=== PATIENT | female | born 1965 | race Caucasian/White ===

== ENCOUNTER → 2016-09-17 | Outpatient (REF) | payer BC ==
[2016-09-17 11:22] LABS: BASO % 0.6 % (0.0-1.0); EOS # 0.2 K/mm3 (0.0-0.50); EOS % 3.5 % (0.0-3.0); LARGE UNSTAINED CELL # 0.1 K/mm3 (0.0-0.4); LYMPH # 1.5 K/mm3 (1.5-4.5); LYMPH % 21.6 % (24.0-44.0); MEAN CORPUSCULAR HEMOGLOBIN 28.8 pg (27.0-33.0); MEAN CORPUSCULAR HGB CONC 33.1 g/dl (32.0-36.5); MEAN CORPUSCULAR VOLUME 86.9 fl (80.0-96.0); MONO # 0.2 K/mm3 (0.0-0.8); MONO % 2.6 % (0.0-5.0); NEUTROPHILS % 70.8 % (36.0-66.0); PLATELET COUNT, AUTOMATED 272 k/mm3 (150-450); WHITE BLOOD COUNT 7.1 K/mm3 (4.0-10.0)
[2016-09-17 12:00] LABS: ALBUMIN 3.9 GM/DL (3.2-5.2); ALBUMIN/GLOBULIN RATIO 1.15 (1.00-1.93); ALKALINE PHOSPHATASE 64 U/L (45-117); ALT/SGPT 21 U/L (12-78); ANION GAP 10 MEQ/L (8-16); AST/SGOT 4 U/L (15-37); BILIRUBIN,TOTAL 0.2 MG/DL (0.2-1.0); BLOOD UREA NITROGEN 16 MG/DL (7-18); CALCIUM LEVEL 9.2 MG/DL (8.5-10.1); CARBON DIOXIDE LEVEL 25 MEQ/L (21-32); CHLORIDE LEVEL 108 MEQ/L (98-107); CREATININE FOR GFR 0.99 MG/DL (0.55-1.02); GLOMERULAR FILTRATION RATE > 60.0 (>51); GLUCOSE, FASTING 92 MG/DL (70-105); POTASSIUM SERUM 4.3 MEQ/L (3.5-5.1); SODIUM LEVEL 143 MEQ/L (136-145); THYROXINE (T4) 8.9 UG/DL (4.5-12.0); TOTAL PROTEIN 7.3 GM/DL (6.4-8.2)
== END ==
LOC: M SFHCCLAY 09:19
PROVIDERS: ATTEND Family Medicine
DX: J01.00 Acute maxillary sinusitis, unspecified (principal); R05 Cough; I10 Essential (primary) hypertension; R22.1 Localized swelling, mass and lump, neck

== ENCOUNTER → 2016-10-11 | Outpatient (CLI) | payer BC ==
--- NOTE | 2016-10-12 00:15 | ECWPNPC ---
PATIENT NAME: TONE NELSON : 1965 GENDER: FEMALE VISIT DATE: 10/11/2016 DISCHARGE DATE: 10/11/16 1105 VISIT LOCKED DATE TIME: PHYSICIAN: WEN MCCORD RESOURCE: WEN MCCORD REASON FOR APPOINTMENT 1. BACK HISTORY OF PRESENT ILLNESS NEW PATIENT CONSULT: 50 Y/O HERE PER REFERRAL OF [facility] FOR LOW BACK PAIN.ATTENDING PT 2X WEEK THAT JUST BEGAN.LONG HISTORY OF LOW BACK PAIN.PAIN IS AGGREVATED BY PROLONGED SITTING OR STANDING.USING TENS UNIT WITH SOME TEMPORARY RELIEF. WHEN DID YOUR PAIN FIRST START? . BRIEFLY DESCRIBE HOW YOUR PAIN STARTED? . HOW DOES YOUR PAIN CHANGE WITH TIME? . DOES YOUR PAIN AWAKEN YOU FROM SLEEP? . HOW MANY HOURS OF SLEEP DO YOU NORMALLY GET? . ANY DIAGNOSTIC TESTING? . FACILITY WHERE TESTS WERE DONE? ____. PAIN TREATMENT TREATMENT YES CANCER HAVE YOU EVER HAD ANY TYPE OF CANCER?NO NO. PAIN SCREENING: PATIENT HAS A COMPLAINT OF ACUTE OR CHRONIC PAIN YES FALL RISK SCREENING: SCREENING :NO FALLS IN THE PAST YEAR [place] INVENTORY: QUESTIONNAIRE ASSESSEDTBD SCORE VALUE CALCULATED TBD CURRENT MEDICATIONS TAKING ASPIR-81 81 MG TABLET DELAYED RELEASE 1 TABLET ORALLY ONCE A DAY TAKING MELATONIN 3 MG TABLET 1 TABLET AT BEDTIME NEEDED WITH FOOD ORALLY ONCE A DAY TAKING SPIRONOLACTONE 25 MG TABLET 1 TABLET ORALLY ONCE A DAY TAKING LISINOPRIL 10 MG TABLET 1 TABLET ORALLY ONCE A DAY TAKING SYMBICORT 160-4.5 MCG/ACT AEROSOL 2 PUFFS INHALATION TWICE A DAY TAKING BACLOFEN 10 MG TABLET 1 TABLET WITH FOOD OR MILK ORALLY THREE TIMES A DAY TAKING AMITRIPTYLINE HCL 25 MG TABLET 1 TABLET ORALLY ONCE A DAY TAKING SUMATRIPTAN SUCCINATE 100 MG TABLET 1 TABLET NEEDED ONCE A DAY ORALLY 90 DAYS TAKING DICLOFENAC SODIUM 25 MG TABLET DELAYED RELEASE 1 TABLET ORALLY TWICE A DAY TAKING PANTOPRAZOLE SODIUM 40 MG TABLET DELAYED RELEASE 1 TABLET ORALLY ONCE A DAY TAKING POTASSIUM CHLORIDE CR 20 MEQ TABLET EXTENDED RELEASE 1 TABLET WITH FOOD ORALLY ONCE A DAY TAKING VENTOLIN HFA 108 (90 BASE) MCG/ACT AEROSOL SOLUTION 2 PUFFS NEEDED INHALATION EVERY 4 HRS NOT-TAKING VITAMIN B 12 500 MCG LOZENGE 2 LOZENGES ORALLY ONCE A DAY DISCONTINUED NYSTATIN [id number] U/ML SUSPENSION RECONSTITUTED 1 TSP MOUTH/THROAT FOUR TIMES A DAY DISCONTINUED AMOXICILLIN-POT CLAVULANATE 875-125 MG TABLET 1 TABLET ORALLY EVERY 12 HRS MEDICATION LIST REVIEWED AND RECONCILED WITH THE PATIENT PAST MEDICAL HISTORY ASTHMA HTN NECK PAIN LUMBAGO MITRAL VALVE PROLAPSE GERD HYPERLIPIDEMIA CKD STAGE II LUPUS ALLERGIES SULFACET: HIVES: ALLERGY TOPIRAMATE: SHAKING: ALLERGY GABAPENTIN: SHAKING: ALLERGY SURGICAL HISTORY T&A 1975 CHOLECYSTECTOMY 1985 TUBAL LIGATION 1986 HYSTERECTOMY 2010 CERVICAL 4-7 DISC REPLACEMENT/FUSION 2014 CERVICAL 3 DISC REPLACEMENT 2016 FAMILY HISTORY FATHER: MOTHER: ALIVE, DIAGNOSED WITH DIABETES, HYPERTENSION, STROKE 2 SON(S) - HEALTHY. SOCIAL HISTORY GENERAL: TOBACCO USE ARE YOU A:CURRENT SMOKER HOW OFTEN DO YOU SMOKE CIGARETTES?EVERY DAY PATIENT COUNSELED ON THE DANGERS OF TOBACCO USE AND URGED TO QUIT:10/11/2016 ARE YOU INTERESTED IN QUITTING?THINKING ABOUT QUITTING COUNSELED THE PATIENT ON SMOKING CESSATION, EDUCATION [id number]/2017 ALCOHOL SCREENING POINTS3 INTERPRETATIONPOSITIVE RECREATIONAL DRUG USE DRUG USE?NO CAFFEINE CAFFEINE USE?YES HOW OFTEN AND HOW MUCH? 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 DIET: REGULAR. EXERCISE: IN PT. MARITAL STATUS: . OTHERS AT HOME: SPOUSE AND NIECE WITH DOWN'S SYNDROME. RASTAFARI: NONE. LEARNING BARRIERS / SPECIAL NEEDS VISION IMPAIRED?YES :CORRECTIVE LENSES LEARNING PREFERENCES?YES :DEMONSTRATION/VERBAL INSTRUCTION MEDICATION ABUSE NO PSYCHOLOGICAL HX TREATMENTNO PAIN CLINIC PFS, CLERGY, PUBLIC HEALTH REFERRALS CLERGY REFERRAL NEEDED?NO WAS THE PROVIDER NOTIFIED OF ANY PERTINENT INFO?NO PFS REFERRAL NEEDED?NO PUBLIC HEALTH REFERRAL NEEDED?NO PATIENT: ____. ADVANCED DIRECTIVES HEALTH CARE PROXY?YES NAME OF HCP RASTA NELSON CONTACT # FOR HCP [phone] IF YES, DO YOU HAVE A COPY WITH YOU? 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 HOSPITALIZATION/MAJOR DIAGNOSTIC PROCEDURE PNEUMONIA 2016 SEE ABOVE SURGERIES REVIEW OF SYSTEMS CONSTITUTIONAL: RECENT ILLNESS DENIES . ANY CHANGE IN YOUR MEDICAL CONDITION? NO . CHILLS NO . FEVER NO, DENIES . WEIGHT LOSS DENIES . INFECTION: DO YOU HAVE NEW INFECTIONS? NO . DO YOU HAVE HISTORY OF MRSA? NO . MUSCULOSKELETAL: ANY NEW PATTERNS OF PAIN OR NUMBNESS? NO . SYTEMIC LUPUS YES . JOINT PAIN DENIES . JOINT STIFFNESS DENIES . GASTROENTEROLOGY: BOWEL INCONTINENCE DENIES . ANY NEW CHANGE IN BOWEL CONTROL? NO . BARRETTS ESOPHAGUS YES . CIRRHOSIS NO . HEPATITIS NO . LIVER FAILURE NO . ACID REFLUX YES . BLOOD IN STOOL DENIES . UNEXPLAINED WEIGHT LOSS NO . GENITOURINARY: ANY NEW CHANGE IN BLADDER CONTROL? NO . IS THERE A CHANCE YOU COULD BE ? NO . HEMATOLOGY/LYMPH: DENIES . BLEEDING DISORDER DENIES . DO YOU TAKE ANY BLOOD THINNERS? (FOR EXAMPLE- COUMADIN, PLAVIX, AGGRENOX, PLATEL, PRADAXA, OR XARELTO) NO . WHEN WAS YOUR LAST DOSE? DATE: TIME: . LOW PLATELET COUNT NO . SICKLE CELL DISEASE NO . VON WILLIEBRANDS NO . FACTOR V LEIDEN NO . THALLASEMIA NO . ANEMIA YES . EASY BRUISING YES, ON ASPIRIN . NEUROLOGY: HAVE YOU FALLEN IN THE PAST 6 MONTHS? NO . ANY NEW EXTREMITY NUMBNESS OR WEAKNESS? NO . HEAD INJURY NO . DEMENTIA NO . CEREBRAL PALSY NO . MULTIPLE SCLEROSIS NO . DIZZINESS INTERMITTENT, LIGHTHEADED SENSATION, WHILE GETTING UP FROM SITTING POSITION . HEADACHE INTERMITTENT, DENIES . SEIZURES DENIES . STROKES YES ? TIA . VERTIGO NO . CARDIOLOGY: DO YOU HAVE A PACEMAKER OR DEFIBRILLATOR? NO . ANGINA NO . HEART ATTACK NO . HEART SURGERY NO . CONGESTIVE HEART FAILURE/FLUID OVERLOAD NO . CHEST PAIN NO, DENIES . HIGH BLOOD PRESSURE ON MEDICATION(S) . IRREGULAR HEART BEAT NO . SHORTNESS OF BREATH DENIES . RESPIRATORY: HAVE YOU BEEN SICK IN THE PAST WEEK? YES URI 1 WEEK AGO . FEVER NO . FLU LIKE SYMPTOMS? NO . CPAP NO . BYPAP NO . ASTHMA YES . EMPHYSEMA NO . CHRONIC LUNG DISEASES YES COPD . SHORTNESS OF BREATH ON EXERTION YES . DO YOU USE ANY TYPE OF TOBACCO (SMOKE, SMOKELESS, CHEW)? YES 1/2 PPD . COUGH YES, NON-PRODUCTIVE, DENIES . SHORTNESS OF BREATH DENIES . SNORING NO . INTEGUMENTARY: DO YOU HAVE ANY RASHES OR OPEN SORES? NO . ALLERGIC/IMMUNO: ARE YOU ALLERGIC TO SHELLFISH OR IV DYE? NO . ANY NEW ALLERGIES? NO . PSYCHIATRIC: DO YOU HAVE THOUGHTS OF HURTING YOURSELF OR SOMEONE ELSE? NO . ARE YOU ABUSED, NEGLECTED, OR IN AN UNSAFE ENVIRONMENT? NO . ENDOCRINOLOGY: THYROID DISEASE DENIES . ARE YOU DIABETIC? NO . DIABETES DENIES . THYROID DISORDER NO . OTHER: DO YOU NEED ANY PRESCRIPTIONS? NO . IF YES, PLEASE LIST: ____ . ANY NEW PROBLEMS WITH YOUR MEDICATIONS? NO . WHEN DID YOU LAST EAT? ____ . WHEN DID YOU LAST DRINK? ____ . WHAT DID YOU LAST DRINK? ____ . NAME OF PERSON DRIVING YOU HOME? ____ . DO YOU HAVE ANY OTHER QUESTIONS OR CONCERNS NO . HEENT: CHANGE IN VISION DENIES . LOSS OF HEARING DENIES . TROUBLE SWALLOWING DENIES . PSYCHOLOGY: ANXIETY DENIES . DEPRESSION DENIES . UROLOGY: URINARY INCONTINENCE DENIES . BLOOD IN URINE DENIES . REVIEWED BY: PROVIDER: WEN MCKAY . VITAL SIGNS WT 259.8 LBS, HT 63 IN, BMI 46.02 INDEX, BP 146/83 MM HG, HR 79 /MIN, RR 16 /MIN, TEMP 98.5 F, OXYGEN SAT % 100, NA INITIALS TL 0945, REVIEWED BY: MLF. EXAMINATION GENERAL EXAMINATION: HEENT:HEAD:, NORMOCEPHALIC, EYES:, EYES NORMAL, NOSE:, NOSE CLEAR, THROAT: NORMAL. LUNGS:LUNG SOUNDS ARE CLEAR. HEART:HEART RATE REGULAR. ABDOMEN:SOFT AND NOT TENDER, NON-DISTENDED. MUSCULOSKELETAL:*. LUMBAR SACRAL SPINEMUSCLE STRENGTH TESTING 5/5 BILATERAL LOWER EXTREMITIES. PALPATION: NEGATIVE FOR PAIN OVER L/S SPINE. POSITIVE FOR PAIN OVER L/S PARASPINALS.SPECIFIC POINT TENDERNESS OVER LUMBAR FACET JOINTS BILAT.. THORACIC SPINENEGATIVE FOR PAIN WITH PALPATION OF THORACIC SPINE. NEGATIVE FOR PAIN WITH PALPATION OF THORACIC PARASPINAL. CERVICALNEGATIVE FOR PAIN WITH PALPATION OF CERVICAL SPINE. NEGATIVE FOR PAIN WITH PALPATION OF CERVICAL PARASPINALS. NEGATIVE FOR PAIN WITH PALPATION OF TRAPEZIUS BILAT. SKIN:NORMAL, NO RASH. NEUROLOGIC EXAM:ALERT AND ORIENTED X 3, DTRS 1-2+ IN ALL 4 EXTREMITIES, DENIES UPPER EXTREMETIES SENSORY LOSS, DENIES LOWER EXTREMETIES SENSORY LOSS. DIAGNOSTIC:MRI L/S [id number].. ASSESSMENTS LUMBAR FACET ARTHROPATHY - M12.88 (PRIMARY) TREATMENT LUMBAR FACET ARTHROPATHY INJECTION FACET JOINT/NERVE LUMBAR/SACRAL NOTES: FACET JOINT INJECTION: YOUR EXPERIENCE MATERIAL WAS PRINTED. OTHERS CLINICAL NOTES:. PROCEDURE CODES FA211 ESTABILISHED PATIENT [facility] FACILITY CHARGE DISPOSITION & COMMUNICATION FOLLOW UP 2WK POST (REASON: BILAT. L3/4-L5/S1 THERAPEUTIC FACET BLOCK) ELECTRONICALLY SIGNED BY NELY MCCATRNEY ON 10/11/2016 AT 12:21 PM EST DISCLAIMER : THIS IS A VISIT SUMMARY EXTRACTED FROM THE [employer] CHART. IT IS NOT A COPY OF THE [employer] PROGRESS NOTE. NIRAV
== END ==
LOC: M PAIN 09:40
PROVIDERS: ATTEND Nurse Practitioner Family
DX: Z09 Encounter for follow-up examination after completed treatment for conditions other than malignant neoplasm (principal); G89.29 Other chronic pain; M12.88 Other specific arthropathies, not elsewhere classified, other specified site; I12.9 Hypertensive chronic kidney disease with stage 1 through stage 4 chronic kidney disease, or unspecified chronic kidney disease; N18.2 Chronic kidney disease, stage 2 (mild); J45.909 Unspecified asthma, uncomplicated; K21.9 Gastro-esophageal reflux disease without esophagitis; E78.5 Hyperlipidemia, unspecified; M54.5 Low back pain; I34.1 Nonrheumatic mitral (valve) prolapse; D68.62 Lupus anticoagulant syndrome; Z79.899 Other long term (current) drug therapy; Z79.82 Long term (current) use of aspirin; Z88.1 Allergy status to other antibiotic agents; Z88.8 Allergy status to other drugs, medicaments and biological substances

== ENCOUNTER → 2016-12-16 | Outpatient (CLI) | payer BC ==
--- NOTE | 2016-12-16 23:20 | ECWPNPC ---
PATIENT NAME: TONE NELSON : 1965 GENDER: FEMALE VISIT DATE: 12/16/2016 DISCHARGE DATE: 12/16/16 1005 VISIT LOCKED DATE TIME: PHYSICIAN: WEN MCCORD RESOURCE: WEN MCCORD HISTORY OF PRESENT ILLNESS HISTORY OF PRESENT ILLNESS: HERE FOR F/U AND MANAGEMENT OF CHRONIC LOW BACK PAIN.COMPLAINING OF BILATERAL LEG BURNING ,NUMBNESS AND TINGLING.THIS BEGAN 2 YEARS AGO AND HAS BEEN MORE PRONOUNCEDTHIS PAST YEAR. LUMBAR FACET LOCKS-THERAPEUTIC ,HAVE BEEN DENIED.FOLLOWING CLOSELY WITH DR. ALVAREZ FOR LOW BACK PAIN .HISTORY OF 2 NECK FUSIONS FIRST IN 2014 AND SECOND 2015.RATING PAIN VAS 5/10. PAIN THE PATIENT DESCRIBES THE PAIN... FALL RISK SCREENING: SCREENING :NO FALLS IN THE PAST YEAR CURRENT MEDICATIONS TAKING ASPIR-81 81 MG TABLET DELAYED RELEASE 1 TABLET ORALLY ONCE A DAY TAKING MELATONIN 3 MG TABLET 1 TABLET AT BEDTIME NEEDED WITH FOOD ORALLY ONCE A DAY TAKING SPIRONOLACTONE 25 MG TABLET 1 TABLET ORALLY ONCE A DAY TAKING LISINOPRIL 10 MG TABLET 1 TABLET ORALLY ONCE A DAY TAKING SYMBICORT 160-4.5 MCG/ACT AEROSOL 2 PUFFS INHALATION TWICE A DAY TAKING BACLOFEN 10 MG TABLET 1 TABLET WITH FOOD OR MILK ORALLY THREE TIMES A DAY TAKING AMITRIPTYLINE HCL 25 MG TABLET 1 TABLET ORALLY ONCE A DAY TAKING SUMATRIPTAN SUCCINATE 100 MG TABLET 1 TABLET NEEDED ONCE A DAY ORALLY 90 DAYS TAKING DICLOFENAC SODIUM 25 MG TABLET DELAYED RELEASE 1 TABLET ORALLY TWICE A DAY TAKING POTASSIUM CHLORIDE CR 20 MEQ TABLET EXTENDED RELEASE 1 TABLET WITH FOOD ORALLY ONCE A DAY TAKING VENTOLIN HFA 108 (90 BASE) MCG/ACT AEROSOL SOLUTION 2 PUFFS NEEDED INHALATION EVERY 4 HRS TAKING PANTOPRAZOLE SODIUM 40 MG TABLET DELAYED RELEASE 1 TABLET ORALLY ONCE A DAY TAKING MAGNESIUM 65 MG TABLET 1 TABLET ORALLY ONCE A DAY NOT-TAKING VITAMIN B 12 500 MCG LOZENGE 2 LOZENGES ORALLY ONCE A DAY PAST MEDICAL HISTORY ASTHMA HTN NECK PAIN LUMBAGO MITRAL VALVE PROLAPSE GERD HYPERLIPIDEMIA CKD STAGE III LUPUS ALLERGIES SULFACET: HIVES: ALLERGY TOPIRAMATE: SHAKING: ALLERGY GABAPENTIN: SHAKING: ALLERGY SOCIAL HISTORY GENERAL: TOBACCO USE ARE YOU A:CURRENT SMOKER HOW MANY CIGARETTES A DAY DO YOU SMOKE?6-10 HOW SOON AFTER YOU WAKE UP DO YOU SMOKE YOUR FIRST CIGARETTE?6-30 MIN HOW OFTEN DO YOU SMOKE CIGARETTES?EVERY DAY PATIENT COUNSELED ON THE DANGERS OF TOBACCO USE AND URGED TO QUIT:12/16/2016 ARE YOU INTERESTED IN QUITTING?THINKING ABOUT QUITTING CUTTING DOWN PREVIOUS QUIT ATTEMPTS?YES, MORE THAN 6 MONTHS AGO. COUNSELED THE PATIENT ON SMOKING CESSATION, EDUCATION [id number]/24/2017 PAIN CLINIC PFS, CLERGY, PUBLIC HEALTH REFERRALS CLERGY REFERRAL NEEDED?NO WAS THE PROVIDER NOTIFIED OF ANY PERTINENT INFO?NO PFS REFERRAL NEEDED?NO PUBLIC HEALTH REFERRAL NEEDED?NO PATIENT: ____. REVIEW OF SYSTEMS CONSTITUTIONAL: ANY CHANGE IN YOUR MEDICAL CONDITION? NO . RECENT ILLNESS DENIES . CHILLS NO . FEVER NO . WEIGHT LOSS DENIES . INFECTION: DO YOU HAVE NEW INFECTIONS? NO . DO YOU HAVE HISTORY OF MRSA? NO . MUSCULOSKELETAL: ANY NEW PATTERNS OF PAIN OR NUMBNESS? NO . GASTROENTEROLOGY: ANY NEW CHANGE IN BOWEL CONTROL? YES, CONSTIPATION IS WORSE . GENITOURINARY: ANY NEW CHANGE IN BLADDER CONTROL? YES, URINATES LESS FREQUENTLY--STAGE 3 KIDNEY DISEASE . IS THERE A CHANCE YOU COULD BE ? NO . HEMATOLOGY/LYMPH: DO YOU TAKE ANY BLOOD THINNERS? (FOR EXAMPLE- COUMADIN, PLAVIX, AGGRENOX, PLATEL, PRADAXA, OR XARELTO) NO . WHEN WAS YOUR LAST DOSE? DATE: TIME: . NEUROLOGY: HAVE YOU FALLEN IN THE PAST 6 MONTHS? NO . ANY NEW EXTREMITY NUMBNESS OR WEAKNESS? NO . CARDIOLOGY: DO YOU HAVE A PACEMAKER OR DEFIBRILLATOR? NO . CHEST PAIN DENIES . SHORTNESS OF BREATH DENIES . RESPIRATORY: HAVE YOU BEEN SICK IN THE PAST WEEK? NO . FEVER NO . FLU LIKE SYMPTOMS? NO . COUGH NO, DENIES . SHORTNESS OF BREATH DENIES . INTEGUMENTARY: DO YOU HAVE ANY RASHES OR OPEN SORES? YES, SMALL SCAB RIGHT ARM FROM WHERE SHE SCRATCHED IT ON A BRANCH . ALLERGIC/IMMUNO: ARE YOU ALLERGIC TO SHELLFISH OR IV DYE? NO . ANY NEW ALLERGIES? NO . PSYCHIATRIC: DO YOU HAVE THOUGHTS OF HURTING YOURSELF OR SOMEONE ELSE? NO . ARE YOU ABUSED, NEGLECTED, OR IN AN UNSAFE ENVIRONMENT? NO . ENDOCRINOLOGY: ARE YOU DIABETIC? NO . OTHER: DO YOU NEED ANY PRESCRIPTIONS? NO . IF YES, PLEASE LIST: ____ . ANY NEW PROBLEMS WITH YOUR MEDICATIONS? NO . WHEN DID YOU LAST EAT? ____ . WHEN DID YOU LAST DRINK? ____ . WHAT DID YOU LAST DRINK? ____ . NAME OF PERSON DRIVING YOU HOME? ____ . DO YOU HAVE ANY OTHER QUESTIONS OR CONCERNS NO . REVIEWED BY: PROVIDER: WEN MCKAY . VITAL SIGNS WT 158.8 LBS, HT 63 IN, BMI 28.13 INDEX, BP 145/68 MM HG, HR 93 /MIN, RR 16 /MIN, TEMP 98.7 F, OXYGEN SAT % 97%, NA INITIALS SC 09:19, REVIEWED BY: AD. EXAMINATION GENERAL EXAMINATION: LUNGS:LUNG SOUNDS ARE CLEAR. HEART:HEART RATE REGULAR. MUSCULOSKELETAL:*, MUSCLE STRENGTH TESTING 5/5 BILATERAL, PALPATION: NEGATIVE FOR PAIN OVER L/S SPINE. NEGATIVE FOR PAIN OVER L/S PARSPINALS. DIAGNOSTIC:MRI L/S SPINE 02-09-16-REVIEWED. ASSESSMENTS LUMBAR FACET ARTHROPATHY - M12.88 (PRIMARY) NEUROPATHY - G62.9 TREATMENT LUMBAR FACET ARTHROPATHY START CYMBALTA CAPSULE DELAYED RELEASE PARTICLES, 30 MG, 1 CAPSULE, ORALLY, ONCE A DAY, 30 DAY(S), 30 CAPSULE, REFILLS 2 PREVENTIVE MEDICINE PAIN CLINIC TEACHING: MEDICATIONS PRINTED INFORMATION ON CYMBALTA GIVEN TO AND REVIEWED WITH PT. AND SHE VERBALIZED UNDERSTANDING. AD. PROCEDURE CODES FA211 ESTABILISHED PATIENT [facility] CHARGE DISPOSITION & COMMUNICATION FOLLOW UP 6 WEEKS ELECTRONICALLY SIGNED BY NELY MCCARTNEY ON 12/16/2016 AT 11:11 AM EDT DISCLAIMER : THIS IS A VISIT SUMMARY EXTRACTED FROM THE [employer] CHART. IT IS NOT A COPY OF THE [employer] PROGRESS NOTE. NIRAV
== END ==
LOC: M PAIN 09:20
PROVIDERS: ATTEND Nurse Practitioner Family
DX: G89.29 Other chronic pain (principal); M54.5 Low back pain; M12.88 Other specific arthropathies, not elsewhere classified, other specified site; G62.9 Polyneuropathy, unspecified; J45.909 Unspecified asthma, uncomplicated; I12.9 Hypertensive chronic kidney disease with stage 1 through stage 4 chronic kidney disease, or unspecified chronic kidney disease; N18.3 Chronic kidney disease, stage 3 (moderate); K21.9 Gastro-esophageal reflux disease without esophagitis; E78.5 Hyperlipidemia, unspecified; M32.9 Systemic lupus erythematosus, unspecified; F17.200 Nicotine dependence, unspecified, uncomplicated; Z88.2 Allergy status to sulfonamides; K59.00 Constipation, unspecified; Z79.82 Long term (current) use of aspirin; Z79.899 Other long term (current) drug therapy

== ENCOUNTER → 2016-12-17 | Outpatient (REF) | payer BC ==
[2016-12-17 19:12] LABS: CALCIUM LEVEL 9.4 MG/DL (8.5-10.1); CREATININE FOR GFR 1.24 MG/DL (0.55-1.02); GLOMERULAR FILTRATION RATE 48.2 (>51)
== END ==
LOC: M SFHCCLAY 11:20
PROVIDERS: ATTEND Family Medicine
DX: N18.3 Chronic kidney disease, stage 3 (moderate) (principal)

== ENCOUNTER → 2016-12-23 | Outpatient (CLI) | payer BC ==
--- NOTE | 2016-12-23 12:35 | REP ---
MR LUMBAR SPINE WITHOUT CONTRAST: HISTORY: Back pain. COMPARISON: 02/09/2016 Decreased signal intensity on T2-weighted images is present in the L4-5 and L5-S1 intervertebral discs. The discs are decreased in height. These findings are consistent with disc degeneration. There is no disc bulge or herniation at the L1-2, L2-3 and L5-S1 levels. There is hypertrophy of the posterior articulating facets at the L5-S1 level. The nerves exit the neural foramina without compression. A diffuse disc bulge is present at the L3-4 level. There is minimal compression of the thecal sac. The L3 nerves exit the neural foramina without compression. A diffuse disc bulge is present at the L4-5 level. There is hypertrophy of the ligamenta flava and posterior articulating facets. These findings produce minimal central canal stenosis. The previously noted small posterior cystic structure is not seen. The L4 nerves exit the neural foramina without compression. The conus medullaris is normal in appearance terminating at level of the T12-L1 intervertebral discs. Normal signal intensity is present in the lumbar vertebral bodies. IMPRESSION: 1. Diffuse disc bulge at the L3-4 level with minimal thecal sac compression. 2. Minimal central canal stenosis at the L4-5 level secondary to disc bulge ligamentous and facet hypertrophy. There is no significant change compared to the previous study. Signed by Aly Nunez MD 12/23/2016 12:38 P
== END ==
LOC: M RAD 10:46
PROVIDERS: ATTEND Orthopaedic Surgery
DX: M51.26 Other intervertebral disc displacement, lumbar region (principal)

== ENCOUNTER → 2017-01-27 | Outpatient (CLI) | payer BC ==
--- NOTE | 2017-01-28 01:50 | ECWPNPC ---
PATIENT NAME: TONE NELSON : 1965 GENDER: FEMALE VISIT DATE: 01/27/2017 DISCHARGE DATE: 01/27/17931 VISIT LOCKED DATE TIME: PHYSICIAN: WEN MCCORD RESOURCE: WEN MCCORD REASON FOR APPOINTMENT 1. LOW BACK HISTORY OF PRESENT ILLNESS HISTORY OF PRESENT ILLNESS: HERE FOR F/U AND MANAGEMENT OF CHRONIC LOW BACK PAIN.COMPLAINING OF BILATERAL LEG BURNING ,NUMBNESS AND TINGLING.THIS BEGAN 2 YEARS AGO AND HAS BEEN MORE PRONOUNCEDTHIS PAST YEAR. LUMBAR FACET LOCKS-THERAPEUTIC ,HAVE BEEN DENIED.FOLLOWING CLOSELY WITH DR. ALVAREZ FOR LOW BACK PAIN .HISTORY OF 2 NECK FUSIONS FIRST IN 2014 AND SECOND 2015.RATING PAIN VAS 4/10. PAIN THE PATIENT DESCRIBES THE PAIN... THE PATIENT DESCRIBES THE PAIN... FALL RISK SCREENING: SCREENING :NO FALLS IN THE PAST YEAR CURRENT MEDICATIONS TAKING ASPIR-81 81 MG TABLET DELAYED RELEASE 1 TABLET ORALLY ONCE A DAY TAKING MELATONIN 3 MG TABLET 1 TABLET AT BEDTIME NEEDED WITH FOOD ORALLY ONCE A DAY TAKING SPIRONOLACTONE 25 MG TABLET 1 TABLET ORALLY ONCE A DAY TAKING LISINOPRIL 10 MG TABLET 1 TABLET ORALLY ONCE A DAY TAKING SYMBICORT 160-4.5 MCG/ACT AEROSOL 2 PUFFS INHALATION TWICE A DAY TAKING BACLOFEN 10 MG TABLET 1 TABLET WITH FOOD OR MILK ORALLY THREE TIMES A DAY TAKING SUMATRIPTAN SUCCINATE 100 MG TABLET 1 TABLET NEEDED ONCE A DAY ORALLY 90 DAYS TAKING DICLOFENAC SODIUM 25 MG TABLET DELAYED RELEASE 1 TABLET ORALLY TWICE A DAY TAKING POTASSIUM CHLORIDE CR 20 MEQ TABLET EXTENDED RELEASE 1 TABLET WITH FOOD ORALLY ONCE A DAY TAKING VENTOLIN HFA 108 (90 BASE) MCG/ACT AEROSOL SOLUTION 2 PUFFS NEEDED INHALATION EVERY 4 HRS TAKING MAGNESIUM 65 MG TABLET 1 TABLET ORALLY ONCE A DAY TAKING CYMBALTA 30 MG CAPSULE DELAYED RELEASE PARTICLES 1 CAPSULE ORALLY ONCE A DAY TAKING MOMETASONE FUROATE 50 MCG/ACT SUSPENSION 2 SPRAYS IN EACH NOSTRIL NASALLY ONCE A DAY TAKING OMEPRAZOLE 40 MG CAPSULE DELAYED RELEASE 1 CAPSULE ORALLY ONCE A DAY TAKING ONDANSETRON HCL 8 MG TABLET 1 TABLET ORALLY TWICE DAILY TAKING AMITRIPTYLINE HCL 50 MG TABLET 1 TABLET ORALLY ONCE A DAY NOT-TAKING VITAMIN B 12 500 MCG LOZENGE 2 LOZENGES ORALLY ONCE A DAY MEDICATION LIST REVIEWED AND RECONCILED WITH THE PATIENT PAST MEDICAL HISTORY ASTHMA HTN NECK PAIN LUMBAGO MITRAL VALVE PROLAPSE GERD HYPERLIPIDEMIA CKD STAGE III LUPUS ALLERGIES SULFACET: HIVES: ALLERGY TOPIRAMATE: SHAKING: ALLERGY GABAPENTIN: SHAKING: ALLERGY SURGICAL HISTORY T&A 1975 CHOLECYSTECTOMY 1986 TUBAL LIGATION 1986 HYSTERECTOMY 2010 CERVICAL 4-7 DISC REPLACEMENT/FUSION 2015 CERVICAL 3 DISC REPLACEMENT 2016 HOSPITALIZATION/MAJOR DIAGNOSTIC PROCEDURE PNEUMONIA 2016 SEE ABOVE SURGERIES REVIEW OF SYSTEMS CONSTITUTIONAL: ANY CHANGE IN YOUR MEDICAL CONDITION? NO . CHILLS NO . FEVER NO . INFECTION: DO YOU HAVE NEW INFECTIONS? NO . DO YOU HAVE HISTORY OF MRSA? NO . MUSCULOSKELETAL: ANY NEW PATTERNS OF PAIN OR NUMBNESS? NO . GASTROENTEROLOGY: ANY NEW CHANGE IN BOWEL CONTROL? YES, CONSTIPATION . GENITOURINARY: ANY NEW CHANGE IN BLADDER CONTROL? YES, KIDNEY FUNCTION DROPPING, PT STATES SHE URINATES VERY LITTLE. PT STATES DR. PETTIT IS COVERING HER FOR THIS. . IS THERE A CHANCE YOU COULD BE ? NO . HEMATOLOGY/LYMPH: DO YOU TAKE ANY BLOOD THINNERS? (FOR EXAMPLE- COUMADIN, PLAVIX, AGGRENOX, PLATEL, PRADAXA, OR XARELTO) NO . WHEN WAS YOUR LAST DOSE? DATE: TIME: . NEUROLOGY: HAVE YOU FALLEN IN THE PAST 6 MONTHS? NO . ANY NEW EXTREMITY NUMBNESS OR WEAKNESS? NO . CARDIOLOGY: DO YOU HAVE A PACEMAKER OR DEFIBRILLATOR? NO . RESPIRATORY: HAVE YOU BEEN SICK IN THE PAST WEEK? YES, COLD S/S RESOLVING . FEVER NO . FLU LIKE SYMPTOMS? NO . COUGH NO . INTEGUMENTARY: DO YOU HAVE ANY RASHES OR OPEN SORES? NO . ALLERGIC/IMMUNO: ARE YOU ALLERGIC TO SHELLFISH OR IV DYE? NO . ANY NEW ALLERGIES? NO . PSYCHIATRIC: DO YOU HAVE THOUGHTS OF HURTING YOURSELF OR SOMEONE ELSE? NO . ARE YOU ABUSED, NEGLECTED, OR IN AN UNSAFE ENVIRONMENT? NO . ENDOCRINOLOGY: ARE YOU DIABETIC? NO . OTHER: DO YOU NEED ANY PRESCRIPTIONS? NO, TO DISCUSS WITH Tiana MCCORD . IF YES, PLEASE LIST: ____ . ANY NEW PROBLEMS WITH YOUR MEDICATIONS? NO . WHEN DID YOU LAST EAT? ____ . WHEN DID YOU LAST DRINK? ____ . WHAT DID YOU LAST DRINK? ____ . NAME OF PERSON DRIVING YOU HOME? ____ . DO YOU HAVE ANY OTHER QUESTIONS OR CONCERNS NO . REVIEWED BY: PROVIDER: WEN MCKAY . VITAL SIGNS WT 151.0 LBS, HT 63 IN, BMI 26.75 INDEX, BP 124/59 MM HG, HR 89 /MIN, RR 16 /MIN, TEMP 99.5 F, OXYGEN SAT % 99%, SAFE IN ENV? (Y/N) Y, NA INITIALS TL 0859, REVIEWED BY: EM. EXAMINATION GENERAL EXAMINATION: LUNGS:LUNG SOUNDS ARE CLEAR. HEART:HEART RATE REGULAR. MUSCULOSKELETAL:*, MUSCLE STRENGTH TESTING 5/5 BILATERAL, PALPATION: NEGATIVE FOR PAIN OVER L/S SPINE. NEGATIVE FOR PAIN OVER L/S PARSPINALS. DIAGNOSTIC:MRI L/S SPINE 02-09-16-REVIEWED. ASSESSMENTS LUMBAR FACET ARTHROPATHY - M12.88 (PRIMARY) NEUROPATHY - G62.9 TREATMENT LUMBAR FACET ARTHROPATHY REFILL CYMBALTA CAPSULE DELAYED RELEASE PARTICLES, 30 MG, 1 CAPSULE, ORALLY, ONCE A DAY, 30 DAY(S), 30 CAPSULE, REFILLS 2 PROCEDURE CODES FA211 ESTABILISHED PATIENT [facility] FACILITY CHARGE DISPOSITION & COMMUNICATION FOLLOW UP 2 MONTHS ELECTRONICALLY SIGNED BY NELY MCCARTNEY ON 01/27/2017 AT 09:33 AM EDT DISCLAIMER : THIS IS A VISIT SUMMARY EXTRACTED FROM THE [facility] CHART. IT IS NOT A COPY OF THE [facility] PROGRESS NOTE. NIRAV
== END ==
LOC: M PAIN 09:00
PROVIDERS: ATTEND Nurse Practitioner Family
DX: G89.29 Other chronic pain (principal); M12.88 Other specific arthropathies, not elsewhere classified, other specified site; G62.9 Polyneuropathy, unspecified; J45.909 Unspecified asthma, uncomplicated; I12.9 Hypertensive chronic kidney disease with stage 1 through stage 4 chronic kidney disease, or unspecified chronic kidney disease; N18.3 Chronic kidney disease, stage 3 (moderate); K21.9 Gastro-esophageal reflux disease without esophagitis; E78.5 Hyperlipidemia, unspecified; M32.9 Systemic lupus erythematosus, unspecified; Z88.2 Allergy status to sulfonamides; Z88.8 Allergy status to other drugs, medicaments and biological substances; K59.00 Constipation, unspecified; Z79.82 Long term (current) use of aspirin; Z79.899 Other long term (current) drug therapy

== ENCOUNTER → 2017-02-20 | Outpatient (REF) | payer BC ==
[2017-02-20 14:09] LABS: PERCENT SATURATION 12.2 % (13.2-37.4)
== END ==
LOC: M LAB REF 13:20
PROVIDERS: ATTEND Internal Medicine Nephrology
DX: D64.9 Anemia, unspecified (principal)

== ENCOUNTER → 2017-03-04 | Outpatient (CLI) | payer BC ==
[2017-03-04 12:42] LABS: CREATININE FOR GFR 1.39 MG/DL (0.55-1.02); GLOMERULAR FILTRATION RATE 42.2 (>51)
--- NOTE | 2017-03-04 15:19 | REP ---
MR BRAIN WITHOUT AND WITH CONTRAST: HISTORY: Pineal cyst. CONTRAST: ProHance 7 mL. COMPARISON: 10/27/2015 Areas of increased signal intensity on T2-weighted images are present in the periventricular and subcortical white matter. This represents small vessel ischemic disease. There is no intraparenchymal hemorrhage, infarct, mass or midline shift. There is no abnormal enhancement. An incidental pineal cyst is present. The cyst measures 1.3 cm in transverse x 1.6 cm in AP dimensions and is unchanged in size compared to the previous study. The ventricular system is normal in appearance. There is no extracerebral collection. Mucosa thickening is present in the left sphenoid sinus. IMPRESSION: Small vessel ischemic disease. Signed by Aly Nunez MD 03/04/2017 03:24 P
== END ==
LOC: M LAB 12:03
PROVIDERS: ATTEND Neurological Surgery
DX: E34.8 Other specified endocrine disorders (principal)
CPT/HCPCS: 36415; 70553; 82565; 84520; A9576

== ENCOUNTER → 2017-03-10 | Outpatient (CLI) | payer BC ==
--- NOTE | 2017-03-10 15:06 | REP ---
Chest two views HISTORY: Cough Comparison: None The lungs are clear. The heart is normal in size. The pulmonary vasculature is normal in appearance. The bony structure is intact. IMPRESSION: No acute disease.
== END ==
LOC: M CLY 13:59
PROVIDERS: ATTEND Family Medicine
DX: R05 Cough (principal)

== ENCOUNTER → 2017-03-12 | Outpatient (REF) | payer BC ==
[2017-03-12 18:15] LABS: BASO % 0.3 % (0.0-1.0); CALCIUM LEVEL 9.5 MG/DL (8.5-10.1); CREATININE FOR GFR 1.56 MG/DL (0.55-1.02); EOS % 0.2 % (0.0-3.0); LARGE UNSTAINED CELL # 0.1 K/mm3 (0.0-0.4); LARGE UNSTAINED CELL % 0.6 % (0.0-4.0); LYMPH # 1.6 K/mm3 (1.5-4.5); MEAN CORPUSCULAR HEMOGLOBIN 30.1 pg (27.0-33.0); MEAN CORPUSCULAR HGB CONC 32.1 g/dl (32.0-36.5); MEAN CORPUSCULAR VOLUME 93.8 fl (80.0-96.0); MONO # 0.6 K/mm3 (0.0-0.8); MONO % 3.5 % (0.0-5.0); NEUTROPHILS # 15.6 K/mm3 (1.8-7.7); NEUTROPHILS % 86.5 % (36.0-66.0); PLATELET COUNT, AUTOMATED 428 k/mm3 (150-450); RED CELL DISTRIBUTION WIDTH 13.1 % (11.5-14.5)
[2017-03-12 18:16] LABS: POTASSIUM SERUM 5.3 MEQ/L (3.5-5.1)
== END ==
LOC: M SFHCCLAY 12:21
PROVIDERS: ATTEND Family Medicine
DX: E86.0 Dehydration (principal)

== ENCOUNTER → 2017-03-20 | Outpatient (REF) | payer BC ==
[2017-03-21 13:29] LABS: ALBUMIN 3.7 GM/DL (3.2-5.2); ALBUMIN/GLOBULIN RATIO 1.42 (1.00-1.93); ALKALINE PHOSPHATASE 42 U/L (45-117); ALT/SGPT 26 U/L (12-78); ANION GAP 10 MEQ/L (8-16); AST/SGOT 15 U/L (15-37); BILIRUBIN,TOTAL 0.2 MG/DL (0.2-1.0); BLOOD UREA NITROGEN 12 MG/DL (7-18); CALCIUM LEVEL 8.6 MG/DL (8.5-10.1); CARBON DIOXIDE LEVEL 29 MEQ/L (21-32); CHLORIDE LEVEL 103 MEQ/L (98-107); CREATININE FOR GFR 0.84 MG/DL (0.55-1.02); GLOMERULAR FILTRATION RATE > 60.0 (>51); GLUCOSE, FASTING 85 MG/DL (70-105); POTASSIUM SERUM 3.2 MEQ/L (3.5-5.1); SODIUM LEVEL 142 MEQ/L (136-145); TOTAL PROTEIN 6.3 GM/DL (6.4-8.2)
[2017-03-21 14:19] LABS: ADD MANUAL DIFFER YES; MEAN CORPUSCULAR HEMOGLOBIN 30.3 pg (27.0-33.0); MEAN CORPUSCULAR HGB CONC 33.4 g/dl (32.0-36.5); MEAN CORPUSCULAR VOLUME 90.7 fl (80.0-96.0); PLATELET COUNT, AUTOMATED 295 k/mm3 (150-450); RED CELL DISTRIBUTION WIDTH 13.1 % (11.5-14.5); WHITE BLOOD COUNT 9.2 K/mm3 (4.0-10.0)
[2017-03-21 14:29] LABS: BANDS 1 % (< 11); BASOPHILS 3 % (0-4); EOSINOPHILS 1 % (0-5)
[2017-03-21 15:27] LABS: ERYTHROCYTE SEDIMENTATION RATE 49 mm/hr (0-30)
== END ==
LOC: M SFHCCLAY 14:06
PROVIDERS: ATTEND Family Medicine
DX: I10 Essential (primary) hypertension (principal); R50.9 Fever, unspecified; M32.9 Systemic lupus erythematosus, unspecified; R25.1 Tremor, unspecified

== ENCOUNTER → 2017-03-20 | Outpatient (CLI) | payer BC ==
--- NOTE | 2017-03-21 01:45 | REP ---
Clinical: Cough . Comparison: 03/10/2017 . Technique: PA and lateral. Findings: The mediastinum and cardiac silhouette are normal. The lung corona are clear and without acute consolidation, effusion, or pneumothorax. The skeletal structures are intact and normal. Impression: 1. No acute cardiopulmonary process. Signed by Jona Johnson MD 03/21/2017 01:36 A
== END ==
LOC: M CLY 14:15
PROVIDERS: ATTEND Family Medicine
DX: R05 Cough (principal)

== ENCOUNTER 2017-09-15 09:04 | Outpatient (RCR) | payer BC | END 2017-09-24 | LOC: M OT 09:04 | DX: M77.11 Lateral epicondylitis, right elbow (principal) | CPT/HCPCS: 97110 ==

== ENCOUNTER → 2017-09-23 | Outpatient (REF) | payer BC ==
[2017-09-24 20:57] LABS: COMPLEMENT C3 142 MG/DL (90-180)
[2017-09-24 20:57] LABS: C REACTIVE PROTEIN QUANTITATIV 0.52 MG/DL (0.00-0.30); COMPLEMENT C4 28.6 MG/DL (10-40)
[2017-09-26 14:13] LABS: ANTI DOUBLE STRAND-DNA AB 1 IU/mL (0-9)
== END ==
LOC: M LAB REF 19:35
DX: M32.9 Systemic lupus erythematosus, unspecified (principal)
CPT/HCPCS: 86160

== ENCOUNTER 2017-10-06 10:34 | Outpatient (RCR) | payer BC | END 2017-10-22 | LOC: M OT 10:34 | DX: M77.11 Lateral epicondylitis, right elbow (principal) | CPT/HCPCS: 97110 ==

== ENCOUNTER → 2017-10-14 | Outpatient (CLI) | payer BC | LOC: M CLY 14:13 | DX: R05 Cough (principal) ==

== ENCOUNTER → 2017-10-14 | Outpatient (CLI) | payer BC | LOC: M CLY 14:29 | DX: R05 Cough (principal); R06.02 Shortness of breath | CPT/HCPCS: 71046 ==

== ENCOUNTER → 2017-11-13 | Outpatient (CLI) | payer BC ==
[2017-11-13 13:56] LABS: C REACTIVE PROTEIN QUANTITATIV 0.66 MG/DL (0.00-0.30)
[2017-11-14 14:15] LABS: ANTINUCLEAR ANTIBODIES DIRECT Negative (Negative)
[2017-11-18 08:05] LABS: PROMETHEUS IBD SNP SEE SEPARATE REPORT
[2017-11-18 08:06] LABS: PROMETHEUS IBD ANTIBODIES SEE SEPARATE REPORT
== END ==
LOC: M LAB 11:57
DX: R10.32 Left lower quadrant pain (principal); R10.31 Right lower quadrant pain; K59.1 Functional diarrhea
CPT/HCPCS: 86140

== ENCOUNTER → 2017-12-26 | Outpatient (REF) | payer BC ==
[2017-12-26 14:20] LABS: FREE T4 0.93 NG/DL (0.76-1.46)
== END ==
LOC: M LAB REF 13:25
DX: R60.0 Localized edema (principal)
CPT/HCPCS: 84443

== ENCOUNTER → 2018-02-23 | Outpatient (CLI) | payer BC | LOC: M CLY 13:54 | DX: J40 Bronchitis, not specified as acute or chronic (principal) | CPT/HCPCS: 71046 ==

== ENCOUNTER → 2018-05-07 | Outpatient (REF) | payer BC | LOC: M SFHCCLAY 16:10 | DX: G62.9 Polyneuropathy, unspecified (principal); R51 Headache; R43.2 Parageusia | CPT/HCPCS: G0463 ==

== ENCOUNTER → 2018-07-24 | Outpatient (CLI) | payer BC | LOC: M PLARAD 10:47 | DX: G62.9 Polyneuropathy, unspecified (principal); R51 Headache; R43.2 Parageusia | CPT/HCPCS: 70551 ==

== ENCOUNTER → 2018-08-26 | Outpatient (CLI) | payer BC ==
--- NOTE | 2018-09-01 11:31 | SLEEPHOME ---
DATE OF STUDY: 08/26/2018 ORDERING PROVIDER: Jerry Paniagua DO Diagnostic home sleep testing was performed due to concern for the obstructive sleep apnea syndrome in this patient with a history of excessive somnolence and nonrestorative sleep who has comorbidities of obstructive lung disease, hypertension, and fibromyalgia. For testing, a nocturnal T3 respiratory monitoring device was used. Continuous record was made of pulse, oxygen saturation, airflow, chest and abdominal strain, and body position. 9 hours and 59 minutes of data were reviewed. There were 6 hours and 39 minutes marked as time in bed. During the interval marked time in bed, there were 54 respiratory events identified of 10 seconds in duration or greater for a respiratory event index of 8.1. The events were primarily obstructive. Baseline pulse rate 71 beats per minute. Pulse rate ranged 59-92. Baseline saturation 92%. Saturations fell as low as 80%. Testing was performed in both the supine and nonsupine positions. IMPRESSION: Abnormal home sleep testing with repetitive respiratory events and oxygen desaturations to 80% with a respiratory event index of 8.1 is consistent with the obstructive sleep apnea syndrome. RECOMMENDATION: The patient should be encouraged to undergo formal sleep evaluation and in-laboratory pressure titration.
== END ==
LOC: M SLEEP HO 10:47
PROVIDERS: ATTEND Internal Medicine Pulmonary Disease
DX: R40.0 Somnolence (principal)

== ENCOUNTER → 2019-01-07 | Outpatient (REF) | payer BC ==
[2019-01-07 16:57] LABS: BASO # 0.1 10^3/uL (0.0-0.2); BASO % 0.6 % (0.0-1.0); EOS % 0.5 % (0.0-3.0); HEMATOCRIT 39.1 % (36.0-47.0); HEMOGLOBIN 12.3 g/dl (12.0-15.5); LYMPH # 1.6 10^3/uL (1.5-4.5); LYMPH % 17.6 % (24.0-44.0); MEAN CORPUSCULAR HEMOGLOBIN 28.1 pg (27.0-33.0); MEAN CORPUSCULAR HGB CONC 31.5 g/dl (32.0-36.5); MEAN CORPUSCULAR VOLUME 89.3 fl (80.0-96.0); MONO # 0.6 10^3/uL (0.0-0.8); MONO % 6.4 % (0.0-5.0); NEUTROPHILS # 6.6 10^3/uL (1.8-7.7); NEUTROPHILS % 74.4 % (36.0-66.0); PLATELET COUNT, AUTOMATED 318 10^3/uL (150-450); RED BLOOD COUNT 4.38 10^6/uL (4.00-5.40); WHITE BLOOD COUNT 8.8 10^3/uL (4.0-10.0)
[2019-01-07 17:05] LABS: ALBUMIN 3.8 GM/DL (3.2-5.2); ALT/SGPT 29 U/L (12-78); BILIRUBIN,TOTAL 0.3 MG/DL (0.2-1.0); BLOOD UREA NITROGEN 21 MG/DL (7-18); CARBON DIOXIDE LEVEL 31 MEQ/L (21-32); CHLORIDE LEVEL 104 MEQ/L (98-107); CHOLESTEROL LEVEL 192 MG/DL (<200); CREATININE FOR GFR 0.96 MG/DL (0.55-1.30); GLOMERULAR FILTRATION RATE > 60.0 (>51); GLUCOSE, FASTING 95 MG/DL (70-100); HDL CHOLESTEROL 58 MG/DL (>40); LDL CHOLESTEROL 77 MG/DL (<100); NON-HDL-C 134 MG/DL; POTASSIUM SERUM 4.2 MEQ/L (3.5-5.1); SODIUM LEVEL 140 MEQ/L (136-145); TOTAL PROTEIN 7.2 GM/DL (6.4-8.2); TRIGLYCERIDES LEVEL 284 MG/DL (<150)
== END ==
LOC: M SFHCCLAY 09:57
PROVIDERS: ATTEND Family Medicine
DX: I10 Essential (primary) hypertension (principal)

== ENCOUNTER → 2019-02-24 | Outpatient (CLI) | payer BC ==
--- NOTE | 2019-03-01 09:47 | REP ---
MRI lumbar spine without contrast: History: Low back pain. Urinary incontinence. Comparison MRI study is from December 23, 2016. Technique: Sagittal and axial T1 and T2-weighted scans are acquired in the usual fashion with and without fat saturation. Sequences include spin echo, turbo spin-echo, and STIR imaging sequences. MRI findings: Lumbar vertebral body heights are preserved. Alignment is normal. No bony destructive lesion is seen. There is a small Schmorl's node at the superior endplate of L4. Conus medullaris is normal in position and appearance at L1. No extra spinal abnormality is observed. Normal caliber aorta is seen. There is no evidence of spondylolysis or spondylolisthesis. The L1-2 disc level is unremarkable. At L2-3, there is minimal disc narrowing and diffuse disc bulging subtly indenting the ventral margin of the thecal sac. No central canal stenosis is seen. No neural foraminal compromise is appreciated. At L3-4, there is a small right foraminal disc protrusion. This contacts the exiting nerve root although there is no displacement or compression. Minimal diffuse disc bulging is seen in the remainder of the disc margin. No central canal stenosis is seen. At L4-L5 there is degenerative narrowing of the disc with diffuse disc bulging. There is moderate bilateral facet hypertrophy at L4-5. Some ligamentum flavum hypertrophy is seen. These factors contribute to mild central canal stenosis at the 4-5 level. Midline AP dimension of the thecal sac is 8.4 mm at this level. There is mild right foraminal narrowing due to facet hypertrophy and disc bulging. At L5-S1, there is moderate osteoarthritic facet hypertrophy. No central canal stenosis or focal disc protrusion is seen. Impression: Degenerative spondylosis changes at the L3-4 L4-5 and L5-S1. There is a small right foraminal disc protrusion at L3-4. There is mild central canal stenosis at L4-5 with right-sided neural foraminal narrowing at L4-5. Electronically Signed by Gold Morales MD 03/01/2019 11:57 A
== END ==
LOC: M RAD 17:29
PROVIDERS: ATTEND Physician Assistant
DX: M54.16 Radiculopathy, lumbar region (principal)

== ENCOUNTER → 2019-04-05 | Outpatient (CLI) | payer BC ==
--- NOTE | 2019-04-05 15:43 | REP ---
REASON FOR EXAM: COPD followup. COMPARISON: 02/23/2018. FINDINGS: The superior mediastinal structures are midline. The cardiac silhouette is unremarkable in size, shape, and position. The diaphragmatic surfaces of the lungs are regular, and the costophrenic angles are clear. The pulmonary corona are clear. The imaged osseous structures are intact. IMPRESSION: There is no acute cardiopulmonary disease. No significant change from the prior exam. Electronically Signed by Abelardo Buck DO 04/05/2019 04:50 P
== END ==
LOC: M SMT 14:35
PROVIDERS: ATTEND Internal Medicine Pulmonary Disease
DX: J44.1 Chronic obstructive pulmonary disease with (acute) exacerbation (principal)

== ENCOUNTER → 2019-04-06 | Outpatient (REF) | payer BC | LOC: M LAB REF 11:18 | PROVIDERS: ATTEND Internal Medicine Pulmonary Disease | DX: J44.1 Chronic obstructive pulmonary disease with (acute) exacerbation (principal) ==

== ENCOUNTER → 2019-04-15 | Outpatient (REF) | payer BC ==
[2019-04-15 17:29] LABS: BLOOD UREA NITROGEN 19 MG/DL (7-18); CALCIUM LEVEL 9.7 MG/DL (8.5-10.1); CARBON DIOXIDE LEVEL 29 MEQ/L (21-32); CHLORIDE LEVEL 104 MEQ/L (98-107); GLOMERULAR FILTRATION RATE > 60.0 (>51); GLUCOSE, FASTING 108 MG/DL (70-100); MAGNESIUM LEVEL 2.4 MG/DL (1.8-2.4); SODIUM LEVEL 140 MEQ/L (136-145)
== END ==
LOC: M SFHCCLAY 10:26
PROVIDERS: ATTEND Family Medicine
DX: I10 Essential (primary) hypertension (principal)

== ENCOUNTER → 2019-05-10 | Outpatient (REF) | payer BC ==
[2019-05-10 17:13] LABS: ALBUMIN 3.3 GM/DL (3.2-5.2); ALT/SGPT 42 U/L (12-78); BILIRUBIN,TOTAL 0.3 MG/DL (0.2-1.0); BLOOD UREA NITROGEN 13 MG/DL (7-18); CARBON DIOXIDE LEVEL 28 MEQ/L (21-32); CHLORIDE LEVEL 111 MEQ/L (98-107); CREATININE FOR GFR 0.82 MG/DL (0.55-1.30); GLOMERULAR FILTRATION RATE > 60.0 (>51); GLUCOSE, FASTING 101 MG/DL (70-100); MAGNESIUM LEVEL 1.8 MG/DL (1.8-2.4); POTASSIUM SERUM 4.2 MEQ/L (3.5-5.1); SODIUM LEVEL 143 MEQ/L (136-145); TOTAL PROTEIN 6.1 GM/DL (6.4-8.2)
[2019-05-10 17:18] LABS: BASO # 0.1 10^3/uL (0.0-0.2); BASO % 0.7 % (0.0-1.0); EOS # 0.2 10^3/uL (0.0-0.5); EOS % 3.4 % (0.0-3.0); HEMATOCRIT 37.9 % (36.0-47.0); HEMOGLOBIN 11.9 g/dl (12.0-15.5); LYMPH # 1.3 10^3/uL (1.5-5.0); LYMPH % 18.7 % (24.0-44.0); MEAN CORPUSCULAR HEMOGLOBIN 28.5 pg (27.0-33.0); MEAN CORPUSCULAR HGB CONC 31.4 g/dl (32.0-36.5); MEAN CORPUSCULAR VOLUME 90.9 fl (80.0-96.0); MONO # 0.4 10^3/uL (0.0-0.8); MONO % 5.5 % (0.0-5.0); PLATELET COUNT, AUTOMATED 249 10^3/uL (150-450); RED BLOOD COUNT 4.17 10^6/uL (4.00-5.40); WHITE BLOOD COUNT 7.1 10^3/uL (4.0-10.0)
== END ==
LOC: M SFHCCLAY 10:09
PROVIDERS: ATTEND Family Medicine
DX: R19.7 Diarrhea, unspecified (principal); I10 Essential (primary) hypertension; N18.3 Chronic kidney disease, stage 3 (moderate)

== ENCOUNTER → 2019-05-27 | Outpatient (CLI) | payer BC ==
--- NOTE | 2019-05-27 17:04 | REP ---
Maxillofacial CT study without contrast: History: Chronic pansinusitis. Comparison is made with MRI brain imaging from 24 July 2018. Findings: Digital alarm installer views are unremarkable. There is a small mucous retention cyst in the left side of the sphenoid sinus. There is a mucous retention cyst in the superior medial wall of the left maxillary sinus. Maxillary sinuses are otherwise clear. Ethmoid sinus and frontal sinuses are clear bilaterally. Mastoid aeration is normal and symmetric. Bony nasal septum deviates slightly to the right with a small beak. Ostiomeatal complexes are patent bilaterally. Nasal ethmoid recesses are unremarkable. There is no intraorbital abnormality visualized. The visualized intracranial structures are unremarkable. Impression: Mild mucosal changes in the left maxillary and left sphenoid sinuses. Mild rightward deviation of the nasal septum. Electronically Signed by Gold Morales MD 05/28/2019 08:01 A
== END ==
LOC: M RAD 15:04
PROVIDERS: ATTEND Otolaryngology
DX: J32.4 Chronic pansinusitis (principal)

== ENCOUNTER → 2019-06-22 | Outpatient (REF) | payer BC | LOC: M SFHCCLAY 09:30 | PROVIDERS: ATTEND Family Medicine | DX: R19.7 Diarrhea, unspecified (principal) ==

== ENCOUNTER → 2019-06-30 | Outpatient (REF) | payer BC | LOC: M LAB REF 13:19 → EEVIPCON 13:19 | PROVIDERS: ATTEND Physician Assistant | DX: J44.9 Chronic obstructive pulmonary disease, unspecified (principal) ==

== ENCOUNTER → 2019-10-12 | Outpatient (CLI) | payer BC ==
--- NOTE | 2019-10-12 12:56 | REP ---
Clinical: Lung screening. History smoking. Comparison: None Technique: Axial low-dose noncontrast images from the thoracic inlet to the upper abdomen using lung screening technique. Findings: The lung corona are well-aerated. Minimal lingular scarring noted. No consolidation, significant nodule or mass lesion is appreciated. No pleural effusion/reaction or pneumothorax. Tracheobronchial tree is patent. Mediastinum demonstrates mild atherosclerotic changes of the coronary arteries without cardiomegaly. Impression: Lung-RADS category I. Annual surveillance recommended. Electronically Signed by Jona Johnson MD 10/12/2019 12:46 P
== END ==
LOC: M RAD 11:12
PROVIDERS: ATTEND Internal Medicine Pulmonary Disease
DX: Z87.891 Personal history of nicotine dependence (principal)

== ENCOUNTER 2020-03-03 10:25 | Emergency (ER) | payer BC ==
[~2020-03-03] VITALS: Ht 157.5 cm; Wt 82.5 kg
[2020-03-03] MEDS ORDERED: AMIL5TAB4 PO (11:31)
[2020-03-03] MEDS ORDERED: SYMB16INH INH (11:31)
[2020-03-03] MEDS ORDERED: DIPH2.5T15 PO (11:31)
[2020-03-03] MEDS ORDERED: SPIR12.9 INH (11:31)
[2020-03-03] MEDS ORDERED: DICY20TA11 PO (11:31)
[2020-03-03] MEDS ORDERED: POTA10TA17 PO (11:31)
[2020-03-03] MEDS ORDERED: PANT40TA29 PO (11:31)
[2020-03-03] MEDS ORDERED: PREG50CA PO (11:31)
[2020-03-03] MEDS ORDERED: IRBE75TA4 PO (11:31)
[2020-03-03] MEDS ORDERED: AMIT-257 PO (11:31)
[2020-03-03] MEDS ORDERED: BACL10TA2 PO (11:31)
[2020-03-03 13:02] VITALS: BP 141/74
== END 2020-03-03 13:20 | disposition home or self-care (01) ==
LOC: M ED 10:25
DX: N81.10 Cystocele, unspecified (principal); I10 Essential (primary) hypertension; J44.9 Chronic obstructive pulmonary disease, unspecified; N18.3 Chronic kidney disease, stage 3 (moderate); F17.200 Nicotine dependence, unspecified, uncomplicated; K58.9 Irritable bowel syndrome, unspecified; Z79.899 Other long term (current) drug therapy; Z88.2 Allergy status to sulfonamides; Z88.6 Allergy status to analgesic agent; Z88.8 Allergy status to other drugs, medicaments and biological substances

== ENCOUNTER 2020-03-24 16:20 | Emergency (ER) | payer BC ==
[~2020-03-24 16:20] MED LIST: AMIL5TAB4 PO; AMIT-257 PO; BACL10TA2 PO; DICY20TA11 PO; DIPH2.5T15 PO; IRBE75TA4 PO; PANT40TA3 PO; POTA10TA17 PO; PREG50CA PO; SPIR12.9 INH; SYMB16INH INH
== END 2020-03-24 16:57 | disposition home or self-care (01) ==
LOC: M ED 16:20
DX: Z11.59 Encounter for screening for other viral diseases (principal); Z88.2 Allergy status to sulfonamides; Z88.8 Allergy status to other drugs, medicaments and biological substances; Z79.82 Long term (current) use of aspirin; Z79.899 Other long term (current) drug therapy
CPT/HCPCS: 84484; 99284; U0002

== ENCOUNTER → 2020-05-29 | Outpatient (CLI) | payer BC ==
[~2020-05-29] MED LIST changes: +PANT40TA29 PO; -PANT40TA3 PO
--- NOTE | 2020-05-29 10:40 | REPVR ---
PROCEDURE INFORMATION: Exam: MR Head Without Contrast Exam date and time: 05/29/2020 10:20 AM Age: 54 years old Clinical indication: Pain; Headache; Tension; Patient HX: Frequent persistent h/a, and blurry vision; Additional info: Daily hollis's TECHNIQUE: Imaging protocol: MR of the head without contrast. COMPARISON: MRI-Brain without Contrast 07/24/2018 11:17 AM FINDINGS: Brain: Patchy T2 prolongation in the cerebral white matter is nonspecific, but likely secondary to microvascular disease. This could also be associated with chronic headaches. White matter changes are stable. Diffusion images are normal. No evidence of acute infarction. No evidence of acute intracranial hemorrhage. No extra-axial fluid collections. Ventricles and cerebrospinal fluid spaces are normal in size and configuration for the patient's age. Again seen is 1.7 cm x 1.3 cm unchanged pineal cyst. This again mildly flattens the adjacent superior colliculus. There is no evidence of midline shift. Flow voids of the [place] and major cerebral vascular structures appear intact. Craniocervical junction appears unremarkable, with normal position of cerebellar tonsils and no evidence of Chiari I malformation. Cerebral ventricles: Normal. No ventriculomegaly. Bones/joints: Unremarkable as visualized. Paranasal sinuses: There is bubbly fluid in left sphenoid sinus. Mastoid air cells: No significant mastoid effusion. Orbits: Unremarkable as visualized. No exophthalmos or evidence of mass. Soft tissues: Unremarkable as visualized. IMPRESSION: 1. No acute intracranial finding. No acute infarct or hemorrhage. 2. White matter changes are stable as described. 3. Stable pineal cyst. 4. Left sphenoid sinus fluid. Electronically signed by: Danita Shields On 05/29/2020 10:40:17 AM
== END ==
LOC: M RAD 08:51
PROVIDERS: ATTEND Family Medicine
DX: G44.52 New daily persistent headache (NDPH) (principal); E34.8 Other specified endocrine disorders

== ENCOUNTER → 2020-06-09 | Outpatient (CLI) | payer BC ==
[~2020-06-09] MED LIST changes: +E-Z-GAS II EFFERVESCENT PACKET (SODIUM BICARB./CITRIC ACID/SIMETHICONE) As Ordered ONE; +E-Z-HD 98% w/w 340GM SUSP BTL As Ordered ONE; +E-Z-PAQUE 96% w/w SUSP 176GM BTL As Ordered ONE
--- NOTE | 2020-06-09 17:00 | REP ---
INDICATION: DYSPHAGIA, GERD TECHNIQUE: This procedure was performed by Martha Conway [facility], under the direct supervision of Dr. Morales. Images were reviewed with Dr. Morales prior to dictation. Liquid barium and gas producing crystals were given in the erect position, as well as liquid barium in the prone oblique position in order to perform a double contrast upper GI examination. FINDINGS: The enforcement safety officer film shows no organomegaly or pathological masses. The intestinal gas pattern is unremarkable. There is a fusion of C3-C7. The oral and pharyngeal stages of deglutition were unremarkable. Esophageal transport is prompt and efficient and there is no evidence of esophagitis, stricture, or mucosal ring. There is no evidence of a hiatal hernia. No gastroesophageal reflux was visualized during the exam.. IMPRESSION: 1. Unremarkable esophagram. 0.2 minutes of fluoroscopy were utilized for this exam. <Electronically signed by José Luis Morales > 06/09/20 [id number]
== END ==
LOC: M RAD 07:51
PROVIDERS: ATTEND Physician Assistant Medical
DX: R13.10 Dysphagia, unspecified (principal); K21.9 Gastro-esophageal reflux disease without esophagitis

== ENCOUNTER → 2020-08-31 | Outpatient (CLI) | payer BC ==
[~2020-08-31] MED LIST changes: +ASPI81TA26 PO; +CALC500T52 PO; -E-Z-GAS II EFFERVESCENT PACKET (SODIUM BICARB./CITRIC ACID/SIMETHICONE) As Ordered ONE; -E-Z-HD 98% w/w 340GM SUSP BTL As Ordered ONE; -E-Z-PAQUE 96% w/w SUSP 176GM BTL As Ordered ONE; +VITATAB64 PO; +VITATAB74 PO
== END ==
LOC: M LABSMTC 13:11
PROVIDERS: ATTEND Anesthesiology
DX: Z01.812 Encounter for preprocedural laboratory examination (principal); Z20.822 Contact with and (suspected) exposure to COVID-19

== ENCOUNTER 2020-09-05 10:11 | Day surgery (SDC) | payer BC ==
[~2020-09-05] VITALS: Ht 157.5 cm; Wt 73.5 kg
[~2020-09-05 10:11] MED LIST changes: +NS 1,000 ML IV ONE
--- OUTSIDE RECORDS SUMMARY | 2020-09-05 10:17 | CCD | Continuity of Care Document ---
Author Author Debbi CALIX MD Organization Unknown Address [address] [place] [address], [address] [place] [address] Phone [phone] Care Team Providers Care Integration Solution Architect Name Role Phone Jeff Saenz M.D. AUTM [phone] Jaison Santos D.O. AUTM [phone] AUTM Jerry DhillonOJacinda AUTM [phone] Problems Active Problems Provider Date Difficulty breathing Jerry Sears, D.O. Onset: 06/15/2018 Disorder of diaphragm Jerry Sears, D.O. Onset: 06/15/2018 Disturbance of consciousness Jerry Paniagua, D.O. Onset: 05/26 Nicotine dependence, cigarettes, with other nicotine-i nduced disorders Jerry Seadarrel, D.O. Onset: 06/15/2018 Chronic obstructive lung disease Jerry Paniagua, D.O. Onset: 07/15/2018 Cough Jerry Paniagua, D.O. Onset: 07/15/2018 Obstructive sleep apnea syndrome Jerrysumi Paniagua, D.O. Onset: 09/08/2018 Candidiasis of mouth Jerry Sears, D.O. Onset: 04/21/2019 Ex-smoker JAYSHREE Gould Onset: 06/30/2019 Preoperative state Jerry Paniagua, D.O. Onset: 07/27/2019 Chronic obstructive pulmonary disease with (acute) exa cerbation Jerry Sears, D.O. Onset: 07/27/2019 Disorder of tongue Jerry Sears, D.O. Onset: 11/12/2019 Social History Type Date Description Comments Sex Unknown ETOH Use 2 every 3 months Tobacco Use Start: 08/25/76 End: 06/25/19 Patient is a forme r smoker hx 1/2 ppd Smoking Status Reviewed: 06/07/20 Patient is a former smoker hx 1/2 ppd Allergies, Adverse Reactions, Alerts Active Allergies Reaction Severity Comments Date Sulfa 06/15/2018 Gabapentin 06/15/2018 Topiramate 06/15/2018 Medications Active Medications SIG Qnty Indications Ordering Provide r Date Miralax 17GM/Scoop Powder Take 17 grams by mouth once daily. 510units Jeff Cornell MD 05/18/2020 Albuterol Sulfate (2 .5mg/3ML) 0.083% Nebulizer 1 vial four times a day as needed 1080ml J44.9 Jerry molina D.OJacinda 03/08/2020 Autopap Device 4-20cm lcw Jerry Paniagua D.O. 09/22/2018 Lactulose 10GM/15ML Solution prn Unknown Baclofen 10mg Tablets tid Unknown Pantoprazole Sodium 40mg Tablets DR Daily Unknown Irbesartan 75mg Tablets 1/2 tab once daily Unknown Potassium Chloride ER 10Meq Tablet s ER Daily Unknown Vitamin B12 500mcg Tablets 1 by mouth every day Unknown Calcium/Magnesium/Zinc Daily Unknown Spiriva Respimat 2.5mcg/Act Aeroso l 2 puffs bid Unknown Symbicort 160-4.5mcg/Act Aerosol 2 puff twice a day Unknown Vitamin D3 50mcg (2000 Ut) Capsule s 1 by mouth every day Unknown Lyrica 75mg Capsules 1 by mouth three times a day Unknown Ondansetron HCL 8mg Tablets a s needed Unknown Sumatriptan Succinate 100mg Tablet s as needed Unknown Mometasone Furoate 50mcg/Act Suspe nsion 1 intranasal puffs every day Unknown Ventolin HFA 108(90Base) mcg/Act A erosol 2 puffs qid/prn 24gm Kandy WilsonOJacinda Aspirin 81mg Tablets 1 by mouth every day Unknown Amitriptyline HCL 50mg Tablets 50 mg by mouth every day Unknown Amiloride HCL 5mg Tablets 2 tab by mouth every day Unknown History Medications Albuterol Sulfate (2 .5mg/3ML) 0.083% Nebulizer use 1 vial in nebulizer 4 times daily - and as needed 360ml J44.9 Jerry Paniagua D.O. 03/06/2020 - 03/24/2020 Immunizations Description No Information Available Vital Signs Date Vital Result Comment 07/17/2020 11:11am Body Temperature 96.8 F Height 62 inches 5'2" Weight 160.00 lb BMI (Body Mass Index) 29.3 kg/m2 [place] Body Weight 110 lb Weight 72.576 kg BSA (Body Surface Area) 1.74 m2 06/07/2020 1:49pm BP Systolic 126 mmHg BP Diastolic 72 mmHg Heart Rate 89 /min O2 % BldC Oximetry 95 % Body Temperature 97.4 F Height 62.25 inches 5'2.25" Weight 166.00 lb BMI (Body Mass Index) 30.1 kg/m2 [place] Body Weight 110 lb Weight 75.298 kg BSA (Body Surface Area) 1.77 m2 Results Test Acquired Date Facility Test Result H/L Range Note FVL/[place] 03/06/2020 [facility] SEE IMAGE FVC-Pred 3.23 L FVC-Pre 2.38 L FVC-%Pred-Pre 73 L FVC-LLN 2.57 L Fev1-Pred 2.52 L Fev1-Pre 1.82 L Fev1-%Pred-Pre 72 L Fev1-LLN 1.96 L Fev6-Pred 3.12 L Fev6-Pre 2.38 L Fev6-%Pred-Pre 76 L Fev6-LLN 2.47 L Qoe3cas-Fztk 79 % Smd6mqb-Iwr 76 % Pgn2ywk-%Pred-Pre 96 % Wsx3ick-LWQ 69 % Xob0hgr-Xppf 97 % Glq5ytj-Pvz 100 % Lsp7mkv-%Pred-Pre 103 % FEFMax-Pred 6.27 L/E/sec FEFMax-Pre 4.95 L/E/sec FEFMax-%Pred-Pre 78 L/E/sec FEFMax-LLN 4.63 L/E/sec Yyn6742-Nnaf 2.43 L/E/sec Dlq2535-Dpq 1.52 L/E/sec Cyu9753-%Pred-Pre 62 L/E/sec Ojc1402-XVN 1.25 L/E/sec ExpTime-Pre 5.84 sec Oop5qrk0-Jfry 81 % Tmk6tdm2-Ume 76 % Iuw8gku9-%Pred-Pre 93 % Rtr6ahm5-OMD 73 % Procedures Date Code Description Status 07/17/202096965 Inject Tendon/Ligament Completed 06/07/2020 11554 Spirometry Completed 03/06/2020 11423 Spirometry Completed Medical Devices Description No Information Available Encounters Type Date Location Provider Dx Diagnosis Office Visit 07/17/2020 11:00a [facility] Orthopedics Jeremy Calix MD M65.311 Trigger thumb, right thumb Office Visit 06/07/2020 2:00p [facility] Pulmonary/Thoracic JAYSHREE Gould J44.9 Chronic obstructive pulmonary disease, u nspecified 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 Z87.891 Personal history of nicotine dependence G47.33 Obstructive sleep apnea (belkis lt) (pediatric) Z01.811 Encounter for preprocedural respiratory examination Office Visit 04/27/2020 3:00p [facility]GI [facility] Nicci Borrego, RPA-C K21.9 Gastro-esophageal reflux dis ease without esophagitis R13.10 Dysphagia, unspecified R05 Cough R19.8 Oth symptoms and signs invol ving the dgstv sys and abdomen R14.0 Abdominal distension (gaseou s) Office Visit 03/06/2020 8:30a [facility] Pulmonary/Thoracic Jerry molina DJuan J J44.9 Chronic obstructive pulmonary disease, u nspecified R05 Cough 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 Z87.891 Personal history of nicotine dependence G47.33 Obstructive sleep apnea (belkis lt) (pediatric) Assessments Date Code Description Provider 07/17/2020 M65.311 Trigger thumb, right thumb Jeremy Calix MD 06/07/2020 J44.9 Chronic obstructive lung disease JAYSHREE Gould 06/07/2020 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 JAYSHREE Spence 06/07/2020 Z87.891 Personal history of nicotine dep endence JAYSHREE Gould 06/07/2020 G47.33 Obstructive sleep apnea (adult) (pediatric) JAYSHREE Gould 06/07/2020 Z01.811 Encounter for preprocedural resp iratory examination JAYSHREE Gould 04/27/2020 K21.9 Gastro-esophageal reflux disease without esophagitis Nadia Borrego, [facility] 04/27/2020 R13.10 Dysphagia, unspecified Nadia Borrego, [facility] 04/27/2020 R05 Cough Nadia perez, [facility] 04/27/2020 R19.8 Other specified symp toms and signs involving the digestive system and abdomen Nadia Borrego, [facility] 04/27/2020 R14.0 Abdominal distension (gaseous) M aurora Ramon Salima, [facility] 03/06/2020 J44.9 Chronic obstructive lung disease Jerry Paniagua D.O. 03/06/2020 R05 Cough Jerry Paniagua, D.O. 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 03/06/2020 Z87.891 Personal history of nicotine dep endence Jerry Paniagua D.O. 03/06/2020 G47.33 Obstructive sleep apnea (adult) (pediatric) Jerry Paniagua D.O. Plan of Treatment Future Appointment(s):* 11/02/2020 9:30 am - JAYSHREE Gould at [facility] Pulmonary/Thoracic 07/17/2020 - Jeremy Calix MD* M65.311 Trigger thumb, right thumb* Follow up: * prn Functional Status Description No Information Available Mental Status Description No Information Available Referrals Refer to Reason for Referral Status Appt Date Slade Quinonez M.D. hx of reflux , chronic coug h, difficulty swallowing, Scheduled 04/27/[address] [place] [id number] [phone] Slade Quinonez M.D. reflux, chronic cough Closed 04/27/[address] [place] [address] [phone]
--- OUTSIDE RECORDS SUMMARY | 2020-09-05 10:17 | CCD ---
Author Author [facility] Organization [facility] Address Unknown Phone Unavailable Care Team Providers Care Dealer Compliance Representative Name Role Phone Jaison Santos Unavailable PROBLEMS Type Condition ICD9-CM Code HER42-PZ Code Onset Dates Condition S tatus SNOMED Code Notes Problem Hyperlipidemia E78.5 Active 87359451 Problem Asthma J45.909 Active 505853253 Problem Hypertension I10 Active 20411258 Problem CKD (chronic kidney disease) stage 3, GFR 30-59 ml/min N18.3 Active 821123397 Problem GERD (gastroesophageal reflux disease) K21.9 A ctive 332971921 Problem Neuropathy G62.9 Active 757052873 Problem Lumbar facet arthropathy M12.88 Active 1261098 08 Problem Essential hypertension I10 Active 59356459 Problem Chronic fatigue R53.82 Active 39696504 Problem Stage 3 chronic kidney disease N18.3 Active 4 54445790 Problem Constipation, unspecified constipation type K59.00 Active 03262930 Problem Altered taste R43.2 Active 990129798 Problem Irritable bowel syndrome with both constipation and diarrh ea K58.2 Active 39294329 Problem Fibromyalgia M79.7 Active 835448476 Problem COPD with acute exacerbation J44.1 Active 195 343467 Problem Chronic serous otitis media of both ears H65.23 Active 619463651 Problem Obstructive sleep apnea syndrome G47.33 Active 13565583 Problem Chronic obstructive pulmonary disease, unspecified COPD ty pe J44.9 Active 90747539 ALLERGIES Allergen (clinical drug ingredient) Drug/Non Drug Allergy do cumented on EMR Reaction Allergy Type Onset Date Status gabapentin Gabapentin([facility] Code:[address]-11) shaking Drug Allergy Active Sulfa (for allergy use only) Hives Drug Allergy Active topiramate Topiramate([facility] Code:[address]-51) shaking Drug Allergy Active ENCOUNTERS from 1965 to 2020-06-15 Encounter Location Date Provider Diagnosis [facility] [place] [address] May Jaison Santos Fibromyalgia M79.7 IMMUNIZATIONS No Information SOCIAL HISTORY Tobacco Use: Social History Observation Description Date Details (start date - stop date) Former Smoker Sex Assigned At : Social History Observation Description Sex Assigned At Unknown Audit Question Answer Notes Total Score: 2 Interpretation: Alcohol Education Language: Question Answer Notes Languages spoken: Kinyarwanda Amish: Question Answer Notes Amish 21 Bahai Domestic Violence: Question Answer Notes Status: Sexual Hx: Question Answer Notes Had sex in the last 12 months (vaginal, oral, or anal)? Yes Drug and Alcohol Question Answer Notes Total Score: 0 Interpretation: No problems reported Alcohol Screening: Question Answer Notes Did you have a drink containing alcohol in the past year? Ye s Points 1 Interpretation Negative How often did you have six or more drinks on one occas ion in the past year? Never (0 points) How many drinks did you have on a typica l day when you were drinking in the past year? 1 or 2 (0 points) How often did you have a drink containing alcohol in t he past year? Monthly or less (1 point) Tobacco Use: Question Answer Notes Are you a: former smoker Additional Findings: Tobacco User Moderate cigarette smoker (10-19 cigs/day) Smoking Cessation Information Given 06/13/2020 How long has it been since you last smoked? 1-3 months REASON FOR REFERRAL No Information VITAL SIGNS No information MEDICATIONS Medication SIG (Take, Route, Frequency, Duration) Start Date En d Date Status Torsemide 20 MG as directed Orally Once a day/prn Active Pantoprazole Sodium 40 MG TAKE 1 TABLET DAILY Active Lyrica 50 MG 1 capsule Orally-VIRI Three times a day M DD #3 Code D for 90 day(s) Active Spiriva Respimat 2.5 MCG/ACT 2 puffs Inhalation Once a day Active Pantoprazole Sodium 40MG 1 tablet orally twice daily for 90 days Active Mucinex 600 MG 1 tablet as needed Orally every 12 hrs for 30 da ys 16 Apr, 2019 Active Amitriptyline HCl 50 MG TAKE 1 TABLET DAILY Active Aspir-81 81 MG 1 tablet Orally Once a day Active Magnesium 500 MG 1 tablet with a meal Orally Once a day Active Polyethylene Glycol 3350 - as directed A ctive Lactulose 10 GM/15ML 15 ml Orally Once a day for 30 day(s) Active Ventolin HFA 108 (90 BASE) MCG/ACT 2 PUFFS NEEDED E VERY 4 HRS INHALATION 90 DAY(S) Active Symbicort 160-4.5 MCG/ACT USE 2 INHALATIONS TWICE A DAY Active Potassium Chloride ER 10 MEQ 1 tablet with food Orally Once a day Active Mometasone Furoate 50 MCG/ACT 2 sprays in each nostril Nasally Once a day Active Irbesartan 75 MG 1/2 tablet Orally at bedtime Active Ondansetron 8MG PLACE 1 TABLET ON TONGUE TWICE A DAY Active Melatonin 3 MG 1 tablet at bedtime as needed with food Orally Once a day Active Vitamin D 1000 UNIT 1 tablet Orally Once a day Active Ondansetron HCl 8 MG 1 tablet Orally twice daily/prn Active Sumatriptan Succinate 100 MG 1 TABLET NEEDED ONCE A DAY ORALLY 9 0 DAYS Active Nitroglycerin 0.4 MG Sublingual Active Baclofen 10MG 1 tablet with food or milk Orally Three times a day for 90 days Active Elbow Strap Left/Right - right- daily Daily Dx Right lateral epicondylitis Apr, Active Amiloride HCl 5 MG 1 tablet Orally bid Ac tive PROCEDURES No Information RESULTS No Results REASON FOR VISIT renewal MEDICAL (GENERAL) HISTORY Type Description Date Medical History Asthma/COPD Medical History HTN Medical History Neck pain Medical History Lumbago Medical History Mitral valve prolapse Medical History GERD Medical History Hyperlipidemia Medical History CKD stage III Surgical History T&A 1975 Surgical History Cholecystectomy 1985 Surgical History Tubal Ligation 1986 Surgical History Hysterectomy 2010 Surgical History Cervical 4-7 Disc Replacement/Fusion 201 5 Surgical History Cervical 3 disc replacement 2015 Surgical History EGD/colonoscopy 08/2017 Surgical History spinal surgery L4+5- nerve decompression - Dr Bundy 09/08/2019 Hospitalization History Pneumonia 2016 Hospitalization History see above surgeries Hospitalization History [facility],near fainting spell Hospitalization History [facility]- Palpitations,shaky 04/11/19 Goals Section No Information Health Concerns No Information MEDICAL EQUIPMENT No Information MENTAL STATUS No Information FUNCTIONAL STATUS No Information ASSESSMENTS Encounter Date Diagnosis Notes May, Fibromyalgia (ICD-10 - M79.7) PLAN OF TREATMENT Medication Medication Name Sig Start Date Stop Date Lyrica 50 MG 1 capsule Orally-VIRI Three times a day M DD #3 Code D for 90 day(s) Baclofen 10MG 1 tablet with food or milk Orally Three times a day for 90 days Pantoprazole Sodium 40MG 1 tablet orally twice daily for 90 days Next Appt Details Provider Name:Jaison Santos, 09:15:00 AM, [facility] [address] , [place], [address], Insurance Providers Payer Name Payer Address Payer Phone Insured Name Patient Relati onship to Insured Coverage Start Date [facility]age End Date [phone] [facility] JAYSHREE TORRES [facility] [id number] TONE RAMIREZ self
--- OUTSIDE RECORDS SUMMARY | 2020-09-05 10:17 | CCD | Continuity of Care Document ---
Author Author Debbi MARXOJacinda [place] [address] Phone [phone] Care Team Providers Care Blooming Mill Supervisor Name Role Phone Jeff Saenz M.D. AUTM [phone] Jaison Santos D.O. AUTM [phone] AUTM Jerry Dhillon D.O. AUTM [phone] Problems Active Problems Provider Date Difficulty breathing Jerry Marx D.O. Onset: 06/15/2018 Disorder of diaphragm Jerry Marx D.O. Onset: 06/15/2018 Disturbance of consciousness Kandy WilsonO. Onset: 05/26 Nicotine dependence, cigarettes, with other nicotine-i nduced disorders Jerry Marx D.O. Onset: 06/15/2018 Chronic obstructive lung disease Jerry Marx D.O. Onset: 07/15/2018 Cough Libertad Wilson.O. Onset: 07/15/2018 Obstructive sleep apnea syndrome Jerry Marx D.O. Onset: 09/08/2018 Candidiasis of mouth Jerry Marx D.O. Onset: 04/21/2019 Ex-smoker JAYSHREE Gould Onset: 06/30/2019 Preoperative state Libertad Wilson.O. Onset: 07/27/2019 Chronic obstructive pulmonary disease with (acute) exa cerbation eJrry Marx D.O. Onset: 07/27/2019 Disorder of tongue Jerry Marx D.O. Onset: 11/12/2019 Social History Type Date [...] day as needed 1080ml J44.9 Jerry molina DJacindaOJacinda 03/08/2020 Autopap Device 4-20cm lcw Jerry Marx D.O. 09/22/2018 Lactulose 10GM/15ML Solution prn Unknown [...] - and as needed 360ml J44.9 Jerry Marx D.O. 03/06/2020 - 03/24/2020 Immunizations Description No Information Available Vital Signs Date Vital Result Comment 06/07/2020 1:49pm BP Systolic 126 mmHg BP Diastolic 72 mmHg Heart Rate 89 /min O2 % BldC Oximetry 95 % Body Temperature 97.4 F Height 62.25 inches 5'2.25" Weight 166.00 lb BMI (Body Mass Index) 30.1 kg/m2 Jennings Body Weight 110 lb Weight 75.298 kg 04/27/2020 3:13pm BP Systolic 112 mmHg BP Diastolic 78 mmHg Height 62.25 inches 5'2.25" Weight 173.00 lb BMI (Body Mass Index) 31.4 kg/m2 [facility] Body Weight 110 lb Weight 78.473 kg Results Test Acquired Date Facility Test Result H/L Range Note FVL/[place] 03/06/2020 [facility] SEE IMAGE FVC-Pred 3.23 L FVC-Pre 2.38 L FVC-%Pred-Pre 73 L FVC-LLN 2.57 L Fev1-Pred 2.52 L Fev1-Pre 1.82 L Fev1-%Pred-Pre 72 L Fev1-LLN 1.96 L Fev6-Pred 3.12 L Fev6-Pre 2.38 L Fev6-%Pred-Pre 76 L Fev6-LLN 2.47 L Evb7sqm-Nnsi 79 % Paa6pxr-Vtl 76 % Sap9xgz-%Pred-Pre 96 % Due5elh-XKM 69 % Vce0gru-Kgzs 97 % Kos9zgu-Uvv 100 % Qfm1rff-%Pred-Pre 103 % FEFMax-Pred 6.27 L/E/sec FEFMax-Pre 4.95 L/E/sec FEFMax-%Pred-Pre 78 L/E/sec FEFMax-LLN 4.63 L/E/sec Kqh1196-Ydxh 2.43 L/E/sec Oph5028-Lqe 1.52 L/E/sec Jhc0947-%Pred-Pre 62 L/E/sec Qef2277-BFT 1.25 L/E/sec ExpTime-Pre 5.84 sec Ajw2hjs8-Rtdb 81 % Xrh7lrg2-Nkx 76 % Mfm6bsi5-%Pred-Pre 93 % Mlk7lqz4-BBT 73 % Procedures Date Code Description Status 03/06/2020 76168 Spirometry Completed Medical Devices Description No Information Available Encounters Type Date Location Provider Dx Diagnosis Office Visit 04/27/2020 3:00p [facility]NT[facility]GI [facility] Nicci ssa Tristen Salima, [facility] K21.9 Gastro-esophageal reflux dis ease without esophagitis R13.10 Dysphagia, unspecified R05 Cough R19.8 Oth symptoms and signs invol ving the dgstv sys and abdomen R14.0 Abdominal distension (gaseou s) Office Visit 03/06/2020 8:30a [facility] Pulmonary/Thoracic Jerry molina D.OJacinda J44.9 Chronic obstructive pulmonary disease, u nspecified R05 Cough 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 Z87.891 Personal history of nicotine dependence G47.33 Obstructive sleep apnea (belkis lt) (pediatric) Assessments Date Code Description Provider 04/27/2020 K21.9 Gastro-esophageal reflux disease without esophagitis Nadia Ramon Elenaaliciachris, RPA-C 04/27/2020 R13.10 Dysphagia, unspecified Nadia Ramon Elenaaliciabomarcelle, RPA-C 04/27/2020 R05 Cough Nadia Ramon Umang chris, RPA-C 04/27/2020 R19.8 Other specified symp toms and signs involving the digestive system and abdomen Nadia Ramon Elenaaliciabomarcelle, RPA-C 04/27/2020 R14.0 Abdominal distension (gaseous) M aurora Ramon Salima, RPA-C 03/06/2020 J44.9 Chronic obstructive lung disease Kandy WilsonOJacinda 03/06/2020 R05 Cough Kandy WilsonOJacinda 03/06/2020 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 Jerry chatman D.OJacinda 03/06/2020 Z87.891 Personal history of nicotine dep endence Kandy WilsonOJacinda 03/06/2020 G47.33 Obstructive sleep apnea (adult) (pediatric) Jerry Marx D.O. Plan of Treatment Future Appointment(s):* 06/29/2020 8:30 am - Jerry Marx D.O. at [facility] Pulmonary/Thoracic 04/27/2020 - Nadia Borrego RPA-C* K21.9 Gastro-esophageal reflux disease without esophagitis * R13.10 Dysphagia, unspecified * R05 Cough * R19.8 Other specified symptoms and signs involving the digestive system and abdomen * R14.0 Abdominal distension (gaseous) * * Comments:* Patient states that she had an extensive workup at Dr. Echevarria's office in [place] for these issues. A record's release was signed by the patient today and will be sent to Dr. Echevarria's office to obtain a copy of her records. Further testing/investigation will be done after the records are reviewed. Patient verbalized understanding and will seek medical attention for any acute changes. Will monitor. * Follow up:* Will contact patient. She will call us sooner if needed. Functional Status Description No Information Available Mental Status Description No Information Available Referrals Refer to Reason for Referral Status Appt Date Slade Quinonez M.D. reflux, chronic cough Scheduled 04/27/[address] [place] [address], [address] [address] [phone] Slade Quinonez M.D. hx of reflux , chronic coug h, difficulty swallowing, Scheduled 04/27/[address] [place] [address], [address] [address] [phone]
--- OUTSIDE RECORDS SUMMARY | 2020-09-05 10:17 | CCD ---
Author Author [facility] Organization [facility] Address Unknown Phone Unavailable Care Team Providers Care Odd Job Laborer Name Role Phone Jaison Santos Unavailable PROBLEMS Type Condition ICD9-CM Code HTX90-MP Code Onset Dates Condition S tatus SNOMED Code Notes Problem Hyperlipidemia E78.5 Active 36661936 Problem Asthma J45.909 Active 585827342 Problem Hypertension I10 Active 66922772 Problem CKD (chronic kidney disease) stage 3, GFR 30-59 ml/min N18.3 Active 165968248 Problem GERD (gastroesophageal reflux disease) K21.9 A ctive 809558843 Problem Neuropathy G62.9 Active 752685385 Problem Lumbar facet arthropathy M12.88 Active 3982123 08 Problem Essential hypertension I10 Active 73150838 Problem Chronic fatigue R53.82 Active 14943373 Problem Stage 3 chronic kidney disease N18.3 Active 4 48903615 Problem Constipation, unspecified constipation type K59.00 Active 89993982 Problem Altered taste R43.2 Active 162616119 Problem Irritable bowel syndrome with both constipation and diarrh ea K58.2 Active 78833044 Problem Fibromyalgia M79.7 Active 759425166 Problem COPD with acute exacerbation J44.1 Active 195 140848 Problem Chronic serous otitis media of both ears H65.23 Active 076735810 Problem Obstructive sleep apnea syndrome G47.33 Active 52990523 Problem Chronic obstructive pulmonary disease, unspecified COPD ty pe J44.9 Active 93512861 ALLERGIES Allergen (clinical drug ingredient) Drug/Non Drug Allergy do cumented on EMR Reaction Allergy Type Onset Date Status gabapentin Gabapentin([facility] Code:[address]-05) shaking Drug Allergy Active Sulfa (for allergy use only) Hives Drug Allergy Active topiramate Topiramate([facility] Code:[address]-99) shaking Drug Allergy Active ENCOUNTERS from 1963 to 2020-06-14 Encounter Location Date Provider Diagnosis [facility] [place] [address] May Jaison Santos Low back pain M54.5 ; Pre-op evaluation Z01.818 ; Hypertension I10 ; CKD (chronic kidney disease) stage 3, GFR 30-59 ml/min N18.3 ; Obstructive sleep apnea syndrome G47.33 ; Chronic obstructive pulmonary disease, unspecified COPD type J44.9 ; Asthma J45.909 ; Fibromyalgia M79.7 ; Irritable bowel syndrome with both constipation and diarrhea K58.2 ; GERD (gastroesophageal reflux disease) K21.9 ; Cervicalgia M54.2 and Trigger finger of right thumb M65.311 IMMUNIZATIONS No Information SOCIAL HISTORY Tobacco Use: Social History Observation Description Date Details (start date - stop date) Former Smoker Sex Assigned At : Social History Observation Description Sex Assigned At Unknown Audit Question Answer Notes Total Score: 2 Interpretation: Alcohol Education Language: Question Answer Notes Languages spoken: Lao Hinduism: Question Answer Notes Hinduism 21 Congregational Domestic Violence: Question Answer Notes Status: Sexual [...] REASON FOR REFERRAL No Information VITAL SIGNS Weight 160 lbs May, Height 63 in May, BMI 28.34 kg/m2 May, Heart Rate 91 /min May, Respiratory Rate 16 /min May, Temperature 98.1 degrees Fahrenheit May, Oximetry 96ra May, Blood pressure systolic 114 mm Hg May, Blood pressure diastolic 83 mm Hg May, MEDICATIONS Medication SIG (Take, Route, Frequency, Duration) Start Date En d Date Status Lyrica 50 MG 1 capsule Orally-VIRI Three times a day M DD #3 Code D for 90 day(s) Active Pantoprazole Sodium 40 MG TAKE 1 TABLET DAILY Active Torsemide 20 MG as directed Orally Once a day/prn Active Spiriva Respimat 2.5 MCG/ACT 2 puffs Inhalation Once a day Active Pantoprazole Sodium 40MG 1 tablet orally twice daily for 90 days Active Mucinex 600 MG 1 tablet as needed Orally every 12 hrs for 30 da ys Apr, Active Amitriptyline HCl 50 MG TAKE 1 [...] Information RESULTS No Results REASON FOR VISIT Patient here for pre op evaluation, she is having revision of laminectomy L4-5 w [address] decompression with Dr. Bundy on 06/20/20 under general anesthesia. Patient com pleted all pre op testing and had stress test with clearance with Dr. Saenz. MEDICAL (GENERAL) HISTORY Type Description Date Medical [...] Hospitalization History see above surgeries Hospitalization History Auzxy-YV-yqtdg,near fainting spell Hospitalization History [facility]- Palpitations,shaky 04/11/19 Goals Section No Information Health Concerns No Information MEDICAL EQUIPMENT No Information MENTAL STATUS No Information FUNCTIONAL STATUS No Information ASSESSMENTS Encounter Date Diagnosis Notes May, Asthma (ICD-10 - J45.909) May, Chronic obstructive pulmonar y disease, unspecified COPD type (ICD- 10 - J44.9) May, Irritable bowel syndrome wit h both constipation and diarrhea (ICD- 10 - K58.2) May, Fibromyalgia (ICD-10 - M79.7) May, Hypertension (ICD-10 - I10) May, Obstructive sleep apnea syndrome (ICD-10 - G47.33) May, CKD (chronic kidney disease) stage 3, GFR 30-59 ml/min (ICD-10 - N18.3) May, Cervicalgia (ICD-10 - M54.2) May, GERD (gastroesophageal reflux disease) ( ICD-10 - K21.9) May, Pre-op evaluation (ICD-10 - Z01.818) May, Low back pain (ICD-10 - M54.5) May, Trigger finger of right thumb (ICD-10 - M65.311) PLAN OF TREATMENT Medication Medication Name Sig Start Date Stop Date Lyrica 50 MG 1 capsule Orally-VIRI Three times a day M DD #3 Code D for 90 day(s) Baclofen 10MG 1 tablet with food or milk Orally Three times a day for 90 days Pantoprazole Sodium 40MG 1 tablet orally twice daily for 90 days Treatment Notes Assessment Notes Clinical Notes Low back pain Cont with Dr Bundy. Pre-op evaluation Recent labs reviewed , no concerns. She was recently seen by cardiology and stress test unremarkable. She is medically stable and may proceed with surgery at low risk. Pt is aware and agreeable. Hypertension Currently okay and w ell controlled. Pt is agreeable. CKD (chronic kidney disease) stage 3, GFR 30-59 ml/min Cont with Dr Muller. Obstructive sleep apnea syndrome Cont wi th pulmonary. Chronic obstructive pulmonary disease, unspecified COPD type Cont with pulmonary. Asthma Stable, cont with pu lmonary. Fibromyalgia Stable. Irritable bowel syndrome with both constipation and diarrhea Cont meds prn, no changes. Pt agreeable. GERD (gastroesophageal reflux disease) C ont current dose. Trigger finger of right thumb Discussed options, will just monitor for now, consider return to ortho. Cervicalgia Stable. Next Appt Details 3 Months Reason:30 minutes Provider Name:Jaison Santos, 09:15:00 AM, [address] [place], [address], Follow Up:3 Bngphd69 minutes Insurance Providers Payer Name Payer Address Payer Phone Insured Name Patient Relati onship to Insured Coverage Start Date Coverage End Date [employer] WATTS PPO [phone] [facility] [email or web address] JAYSHREE [facility] [id number] TONE [address]IREZ self
--- OUTSIDE RECORDS SUMMARY | 2020-09-05 10:17 | CCD ---
Author Author [facility] Organization [facility] Address Unknown Phone Unavailable Care Team Providers Care Country Director Name Role Phone Jaison Santos Unavailable PROBLEMS Type Condition ICD9-CM Code QHS60-LB Code Onset Dates Condition S tatus SNOMED Code Notes Problem Hyperlipidemia E78.5 Active 52529738 Problem Asthma J45.909 Active 168005426 Problem Hypertension I10 Active 83967374 Problem CKD (chronic kidney disease) stage 3, GFR 30-59 ml/min N18.3 Active 266647337 Problem GERD (gastroesophageal reflux disease) K21.9 A ctive 471051000 Problem Neuropathy G62.9 Active 013544969 Problem Lumbar facet arthropathy M12.88 Active 9435297 08 Problem Essential hypertension I10 Active 63065521 Problem Chronic fatigue R53.82 Active 48271063 Problem Stage 3 chronic kidney disease N18.3 Active 4 45019793 Problem Constipation, unspecified constipation type K59.00 Active 12083098 Problem Altered taste R43.2 Active 715247147 Problem Irritable bowel syndrome with both constipation and diarrh ea K58.2 Active 23707470 Problem Fibromyalgia M79.7 Active 754427905 Problem COPD with acute exacerbation J44.1 Active 195 788896 Problem Chronic serous otitis media of both ears H65.23 Active 793868003 Problem Obstructive sleep apnea syndrome G47.33 Active 81527440 Problem Chronic obstructive pulmonary disease, unspecified COPD ty pe J44.9 Active 06438925 ALLERGIES Allergen (clinical drug ingredient) Drug/Non Drug Allergy do cumented on EMR Reaction Allergy Type Onset Date Status gabapentin Gabapentin([facility] Code:[address]-65) shaking Drug Allergy Active Sulfa (for allergy use only) Hives Drug Allergy Active topiramate Topiramate([facility] Code:[address]-93) shaking Drug Allergy Active ENCOUNTERS from 1963 to 2020-06-12 Encounter Location Date Provider Diagnosis [facility] [place] [place] [address] May Jaison Santos Chronic serous otitis media of both ears H65.23 IMMUNIZATIONS No Information SOCIAL HISTORY Tobacco Use: Social History Observation Description Date Details (start date - stop date) Current Smoker Sex Assigned At : Social History Observation Description Sex Assigned At Unknown Audit Question Answer Notes Total Score: 2 Interpretation: Alcohol Education Language: Question Answer Notes Languages spoken: Armenian Nondenominational: Question Answer Notes Nondenominational 21 Amish Domestic Violence: Question Answer Notes Status: Sexual [...] Use: Question Answer Notes Are you a: current smoker Additional Findings: Tobacco User Moderate cigarette smoker (10-19 cigs/day) Smoking Cessation Information Given 12/30/2019 How many cigarettes a day do you smoke? 11-20 Are you interested in quitting? Thinking about quitting Counseled the patient on smoking cessation, education provid ed 12/30/2019 REASON FOR REFERRAL No Information VITAL SIGNS No information MEDICATIONS Medication SIG (Take, Route, Frequency, Duration) Start Date En d Date Status Ondansetron HCl 8 MG 1 tablet Orally twice daily/prn Active Lyrica 50 MG 1 capsule Orally-VIRI Three times a day MDD #3 Co de D for 90 days Active Melatonin 3 MG 1 tablet at bedtime as needed with food Orally Once a day Active Pantoprazole Sodium 40 MG TAKE 1 TABLET DAILY Active Amitriptyline HCl 50 MG TAKE 1 TABLET DAILY Active Irbesartan 75 MG 1 tablet Orally Once a day Active Loperamide HCl 2 MG 1 capsule as needed Orally Four times a day for 30 Days December, Active Ondansetron 8MG PLACE 1 TABLET ON TONGUE TWICE A DAY Active Sumatriptan Succinate 100 MG 1 TABLET NEEDED ONCE A DAY ORALLY 9 0 DAYS Active Vitamin D 1000 UNIT 1 tablet Orally Once a day Active Spiriva Respimat 2.5 MCG/ACT 2 puffs Inhalation Once a day Active Doxycycline Hyclate 100 MG 1 tablet Orally Twice a day for 1 4 day(s) December, Active Magnesium 500 MG 1 tablet with a meal Orally Once a day Active Dicyclomine HCl 20 MG 1 tablet Orally Three times a day for 30 day(s) December, Active Baclofen 10MG TAKE 1 TABLET THREE TIMES A DAY WITH FOOD OR MILK Orally Three times a day for 90 day(s) Active Omeprazole 40 MG 1 capsule Orally twice daily Active Symbicort 160-4.5 MCG/ACT USE 2 INHALATIONS TWICE A DAY Active Aspir-81 81 MG 1 tablet Orally Once a day Active Ventolin HFA 108 (90 BASE) MCG/ACT 2 PUFFS NEEDED E VERY 4 HRS INHALATION 90 DAY(S) Active Mometasone Furoate 50 MCG/ACT 2 sprays in each nostril Nasally Once a day Active PredniSONE 20 MG 1 tablet Orally Once a day for 7 day(s) December, Active Elbow Strap Left/Right - right- daily Daily Dx Right lateral epicondylitis Apr, Active Nitroglycerin 0.4 MG Sublingual Active Amiloride HCl 5 MG 1 tablet Orally bid Ac tive Mucinex 600 MG 1 tablet as needed Orally every 12 hrs for 30 da ys Apr, Active Lomotil 2.5-0.025 MG 1 tablet as needed Orally three times d aily for 30 Days December, Active PROCEDURES No Information RESULTS No Results REASON FOR VISIT refill MEDICAL (GENERAL) HISTORY Type Description Date Medical [...] 5 Surgical History Cervical 3 disc replacement 2016 Surgical History EGD/colonoscopy 08/2017 Surgical History spinal surgery L4+5- nerve decompression - Dr Bundy 09/08/2019 Hospitalization History Pneumonia 2016 Hospitalization History see above surgeries Hospitalization History Vcegf-JR-dqjwa,near fainting spell Hospitalization History [facility]- Palpitations,shaky 04/11/19 Goals Section No Information Health Concerns No Information MEDICAL EQUIPMENT No Information MENTAL STATUS No Information FUNCTIONAL STATUS No Information ASSESSMENTS Encounter Date Diagnosis Notes May, Chronic serous otitis media of both ears (ICD-10 - H65.23) PLAN OF TREATMENT Medication Medication Name Sig Start Date Stop Date Mucinex 600 MG 1 tablet as needed Orally every 12 hrs for 30 da ys Apr, Lomotil 2.5-0.025 MG 1 tablet as needed Orally three times d aily for 30 Days December, PredniSONE 20 MG 1 tablet Orally Once a day for 7 day(s) December, Doxycycline Hyclate 100 MG 1 tablet Orally Twice a day for 1 4 day(s) December, Lyrica 50 MG 1 capsule Orally-VIRI Three times a day MDD #3 Co de D for 90 days Amitriptyline HCl 50 MG TAKE 1 TABLET DAILY Loperamide HCl 2 MG 1 capsule as needed Orally Four times a day for 30 Days December, Pantoprazole Sodium 40 MG TAKE 1 TABLET DAILY Dicyclomine HCl 20 MG 1 tablet Orally Three times a day for 30 day(s) December, Insurance Providers Payer Name Payer Address Payer Phone Insured Name Patient Relati onship to Insured Coverage Start Date Coverage End Date BC[employer] WATTS PPO [phone] [facility] [employer] JAYSHREE TORRES [facility] [place] [id number] TONE RAMIREZ self
--- OUTSIDE RECORDS SUMMARY | 2020-09-05 10:19 | CCD ---
Author Author [facility] Organization [facility] Address Unknown Phone Unavailable Care Team Providers Care Thread Marker Name Role Phone Gela Mora Unavailable Unavailable Gela Mora Unavailable Unavailable Gela Mora Unavailable Unavailable Gela Mora Unavailable Unavailable Gela Mora Unavailable Unavailable Gela Mora Unavailable Unavailable Gela Mora Unavailable Unavailable Symenow, Gela Yulia PA Unavailable Unavailable Symenow, Gela Yulia PA Unavailable Unavailable Symenow, Gela Yulia PA Unavailable Unavailable Symenow, Gela Yulia PA Unavailable Unavailable Symenow, Gela Yulia PA Unavailable Unavailable Symenow, Gela Yulia PA Unavailable Unavailable Symenow, Gela Yulia PA Unavailable Unavailable Symenow, Gela Yulia PA Unavailable Unavailable Symenow, Gela Yulia PA Unavailable Unavailable Symenow, Gela Yulia PA Unavailable Unavailable Symenow, Gela Yulia PA Unavailable Unavailable Symenow, Gela Yulia PA Unavailable Unavailable Symenow, Gela Yulia PA Unavailable Unavailable Symenow, Gela Yulia PA Unavailable Unavailable Symenow, Gela Yulia PA Unavailable Unavailable Symenow, Gela Yulia PA Unavailable Unavailable Symenow, Gela Yulia PA Unavailable Unavailable Symenow, Gela Yulia PA Unavailable Unavailable Symenow, Gela Yulia PA Unavailable Unavailable Symenow, Gela Yulia PA Unavailable Unavailable Symenow, Gela Yulia PA Unavailable Unavailable Symenow, Gela Yulia PA Unavailable Unavailable Symenow, Gela Yulia PA Unavailable Unavailable Symenow, Gela Yulia PA Unavailable Unavailable Symenow, Gela Yulia PA Unavailable Unavailable Symenow, Gela Yulia PA Unavailable Unavailable Symenow, Gela Yulia PA Unavailable Unavailable Symenow, Gela Yulia PA Unavailable Unavailable Symenow, Gela Yulia PA Unavailable Unavailable HUIZENGA, D OSKAR DO Unavailable Unavailable HUIZENGA, D OSKAR DO Unavailable Unavailable HUIZENGA D OSKAR DO Unavailable Unavailable HUIZENGA D OSKAR DO Unavailable Unavailable HUIZENGA D SOKAR DO Unavailable Unavailable HUIZENGA, D OSKAR DO Unavailable Unavailable HUIZENGA, D OSKAR DO Unavailable Unavailable HUIZENGA, D OSKAR DO Unavailable Unavailable HUIZENGA D OSKAR DO Unavailable Unavailable HUIZENGA, D OSKAR DO Unavailable Unavailable HUIZENGA D OSKAR DO Unavailable Unavailable HUIZENGA, D OSKAR DO Unavailable Unavailable HUIZENGA, D OSKAR DO Unavailable Unavailable HUIZENGA, Libertad SCHMITT DO Unavailable Unavailable HUIZENGA, Libertad SCHMITT DO Unavailable Unavailable HUIZENGA, Libertad SCHMITT DO Unavailable Unavailable HUIZENGA, Libertad SCHMITT DO Unavailable Unavailable HUIZENGA, Libertad SCHMITT DO Unavailable Unavailable HUIZENGA, Libertad SCHMITT DO Unavailable Unavailable HUIZENGA, Libertad SCHMITT DO Unavailable Unavailable HUIZENGA, Libertad SCHMITT DO Unavailable Unavailable HUIZENGA, Libertad SCHMITT DO Unavailable Unavailable HUIZENGA, Libertad SCHMITT DO Unavailable Unavailable HUIZENGA, Libertad SCHMITT DO Unavailable Unavailable HUIZENGA, Libertad SCHMITT DO Unavailable Unavailable HUIZENGA, Libertad SCHMITT DO Unavailable Unavailable HUIZENGA, Libertad SCHMITT DO Unavailable Unavailable HUIZENGA, Libertad SCHMITT DO Unavailable Unavailable HUIZENGA, Libertad SCHMITT DO Unavailable Unavailable HUIZENGA, Libertad SCHMITT DO Unavailable Unavailable HUIZENGA, Libertad SCHMITT DO Unavailable Unavailable HUIZENGA, Libertad SCHMITT DO Unavailable Unavailable HUIZENGA, Libertad SCHMITT DO Unavailable Unavailable HUIZENGA, Libertad SCHMITT DO Unavailable Unavailable HUIZENGA, Libertad SCHMITT DO Unavailable Unavailable HUIZENGA, Libertad SCHMITT DO Unavailable Unavailable HUIZENGA, Libertad SCHMITT DO Unavailable Unavailable HUIZENGA, Libertad SCHMITT DO Unavailable Unavailable HUIZENGA, Libertad SCHMITT DO Unavailable Unavailable HUIZENGA, Liberatd SCHMITT DO Unavailable Unavailable HUIZENGA, Libertad SCHMITT DO Unavailable Unavailable HUIZENGA, Libertad SCHMITT DO Unavailable Unavailable HUIZENGA, Libertad SCHMITT DO Unavailable Unavailable HUIZENGA, Libertad SCHMITT DO Unavailable Unavailable HUIZENGA, Libertad SCHMITT DO Unavailable Unavailable HUIZENGA, Libertad SCHMITT DO Unavailable Unavailable HUIZENGA, Libertad SCHMITT DO Unavailable Unavailable HUIZENGA, Libertad SCHMITT DO Unavailable Unavailable HUIZENGA, Libertad SCHMITT DO Unavailable Unavailable HUIZENGA, Libertad SCHMITT DO Unavailable Unavailable HUIZENGA, Libertad SCHMITT DO Unavailable Unavailable HUIZENGA, Libertad SCHMITT DO Unavailable Unavailable HUIZENGA, Libertad SCHMITT DO Unavailable Unavailable HUIZENGA, Libertad SCHMITT DO Unavailable Unavailable HUIZENGA, Libertad SCHMITT DO Unavailable Unavailable HUIZENGA, Libertad SCHMITT DO Unavailable Unavailable HUIZENGA, Libertad SCHMITT DO Unavailable Unavailable HUIZENGA, D OSKAR DO Unavailable Unavailable HUIZENGA, D OSKAR DO Unavailable Unavailable HUIZENGA, D OSKAR DO Unavailable Unavailable HUIZENGA, D OSKAR DO Unavailable Unavailable HUIZENGA, D OSKAR DO Unavailable Unavailable HUIZENGA, D OSKAR DO Unavailable Unavailable HUIZENGA, D OSKAR DO Unavailable Unavailable HUIZENGA, D OSKAR DO Unavailable Unavailable HUIZENGA, D OSKAR DO Unavailable Unavailable HUIZENGA, D OSKAR DO Unavailable Unavailable HUIZENGA, D OSKAR DO Unavailable Unavailable HUIZENGA, D OSKAR DO Unavailable Unavailable HUIZENGA, D OSKAR DO Unavailable Unavailable HUIZENGA, D OSKAR DO Unavailable Unavailable HUIZENGA, D OSKAR DO Unavailable Unavailable Yanez, A Glenroy MD Unavailable Unavailable Yanez, A Glenroy MD Unavailable Unavailable Yanez, A Glenroy MD Unavailable Unavailable Yanez, A Glenroy MD Unavailable Unavailable Yanez, A Glenroy MD Unavailable Unavailable Yanez, A Glenroy MD Unavailable Unavailable Yanez, A Glenroy MD Unavailable Unavailable Yanez, A Glenroy MD Unavailable Unavailable Yanez, A Glenroy MD Unavailable Unavailable Yanez, A Glenroy MD Unavailable Unavailable Yanez, A Glenroy MD Unavailable Unavailable Yanez, A Glenroy MD Unavailable Unavailable Yanez, A Glenroy MD Unavailable Unavailable Yanez, A Glenroy MD Unavailable Unavailable Ynaez, A Glenroy MD Unavailable Unavailable Yanez, A Glenroy MD Unavailable Unavailable Yanez, A Glenroy MD Unavailable Unavailable Yanez, A Glenroy MD Unavailable Unavailable Yanez, A Glenroy MD Unavailable Unavailable Yanez, A Glenroy MD Unavailable Unavailable Yanez, A Glenroy MD Unavailable Unavailable Yanez, A Glenroy MD Unavailable Unavailable Yanez, A Glenroy MD Unavailable Unavailable Yanez, A Glenroy MD Unavailable Unavailable Yanez, A Glenroy MD Unavailable Unavailable Yanez, A Glenroy MD Unavailable Unavailable Yanez, A Glenroy MD Unavailable Unavailable Yanez, A Glenroy MD Unavailable Unavailable Yanez, A Glenroy MD Unavailable Unavailable Yanez, A Glneroy MD Unavailable Unavailable Yanez, A Glenroy MD Unavailable Unavailable Yanez, A Glenroy MD Unavailable Unavailable Yanez, A Glenroy MD Unavailable Unavailable Yanez, A Glenroy MD Unavailable Unavailable Yanez, A Glenroy MD Unavailable Unavailable Yanez, A Glenroy MD Unavailable Unavailable Yanez, A Glenroy MD Unavailable Unavailable Yanez, A Glenroy MD Unavailable Unavailable Yanez, A Glenroy MD Unavailable Unavailable Yanez, A Glenroy MD Unavailable Unavailable Yanez, A Glenroy MD Unavailable Unavailable Yanez, A Glenroy MD Unavailable Unavailable Yanez, A Glenroy MD Unavailable Unavailable Yanez, A Glenroy MD Unavailable Unavailable Yanez, A Glenroy MD Unavailable Unavailable Yanez, A Glenroy MD Unavailable Unavailable Yanez, A Glenroy MD Unavailable Unavailable Yanez, A Glenroy MD Unavailable Unavailable Yanez, A Glenroy MD Unavailable Unavailable Yanez, A Glenroy MD Unavailable Unavailable Yanez, A Glenroy MD Unavailable Unavailable Yanez, A Glenroy MD Unavailable Unavailable Yanez, A Glenroy MD Unavailable Unavailable Yanez, A Glenroy MD Unavailable Unavailable Yanez, A Glenroy MD Unavailable Unavailable Yanez, A Glenroy MD Unavailable Unavailable Yanez, A Glenroy MD Unavailable Unavailable Yanez, A Glenroy MD Unavailable Unavailable Aynez, A Glenroy MD Unavailable Unavailable Yanez, A Glenroy MD Unavailable Unavailable Yanez, A Glenroy MD Unavailable Unavailable Yanez, A Glenroy MD Unavailable Unavailable Yanez, A Glenroy MD Unavailable Unavailable Yanez, A Glenroy MD Unavailable Unavailable Yanez, A Glenroy MD Unavailable Unavailable Yanez, A Glenroy MD Unavailable Unavailable Yanez, A Glenroy MD Unavailable Unavailable Yanez, A Glenroy MD Unavailable Unavailable Yanez, A Glenroy MD Unavailable Unavailable Yanez, A Glenroy MD Unavailable Unavailable Yanez, A Glenroy MD Unavailable Unavailable Yanez, A Glenroy MD Unavailable Unavailable Yanez, A Glenroy MD Unavailable Unavailable Yanez, A Glenroy MD Unavailable Unavailable Yanez, A Glenroy MD Unavailable Unavailable Yanez, A Glenroy MD Unavailable Unavailable Yanez, A Glenroy MD Unavailable Unavailable Yanez, A Glenroy MD Unavailable Unavailable Yanez, A Glenroy MD Unavailable Unavailable Yanez, A Glenroy MD Unavailable Unavailable Yanez, A Glenroy MD Unavailable Unavailable Remi BRAUN MD Unavailable Unavailable Remi BRAUN MD Unavailable Unavailable Remi BRAUN MD Unavailable Unavailable Remi BRAUN MD Unavailable Unavailable Remi BRAUN MD Unavailable Unavailable Marya, Poonam Alexa PA Unavailable Unavailable Marya, Poonam Alexa PA Unavailable Unavailable Marya, Poonam Alexa PA Unavailable Unavailable Marya, Poonam Alexa PA Unavailable Unavailable Marya, Poonam Alexa PA Unavailable Unavailable Marya, Poonam Alexa PA Unavailable Unavailable Marya, Poonam Alexa PA Unavailable Unavailable Marya, Poonam Alexa PA Unavailable Unavailable Marya, Poonam Alexa PA Unavailable Unavailable Marya, Poonam Alexa PA Unavailable Unavailable Marya, Poonam Alexa PA Unavailable Unavailable Marya, Poonam Alexa PA Unavailable Unavailable Marya, Poonam Alexa PA Unavailable Unavailable Marya, Poonam Alexa PA Unavailable Unavailable Marya, Poonam Alexa PA Unavailable Unavailable Marya, Poonam Alexa PA Unavailable Unavailable Marya, Poonam Alexa PA Unavailable Unavailable Marya, Poonam Alexa PA Unavailable Unavailable Marya, Poonam Alexa PA Unavailable Unavailable Marya, Poonam Alexa PA Unavailable Unavailable Marya, Poonam Alexa PA Unavailable Unavailable Marya, Poonam Alexa PA Unavailable Unavailable Marya, Poonam Alexa PA Unavailable Unavailable Marya, Poonam Alexa PA Unavailable Unavailable Marya, Poonam Alexa PA Unavailable Unavailable Marya, Poonam Alexa PA Unavailable Unavailable Marya, Poonam Alexa PA Unavailable Unavailable Marya, Poonam Alexa PA Unavailable Unavailable Marya, Poonam Alexa PA Unavailable Unavailable Marya, Poonam Alexa PA Unavailable Unavailable Marya, Poonam Alexa PA Unavailable Unavailable Marya, Poonam Alexa PA Unavailable Unavailable Brigido, L Roselyn PA Unavailable Unavailable Brigido, L Roselyn PA Unavailable Unavailable Brigido, L Roselyn PA Unavailable Unavailable Brigido, L Roselyn PA Unavailable Unavailable Brigido, L Roselyn PA Unavailable Unavailable Brigido, L Roselyn PA Unavailable Unavailable Brigido, L Roselyn PA Unavailable Unavailable Brigido, L Roselyn PA Unavailable Unavailable Brigido, L Roselyn PA Unavailable Unavailable Brigido, L Roselyn PA Unavailable Unavailable Brigido, L Roselyn PA Unavailable Unavailable Brigido, L Roselyn PA Unavailable Unavailable Brigido, L Roselyn PA Unavailable Unavailable Brigido, L Roselyn PA Unavailable Unavailable Brigido, L Roselyn PA Unavailable Unavailable Brigido, L Roselyn PA Unavailable Unavailable Brigido, L Roselyn PA Unavailable Unavailable Brigido, L Roselyn PA Unavailable Unavailable Brigido, L Roselyn PA Unavailable Unavailable Brigido, L Roselyn PA Unavailable Unavailable Brigido, L Roselyn PA Unavailable Unavailable Brigido, L Roselyn PA Unavailable Unavailable Brigido, L Roselyn PA Unavailable Unavailable CANAL, DONNA PA Unavailable Unavailable CANAL, DONNA PA Unavailable Unavailable CANAL, DONNA PA Unavailable Unavailable CANAL, DONNA PA Unavailable Unavailable CANAL, DONNA PA Unavailable Unavailable CANAL, DONNA PA Unavailable Unavailable CANAL, DONNA PA Unavailable Unavailable CANAL, DONNA PA Unavailable Unavailable CANAL, DONNA PA Unavailable Unavailable CANAL, DONNA PA Unavailable Unavailable CANAL, DONNA PA Unavailable Unavailable CANAL, DONNA PA Unavailable Unavailable CANAL, DONNA PA Unavailable Unavailable CANAL, DONNA PA Unavailable Unavailable CANAL, ODNNA PA Unavailable Unavailable CANAL, DONNA PA Unavailable Unavailable CANAL, DONNA PA Unavailable Unavailable CANAL, DONNA PA Unavailable Unavailable CANAL, DONNA PA Unavailable Unavailable CANAL, DONNA PA Unavailable Unavailable CANAL, DONNA PA Unavailable Unavailable CANAL, DONNA PA Unavailable Unavailable CANAL, DONNA PA Unavailable Unavailable CANAL, DONNA PA Unavailable Unavailable CANAL, DONNA PA Unavailable Unavailable CANAL, DONNA PA Unavailable Unavailable CANAL, DONNA PA Unavailable Unavailable CANAL, DONNA PA Unavailable Unavailable CANAL, DONNA PA Unavailable Unavailable CANAL, DONNA PA Unavailable Unavailable CANAL, DONNA PA Unavailable Unavailable Yanez, A Glenroy MD Unavailable Unavailable Yanez, A Glenroy MD Unavailable Unavailable Yanez, A Glenroy MD Unavailable Unavailable Yanez, A Glenroy MD Unavailable Unavailable Yanez, A Glenroy MD Unavailable Unavailable Yanez, A Glenroy MD Unavailable Unavailable Yanez, A Glenroy MD Unavailable Unavailable Yanez, A Glenroy MD Unavailable Unavailable Yanez, A Glenroy MD Unavailable Unavailable Yanez, A Glenroy MD Unavailable Unavailable Yanez, A Glenroy MD Unavailable Unavailable Yanez, A Glenroy MD Unavailable Unavailable Yanez, A Glenroy MD Unavailable Unavailable Yanez, A Glenroy MD Unavailable Unavailable Yanez, A Glenroy MD Unavailable Unavailable Yanez, A Glenroy MD Unavailable Unavailable Yanez, A Glenroy MD Unavailable Unavailable Yanez, A Glenroy MD Unavailable Unavailable Yanez, A Glenroy MD Unavailable Unavailable Yanez, A Glenroy MD Unavailable Unavailable Yanez, A Glenroy MD Unavailable Unavailable Yanez, A Glenroy MD Unavailable Unavailable Yanez, A Glenroy MD Unavailable Unavailable Yanez, A Glenroy MD Unavailable Unavailable Yanez, A Glenroy MD Unavailable Unavailable Yanez, A Glenroy MD Unavailable Unavailable Yanez, A Glenroy MD Unavailable Unavailable Yanez, A Glenroy MD Unavailable Unavailable Yanez, A Glenroy MD Unavailable Unavailable Yanez, A Glenroy MD Unavailable Unavailable Yanez, A Glenroy MD Unavailable Unavailable Yanez, A Glenroy MD Unavailable Unavailable Yanez, A Glenroy MD Unavailable Unavailable Yanez, A Glenroy MD Unavailable Unavailable Yanez, A Glenroy MD Unavailable Unavailable Yanez, A Glenroy MD Unavailable Unavailable Yanez, A Glenroy MD Unavailable Unavailable Yanez, A Glenroy MD Unavailable Unavailable Yanez, A Glenroy MD Unavailable Unavailable Yanez, A Glenroy MD Unavailable Unavailable Yanez, A Glenroy MD Unavailable Unavailable Yanez, A Glenroy MD Unavailable Unavailable Yanez, A Glenroy MD Unavailable Unavailable Yanez, A Glenroy MD Unavailable Unavailable Yanez, A Glenroy MD Unavailable Unavailable Yanez, A Glenroy MD Unavailable Unavailable Yanez, A Glenroy MD Unavailable Unavailable Yanez, A Glenroy MD Unavailable Unavailable Yanez, A Glenroy MD Unavailable Unavailable Yanez, A Glenroy MD Unavailable Unavailable Yanez, A Glenroy MD Unavailable Unavailable Yaenz, A Glenroy MD Unavailable Unavailable Yanez, A Glenroy MD Unavailable Unavailable Yanez, A Glenroy GARCIA Unavailable Unavailable Yanez, A Glenroy GARCIA Unavailable Unavailable Yanez, A Glenroy GARCIA Unavailable Unavailable Yanez, A Glenroy GARCIA Unavailable Unavailable Yanez, A Glenroy GARCIA Unavailable Unavailable Yanez, A Glenroy GARCIA Unavailable Unavailable Yanez, A Glenroy GARCIA Unavailable Unavailable Yanez, A Glenroy GARCIA Unavailable Unavailable Yanez, A Glenroy GARCIA Unavailable Unavailable Yanez, A Glenroy GARCIA Unavailable Unavailable Yanez, A Glenroy GARCIA Unavailable Unavailable Yanez, A Glenroy GARCIA Unavailable Unavailable Yanez, A Glenroy GARCIA Unavailable Unavailable Yanez, A Glenroy GARCIA Unavailable Unavailable Yanez, A Glenroy GARCIA Unavailable Unavailable Yanez, A Glenroy GARCIA Unavailable Unavailable Yanez, A Glenroy GARCIA Unavailable Unavailable Yanez, A Glenroy GARCIA Unavailable Unavailable Yanez, A Glenroy GARCIA Unavailable Unavailable Yanez, A Glenroy GARCIA Unavailable Unavailable Yanez, A Glenroy GARCIA Unavailable Unavailable Yanez, A Glenroy GARCIA Unavailable Unavailable Yanez, A Glenroy GARCIA Unavailable Unavailable Yanez, A lGenroy GARCIA Unavailable Unavailable Yanez, A Glenroy GARCIA Unavailable Unavailable Yanez, A Glenroy GARCIA Unavailable Unavailable Yanez, A Glenroy GARCIA Unavailable Unavailable Yanez, A Glenroy GARCIA Unavailable Unavailable Ryfun, Florence Martina BEHAVIORAL HEALTH COUNSELOR-C Unavailable Unavaila ble Ryfun, Florence Martina BEHAVIORAL HEALTH COUNSELOR-C Unavailable Unavaila ble Ryfun, Florence Martina BEHAVIORAL HEALTH COUNSELOR-C Unavailable Unavaila ble Ryfun, Florence Martina BEHAVIORAL HEALTH COUNSELOR-C Unavailable Unavaila ble Ryfun, Florence Martina BEHAVIORAL HEALTH COUNSELOR-C Unavailable Unavaila ble Ryfun, Florence Martina BEHAVIORAL HEALTH COUNSELOR-C Unavailable Unavaila ble Ryfun, Florence Martina BEHAVIORAL HEALTH COUNSELOR-C Unavailable Unavaila ble Ryfun, Florence Martina BEHAVIORAL HEALTH COUNSELOR-C Unavailable Unavaila ble Ryfun, Florecne Martina BEHAVIORAL HEALTH COUNSELOR-C Unavailable Unavaila ble Ryfun, Florence Martina BEHAVIORAL HEALTH COUNSELOR-C Unavailable Unavaila ble Ryfun, Florence Martina BEHAVIORAL HEALTH COUNSELOR-C Unavailable Unavaila ble Ryfun, Florence Martina BEHAVIORAL HEALTH COUNSELOR-C Unavailable Unavaila ble Ryfun, Flornece Martina BEHAVIORAL HEALTH COUNSELOR-C Unavailable Unavaila ble Ryfun, Florence Martina BEHAVIORAL HEALTH COUNSELOR-C Unavailable Unavaila ble Ryfun, Florence Martina BEHAVIORAL HEALTH COUNSELOR-C Unavailable Unavaila ble Ryfun, Florence Martina BEHAVIORAL HEALTH COUNSELOR-C Unavailable Unavaila ble Ryfun, Florence Martina BEHAVIORAL HEALTH COUNSELOR-C Unavailable Unavaila ble Ryfun, Florence Davisfer BEHAVIORAL HEALTH COUNSELOR-C Unavailable Unavaila ble Ryfun, Florence Davisfer BEHAVIORAL HEALTH COUNSELOR-C Unavailable Unavaila ble Ryfun, Florence Davisfer BEHAVIORAL HEALTH COUNSELOR-C Unavailable Unavaila ble Ryfun, Florence Severinonifer BEHAVIORAL HEALTH COUNSELOR-C Unavailable Unavaila ble Ryfun, Florence Severinonifer BEHAVIORAL HEALTH COUNSELOR-C Unavailable Unavaila ble Ryfun, Florence Severinonifer BEHAVIORAL HEALTH COUNSELOR-C Unavailable Unavaila ble Ryfun, Florence Severinonifer BEHAVIORAL HEALTH COUNSELOR-C Unavailable Unavaila ble Ryfun, Florence Severinonifer BEHAVIORAL HEALTH COUNSELOR-C Unavailable Unavaila ble Ryfun, Florence Severinonifer BEHAVIORAL HEALTH COUNSELOR-C Unavailable Unavaila ble Ryfun, Florence Davisfer BEHAVIORAL HEALTH COUNSELOR-C Unavailable Unavaila ble Ryfun, Florence Severinonifer BEHAVIORAL HEALTH COUNSELOR-C Unavailable Unavaila ble Ryfun, Florence Severinonifer BEHAVIORAL HEALTH COUNSELOR-C Unavailable Unavaila ble Ryfun, Florence Davisfer BEHAVIORAL HEALTH COUNSELOR-C Unavailable Unavaila ble Ryfun, Florence Davisfer BEHAVIORAL HEALTH COUNSELOR-C Unavailable Unavaila ble Ryfun, Florence Severinonifer BEHAVIORAL HEALTH COUNSELOR-C Unavailable Unavaila ble Ryfun, Florence Severinonifer BEHAVIORAL HEALTH COUNSELOR-C Unavailable Unavaila ble Ryfun, Florence Davisfer BEHAVIORAL HEALTH COUNSELOR-C Unavailable Unavaila ble Ryfun, Florence Severinonifer BEHAVIORAL HEALTH COUNSELOR-C Unavailable Unavaila ble Ryfun, Florence Severinonifer BEHAVIORAL HEALTH COUNSELOR-C Unavailable Unavaila ble Ryfun, Florence Severinonifer BEHAVIORAL HEALTH COUNSELOR-C Unavailable Unavaila ble Ryfun, Florence Severinonifer BEHAVIORAL HEALTH COUNSELOR-C Unavailable Unavaila ble Ryfun, Florence Severinonifer BEHAVIORAL HEALTH COUNSELOR-C Unavailable Unavaila ble Ryfun, Florence Severinonifer BEHAVIORAL HEALTH COUNSELOR-C Unavailable Unavaila ble Ryfun, Florence Severinonifer BEHAVIORAL HEALTH COUNSELOR-C Unavailable Unavaila ble Ryfun, Florence Severinonifer BEHAVIORAL HEALTH COUNSELOR-C Unavailable Unavaila ble Ryfun, Florence Severinonifer BEHAVIORAL HEALTH COUNSELOR-C Unavailable Unavaila ble Ryfun, Florence Severinonifer BEHAVIORAL HEALTH COUNSELOR-C Unavailable Unavaila ble Ryfun, Florence Severinonifer BEHAVIORAL HEALTH COUNSELOR-C Unavailable Unavaila ble Ryfun, Florence Severinonifer BEHAVIORAL HEALTH COUNSELOR-C Unavailable Unavaila ble Ryfun, Florence Martina BEHAVIORAL HEALTH COUNSELOR-C Unavailable Unavaila ble Ryfun, Florence Martina BEHAVIORAL HEALTH COUNSELOR-C Unavailable Unavaila ble Ryfun, Florence Martina BEHAVIORAL HEALTH COUNSELOR-C Unavailable Unavaila ble Ryfun, Florence Martina BEHAVIORAL HEALTH COUNSELOR-C Unavailable Unavaila ble Ryfun, Florence Martina BEHAVIORAL HEALTH COUNSELOR-C Unavailable Unavaila ble Ryfun, Florence Martina BEHAVIORAL HEALTH COUNSELOR-C Unavailable Unavaila ble Ryfun, Florence Martina BEHAVIORAL HEALTH COUNSELOR-C Unavailable Unavaila ble Ryfun, Florence Martina BEHAVIORAL HEALTH COUNSELOR-C Unavailable Unavaila ble Ryfun, Florence Martina BEHAVIORAL HEALTH COUNSELOR-C Unavailable Unavaila ble Ryfun, Florence Martina BEHAVIORAL HEALTH COUNSELOR-C Unavailable Unavaila ble Ryfun, Florence Martina BEHAVIORAL HEALTH COUNSELOR-C Unavailable Unavaila ble Ryfun, Florence Martina BEHAVIORAL HEALTH COUNSELOR-C Unavailable Unavaila ble Ryfun, Florence Martina BEHAVIORAL HEALTH COUNSELOR-C Unavailable Unavaila ble Ryfun, Florence Martina BEHAVIORAL HEALTH COUNSELOR-C Unavailable Unavaila ble Lesley Pacheco MD Unavailable Unavailable Lesley Pacheco MD Unavailable Unavailable Lesley Pacheco MD Unavailable Unavailable Lesley Pacheco MD Unavailable Unavailable Lesley Pacheco MD Unavailable Unavailable Lesley Pacheco MD Unavailable Unavailable Lesley Pacheco MD Unavailable Unavailable Lesley Pacheco MD Unavailable Unavailable Lesley Pacheco MD Unavailable Unavailable Lesley Pacheco MD Unavailable Unavailable Lesley Pacheco MD Unavailable Unavailable Lesley Pacheco MD Unavailable Unavailable Lesley Pacheco MD Unavailable Unavailable Lesley Pacheco MD Unavailable Unavailable Lesley Pacheco MD Unavailable Unavailable Lesley Pacheco MD Unavailable Unavailable Lesley Pacheco MD Unavailable Unavailable Lesley Pacheco MD Unavailable Unavailable Lesley Pacheco MD Unavailable Unavailable Lesley Pacheco MD Unavailable Unavailable Lesley Pacheco MD Unavailable Unavailable Lesley Pacheco MD Unavailable Unavailable Lesley Pacheco MD Unavailable Unavailable Lesley Pacheco MD Unavailable Unavailable Lesley Pacheco MD Unavailable Unavailable Lesley Pacheco MD Unavailable Unavailable Lesley Pacheco MD Unavailable Unavailable Lesley Pacheco MD Unavailable Unavailable Lesley Pacheco MD Unavailable Unavailable Lesley Pacheco MD Unavailable Unavailable Lesley Pacheco MD Unavailable Unavailable Lesley Pacheco MD Unavailable Unavailable Lesley Pacheco MD Unavailable Unavailable Lesley Pacheco MD Unavailable Unavailable Lesley Pacheco MD Unavailable Unavailable Lesley Pacheco MD Unavailable Unavailable Lesley Pacheco MD Unavailable Unavailable Lesley Pacheco MD Unavailable Unavailable Lesley Pacheco MD Unavailable Unavailable Lesley Pacheco MD Unavailable Unavailable Lesley Pacheco MD Unavailable Unavailable Lesley Pacheco MD Unavailable Unavailable Lesely Pacheco MD Unavailable Unavailable Lesley Pacheco MD Unavailable Unavailable Lesley Pacheco MD Unavailable Unavailable EngLesley MD Unavailable Unavailable EngLesley MD Unavailable Unavailable Lesley Pacheco MD Unavailable Unavailable Lesley Pacheco MD Unavailable Unavailable EngLesley MD Unavailable Unavailable EngLesley MD Unavailable Unavailable EngLesley MD Unavailable Unavailable EngLesley MD Unavailable Unavailable EngLesley MD Unavailable Unavailable EngLesley MD Unavailable Unavailable EngLesley MD Unavailable Unavailable Lesley Pacheco MD Unavailable Unavailable EngLesley MD Unavailable Unavailable EngLesley MD Unavailable Unavailable Lesley Pacheco MD Unavailable Unavailable Lesley Pacheco MD Unavailable Unavailable Lesley Pacheco MD Unavailable Unavailable Lesley Pacheco MD Unavailable Unavailable Lesley Pacheco MD Unavailable Unavailable Lesley Pacheco MD Unavailable Unavailable Lesley Pahceco MD Unavailable Unavailable Lesley Pacheco MD Unavailable Unavailable Lesley Pacheco MD Unavailable Unavailable Lesley Pacheco MD Unavailable Unavailable Lesley Pacheco MD Unavailable Unavailable Lesley Pacheco MD Unavailable Unavailable Lesley Pacheco MD Unavailable Unavailable Lesley Pacheco MD Unavailable Unavailable Lesley Pacheco MD Unavailable Unavailable Lesley Pacheco MD Unavailable Unavailable Lesley Pacheco MD Unavailable Unavailable Leslye Pacheco MD Unavailable Unavailable Lesley Pacheco MD Unavailable Unavailable Lesley Pacheco MD Unavailable Unavailable Lesley Pacheco MD Unavailable Unavailable Lesley Pacheco MD Unavailable Unavailable Lesley Pacheco MD Unavailable Unavailable Lesley Pacheco MD Unavailable Unavailable Lesley Pacheco MD Unavailable Unavailable Lesley Pacheco MD Unavailable Unavailable Lesley Pacheco MD Unavailable Unavailable Lesley Pacheco MD Unavailable Unavailable Lesley Pacheco MD Unavailable Unavailable Lesley Pacheco MD Unavailable Unavailable Lesley Pacheco MD Unavailable Unavailable Lesley Pacheco MD Unavailable Unavailable Lesley Pacheco MD Unavailable Unavailable Lesley Pacheco MD Unavailable Unavailable Lesley Pacheco MD Unavailable Unavailable Lesley Pacheco MD Unavailable Unavailable Lesley Pacheco MD Unavailable Unavailable Lesley Pacheco MD Unavailable Unavailable Lesley Pacheco MD Unavailable Unavailable Lesley Pacheco MD Unavailable Unavailable Lesley Pacheco MD Unavailable Unavailable Lesley Pacheco MD Unavailable Unavailable Lesley Pacheco MD Unavailable Unavailable Lesley Pacheco MD Unavailable Unavailable Lesley Pacheco MD Unavailable Unavailable Lesley Pacheco MD Unavailable Unavailable Lesley Pacheco MD Unavailable Unavailable Lesley Pacheco MD Unavailable Unavailable Lesley Pacheco MD Unavailable Unavailable Lesley Pacheco MD Unavailable Unavailable Lesley Pacheco MD Unavailable Unavailable Lesley Pacheco MD Unavailable Unavailable Lesley Pacheco MD Unavailable Unavailable Lesley Pacheco MD Unavailable Unavailable Lesley Pacheco MD Unavailable Unavailable Lesley Pacheco MD Unavailable Unavailable Lesley Pacheco MD Unavailable Unavailable EngLesley MD Unavailable Unavailable EngLesley MD Unavailable Unavailable EngLesley MD Unavailable Unavailable Lesley Pacheco MD Unavailable Unavailable Lesley Pacheco MD Unavailable Unavailable Lesley Pacheco MD Unavailable Unavailable Lesley Pacheco MD Unavailable Unavailable EngLesley MD Unavailable Unavailable EngLesley MD Unavailable Unavailable EngLesley MD Unavailable Unavailable Eng, Lesley Aguilar MD Unavailable Unavailable EngLesley MD Unavailable Unavailable EngLesley MD Unavailable Unavailable EngLesley MD Unavailable Unavailable Lesley Pacheco MD Unavailable Unavailable Lesley Pacheco MD Unavailable Unavailable Lesley Pacheco MD Unavailable Unavailable Lesley Pacheco MD Unavailable Unavailable Lesley Pacheco MD Unavailable Unavailable Lesley Pacheco MD Unavailable Unavailable Lesley Pacheco MD Unavailable Unavailable Lesley Pacheco MD Unavailable Unavailable Lesley Pacheco MD Unavailable Unavailable Lesley Pacheco MD Unavailable Unavailable Lesley Pacheco MD Unavailable Unavailable Lesley Pacheco MD Unavailable Unavailable Lesley Pacheco MD Unavailable Unavailable Lesley Pacheco MD Unavailable Unavailable Lesley Pacheco MD Unavailable Unavailable Lesley Pacheco MD Unavailable Unavailable Lesley Pacheco MD Unavailable Unavailable Lesley Pacheco MD Unavailable Unavailable Lesley Pacheco MD Unavailable Unavailable Lesley Pacheco MD Unavailable Unavailable Lesley Pacheco MD Unavailable Unavailable Lesley Pacheco MD Unavailable Unavailable Lesley Pacheco MD Unavailable Unavailable Lesley Pacheco MD Unavailable Unavailable Lesley Pacheco MD Unavailable Unavailable Lesley Pacheco MD Unavailable Unavailable Lesley Pacheco MD Unavailable Unavailable Lesley Pacheco MD Unavailable Unavailable Lesley Pacheco MD Unavailable Unavailable Lesley Pacheco MD Unavailable Unavailable Lesley Pacheco MD Unavailable Unavailable Lesley Pacheco MD Unavailable Unavailable Lesley Pacheco MD Unavailable Unavailable Lesley Pacheco MD Unavailable Unavailable Lesley Pacheco MD Unavailable Unavailable Lesley Pacheco MD Unavailable Unavailable Lesley Pacheco MD Unavailable Unavailable Lesley Pacheco MD Unavailable Unavailable Lesley Pacheco MD Unavailable Unavailable Lesley Pacheco MD Unavailable Unavailable Lesley Pacheco MD Unavailable Unavailable Lesley Pacheco MD Unavailable Unavailable Lesley Pacheco MD Unavailable Unavailable Lesley Pacheco MD Unavailable Unavailable Lesley Pacheco MD Unavailable Unavailable Lesley Pacheco MD Unavailable Unavailable Lesley Pacheco MD Unavailable Unavailable Lesley Pacheco MD Unavailable Unavailable Lesley Pacheco MD Unavailable Unavailable Lesley Pacheco MD Unavailable Unavailable Lesley Pacheco MD Unavailable Unavailable Lesley Pacheco MD Unavailable Unavailable Lesley Pacheco MD Unavailable Unavailable Lesley Pacheco MD Unavailable Unavailable Lesley Pacheco MD Unavailable Unavailable Lesley Pacheco MD Unavailable Unavailable Lesley Pacheco MD Unavailable Unavailable Lesley Pacheco MD Unavailable Unavailable Lesley Pacheco MD Unavailable Unavailable Lesley Pacheco MD Unavailable Unavailable Lesley Pacheco MD Unavailable Unavailable Lesley Pacheco MD Unavailable Unavailable Lesley Pacheco MD Unavailable Unavailable Lesley Pacheco MD Unavailable Unavailable Lesley Pacheco MD Unavailable Unavailable Lesley Pacheco MD Unavailable Unavailable Lesley Pacheco MD Unavailable Unavailable Lesley Pacheco MD Unavailable Unavailable Lesley Pacheco MD Unavailable Unavailable Lesley Pacheco MD Unavailable Unavailable Lesley Pacheco MD Unavailable Unavailable Lesley Pacheco MD Unavailable Unavailable Rydberg, Yessica PA Unavailable Unavailable Rydberg, Yessica PA Unavailable Unavailable Rydberg, Yessica PA Unavailable Unavailable Rydberg, Yessica PA Unavailable Unavailable Rydberg, Yessica PA Unavailable Unavailable Rydberg, Yessica PA Unavailable Unavailable Rydberg, Yessica PA Unavailable Unavailable Rydberg, Yessica PA Unavailable Unavailable Rydberg, Yessica PA Unavailable Unavailable Rydberg, Yessica PA Unavailable Unavailable Rydberg, Yessica PA Unavailable Unavailable Rydberg, Yessica PA Unavailable Unavailable Rydberg, Yessica PA Unavailable Unavailable Rydberg, Yessica PA Unavailable Unavailable Rydberg, Yessica PA Unavailable Unavailable Rydberg, Yessica PA Unavailable Unavailable Rydberg, Yessica PA Unavailable Unavailable Rydberg, Yessica PA Unavailable Unavailable Rydberg, Yessica PA Unavailable Unavailable Rydberg, Yessica PA Unavailable Unavailable Rydberg, Yessica PA Unavailable Unavailable Rydberg, Yessica PA Unavailable Unavailable RYLIE CALDWELL BEHAVIORAL HEALTH COUNSELOR-C, MSN Unavailable Unavailab RYLIE Chapa BEHAVIORAL HEALTH COUNSELOR-C, MSN Unavailable Unavailab RYLIE Chapa BEHAVIORAL HEALTH COUNSELOR-C, MSN Unavailable Unavailab RYLIE Chapa BEHAVIORAL HEALTH COUNSELOR-C, MSN Unavailable Unavailab RYLIE Chapa BEHAVIORAL HEALTH COUNSELOR-C, MSN Unavailable Unavailab RYLIE Chapa BEHAVIORAL HEALTH COUNSELOR-C, MSN Unavailable Unavailab RYLIE Chapa BEHAVIORAL HEALTH COUNSELOR-C, MSN Unavailable Unavailab RYLIE Chapa BEHAVIORAL HEALTH COUNSELOR-C, MSN Unavailable Unavailab le CALDWELL, RYLIE KUSH BEHAVIORAL HEALTH COUNSELOR-C, MSN Unavailable Unavailab le CALDWELL, RYLIE KUSH BEHAVIORAL HEALTH COUNSELOR-C, MSN Unavailable Unavailab le CALDWELL, RYLIE KUSH BEHAVIORAL HEALTH COUNSELOR-C, MSN Unavailable Unavailab le CALDWELL, RYLIE KUSH BEHAVIORAL HEALTH COUNSELOR-C, MSN Unavailable Unavailab le CALDWELL, RYLIE KUSH BEHAVIORAL HEALTH COUNSELOR-C, MSN Unavailable Unavailab le CALDWELL, RYLIE KUSH BEHAVIORAL HEALTH COUNSELOR-C, MSN Unavailable Unavailab le CALDWELL, RYLIE KUSH BEHAVIORAL HEALTH COUNSELOR-C, MSN Unavailable Unavailab le CALDWELL, RYLIE KUSH BEHAVIORAL HEALTH COUNSELOR-C, MSN Unavailable Unavailab le CALDWELL, RYLIE KUSH BEHAVIORAL HEALTH COUNSELOR-C, MSN Unavailable Unavailab le CALDWELL, RYLIE KUSH BEHAVIORAL HEALTH COUNSELOR-C, MSN Unavailable Unavailab le CALDWELL, RYLIE KUSH BEHAVIORAL HEALTH COUNSELOR-C, MSN Unavailable Unavailab le CALDWELL, RYLIE KUSH BEHAVIORAL HEALTH COUNSELOR-C, MSN Unavailable Unavailab le CALDWELL, RYLIE KUSH BEHAVIORAL HEALTH COUNSELOR-C, MSN Unavailable Unavailab le CALDWELL, RYLIE KUSH BEHAVIORAL HEALTH COUNSELOR-C, MSN Unavailable Unavailab le CALDWELL, RYLIE KUSH BEHAVIORAL HEALTH COUNSELOR-C, MSN Unavailable Unavailab le CALDWELL, RYLIE KUSH BEHAVIORAL HEALTH COUNSELOR-C, MSN Unavailable Unavailab le CALDWELL, RYLIE KUSH BEHAVIORAL HEALTH COUNSELOR-C, MSN Unavailable Unavailab le CALDWELL, RYLIE KUSH BEHAVIORAL HEALTH COUNSELOR-C, MSN Unavailable Unavailab le CALDWELL, RYLIE KUSH BEHAVIORAL HEALTH COUNSELOR-C, MSN Unavailable Unavailab le CALDWELL, RYLIE KUSH BEHAVIORAL HEALTH COUNSELOR-C, MSN Unavailable Unavailab le CALDWELL, RYLIE KUSH BEHAVIORAL HEALTH COUNSELOR-C, MSN Unavailable Unavailab le CALDWELL, RYLIE KUSH BEHAVIORAL HEALTH COUNSELOR-C, MSN Unavailable Unavailab le CALDWELL, RYLIE KUHS BEHAVIORAL HEALTH COUNSELOR-C, MSN Unavailable Unavailab le CALDWELL, RYLIE KUSH BEHAVIORAL HEALTH COUNSELOR-C, MSN Unavailable Unavailab le CALDWELL, RYLIE KUSH BEHAVIORAL HEALTH COUNSELOR-C, MSN Unavailable Unavailab le CALDWELL, RYLIE KUSH BEHAVIORAL HEALTH COUNSELOR-C, MSN Unavailable Unavailab le CALDWELL, RYLIE KUSH BEHAVIORAL HEALTH COUNSELOR-C, MSN Unavailable Unavailab le CALDWELL, RYLIE KUSH BEHAVIORAL HEALTH COUNSELOR-C, MSN Unavailable Unavailab le CALDWELL, RYLIE KUSH BEHAVIORAL HEALTH COUNSELOR-C, MSN Unavailable Unavailab le CALDWELL, RYLIE KUSH BEHAVIORAL HEALTH COUNSELOR-C, MSN Unavailable Unavailab le CALDWELL, RYLIE KUHS BEHAVIORAL HEALTH COUNSELOR-C, MSN Unavailable Unavailab le CALDWELL, RYLIE KUSH BEHAVIORAL HEALTH COUNSELOR-C, MSN Unavailable Unavailab le CALDWELL, RYLIE KUSH BEHAVIORAL HEALTH COUNSELOR-C, MSN Unavailable Unavailab le CALDWELL, RYLIE KUSH BEHAVIORAL HEALTH COUNSELOR-C, MSN Unavailable Unavailab le Dheeraj Jr, Edward Verdugo PA Unavailable Unavailable Dheeraj Jr, Edward Verdugo PA Unavailable Unavailable Dheeraj Jr, Edward Verdugo PA Unavailable Unavailable Dheeraj Jr, Edward Verdugo PA Unavailable Unavailable Dheeraj Jr, Edward Verdugo PA Unavailable Unavailable Dheeraj Jr, Edward Verdugo PA Unavailable Unavailable Dheeraj Jr, Edward Verdugo PA Unavailable Unavailable Dheeraj Jr, Edward Verdugo PA Unavailable Unavailable Dheeraj Jr, Edward Verdugo PA Unavailable Unavailable Dheeraj Jr, Edward Verdugo PA Unavailable Unavailable Dheeraj Jr, Edward Verdugo PA Unavailable Unavailable Dheeraj Jr, Edward Verdugo PA Unavailable Unavailable Dheeraj Jr, Edward Verdugo PA Unavailable Unavailable Dheeraj Jr, Edward Verdugo PA Unavailable Unavailable Dheeraj Jr, Edward Verdugo PA Unavailable Unavailable Dheeraj Jr, Edward Verdugo PA Unavailable Unavailable Dheeraj Jr, Edward Verdugo PA Unavailable Unavailable Dheeraj Jr, Edward Verdugo PA Unavailable Unavailable Dheeraj Jr, Edward Verdugo PA Unavailable Unavailable Dheeraj Jr, Edward Verdugo PA Unavailable Unavailable Dheeraj Jr, Edward Verdugo PA Unavailable Unavailable Dheeraj Jr, Edward Verdugo PA Unavailable Unavailable Dheeraj Jr, Edward Verdugo PA Unavailable Unavailable Dheeraj Jr, Edward Verdugo PA Unavailable Unavailable Dheeraj Jr, Edward Verdugo PA Unavailable Unavailable Dheeraj Jr, Edward Verdugo PA Unavailable Unavailable Dheeraj Jr, Edward Verdugo PA Unavailable Unavailable Dheeraj Jr, Edward Verdugo PA Unavailable Unavailable Dheeraj Jr, Edward Verdugo PA Unavailable Unavailable Dheeraj Jr, Edward Verdugo PA Unavailable Unavailable Dheeraj Jr, Edward Verdugo PA Unavailable Unavailable Dheeraj Jr, Edward Verdugo PA Unavailable Unavailable Dheeraj Jr, Edward Verdugo PA Unavailable Unavailable Dheeraj Jr, Edward Verdugo PA Unavailable Unavailable Dheeraj Jr, Edward Verdugo PA Unavailable Unavailable Dheeraj Jr, Edward Verdugo PA Unavailable Unavailable Dheeraj Jr, Edward Verdugo PA Unavailable Unavailable Dheeraj Jr, Edward Verdugo PA Unavailable Unavailable Dheeraj Jr, Edward Verdugo PA Unavailable Unavailable CANAL, DONNA Unavailable Unavailable Mirian Parish MD Unavailable Unavailable Mirian Parish MD Unavailable Unavailable Mirian Parish MD Unavailable Unavailable Mirian Parish MD Unavailable Unavailable Mirian Parish MD Unavailable Unavailable Mirian Parish MD Unavailable Unavailable Mirian Parish MD Unavailable Unavailable Mirian Parish MD Unavailable Unavailable Mirian Parish MD Unavailable Unavailable Mirian Parish MD Unavailable Unavailable Mirian Parish MD Unavailable Unavailable Mirian Parish MD Unavailable Unavailable Mirian Parish MD Unavailable Unavailable Mirian Parish MD Unavailable Unavailable Mirian Parish MD Unavailable Unavailable Mirian Parish MD Unavailable Unavailable Mirian Parish MD Unavailable Unavailable Mirian Parish MD Unavailable Unavailable Mirian Parish MD Unavailable Unavailable Mirian Parish MD Unavailable Unavailable Mirian Parish MD Unavailable Unavailable Mirian Parish MD Unavailable Unavailable Mirian Parish MD Unavailable Unavailable PHYSICIAN, OTHER Unavailable Unavailable HUIZENGA, D OSKAR DO Unavailable Unavailable HUIZENGA, D OSKAR DO Unavailable Unavailable HUIZENGA, D OSKAR DO Unavailable Unavailable HUIZENGA, D OSKAR DO Unavailable Unavailable HUIZENGA, D OSKAR DO Unavailable Unavailable HUIZENGA, D OSKAR DO Unavailable Unavailable HUIZENGA, D OSKAR DO Unavailable Unavailable HUIZENGA, D OSKAR DO Unavailable Unavailable HUIZENGA, D OSKAR DO Unavailable Unavailable HUIZENGA, D OSKAR DO Unavailable Unavailable HUIZENGA, D OSKAR DO Unavailable Unavailable HUIZENGA, D OSKAR DO Unavailable Unavailable HUIZENGA, D OSKAR DO Unavailable Unavailable HUIZENGA, D OSKAR DO Unavailable Unavailable HUIZENGA, D OSKAR DO Unavailable Unavailable HUIZENGA, D OSKAR DO Unavailable Unavailable HUIZENGA, D OSKAR DO Unavailable Unavailable HUIZENGA, D OSKAR DO Unavailable Unavailable HUIZENGA, D OSKAR DO Unavailable Unavailable HUIZENGA, D OSKAR DO Unavailable Unavailable HUIZENGA, D OSKAR DO Unavailable Unavailable HUIZENGA, D OSKAR DO Unavailable Unavailable HUIZENGA, D OSKAR DO Unavailable Unavailable HUIZENGA, D OSKAR DO Unavailable Unavailable HUIZENGA, D OSKAR DO Unavailable Unavailable HUIZENGA, Libertad SCHMITT DO Unavailable Unavailable HUIZENGA, Libertad SCHMITT DO Unavailable Unavailable HUIZENGA, Libertad SCHMITT DO Unavailable Unavailable HUIZENGA, Libertad SCHMITT DO Unavailable Unavailable HUIZENGA, Libertad SCHMITT DO Unavailable Unavailable HUIZENGA, Libertad SCHMITT DO Unavailable Unavailable HUIZENGA, Libertad SCHMITT DO Unavailable Unavailable HUIZENGA, Libertad SCHMITT DO Unavailable Unavailable HUIZENGA, Libertad SCHMITT DO Unavailable Unavailable HUIZENGA, Libertad SCHMITT DO Unavailable Unavailable HUIZENGA, Libertad SCHMITT DO Unavailable Unavailable HUIZENGA, Libertad SCHMITT DO Unavailable Unavailable HUIZENGA, Libertad SCHMITT DO Unavailable Unavailable HUIZENGA, Libertad SCHMITT DO Unavailable Unavailable HUIZENGA, Libertad SCHMITT DO Unavailable Unavailable HUIZENGA, Libertad SCHMITT DO Unavailable Unavailable HUIZENGA, Libertad SCHMITT DO Unavailable Unavailable HUIZENGA, Libertad SCHMITT DO Unavailable Unavailable HUIZENGA, Libertad SCHMITT DO Unavailable Unavailable HUIZENGA, Libertad SCHMITT DO Unavailable Unavailable HUIZENGA, Libertad SCHMITT DO Unavailable Unavailable HUIZENGA, Libertad SCHMITT DO Unavailable Unavailable HUIZENGA, Libertad SCHMITT DO Unavailable Unavailable HUIZENGA, Libertad SCHMITT DO Unavailable Unavailable HUIZENGA, Libertad SCHMITT DO Unavailable Unavailable HUIZENGA, Libertad SCHMITT DO Unavailable Unavailable HUIZENGA, Libertad SCHMITT DO Unavailable Unavailable HUIZENGA, Libertad SCHMITT DO Unavailable Unavailable HUIZENGA, Libertad SCHMITT DO Unavailable Unavailable HUIZENGA, Libertad SCHMITT DO Unavailable Unavailable HUIZENGA, Libertad SCHMITT DO Unavailable Unavailable HUIZENGA, Libertad SCHMITT DO Unavailable Unavailable HUIZENGA, Libertad SCHMITT DO Unavailable Unavailable HUIZENGA, Libertad SCHMITT DO Unavailable Unavailable HUIZENGA, Libertad SCHMITT DO Unavailable Unavailable HUIZENGA, Libertad SCHMITT DO Unavailable Unavailable HUIZENGA, Libertad SCHMITT DO Unavailable Unavailable HUIZENGA, Libertad SCHMITT DO Unavailable Unavailable HUIZENGA, Libertad SCHMITT DO Unavailable Unavailable HUIZENGA, Libertad SCHMITT DO Unavailable Unavailable HUIZENGA, Libertad SCHMITT DO Unavailable Unavailable HUIZENGA, Libertad SCHMITT DO Unavailable Unavailable HUIZENGA, Libertad SCHMITT DO Unavailable Unavailable HUIZENGA, Libertad SCHMITT DO Unavailable Unavailable HUIZENGA, D OSKAR DO Unavailable Unavailable HUIZENGA, D OSKAR DO Unavailable Unavailable HUIZENGA, D OSKAR DO Unavailable Unavailable SEARS, A MARIELY DO Unavailable Unavailable SEARS, A MARIELY DO Unavailable Unavailable SEARS, A MARIELY DO Unavailable Unavailable SEARS, A MARIELY DO Unavailable Unavailable SEARS, A MARIELY DO Unavailable Unavailable SEARS, A MARIELY DO Unavailable Unavailable SEARS, A MARIELY DO Unavailable Unavailable SEARS, A MARIELY DO Unavailable Unavailable SEARS, A MARIELY DO Unavailable Unavailable SEARS, A MARIELY DO Unavailable Unavailable SEARS, A MARIELY DO Unavailable Unavailable SEARS, A MARIELY DO Unavailable Unavailable SEARS, A MARIELY DO Unavailable Unavailable SEARS, A MARIELY DO Unavailable Unavailable SEARS, A MARIELY DO Unavailable Unavailable SEARS, A MARIELY DO Unavailable Unavailable SEARS, A MARIELY DO Unavailable Unavailable SEARS, A MARIELY DO Unavailable Unavailable SEARS, A MARIELY DO Unavailable Unavailable SEARS, A MARIELY DO Unavailable Unavailable SEARS, A MARIELY DO Unavailable Unavailable SEARS, A MARIELY DO Unavailable Unavailable SEARS, A MARIELY DO Unavailable Unavailable SEARS, A MARIELY DO Unavailable Unavailable SEARS, A MARIELY DO Unavailable Unavailable SEARS, A MARIELY DO Unavailable Unavailable SEARS, A MARIELY DO Unavailable Unavailable SEARS, A MARIELY DO Unavailable Unavailable SEARS, A MARIELY DO Unavailable Unavailable SEARS, A MARIELY DO Unavailable Unavailable SEARS, A MARIELY DO Unavailable Unavailable SEARS, A MARIELY DO Unavailable Unavailable SEARS, A MARIELY DO Unavailable Unavailable SEARS, A MARIELY DO Unavailable Unavailable SEARS, A MARIELY DO Unavailable Unavailable SEARS, A MARIELY DO Unavailable Unavailable SEARS, A MARIELY DO Unavailable Unavailable SEARS, A MARIELY DO Unavailable Unavailable SEARS, A MARIELY DO Unavailable Unavailable SEARS, A MARIELY DO Unavailable Unavailable SEARS, A MARIELY DO Unavailable Unavailable SEARS, A MARIELY DO Unavailable Unavailable SEARS, A MARIELY DO Unavailable Unavailable SEARS, A MARIELY DO Unavailable Unavailable SEARS, A MARIELY DO Unavailable Unavailable ANGELITO, T LYDIA Unavailable Unavailable Faltyn, Payton Cabral R-PA Unavailable Unavailable Faltyn, Payton Cabral R-PA Unavailable Unavailable Faltyn, Payton Cabral R-PA Unavailable Unavailable Faltyn, Payton Cabral R-PA Unavailable Unavailable Faltyn, Payton Cabral R-PA Unavailable Unavailable Faltyn, R Misha R-PA Unavailable Unavailable Faltyn, R Misha R-PA Unavailable Unavailable Faltyn, R Misha R-PA Unavailable Unavailable Faltyn, R Misha R-PA Unavailable Unavailable Faltyn, R Misha R-PA Unavailable Unavailable Faltyn, R Misha R-PA Unavailable Unavailable Faltyn, R Misha R-PA Unavailable Unavailable Faltyn, R Mihsa R-PA Unavailable Unavailable Faltyn, R Misha R-PA Unavailable Unavailable Faltyn, R Misha R-PA Unavailable Unavailable Faltyn, R Misha R-PA Unavailable Unavailable Faltyn, R Misha R-PA Unavailable Unavailable Faltyn, R Misha R-PA Unavailable Unavailable Faltyn, R Misha R-PA Unavailable Unavailable Faltyn, R Misha R-PA Unavailable Unavailable Faltyn, R Misha R-PA Unavailable Unavailable Faltyn, R Misha R-PA Unavailable Unavailable Faltyn, R Misha R-PA Unavailable Unavailable Faltyn, R Misha R-PA Unavailable Unavailable Faltyn, R Misha R-PA Unavailable Unavailable Faltyn, R Misha R-PA Unavailable Unavailable Faltyn, R Misha R-PA Unavailable Unavailable Faltyn, R Misha R-PA Unavailable Unavailable Faltyn, R Misha R-PA Unavailable Unavailable Faltyn, R Misha R-PA Unavailable Unavailable Faltyn, R Misha R-PA Unavailable Unavailable Faltyn, R Misha R-PA Unavailable Unavailable Faltyn, R Misha R-PA Unavailable Unavailable Faltyn, R Misha R-PA Unavailable Unavailable Faltyn, R Misha R-PA Unavailable Unavailable Ogunsede, Karol HSE COORDINATOR Unavailable Unavailable Ogunsede, Karol HSE COORDINATOR Unavailable Unavailable Ogunsede, Karol HSE COORDINATOR Unavailable Unavailable Ogunsede, Karol HSE COORDINATOR Unavailable Unavailable Ogunsede, Karol HSE COORDINATOR Unavailable Unavailable Ogunsede, Karol HSE COORDINATOR Unavailable Unavailable Ogunsede, Karol HSE COORDINATOR Unavailable Unavailable Ogunsede, Karol HSE COORDINATOR Unavailable Unavailable Ogunsede, Karol HSE COORDINATOR Unavailable Unavailable Ogunsede, Karol HSE COORDINATOR Unavailable Unavailable Ogunsede, Karol HSE COORDINATOR Unavailable Unavailable Ogunsede, Karol HSE COORDINATOR Unavailable Unavailable Ogunsede, Karol HSE COORDINATOR Unavailable Unavailable Ogunsede, Karol HSE COORDINATOR Unavailable Unavailable Ogunsede, Karol HSE COORDINATOR Unavailable Unavailable Ogunsede, Karol HSE COORDINATOR Unavailable Unavailable Ogunsede, Karol HSE COORDINATOR Unavailable Unavailable Ogunsede, Karol HSE COORDINATOR Unavailable Unavailable Ogunsede, Karol HSE COORDINATOR Unavailable Unavailable Ogunsede, Karol HSE COORDINATOR Unavailable Unavailable Desiree Dominguez MD Unavailable Unavailable Desiree Dominguez MD Unavailable Unavailable Desiree Dominguez MD Unavailable Unavailable Desiree Dominguez MD Unavailable Unavailable Desiree Dominguez MD Unavailable Unavailable Desiree Dominguez MD Unavailable Unavailable Desiree Dominguez MD Unavailable Unavailable Desiree Dominguez MD Unavailable Unavailable Desiree Dominguez MD Unavailable Unavailable Desiree Dominguez MD Unavailable Unavailable Desiree Dominguez MD Unavailable Unavailable Desiree Dominguez MD Unavailable Unavailable Desiree Dominguez MD Unavailable Unavailable Desiree Dominguez MD Unavailable Unavailable Desiree Dominguez MD Unavailable Unavailable Desiree Dominguez MD Unavailable Unavailable Desiree Dominguez MD Unavailable Unavailable Desiree Dominguez MD Unavailable Unavailable Desiree Dominguez MD Unavailable Unavailable Desiree Dominguez MD Unavailable Unavailable Desiree Dominguez MD Unavailable Unavailable Lesley Pacheco MD Unavailable Unavailable Lesley Pacheco MD Unavailable Unavailable Lesley Pacheco MD Unavailable Unavailable Lesley Pacheco MD Unavailable Unavailable Lesley Pacheco MD Unavailable Unavailable Lesley Pacheco MD Unavailable Unavailable Lesley Pacheco MD Unavailable Unavailable Lesley Pacheco MD Unavailable Unavailable Lesley Pacheco MD Unavailable Unavailable Lesley Pacheco MD Unavailable Unavailable Lesley Pacheco MD Unavailable Unavailable Lesley Pacheco MD Unavailable Unavailable Lesley Pacheco MD Unavailable Unavailable Lesley Pacheco MD Unavailable Unavailable Lesley Pacheco MD Unavailable Unavailable Lesley Pacheco MD Unavailable Unavailable Lesley Pacheco MD Unavailable Unavailable Lesley Pacheco MD Unavailable Unavailable Lesley Pacheco MD Unavailable Unavailable Leslye Pacheco MD Unavailable Unavailable Lesley Pacheco MD Unavailable Unavailable Lesley Pacheco MD Unavailable Unavailable Lesley Pacheco MD Unavailable Unavailable Lesley Pacheco MD Unavailable Unavailable Lesley Pacheco MD Unavailable Unavailable Lesley Pacheco MD Unavailable Unavailable Lesley Pacheco MD Unavailable Unavailable Lesley Pacheco MD Unavailable Unavailable Lesley Pacheco MD Unavailable Unavailable Lesley Pacheco MD Unavailable Unavailable Lesley Pacheco MD Unavailable Unavailable Lesley Pacheco MD Unavailable Unavailable Lesley Pacheco MD Unavailable Unavailable Lesley Pacheco MD Unavailable Unavailable Lesley Pacheco MD Unavailable Unavailable Lesley Pacheco MD Unavailable Unavailable Lesley Pacheco MD Unavailable Unavailable Lesley Pacheco MD Unavailable Unavailable Lesley Pacheco MD Unavailable Unavailable Lesley Pacheco MD Unavailable Unavailable Lesley Pacheco MD Unavailable Unavailable Lesley Pacheco MD Unavailable Unavailable Lesley Pacheco MD Unavailable Unavailable Lesley Pacheco MD Unavailable Unavailable Lesley Pacheco MD Unavailable Unavailable Lesley Pacheco MD Unavailable Unavailable Lesley Pacheco MD Unavailable Unavailable Lesley Pacheco MD Unavailable Unavailable Lesley Pacheco MD Unavailable Unavailable Lesley Pacheco MD Unavailable Unavailable Lesley Pacheco MD Unavailable Unavailable Lesley Pacheco MD Unavailable Unavailable Lesley Pacheco MD Unavailable Unavailable Lesley Pacheco MD Unavailable Unavailable Lesley Pacheco MD Unavailable Unavailable Lesley Pacheco MD Unavailable Unavailable Lesley Pacheco MD Unavailable Unavailable Lesley Pacheco MD Unavailable Unavailable Lesley Pacheco MD Unavailable Unavailable Lesley Pacheco MD Unavailable Unavailable Lesley Pacheco MD Unavailable Unavailable Lesley Pacheco MD Unavailable Unavailable Lesley Pacheco MD Unavailable Unavailable Lesley Pacheco MD Unavailable Unavailable Lesley Pacheco MD Unavailable Unavailable Lesley Pacheco MD Unavailable Unavailable Lesley Pacheco MD Unavailable Unavailable Lesley Pacheco MD Unavailable Unavailable Lesley Pacheco MD Unavailable Unavailable Lesley Pacheco MD Unavailable Unavailable Lesley Pacheco MD Unavailable Unavailable Lesley Pacheco MD Unavailable Unavailable Lesley Pacheco MD Unavailable Unavailable Lesley Pacheco MD Unavailable Unavailable Lesley Pacheco MD Unavailable Unavailable Lesley Pacheco MD Unavailable Unavailable Lesley Pacheco MD Unavailable Unavailable Lesley Pacheco MD Unavailable Unavailable Lseley Pacheco MD Unavailable Unavailable Lesley Pacheco MD Unavailable Unavailable Lesley Pacheco MD Unavailable Unavailable Lesley Pacheco MD Unavailable Unavailable Lesley Pacheco MD Unavailable Unavailable Lesley Pacheco MD Unavailable Unavailable Lesley Pacheco MD Unavailable Unavailable Lesley Pacheco MD Unavailable Unavailable Lesley Pacheco MD Unavailable Unavailable Lesley Pacheco MD Unavailable Unavailable Lesley Pacheco MD Unavailable Unavailable Lesley Pacheco MD Unavailable Unavailable Lesley Pacheco MD Unavailable Unavailable Lesley Pacheco MD Unavailable Unavailable Lesley Pacheco MD Unavailable Unavailable Lesley Pacheco MD Unavailable Unavailable Lesley Pacheco MD Unavailable Unavailable Lesley Pacheco MD Unavailable Unavailable Lesley Pacheco MD Unavailable Unavailable Lesley Pacheco MD Unavailable Unavailable Lesley Pacheco MD Unavailable Unavailable Lesley Pacheco MD Unavailable Unavailable Lesley Pacheco MD Unavailable Unavailable Charlebois, A Nadia RPA C Unavailable Unavailable Charlebois, A Nadia RPA C Unavailable Unavailable Charlebois, A Nadia RPA C Unavailable Unavailable Charlebois, A Nadia RPA C Unavailable Unavailable Charlebois, A Nadia RPA C Unavailable Unavailable Charlebois, A Nadia RPA C Unavailable Unavailable Charlebois, A Nadia RPA C Unavailable Unavailable Charlebois, A Nadia RPA C Unavailable Unavailable Charlebois, A Nadia RPA C Unavailable Unavailable Charlebois, A Nadia RPA C Unavailable Unavailable Charlebois, A Nadia RPA C Unavailable Unavailable Charlebois, A Nadia RPA C Unavailable Unavailable Charlebois, A Nadia RPA C Unavailable Unavailable Charlebois, A Nadia RPA C Unavailable Unavailable Charlebois, A Nadia RPA C Unavailable Unavailable Charlebois, A Nadia RPA C Unavailable Unavailable Charlebois, A Nadia RPA C Unavailable Unavailable Charlebois, A Nadia RPA C Unavailable Unavailable Charlebois, A Nadia RPA C Unavailable Unavailable Charlebois, A Nadia RPA C Unavailable Unavailable Charlebois, A Nadia RPA C Unavailable Unavailable Charlebois, A Nadia RPA C Unavailable Unavailable Charlebois, A Nadia RPA C Unavailable Unavailable Charlebois, A Nadia RPA C Unavailable Unavailable Charlebois, A Nadia RPA C Unavailable Unavailable Charlebois, A Nadia RPA C Unavailable Unavailable [facility]bo[facility], A Nadia RPA C Unavailable Unavailable [facility], A Nadia RPA C Unavailable Unavailable [facility], A Nadia RPA C Unavailable Unavailable [facility], A Nadia RPA C Unavailable Unavailable [facility], A Nadia RPA C Unavailable [facility] Unavailable Unavailable ALLEN, M SANJAY PA Unavailable Unavailable ALLEN, M SANJAY PA Unavailable Unavailable ALLEN, M SANJAY PA Unavailable Unavailable ALLEN, M SANJAY PA Unavailable Unavailable ALLEN, M SANJAY PA Unavailable Unavailable ALLEN, M SANJAY PA Unavailable Unavailable ALLEN, M SANJAY PA Unavailable Unavailable ALLEN, M SANJAY PA Unavailable Unavailable ALLEN, M SANJAY PA Unavailable Unavailable ALLEN, M SANJAY PA Unavailable Unavailable ALLEN, M SANJAY PA Unavailable Unavailable ALLEN, M SANJAY PA Unavailable Unavailable ALLEN, M SANJAY PA Unavailable Unavailable ALLEN, M SANJAY PA Unavailable Unavailable ALLEN, M SANJAY PA Unavailable Unavailable ALLEN, M SANJAY PA Unavailable Unavailable ALLEN, M SANJAY PA Unavailable Unavailable ALLEN, M SANJAY PA Unavailable Unavailable ALLEN, M SANJAY PA Unavailable Unavailable ALLEN, M SANJAY PA Unavailable Unavailable ALLEN, M SANJAY PA Unavailable Unavailable ALLEN, M SANJAY PA Unavailable Unavailable ALLEN, M SANJAY PA Unavailable Unavailable ALLEN, M SANJAY PA Unavailable Unavailable ALLEN, M SANJAY PA Unavailable Unavailable ALLEN, M SANJAY PA Unavailable Unavailable ALLEN, M SANJAY PA Unavailable Unavailable ALLEN, M SANJAY PA Unavailable Unavailable ALLEN, M SANJAY PA Unavailable Unavailable ALLEN, Stephanie THACKERUS PA Unavailable Unavailable ALLEN, Stephanie THACKERUS PA Unavailable Unavailable ALLEN, Stephanie THACKERUS PA Unavailable Unavailable ALLEN, Stephanie GRACE PA Unavailable Unavailable Re-disclosure Warning The records that you are about to access may contain information from federally-assisted alcohol or drug abuse programs. If such information is present, then the following federally mandated warning applies: This information has been disclosed to you from records protected by federal confidentiality rules (42 CFR part 2). The federal rules prohibit you from making any further disclosure of this information unless further disclosure is expressly permitted by the written consent of the person to whom it pertains or as otherwise permitted by 42 CFR part 2. A general authorization for the release of medical or other information is NOT sufficient for this purpose. The Federal rules restrict any use of the information to criminally investigate or prosecute any alcohol or drug abuse patient.The records that you are about to access may contain highly sensitive health information, the redisclosure of which is protected by Article 27-F of the [facility] Public Health law. If you continue you may have access to information: Regarding HIV / AIDS; Provided by facilities licensed or operated by the [facility] Office of Mental Health; or Provided by the [facility] Office for People With Developmental Disabilities. If such information is present, then the following [facility] mandated warning applies: This information has been disclosed to you from confidential records which are protected by state law. State law prohibits you from making any further disclosure of this information without the specific written consent of the person to whom it pertains, or as otherwise permitted by law. Any unauthorized further disclosure in violation of state law may result in a fine or mcc sentence or both. A general authorization for the release of medical or other information is NOT sufficient authorization for further disc losure. Allergies and Adverse Reactions Type Description Substance Reaction Status Data Source(s ) Drug allergy Gabapentin gabapentin shaking Active eCW1 ([facility]) Drug allergy Topiramate topiramate shaking Active eCW1 ([facility]) Sulfa (for allergy use only) Sulfa (for allergy use only) Saucedo lfa (for allergy use only) Hives Active eCW1 ([facility]) Sulfa (for allergy use only) Sulfa (for allergy use only) Saucedo lfa (for allergy use only) Hives Active [facility] (Critical access hospital) Propensity to adverse reactions SULFACETAMIDE SODIUM-SULFUR Sulfacetamide Sodium-Sulfur Active [facility] Sulfa (for allergy use only) Sulfa (for allergy use only) Saucedo lfa (for allergy use only) Hives Active eC1 ([facility]) Family History Family Member Name Family Member Gender Family Member Status Date o f Status Description Data Source(s) Unknown Female Diagnosis 01/29/2018 12:00:00 AM EDT [facility] ([facility]) Unknown Female Diagnosis 01/29/2018 12:00:00 AM EDT [facility] ([facility]) Unknown Female Diagnosis 01/29/2018 12:00:00 AM EDT [facility] ([facility]) Unknown Female Diagnosis 06/02/2015 12:00:00 AM EDT [facility] ([facility]) Unknown Female Diagnosis 06/02/2015 12:00:00 AM EDT [facility] ([facility]) Unknown Male Problem [facility] ([facility]) Encounters Encounter Providers Location Date Indications Data Source(s ) Outpatient Attender: Misha CINTRON [id number] 12:00:00 AM EST [facility] Outpatient Attender: Jeremy Schmidt/Bernardino/Aldair/Annalise indl 07/17/2020 10:00:00 AM EST [facility] ([facility] Outpatient Attender: Misha CINTRON [id number] 12:00:00 AM EST - 07/12/2020 10:26:08 AM EST [facility] Outpatient Attender: Kevin Pacheco MDReferrer: Kevin Pacheco MD ES1 -SJ.CT 06/15/2020 08:10:00 AM EDT - 06/15/2020 11:59:00 PM EDT [facility] Patient discharged. Outpatient Attender: Kevin Pacheco MDReferrer: Kevin Pacheco MD ES1 -SJ.MRI 06/15/2020 08:09:00 AM EDT - 06/15/2020 08:09:00 AM EDT [facility] Patient discharged. Outpatient MOB-MOB.PAT 06/15/2020 07:44 :49 AM EDT - 06/15/2020 07:44:53 AM EDT [facility] Unknown [address] [facility] [address] 06/15/2020 12:00:00 AM EDT eCW1 ([facility]) Outpatient [address] [facility] [address] 06/13/2020 12:00:00 AM EDT eCW1 ([facility]) Unknown [address] [facility] [place] [address] 06/12/2020 12:00:00 AM EDT eCW1 ([facility]) Outpatient Attender: SANJAY Schmidt/Bernardino/Aldair/Rein dl 06/07/2020 02:00:00 PM EDT [facility] ([facility] ) Outpatient Attender: Kevin SALGUEROeferrer: Kevin Pacheco MD MOB -MOB.PAT 05/30/2020 12:00:00 AM EDT - 05/30/2020 09:39:15 AM EDT [facility] Unknown [address] [facility] [address] 05/26/2020 12:00:00 AM EDT eCW1 ([facility]) Outpatient Attender: Yulia MARTELL Main Office 05/23/2020 02:00:00 PM EDT [facility] ([facility]) Outpatient Attender: Kevin Pacheco MD [id number] 0 01:22:52 PM EDT - 05/15/2020 02:00:03 PM EDT [facility] Inpatient Attender: Kevin Pacheco MDAdmitter: Kevin childress MDReferrer: Kevin Pacheco MD [id number] 05/12/2020 03:37:19 PM EDT - 06/21/2020 11:40:00 AM EDT [facility] Patient discharged. Outpatient Attender: Nadia Schmidt/Bernardino/Tristen casper/Aneta 04/27/2020 03:00:00 PM EDT MEDENT ([facility] Faye) [address] [address] 04/24/2020 12:00:00 AM EDT eCW1 ([facility]) Outpatient Attender: LYDIA EATON 04/20/2020 12:00:00 AM EDT [facility] Outpatient Attender: Kevin Pacheco MD [id number] 04/03/2020 12:00:00 A M EDT [facility] Outpatient Attender: LYDIA EATON 03/29/2020 12:00:00 AM T [facility] Outpatient Attender: Alexa Auer: OSKAR FINNEY DO 03/28/2020 09:08:53 AM [facility] Attender: LYDIA EATONReferrer: OSKAR SHRESTHA DO [id number] 03/16/2020 12:00:00 AM EDT [facility] Outpatient Attender: Martina CARTAGENA [id number] 03/14/2020 03:54:46 PM EDT - 03/14/2020 04:16:51 PM EDT [facility] Outpatient Attender: Martina FRANKCReferrer: Martina CARTAGENA ES1-SJ.MRI 03/08/2020 01:06:00 PM EDT - 03/08/2020 11:59:00 PM EDT [facility] Patient discharged. Outpatient Attender: MARIELY Vazquez/Bernardino/Aldair/Aneta 03/06/2020 08:30:00 AM EDT MEDENT ([facility]ELVIN Lay) Outpatient Attender: Alexa Auer: OSKAR FINNEY DO 02/17/2020 09:34:46 AM EDT [facility] Unknown [address] [facility] [address] 01/31/2020 12:00:00 AM EDT eCW1 ([facility]) Outpatient Referrer: Martina FRANKC 01/14/2020 01:24 :24 PM EDT [facility] Outpatient Attender: Martina CARTAGENA [id number] 01/13/2020 12:00:00 AM EDT [address] [address] 01/05/2020 12:00:00 AM EDT eCW1 ([facility]) [address] [address] 12/30/2019 12:00:00 AM EDT eCW1 ([facility]) Outpatient Attender: LYDIA EATON 11/26/2019 12:00:00 AM EDT [address], [place] [address] 11/25/2019 12:00:00 AM EDT eCW1 ([facility]) Outpatient Attender: MARIELY MARX DO 11/15/2019 11:49:00 AM EDT [facility] Outpatient Attender: OTHER PHYSICIANConsultant: [facility] [id number] 11/15/2019 09:30:00 AM EDT [facility] Outpatient Attender: MARIELY Vazquez/Bernardino/Aldair/Reindl 11/12/2019 09:30:00 AM EDT [facility] ([facility]) Outpatient Attender: DONNA Villaltaender: DONNA MARTINS [id number] 11/05/2019 12:00:00 AM EDT [facility] 11/01/2019 12:40:00 PM EDT - 020 12:40:00 PM EDT [facility] ([facility]) [address] [address] 10/25/2019 12:00:00 AM EST eCW1 ([facility]) [address] [address] 10/25/2019 12:00:00 AM EST eCW1 ([facility]) Outpatient Referrer: Glenroy Yanez MD 10/19/2019 04:05:00 PM EST [facility] [address] [address] 10/14/2019 12:00:00 AM EST eCW1 ([facility]) Outpatient Attender: OSKAR Hopson: OSKAR FINNEY DO 10/13/2019 04:00:00 PM EST - 10/13/2019 04:00:00 PM EST [facility] [address] [address] 10/12/2019 12:00:00 AM EST eCW1 ([facility]) [address] [address] 10/04/2019 12:00:00 AM EST eCW1 ([facility]) [address] [place] [address] 10/01/2019 12:00:00 AM EST eCW1 ([facility]) Outpatient Attender: LYDIA EATON 10/01/2019 12:00:00 AM [facility] Outpatient Attender: Martina AVILEZP-C [id number].[id number] 0 09/24/2019 08:33:47 AM EST [facility] [address] [address] 2019 12:00:00 AM EST eCW1 ([facility]) [address] [place] [address] 09/02/2019 12:00:00 AM EST eCW1 ([facility]) Outpatient Attender: Kartik Esteveser: OSKAR SHRESTHA DO 08/09/2019 02:36:00 PM EST - 08/09/2019 02:36:00 PM EST [facility] [address] [facility] [address] 07/30/2019 12:00:00 AM EST eCW1 ([facility]) Recurring Patient Attender: Karol Pepper NPReferrer: Kevin Pacheco MD 07/28/2019 11:23:01 AM EST [facility] Outpatient Attender: Roselyn MARTELL Main Office 07/21/2019 08:15:0 0 AM EST [facility]ENT ([facility]) [facility] [address] [facility] [address] 07/19/2019 12:00:00 AM EST eCW1 ([facility]) Outpatient Attender: Kevin Pacheco MD 07/17/2019 02:24:[address] [facility] Outpatient Attender: Kevin Pacheco MD 07/16/2019 06:25:[address] [facility] Outpatient Attender: Kevin Pacheco MD 07/16/2019 06:23:[address] [facility] Outpatient Attender: Kevin Pacheco MD 07/16/2019 05:41:[address] [facility] Outpatient Attender: Kevin Pacheco MD 07/16/2019 05:17:[address] [facility] Outpatient Attender: Kevin Pacheco MD 07/16/2019 05:13:[address] [facility] Outpatient Attender: Kevin Pacheco MD 07/16/2019 04:37:[address] [facility] Outpatient Attender: Kevin Pacheco MD 07/16/2019 04:37:[address] [facility] Outpatient Attender: Kevin Pacheco MD 07/16/2019 04:08:[address] [facility] Outpatient Attender: Kevin Pacheco MDReferrer: Kevin Pacheco MD MOB -MOB.PAT 07/16/2019 10:45:58 AM EST - 07/16/2019 12:49:[address] [facility]: Mirian Parish MDReferrer: OSKAR HERNANDEZ DO 07/08/2019 01:20:00 PM EST - 07/08/2019 01:20:00 PM EST [facility] Inpatient Attender: Kevin Pacheco MDAdmitter: Kevin childress MDReferrer: Kevin Pacheco MD [id number] 06/16/2019 11:29:55 AM EDT - 09/09/2019 10:16:00 AM [facility] Patient discharged. Outpatient Attender: OSKAR Soteloerrer: OSKAR FINNEY DO 03/08/2019 01:30:00 PM EDT - 03/08/2019 [facility] OSKAR Soteloerrer: OSKAR FINNEY DO 11/25/2018 09:57:00 AM EDT - 11/25/2018 09:57:00 AM [facility] pital Outpatient Attender: OSKAR Mcbrideer: OSKAR FINNEY DO 02/23/2018 01:00:00 PM EDT - 02/23/2018 [facility]: OSKAR SHRESTHA DO 02/21/2017 02:51:00 PM [facility] Outpatient Attender: Kartik Esqueda Jr 12/13/2016 02:29:00 PM [facility] Outpatient Attender: OSKAR SHRESTHA DO 09/20/2016 09:00:00 AM [facility] Outpatient Attender: OSKAR SHRESTHA DO 09/17/2016 01:20:00 PM [facility] Outpatient Attender: Glenroy Yanez MD 08/15/2016 09:52:00 AM [facility] Outpatient Attender: OSKAR SHRESTHA DO EMERGENCY ROOM-LABOT HPROV 06/25/2016 09:46:00 AM EDT - 06/24/2016 12:19:00 PM [facility] pital Outpatient Attender: OSKAR SHRESTHA DO 06/10/2016 12:14:00 PM [facility] Outpatient Attender: KUSH CARTAGENA, MSN 02/15/2016 1 0:47:00 AM [facility] Outpatient Attender: Yessica MARTELL 11/20/2015 07:13:00 AM [facility] Outpatient Attender: Glenroy Yanez MD EMERGENCY ROOM-LABOTHPR OV 10/24/2015 11:45:00 AM [facility] Outpatient Attender: Glenroy SALGUEROeferrer: OSKAR SHRESTHA DO 08/11/2015 10:02:00 AM [facility] Outpatient Attender: OSKAR Mcbrideer: OSKAR FINNEY DO 03/28/2015 02:03:00 PM [facility] Outpatient Attender: OSKAR Mcbrideer: OSKAR FINNEY DO 02/06/2015 07:26:00 PM [facility] Outpatient Attender: OSKAR Soteloerrer: OSKAR FINNEY DO 01/31/2014 04:07:00 PM [facility] Outpatient Attender: OSKAR Mcbrideer: OSKAR FINNEY DO 12/23/2013 02:33:00 PM [facility] Outpatient Attender: OSKAR Mcbrideer: NANCY SHRESTHA DO EMERGENCY ROOM-LAB 12/20/2013 10:03:00 AM [facility] Outpatient Attender: OSKAR SHRESTHA DO 12/08/2012 10:24:00 AM [facility] Outpatient Attender: OSKAR Mcbrideer: NANCY SHRESTHA DO EMERGENCY ROOM-RAD 09/02/2012 04:27:00 PM EST - 09/02/2012 04:27:00 PM [facility] Emergency Attender: SONJA BRAUN MD 02/2012 12:55:00 PM EDT - 01/30/2012 02:55:00 PM [facility] Immunizations Vaccine Date Status Description Data Source(s) INFLUENZA VIRUS VACCINE QUADRIVAL [id number](6 MOS AND UP)/PF 07/31/2020 12:00:00 AM EST completed [facility] VARICELLA-ZOSTER VIRUS GLYCOPROTEIN E,REC/AS01B ADJUVA NT/PF 07/31/2020 12:00:00 AM EST completed [facility] Medications Medication Brand Name Start Date Product Form Dose Route Admi nistrative Instructions Pharmacy Instructions Status Indications Reaction Description Data Source(s) 17 gram/dose 08/03/2020 12:00:00 AM EST powder 510 USE INSTRUCTED FOR BOWEL PREP USE INSTRUCTED FOR BOWEL PREP SOLD: 08/04/2020 [facility] POLYETHYLENE GLYCOL 3350 142 MG/ML Oral Solution polyethylene glycol (GLYCOLAX) packet 17 g polyethylene glycol (GLYCOLAX) packet 17 g 06/21/2020 09:00:00 AM EDT 17 g Oral active 17 g, Or al, Daily, First dose on Fri06/21/20 at 0900, Post-op
Start POD #1
[facility] Medication administered onsite potassium chloride SA (K-DUR,KLOR-CON) CR tablet 10 mEq [id number] 06/21/2020 09:00:00 AM EDT 10 meq Oral active 10 mEq, Oral, Daily, First dose on Fri06/21/20 at 0900 [facility] Medication administered onsite pantoprazole 40 MG Delayed Release Oral Tablet pantoprazole (PROTONIX) EC tablet 40 mg pantoprazole (PROTONIX) EC tablet 40 mg 06/21/2020 02:00:00 AM E DT 40 mg Oral active Gastroesophageal Reflux Diseas e 40 mg, Oral, Daily, Indications: Gastroesophageal Reflux Disease, First dose on Fri06/21/20 at 0200 [facility] Gastroesophageal Reflux Disease Medication administered onsite Bisacodyl 10 MG Rectal Suppository bisacodyl (DULCOLAX ) suppository 10 mg bisacodyl (DULCOLAX) suppository 10 mg 06/21/2020 12:00:00 AM EDT 10 mg Rectal active 10 mg, Rectal, Daily PRN, constipation, for constipation unrelieved by miralax/MOM, Starting Fri06/21/20 at 0000, For 4 days, Post- op
For post-op day #1, #3, and #4Hold for BM
[facility] Medication administered onsite 5 mg 06/21/2020 12:00:00 AM EDT tablet 30 TAKE 1 TABLET BY MOUTH EVERY 4 HOURS NEEDED FOR PAIN MAXIMUM DAILY DOSE = 6 TABLETS TAKE 1 TABLET BY MOUTH EVERY 4 HOURS NEEDED FOR PAIN MAXIMUM DAILY DOSE = 6 TABLETS SOLD: 06/21/2020 [facility] Oxycodone Hydrochloride 5 MG Oral Tablet oxyCODONE (ROXICODONE) 5 MG immediate release tablet oxyCODONE (ROXICODONE) 5 MG immediate release tablet 1 12:00:00 AM EDT 5 mg Oral active Take 1 tablet (5 mg total) by mouth every 4 (four) hours as needed for pain Max Daily Amount: 30 mg [facility] Docusate Sodium 50 MG / sennosides, ASSISTED 8.6 MG Oral Tablet senna-docusate (PERICOLACE) 8.6-50 MG 2 tablet senna-docusate (PERICOLACE) 8.6-50 MG 2 tablet 06/20/2020 09:00:00 PM EDT 2 {tbl} Oral active 2 tablet, Oral, Nightly, First dose on Fri06/20/20 at 2100, Post-op
hold for loose stools
[facility] Medication administered onsite Docusate Sodium 100 MG Oral Capsule docusate sodium (C OLACE) capsule 200 mg docusate sodium (COLACE) capsule 200 mg 06/20/2020 09:00:00 PM EDT 200 mg Oral active 200 mg, Oral, Nightly, First dose on Fri06/20/20 at 2100
hold for loose stools
[facility] Medication administered onsite Amitriptyline Hydrochloride 50 MG Oral T ablet amitriptyline (ELAVIL) tablet 50 mg amitriptyline (ELAVIL) tablet 50 mg 06/20/2020 09:00:00 PM EDT 50 mg Oral active 50 mg, Oral, Nightly, Fir st dose on Fri06/20/20 at 2100 [facility] Medication administered onsite irbesartan 150 MG Oral Tablet irbesartan (AVAPRO) tabl et 37.5 mg irbesartan (AVAPRO) tablet 37.5 mg 06/20/2020 09:00:00 PM EDT 37.5 mg Oral active 37.5 mg, Oral, Nightly, First dose on Fri06/20/20 at 2100 [facility] Medication administered onsite Magnesium Hydroxide 80 MG/ML Oral Suspen james magnesium hydroxide (MILK OF MAGNESIA) 400 MG/5ML suspension 30 mL magnesium hydroxide (MILK OF MAGNESIA) 4 00 MG/5ML suspension 30 mL 06/20/2020 02:00:00 PM EDT 30 mL Oral active 30 mL, Oral, Daily, First dose on Fri06/20/20 at 1400, Post-op
Start Post-op day #1. Hold for BM
[facility] Medication administered onsite 60 ACTUAT formoterol fumarate 0.005 MG/A CTUAT / mometasone furoate 0.2 MG/ACTUAT Metered Dose Inhaler mometasone-formoterol (DULERA) 200-5 MCG/ACT inhaler 2 puff mometasone-formoterol (DULERA) 200-5 MCG/ACT inhaler 2 puff 06/20/2020 02:00:00 PM EDT 2 {puff} Inhalation active 2 pu ff, Inhalation, 2 times daily, First dose on Fri06/20/20 at 1400 [facility] Medication administered onsite Ipratropium [place] 0.2 MG/ML Inhalant S olution ipratropium (ATROVENT) 0.02 % nebulizer solution 0.5 mg ipratropium (ATROVENT) 0.02 % nebulizer solution 0.5 mg 06/20/2020 02:00:00 PM EDT 0.5 mg active 0.5 mg, Nebulization, 4 times daily, First dose on Fri06/20/20 at 1400 [facility] Medication administered onsite pregabalin 75 MG Oral Capsule pregabalin (LYRICA) caps ule 75 mg pregabalin (LYRICA) capsule 75 mg 06/20/2020 02:00:00 PM EDT 75 mg Oral active 75 mg, Oral, 3 times daily, First dose on Fri06/20/20 at 1400, For 7 days [facility] Medication administered onsite Baclofen 10 MG Oral Tablet baclofen (LIORESAL) tablet 10 mg baclofen (LIORESAL) tablet 10 mg 06/20/2020 02:00:00 PM EDT 10 mg Oral activ e 10 mg, Oral, 3 times daily, First dose on Fri06/20/20 at 1400 [facility] Medication administered onsite Amiloride Hydrochloride 5 MG Oral Tablet AMILoride (MD DAMOR) tablet 5 mg AMILoride (MIDAMOR) tablet 5 mg 06/20/2020 02:00:00 PM EDT 5 mg O ral active 5 mg, Oral, 2 times daily, First dose on Fri06/20/20 at 1400 [facility] Medication administered onsite Cefazolin 1000 MG Injection ceFAZolin (ANCEF) injectio n 1 g ceFAZolin (ANCEF) injection 1 g 06/20/2020 12:30:00 PM EDT 1 g Intravenous completed Perioperative Pharmacoprophylaxis 1 g, Intravenous, Ev felipa 8 hours (relative), First dose on Fri06/20/20 at 1230, For 3 doses, Post-op
Start 4 hours after pre-op dose, then every 8 hours x 2 doses. Time pre-op dose hung:Reconstitute with 10 ml sterile water for injection. Administer IV push over 3 minutes. Use within 1 hour of reconstitution
[facility] Perioperative Pharmacoprophylaxis Medication administered onsite fluticasone (FLONASE) 50 MCG/ACT nasal spray 2 spray [id number] 06/20/2020 12:18:26 PM EDT 2 {spray} Nasal active 2 spray, Nasal, Daily PRN, allergies, Starting Fri06/20/20 at 1218 [facility] Medication administered onsite Calcium Chloride 0.0014 MEQ/ML / Potassi um Chloride 0.004 MEQ/ML / Sodium Chloride 0.103 MEQ/ML / Sodium Lactate 0.028 MEQ/ML Injectable Solution lactated ringers infusion lactated ringers infusion 06/20/2020 12:00:00 PM EDT Intravenous active at 75 mL/hr, Intravenous, Continuous, Starting Fri06/20/20 at 1200, Post-op [facility] Medication administered onsite Acetaminophen 500 MG Oral Tablet acetaminophen (TYLENO L) tablet 1,000 mg acetaminophen (TYLENOL) tablet 1,000 mg 06/20/2020 12:00:00 PM EDT 1000 mg Oral active 1,000 mg, Oral , Every 6 hours (scheduled), First dose on Fri06/20/20 at 1200, Post-op [facility] Medication administered onsite ondansetron (ZOFRAN) injection 4 mg [id number] 06/20/2020 11:43:2 6 AM EDT 4 mg Intravenous active 4 mg, In travenous, Every 4 hours PRN, nausea, vomiting, Starting Fri06/20/20 at 1143, Post-op
If unable to take PO
[facility] Medication administered onsite Oxycodone Hydrochloride 5 MG Oral Tablet oxyCODONE (ROXICODONE) immediate release tablet 5 mg oxyCODONE (ROXICODONE) immediate release tablet 5 mg 06/20/2020 11:43:26 AM EDT 5 mg Oral active 5 mg, Oral, Every 4 hours PRN, moderate pain (4-6), Starting Fri06/20/20 at 1143, For 7 days, Post-op [facility] Medication administered onsite Oxycodone Hydrochloride 10 MG Oral Tablet Oxycodone HC l TABS 10 mg Oxycodone HCl TABS 10 mg 06/20/2020 11:43:26 AM EDT 10 mg Oral active 10 mg, Oral, Every 4 hours PRN, severe pain (7-10), Starting Fri06/20/20 at 1143, For 7 days, Post-op [facility] Medication administered onsite Sumatriptan 50 MG Oral Tablet SUMAtriptan (IMITREX) ta blet 100 mg SUMAtriptan (IMITREX) tablet 100 mg 06/20/2020 11:43:26 AM EDT 100 mg Oral active 100 mg, Oral, Daily PRN, migraine, Starting Fri06/20/20 at 1143
May repeat dose in 2 hours if no relief.Do not exceed 2 doses in 24 hours.
[facility] Medication administered onsite Mineral Oil 1000 MG/ML Enema mineral oil enema 1 enema mineral oil enema 1 enema 06/20/2020 11:43:25 AM EDT 1 {enema} Rectal active 1 enema, Rectal, Daily PRN, constipation, if unrelieved by dulcolax, Starting Fri06/20/20 at 1143, Post-op
hold for loose stools
[facility] Medication administered onsite 2 ML Metoclopramide 5 MG/ML Prefilled Sy ringe metoclopramide (REGLAN) injection 10 mg metoclopramide (REGLAN) injection 10 mg 06/20/2020 11:43:25 AM E DT 10 mg Intravenous active 10 mg, I ntravenous, Every 6 hours PRN, nausea not relieved by Zofran, Starting Fri06/20/20 at 1143, For 24 hours, Post-op
If nausea not relieved by Zofran; Renal dosing per pharmacy
[facility] Medication administered onsite fentaNYL Citrate (PF) (SUBLIMAZE) injection 50 mcg [id number] 06/20/2020 11:43:25 AM EDT 50 ug Intravenous active 50 mcg, Intravenous, Every 3 hours PRN, for severe breakthrough pain (7-10) if oral opioid ineffective, Starting Fri06/20/20 at 1143, For 7 days, Post-op [facility] Medication administered onsite Nitroglycerin 0.4 MG Sublingual Tablet n itroglycerin (NITROSTAT) SL tablet 0.4 mg nitroglycerin (NITROSTAT) SL tablet 0.4 mg 06/20/2020 11:43:25 A M EDT 0.4 mg Sublingual active 0.4 mg, S ublingual, Every 5 min PRN, chest pain, Starting Fri06/20/20 at 1143
May administer up to 3 doses per episode.
[facility] Medication administered onsite 12 HR Guaifenesin 600 MG Extended Releas e Oral Tablet guaiFENesin (MUCINEX) 12 hr tablet 600 mg guaiFENesin (MUCINEX) 12 hr tablet 600 mg 06/20/2020 1 1:43:25 AM EDT 600 mg Oral active 600 mg, Oral, 2 times daily PRN, other, congestion, Starting Fri06/20/20 at 1143 [facility] Medication administered onsite Albuterol 0.83 MG/ML Inhalant Solution a lbuterol (PROVENTIL) nebulizer solution 2.5 mg albuterol (PROVENTIL) nebulizer solution 2.5 mg 2019 11:43:24 AM EDT 2.5 mg active 2.5 mg, Nebulization, RT every 4 hours as needed, wheezing, shortness of breath, Starting Fri06/20/20 at 1143 [facility] Medication administered onsite Albuterol 0.83 MG/ML Inhalant Solution a lbuterol (PROVENTIL) nebulizer solution 2.5 mg albuterol (PROVENTIL) nebulizer solution 2.5 mg 2019 11:43:24 AM EDT 2.5 mg active 2.5 mg, Nebulization, 4 times daily PRN, shortness of breath, Starting Fri06/20/20 at 1143 [facility] Medication administered onsite 72 HR Scopolamine 0.0139 MG/HR Transderm al Patch scopolamine (TRANSDERM-SCOP) 1.5 MG 1 patch scopolamine (TRANSDERM-SCOP) 1.5 MG 1 patch 06/20/2020 08:00:00 AM EDT 1 {patch} Transdermal aborted 1 patch, Transdermal, Administer over 72 Hours, Once, Fri06/20/20 at 0800, For 1 dose, Pre-op [facility] Medication administered onsite Magnesium Chloride 0.03457 MEQ/ML / Pota ssium Chloride 0.0497 MEQ/ML / Sodium Acetate 0.0163 MEQ/ML / Sodium Chloride 0.0899 MEQ/ML / Sodium gluconate 5.02 MG/ML Injectable Solution [Normosol-R] electrolyte-R (NORMOSOL-R/PLASMALYTE-R) solution electrolyte-R (NORMOSOL-R/PLASMALYTE-R) solution 06/20 08:00:00 AM EDT Intravenous active at 1 00 mL/hr, Intravenous, Continuous, Starting Fri06/20/20 at 0800, Pre-op [facility] Medication administered onsite chlorhexidine gluconate 1.2 MG/ML Mouthw iain chlorhexidine (PERIDEX) 0.12 % oral solution 15 mL chlorhexidine (PERIDEX) 0.12 % oral solution 15 mL 07:00:00 AM EDT 15 mL Mouth/Throat completed 15 mL, Mouth/Throat, call box wirer, Fri06/20/20 at 0700, For 1 dose, Pre-op
Swish for 30 seconds and spit in pre-induction unit
[facility] Medication administered onsite Acetaminophen 500 MG Oral Tablet acetaminophen (TYLENO L) tablet 1,000 mg acetaminophen (TYLENOL) tablet 1,000 mg 06/20/2020 07:00:00 AM EDT 1000 mg Oral completed 1,000 mg, Oral , call box wirer, Fri06/20/20 at 0700, For 1 dose, Pre-op
To be administered just prior to to transport to operating room
[facility] Medication administered onsite 2 ML Metoclopramide 5 MG/ML Prefilled Sy ringe metoclopramide (REGLAN) injection 10 mg metoclopramide (REGLAN) injection 10 mg 06/20/2020 07:00:00 AM E DT 10 mg Intravenous completed 10 mg, I ntravenous, call box wirer, Fri06/20/20 at 0700, For 1 dose, Pre-op
To be administered just prior to to transport to operating room
[facility] Medication administered onsite ondansetron (ZOFRAN) injection 4 mg [id number] 06/20/2020 07:00:0 0 AM EDT 4 mg Intravenous completed 4 mg, In travenous, call box wirer, Fri06/20/20 at 0700, For 1 dose, Pre-op
To be administered just prior to to transport to operating room
[facility] Medication administered onsite dexamethasone (DECADRON) injection 4 mg [id number] 06/20/20 07:00:00 AM EDT 4 mg Intravenous completed 4 mg, Intr avenous, call box wirer, Fri06/20/20 at 0700, For 1 dose, Pre-op
To be administered just prior to to transport to operating room.Hold if patient is diabetic or if stress dose steroids are ordered
[facility] Medication administered onsite 600 mg 06/12/2020 12:00:00 AM EDT tablet extended release 12hr 60 TAKE 1 TABLET BY MOUTH EVERY 12 HOURS NEEDED TAKE 1 TABLET BY MOUTH EVERY 12 HOURS NEEDED SOLD: 06/13/2020 [facility] irbesartan 75 MG Oral Tablet Irbesartan 05/22/2020 12:00:00 AM EDT active [facility] ([facility]) Polyethylene Glycol 3350 05/22/2020 12:00:00 AM EDT active [facility] ([facility]) Lactulose 667 MG/ML Oral Solution Lactulose 05/22/2020 12:00:00 AM EDT ORAL active [facility] pregabalin 75 MG Oral Capsule [Lyrica] Lyrica 05/22/2020 12:00:00 AM EDT ORAL active [facility] ([facility] Albuterol 0.83 MG/ML Inhalant Solution Albuterol Sulfate 0 05/22/2020 12:00:00 AM EDT active [facility] ([facility] Sumatriptan 100 MG Oral Tablet Sumatriptan Succinate 05/22/2020 12:00:00 AM EDT ORAL active [facility] ( [facility]) Potassium Chloride 10 MEQ Extended Release Oral Tablet Potas sium Chloride ER 05/22/2020 12:00:00 AM EDT ORAL active [facility] ([facility]) 12 HR Guaifenesin 600 MG Extended Release Oral Tablet [Mucin ex] Mucinex 05/22/2020 12:00:00 AM EDT ORAL active [facility] ([facility]) 75 mg 05/21/2020 12:00:00 AM EDT capsule 90 TAKE ONE CAPSULE BY MOUTH THREE TIMES A DAY MAXIMUM DAILY DOSE = 3 TAKE ONE CAPSULE BY MOUTH THREE TIMES A DAY MAXIMUM DAILY DOSE = 3 SOLD: 05/21/2020 [facility] 17 gram/dose 05/19/2020 12:00:00 AM EDT powder 510 MIX 17 GRAMS WITH LIQUID AND DRINK ONCE DAILY MIX 17 GRAMS WITH LIQUID AND DRINK ONCE DAILY SOLD: 05/21/2020 [facility] POLYETHYLENE GLYCOL 3350 142 MG/ML Oral Solution [Miralax] M iralax 05/18/2020 12:00:00 AM EDT ORAL active M EDENT ([facility]) 300 mg 05/04/2020 12:00:00 AM EDT capsule 20 TAKE ONE CAPSULE BY MOUTH TWICE A DAY TAKE ONE CAPSULE BY MOUTH TWICE A DAY SOLD: 05/04/2020 [facility] methylPREDNISolone (MEDROL, URIEL,) 4 MG tablet [id number] 04/03/2020 12:00:00 AM EDT aborted follow package d irections [facility] 4 mg 04/03/2020 12:00:00 AM EDT tablets,dose pack 21 USE DIRECTED PER PACKAGE USE DIRECTED PER PACKAGE SOLD: 04/03/2020 [facility] Acetaminophen 325 MG / Hydrocodone Clara trate 5 MG Oral Tablet HYDROcodone- Acetaminophen 5-325 MG Oral Tablet (LORTAB) HYDROcodone-Acetaminophen 5-325 MG Oral Tablet (LORTAB) 03/16/2020 12:00:00 AM EDT active Take 1 one hour before surgery and every 8 hours after for pain [facility] Diazepam 5 MG Oral Tablet diazePAM 5 MG Oral Tablet (V alium) diazePAM 5 MG Oral Tablet (Valium) 03/16/2020 12:00:00 AM EDT ac tive Take 1 2 hours before surgery and may repeat once [facility] Levofloxacin 500 MG Oral Tablet levoFLOXacin 500 MG Or al Tablet (LEVAQUIN) levoFLOXacin 500 MG Oral Tablet (LEVAQUIN) 03/16/2020 12:00:00 AM EDT 500 mg Oral active Take 1 tablet by billie th daily [facility] 500 mg 03/16/2020 12:00:00 AM EDT tablet 14 TAKE ONE TABLET BY MOUTH EVERY DAY TAKE ONE TABLET BY MOUTH EVERY DAY SOLD: 03/18/2020 [facility] 5-325 mg 03/16/2020 12:00:00 AM EDT tablet 6 TAKE 1 TABLET 1 HOUR BEFORE SURGERY AND EVERY 8 HOURS AFTER FOR PAIN MAXIMUM DAILY DOSE = 3 TAKE 1 TABLET 1 HOUR BEFORE SURGERY AND EVERY 8 HOURS AFTER FOR PAIN MAXIMUM DAILY DOSE = 3 SOLD: 03/18/2020 [facility] 5 mg 03/16/2020 12:00:00 AM EDT tablet 2 TAKE 1 TABLET BY MOUTH 2 HOURS BEFORE SURGERY AND MAY REPEAT ONCE MAXIMUM DAILY DOSE = 2 TAKE 1 TABLET BY MOUTH 2 HOURS BEFORE SURGERY AND MAY REPEAT ONCE MAXIMUM DAILY DOSE = 2 SOLD: 03/18/2020 [facility] Albuterol 0.83 MG/ML Inhalant Solution A lbuterol Sulfate (2.5 MG/3ML) 0.083% Inhalation Nebulization Solution (PROVENTIL) Albuterol Sulfate (2.5 MG/3ML) 0.083% Inhalation Nebulization Solution (PROVENTIL) 03/09/2020 12:00:00 AM EDT [facility] 2.5 mg /3 mL (0.083 %) 03/09/2020 12:00:00 AM EDT solu tion for nebulization 375 INHALE THE CONTENTS OF ONE V IAL VIA NEBULIZER FOUR TIMES A DAY AND NEEDED INHALE THE CONTENTS OF ONE VIAL VIA NEBU LIZER FOUR TIMES A DAY AND NEEDED SOLD: 03/10/2020 [facility] Albuterol 0.83 MG/ML Inhalant Solution Albuterol Sulfate 0 03/08/2020 12:00:00 AM EDT active [facility] ([facility], ) Albuterol 0.83 MG/ML Inhalant Solution Albuterol Sulfate 0 03/06/2020 12:00:00 AM EDT completed [facility] ([facility], ) Dicyclomine Hydrochloride 20 MG Oral Tab let Dicyclomine HCl 20 MG Oral Tablet (BENTYL) Dicyclomine HCl 20 MG Oral Tablet (BENTYL) 02/28/2020 12:00: 00 AM EDT [facility] Spiriva Respimat 2.5 MCG/ACT Inhalation Aerosol Solution [id number] 02/28/2020 12:00:00 AM EDT [facility] Atropine Sulfate 0.025 MG / Diphenoxylat e Hydrochloride 2.5 MG Oral Tablet Diphenoxylate-Atropine 2.5-0.025 MG Oral Tablet (LOMOTIL) Diphenoxylate-Atropine 2.5-0.025 MG Oral Tablet (LOMOTIL) 02/28/2020 12:00:00 AM EDT [facility] Atropine Sulfate 0.025 MG / Diphenoxylat e Hydrochloride 2.5 MG Oral Tablet [Lomotil] Lomotil 2.5-0.025 MG Lomotil 2.5-0.025 MG 01/06/2020 12:00:00 AM EDT active 1 tablet as need ed eCW1 ([facility]) Atropine Sulfate 0.025 MG / Diphenoxylat e Hydrochloride 2.5 MG Oral Tablet [Lomotil] Lomotil 2.5-0.025 MG Lomotil 2.5-0.025 MG 01/06/2020 12:00:00 AM EDT 1.0 {tablet_as_needed} active L omotil 2.5-0.025 MG eCW1 ([facility]) Atropine Sulfate 0.025 MG / Diphenoxylat e Hydrochloride 2.5 MG Oral Tablet [Lomotil] Lomotil 2.5-0.025 MG Lomotil 2.5-0.025 MG 01/06/2020 12:00:00 AM EDT 1.0 {tablet_as_needed} active L omotil 2.5-0.025 MG eCW1 ([facility]) Atropine Sulfate 0.025 MG / Diphenoxylat e Hydrochloride 2.5 MG Oral Tablet [Lomotil] Lomotil 2.5-0.025 MG Lomotil 2.5-0.025 MG 01/06/2020 12:00:00 AM EDT 1.0 {tablet_as_needed} active L omotil 2.5-0.025 MG eCW1 ([facility]) Atropine Sulfate 0.025 MG / Diphenoxylat e Hydrochloride 2.5 MG Oral Tablet [Lomotil] Lomotil 2.5-0.025 MG Lomotil 2.5-0.025 MG 01/06/2020 12:00:00 AM EDT 1.0 {tablet_as_needed} active L omotil 2.5-0.025 MG eCW1 ([facility]) Atropine Sulfate 0.025 MG / Diphenoxylat e Hydrochloride 2.5 MG Oral Tablet [Lomotil] Lomotil 2.5-0.025 MG Lomotil 2.5-0.025 MG 01/06/2020 12:00:00 AM EDT 1.0 {tablet_as_needed} active L omotil 2.5-0.025 MG eCW1 ([facility]) 100 mg 12/30/2019 12:00:00 AM EDT tablet 28 TAKE ONE TABLET BY MOUTH TWICE A DAY TAKE ONE TABLET BY MOUTH TWICE A DAY SOLD: 12/30/2019 [facility] Prednisone 20 MG Oral Tablet PredniSONE 20 MG PredniSONE 20 MG 12/30/2019 12:00:00 AM EDT 1.0 {tablet} active Pr edniSONE 20 MG eCW1 ([facility]) doxycycline hyclate 100 MG Oral Tablet Doxycycline Hyc late 100 MG Doxycycline Hyclate 100 MG 12/30/2019 12:00:00 AM EDT 1.0 {tablet} active Doxycycline Hyclate 100 MG eCW1 ([facility]) Dicyclomine Hydrochloride 20 MG Oral Tablet Dicyclomin e HCl 20 MG Dicyclomine HCl 20 MG 12/30/2019 12:00:00 AM EDT 1.0 {tablet} ac tive Dicyclomine HCl 20 MG eCW1 ([facility]) Dicyclomine Hydrochloride 20 MG Oral Tablet Dicyclomin e HCl 20 MG Dicyclomine HCl 20 MG 12/30/2019 12:00:00 AM EDT 1.0 {tablet} ac tive Dicyclomine HCl 20 MG eCW1 ([facility]) doxycycline hyclate 100 MG Oral Tablet Doxycycline Hyc late 100 MG Doxycycline Hyclate 100 MG 12/30/2019 12:00:00 AM EDT 1.0 {tablet} active Doxycycline Hyclate 100 MG eCW1 ([facility]) Prednisone 20 MG Oral Tablet PredniSONE 20 MG PredniSONE 20 MG 12/30/2019 12:00:00 AM EDT 1.0 {tablet} active Pr edniSONE 20 MG eCW1 ([facility]) doxycycline hyclate 100 MG Oral Tablet Doxycycline Hyc late 100 MG Doxycycline Hyclate 100 MG 12/30/2019 12:00:00 AM EDT 1.0 {tablet} active Doxycycline Hyclate 100 MG eCW1 ([facility]) Loperamide Hydrochloride 2 MG Oral Capsule Loperamide HCl 2 MG Loperamide HCl 2 MG 12/30/2019 12:00:00 AM EDT 1.0 {capsule_as_needed} active Loperamide HCl 2 MG eCW1 ([facility]) Loperamide Hydrochloride 2 MG Oral Capsule Loperamide HCl 2 MG Loperamide HCl 2 MG 12/30/2019 12:00:00 AM EDT 1.0 {capsule_as_needed} active Loperamide HCl 2 MG eCW1 ([facility]) doxycycline hyclate 100 MG Oral Tablet Doxycycline Hyc late 100 MG Doxycycline Hyclate 100 MG 12/30/2019 12:00:00 AM EDT active 1 tablet eCW1 ([facility]) 20 mg 12/30/2019 12:00:00 AM EDT tablet 7 TAKE ONE TABLET BY MOUTH EVERY DAY TAKE ONE TABLET BY MOUTH EVERY DAY SOLD: 01/12/2020 [facility] Dicyclomine Hydrochloride 20 MG Oral Tablet Dicyclomin e HCl 20 MG Dicyclomine HCl 20 MG 12/30/2019 12:00:00 AM EDT active 1 tablet eCW1 ([facility]) 20 mg 12/30/2019 12:00:00 AM EDT tablet 7 TAKE ONE TABLET BY MOUTH EVERY DAY TAKE ONE TABLET BY MOUTH EVERY DAY SOLD: 12/30/2019 [facility] Prednisone 20 MG Oral Tablet PredniSONE 20 MG PredniSONE 20 MG 12/30/2019 12:00:00 AM EDT 1.0 {tablet} active Pr edniSONE 20 MG eCW1 ([facility]) doxycycline hyclate 100 MG Oral Tablet Doxycycline Hyc late 100 MG Doxycycline Hyclate 100 MG 12/30/2019 12:00:00 AM EDT 1.0 {tablet} active Doxycycline Hyclate 100 MG eCW1 ([facility]) Loperamide Hydrochloride 2 MG Oral Capsule Loperamide HCl 2 MG Loperamide HCl 2 MG 12/30/2019 12:00:00 AM EDT 1.0 {capsule_as_needed} active Loperamide HCl 2 MG eCW1 ([facility]) Prednisone 20 MG Oral Tablet PredniSONE 20 MG PredniSONE 20 MG 12/30/2019 12:00:00 AM EDT 1.0 {tablet} active Pr edniSONE 20 MG eCW1 ([facility]) Dicyclomine Hydrochloride 20 MG Oral Tablet Dicyclomin e HCl 20 MG Dicyclomine HCl 20 MG 12/30/2019 12:00:00 AM EDT 1.0 {tablet} ac tive Dicyclomine HCl 20 MG eCW1 ([facility]) Dicyclomine Hydrochloride 20 MG Oral Tablet Dicyclomin e HCl 20 MG Dicyclomine HCl 20 MG 12/30/2019 12:00:00 AM EDT 1.0 {tablet} ac tive Dicyclomine HCl 20 MG eCW1 ([facility]) Loperamide Hydrochloride 2 MG Oral Capsule Loperamide HCl 2 MG Loperamide HCl 2 MG 12/30/2019 12:00:00 AM EDT 1.0 {capsule_as_needed} active Loperamide HCl 2 MG eCW1 ([facility]) Loperamide Hydrochloride 2 MG Oral Capsule Loperamide HCl 2 MG Loperamide HCl 2 MG 12/30/2019 12:00:00 AM EDT 1.0 {capsule_as_needed} active Loperamide HCl 2 MG eCW1 ([facility]) Prednisone 20 MG Oral Tablet PredniSONE 20 MG PredniSONE 20 MG 12/30/2019 12:00:00 AM EDT 1.0 {tablet} active Pr edniSONE 20 MG eCW1 ([facility]) Loperamide Hydrochloride 2 MG Oral Capsule Loperamide HCl 2 MG Loperamide HCl 2 MG 12/30/2019 12:00:00 AM EDT active 1 capsule as needed eCW1 ([facility]) Dicyclomine Hydrochloride 20 MG Oral Tablet Dicyclomin e HCl 20 MG Dicyclomine HCl 20 MG 12/30/2019 12:00:00 AM EDT 1.0 {tablet} ac tive Dicyclomine HCl 20 MG eCW1 ([facility]) doxycycline hyclate 100 MG Oral Tablet Doxycycline Hyc late 100 MG Doxycycline Hyclate 100 MG 12/30/2019 12:00:00 AM EDT 1.0 {tablet} active Doxycycline Hyclate 100 MG eCW1 ([facility]) Prednisone 20 MG Oral Tablet PredniSONE 20 MG PredniSONE 20 MG 12/30/2019 12:00:00 AM EDT active 1 tablet eCW1 ([facility]) Azithromycin 500 MG Oral Tablet Azithromycin 11/12/2019 12:00:00 AM E DT ORAL completed [facility]ENT ([facility], ) Prednisone 10 MG Oral Tablet Prednisone 11/12/2019 12:00:00 AM EDT ORAL completed [facility]ENT ([facility], ) 500 mg 11/12/2019 12:00:00 AM EDT tablet 7 TAKE 1 TABLET BY MOUTH DAILY FOR 7 DAYS TAKE 1 TABLET BY MOUTH DAILY FOR 7 DAYS SOLD: 11/14/2019 [facility] 10 mg 11/12/2019 12:00:00 AM EDT tablet 53 TAKE 4 TABLETS BY MOUTH ONCE DAILY FOR 5 DAYS THEN TAKE 3 TABLETS ONCE DAILY FOR 5 DAYS THEN TAKE 2 TABLETS ONCE DAILY FOR 5 DAYS THEN TAKE 1 TABLET ONCE DAILY FOR 5 DAYS THEN TAKE 1/2 TABLETS ONCE DAILY FOR 5 DAYS TAKE 4 TABLETS BY MOUTH ONCE DAILY FOR 5 DAYS THEN TAKE 3 TABLETS ONCE DAILY FOR 5 DAYS THEN TAKE 2 TABLETS ONCE DAILY FOR 5 DAYS THEN TAKE 1 TABLET ONCE DAILY FOR 5 DAYS THEN TAKE 1/2 TABLETS ONCE DAILY FOR 5 DAYS SOLD: 11/14/2019 [facility] 10 mg 10/03/2019 12:00:00 AM EST tablet 60 TAKE ONE TABLET BY MOUTH TWICE A DAY BEFORE MEALS TAKE ONE TABLET BY MOUTH TWICE A DAY BEFORE MEALS SOLD : 10/03/2019 [facility] Lactulose 667 MG/ML Oral Solution Lactulose 20 GM/30ML Lactu lose 20 GM/30ML 10/01/2019 12:00:00 AM EST active 15 ml eCW1 ([facility]) Metoclopramide 10 MG Oral Tablet metoclopramide (CHRISTINA N) 10 MG tablet metoclopramide (REGLAN) 10 MG tablet 10/01/2019 12:00:00 AM EST aborted [facility] Metoclopramide 10 MG Oral Tablet [Reglan] Reglan 10 MG Christina n 10 MG 10/01/2019 12:00:00 AM EST active 1 tablet before meals eCW1 ([facility]) 10 gram/15 mL 10/01/2019 12:00:00 AM EST solution 473 TAKE 15 ML BY MOUTH ONCE DAILY TAKE 15 ML BY MOUTH ONCE DAILY SOLD: 10/03/2019 [facility] potassium chloride SA (K-DUR,KLOR-CON) CR tablet 10 mEq [id number] 09/09/2019 09:00:00 AM EST 10 meq Oral active 10 mEq, Oral, Daily, First dose on Layne 09/09/19 at 0900 [facility] Medication administered onsite Amiloride Hydrochloride 5 MG Oral Tablet AMILoride (MD DAMOR) tablet 10 mg AMILoride (MIDAMOR) tablet 10 mg 09/09/2019 09:00:00 AM EST 10 mg Oral active 10 mg, Oral, Daily, First dose o n Layne 09/09/19 at 0900 [facility] Medication administered onsite POLYETHYLENE GLYCOL 3350 142 MG/ML Oral Solution polyethylene glycol (GLYCOLAX) packet 17 g polyethylene glycol (GLYCOLAX) packet 17 g 09/09/2019 09:00:00 AM EST 17 g Oral active 17 g, Or al, Daily, First dose on Layne 09/09/19 at 0900, Post-op
Start POD #1
[facility] Medication administered onsite Bisacodyl 10 MG Rectal Suppository bisacodyl (DULCOLAX ) suppository 10 mg bisacodyl (DULCOLAX) suppository 10 mg 09/09/2019 12:00:00 AM EST 10 mg Rectal active 10 mg, Rectal, Daily PRN, constipation, for constipation unrelieved by miralax/MOM, Starting Layne 09/09/19 at 0000, For 4 days, Post- op
For post-op day #1, #3, and #4Hold for BM
[facility] Medication administered onsite Magnesium Hydroxide 80 MG/ML Oral Suspen james magnesium hydroxide (MILK OF MAGNESIA) 400 MG/5ML suspension 30 mL magnesium hydroxide (MILK OF MAGNESIA) 4 00 MG/5ML suspension 30 mL 09/09/2019 12:00:00 AM EST 30 mL Oral active 30 mL, Oral, Daily PRN, constipation, Starting Layne 09/09/19 at 0000, Post- op
Start Post-op day #1. Hold for BM
[facility] Medication administered onsite 7.5-325 mg 09/09/2019 12:00:00 AM EST tablet 42 TAKE ONE TABLET BY MOUTH EVERY 4 HOURS NEEDED FOR PAIN MAXIMUM DAILY DOSE = 6 TAKE ONE TABLET BY MOUTH EVERY 4 HOURS NEEDED FOR PAIN MAXIMUM DAILY DOSE = 6 SOLD: 09/09/2019 [facility] Baclofen 10 MG Oral Tablet baclofen (LIORESAL) 10 MG t ablet baclofen (LIORESAL) 10 MG tablet 09/09/2019 12:00:00 AM EST 10 mg Oral abort ed Take 1 tablet (10 mg total) by mouth 3 (three) times a day as needed [facility] pregabalin 50 MG Oral Capsule pregabalin (LYRICA) 50 M G capsule pregabalin (LYRICA) 50 MG capsule 09/09/2019 12:00:00 AM EST aborted Take 3 times per day. MDD: 3 tablets [facility] Acetaminophen 325 MG / Hydrocodone Clara trate 7.5 MG Oral Tablet HYDROcodone- acetaminophen (NORCO) 7.5-325 MG per tablet HYDROcodone-acetaminophen (NORCO) 7.5-325 MG per tablet 09/09/2019 12:00:00 AM EST 1 {tbl} Oral active Take 1 tablet by mouth every 4 (four) hours as needed for pain Max Daily Amount: 6 tablets [facility] pantoprazole 40 MG Delayed Release Oral Tablet pantoprazole (PROTONIX) EC tablet 40 mg pantoprazole (PROTONIX) EC tablet 40 mg 09/08/2019 09:00:[address] 40 mg Oral active Gastroesophageal Reflux Diseas e 40 mg, Oral, 2 times daily, Indications: Gastroesophageal Reflux Disease, First dose on Fri09/08/19 at 2100 [facility] Gastroesophageal Reflux Disease Medication administered onsite Amitriptyline Hydrochloride 50 MG Oral T ablet amitriptyline (ELAVIL) tablet 50 mg amitriptyline (ELAVIL) tablet 50 mg 09/08/2019 09:00:00 PM EST 50 mg Oral active 50 mg, Oral, Nightly, Fir st dose on Fri09/08/19 at 2100 [facility] Medication administered onsite Docusate Sodium 50 MG / sennosides, ASSISTED 8.6 MG Oral Tablet senna-docusate (PERICOLACE) 8.6-50 MG 2 tablet senna-docusate (PERICOLACE) 8.6-50 MG 2 tablet 09/08/2019 09:00:00 PM EST 2 {tbl} Oral active 2 tablet, Oral, Nightly, First dose on Fri09/08/19 at 2100, Post-op
hold for loose stools
[facility] Medication administered onsite 60 ACTUAT formoterol fumarate 0.005 MG/A CTUAT / mometasone furoate 0.2 MG/ACTUAT Metered Dose Inhaler mometasone-formoterol (DULERA) 200-5 MCG/ACT inhaler 2 puff mometasone-formoterol (DULERA) 200-5 MCG/ACT inhaler 2 puff 09/08/2019 08:00:00 PM EST 2 {puff} Inhalation active 2 puff, Inhalation, 2 times daily, First dose on Fri09/08/19 at 2000 [facility] Medication administered onsite pregabalin 50 MG Oral Capsule pregabalin (LYRICA) caps ule 50 mg pregabalin (LYRICA) capsule 50 mg 09/08/2019 02:00:00 PM EST 50 mg Oral active 50 mg, Oral, 3 times daily, First dose on Fri09/08/19 at 1400, For 7 days [facility] Medication administered onsite Baclofen 10 MG Oral Tablet baclofen (LIORESAL) tablet 10 mg baclofen (LIORESAL) tablet 10 mg 09/08/2019 02:00:00 PM EST 10 mg Oral activ e 10 mg, Oral, 3 times daily, First dose on Fri09/08/19 at 1400 [facility] Medication administered onsite Acetaminophen 500 MG Oral Tablet acetaminophen (TYLENO L) tablet 500 mg acetaminophen (TYLENOL) tablet 500 mg 09/08/2019 02:00:00 PM EST 50 0 mg Oral active 500 mg, Oral, E very 6 hours (relative), First dose on Fri09/08/19 at 1400, Post-op [facility] Medication administered onsite fluticasone (FLONASE) 50 MCG/ACT nasal spray 2 spray [id number] 09/08/2019 01:00:00 PM EST 2 {spray} Nasal active 2 spray, Nasal, Daily, First dose on Fri09/08/19 at 1300 [facility] Medication administered onsite irbesartan 150 MG Oral Tablet irbesartan (AVAPRO) tabl et 75 mg irbesartan (AVAPRO) tablet 75 mg 09/08/2019 01:00:00 PM EST 75 mg Oral active 75 mg, Oral, Daily, First dose on Fri09/08/19 at 1300 [facility] Medication administered onsite cefazolin (ANCEF) injection 2 g 09/08/2019 01:00:00 PM EST 2 g Intravenous completed Perioperative Pharmacoprophylaxis 2 g, Intravenous, Administer over 6 Minutes, Every 8 hours (relative), First dose on Fri09/08/19 at 1300, For 3 doses, Post-op
Start 4 hours after pre-op dose, then every 8 hours x 2 doses.RN may administer IV push or infuse this medication through syringe adapter set ref [id number]. Flush line after use
[facility] Perioperative Pharmacoprophylaxis Medication administered onsite Calcium Chloride 0.0014 MEQ/ML / Potassi um Chloride 0.004 MEQ/ML / Sodium Chloride 0.103 MEQ/ML / Sodium Lactate 0.028 MEQ/ML Injectable Solution lactated ringers infusion lactated ringers infusion 09/08/2019 12:00:00 PM EST Intravenous active at 75 mL/hr, Intravenous, Continuous, Starting Fri09/08/19 at 1200, Post-op [facility] Medication administered onsite Ipratropium Calvert 0.2 MG/ML Inhalant S olution ipratropium (ATROVENT) 0.02 % nebulizer solution 0.5 mg ipratropium (ATROVENT) 0.02 % nebulizer solution 0.5 mg 09/08/2019 12:00:00 PM EST 0.5 mg active 0.5 mg, Nebulization, 4 times daily, First dose on Fri09/08/19 at 1200 [facility] Medication administered onsite Acetaminophen 325 MG / Hydrocodone Clara trate 5 MG Oral Tablet HYDROcodone- acetaminophen (NORCO) 5-325 MG per tablet 1 tablet HYDROcodone-acetaminophen (NORCO) 5-325 MG per tablet 1 tablet 09/08/2019 11:05:22 AM EST 1 { tbl} Oral active 1 tablet, Oral, Every 4 hours PRN, moderate pain (4-6), Starting Fri09/08/19 at 1105, For 7 days, Post-op [facility] Medication administered onsite Acetaminophen 325 MG / Hydrocodone Clara trate 10 MG Oral Tablet HYDROcodone- acetaminophen (NORCO 10-325) 10-325 MG per tablet 1 tablet HYDROcodone- acetaminophen (NORCO 10-325) 10-325 MG per tablet 1 tablet 09/08/2019 11:05:22 AM EST 1 {tbl} Oral active 1 tablet , Oral, Every 4 hours PRN, severe pain (7-10), Starting Fri09/08/19 at 1105, For 7 days, Post-op [facility] Medication administered onsite fentaNYL Citrate (PF) (SUBLIMAZE) injection 50 mcg [id number] 09/08/2019 11:05:22 AM EST 50 ug Intravenous active 50 mcg, Intravenous, Every 3 hours PRN, for severe breakthrough pain (7-10) if oral opioid ineffective, Starting Fri09/08/19 at 1105, For 7 days, Post-op [facility] Medication administered onsite Mineral Oil 1000 MG/ML Enema mineral oil enema 1 enema mineral oil enema 1 enema 09/08/2019 11:05:22 AM EST 1 {enema} Rectal active 1 enema, Rectal, Daily PRN, constipation, if unrelieved by dulcolax, Starting Fri09/08/19 at 1105, Post-op
hold for loose stools
[facility] Medication administered onsite ondansetron (ZOFRAN) injection 4 mg [id number] 09/08/2019 11:05:2 2 AM EST 4 mg Intravenous active 4 mg, In travenous, Every 4 hours PRN, nausea, vomiting, Starting Fri09/08/19 at 1105, Post-op
If unable to take PO
[facility] Medication administered onsite 2 ML Metoclopramide 5 MG/ML Prefilled Sy ringe metoclopramide (REGLAN) injection 10 mg metoclopramide (REGLAN) injection 10 mg 09/08/2019 11:05:[address] 10 mg Intravenous active 10 mg, I ntravenous, Every 6 hours PRN, nausea, vomiting, Starting Fri09/08/19 at 1105, For 24 hours, Post-op
Renal dosing per pharmacy
[facility] Medication administered onsite Albuterol 0.83 MG/ML Inhalant Solution a lbuterol (PROVENTIL) nebulizer solution 2.5 mg albuterol (PROVENTIL) nebulizer solution 2.5 mg 2019 11:05:21 AM EST 2.5 mg active 2.5 mg, Nebulization, RT every 4 hours as needed, wheezing, shortness of breath, Starting Fri09/08/19 at 1105 [facility] Medication administered onsite Magnesium Chloride 0.84847 MEQ/ML / Pota ssium Chloride 0.0497 MEQ/ML / Sodium Acetate 0.0163 MEQ/ML / Sodium Chloride 0.0899 MEQ/ML / Sodium gluconate 5.02 MG/ML Injectable Solution [Normosol-R] electrolyte-R (NORMOSOL-R/PLASMALYTE-R) solution electrolyte-R (NORMOSOL-R/PLASMALYTE-R) solution 09/08 11:00:00 AM EST Intravenous active at 1 50 mL/hr, Intravenous, Continuous, Starting Fri09/08/19 at 1100, For 1 day, PACU (only) [facility] Medication administered onsite HYDROmorphone (DILAUDID) injection 0.5 mg [id number] 09/08/2019 10:16:01 AM EST 0.5 mg Intravenous aborted 0.5 mg, Intravenous, Every 5 min PRN, severe pain (7-10), Starting Fri09/08/19 at 1016, For 5 doses, PACU (only) [facility] Medication administered onsite Magnesium Chloride 0.67299 MEQ/ML / Pota ssium Chloride 0.0497 MEQ/ML / Sodium Acetate 0.0163 MEQ/ML / Sodium Chloride 0.0899 MEQ/ML / Sodium gluconate 5.02 MG/ML Injectable Solution [Normosol-R] electrolyte-R (NORMOSOL-R/PLASMALYTE-R) solution electrolyte-R (NORMOSOL-R/PLASMALYTE-R) solution 09/08 09:00:00 AM EST Intravenous active at 1 00 mL/hr, Intravenous, Continuous, Starting Fri09/08/19 at 0900 [facility] Medication administered onsite 2 ML Metoclopramide 5 MG/ML Prefilled Sy ringe metoclopramide (REGLAN) injection 10 mg metoclopramide (REGLAN) injection 10 mg 09/08/2019 07:00:[address] 10 mg Intravenous completed 10 mg, I ntravenous, call box wirer, Fri09/08/19 at 0700, For 1 dose, Pre-op
To be administered just prior to to transport to operating room
[facility] Medication administered onsite ondansetron (ZOFRAN) injection 4 mg [id number] 09/08/2019 07:00:0 0 AM EST 4 mg Intravenous completed 4 mg, In travenous, call box wirer, Fri09/08/19 at 0700, For 1 dose, Pre-op
To be administered just prior to to transport to operating room
[facility] Medication administered onsite dexamethasone (DECADRON) injection 4 mg [id number] 09/08/19 07:00:00 AM EST 4 mg Intravenous completed 4 mg, Intr avenous, call box wirer, Fri09/08/19 at 0700, For 1 dose, Pre-op
To be administered just prior to to transport to operating room.Hold if patient is diabetic or if stress dose steroids are o rdered
[facility] Medication administered onsite Acetaminophen 500 MG Oral Tablet acetaminophen (TYLENO L) tablet 1,000 mg acetaminophen (TYLENOL) tablet 1,000 mg 09/08/2019 07:00:00 AM EST 1000 mg Oral completed 1,000 mg, Oral , call box wirer, Fri09/08/19 at 0700, For 1 dose, Pre-op
To be administered just prior to to transport to operating room
[facility] Medication administered onsite valacyclovir 1000 MG Oral Tablet Valacyclovir HCl 1 GM Valac yclovir HCl 1 GM 07/19/2019 12:00:00 AM EST active 1 tablet eCW1 ([facility]) 1 gram 07/19/2019 12:00:00 AM EST tablet 10 TAKE ONE TABLET BY MOUTH TWICE A DAY FOR 5 DAYS TAKE ONE TABLET BY MOUTH TWICE A DAY FOR 5 DAYS SOLD: 2018 [facility] 1 gram 07/19/2019 12:00:00 AM EST tablet 10 TAKE ONE TABLET BY MOUTH TWICE A DAY FOR 5 DAYS TAKE ONE TABLET BY MOUTH TWICE A DAY FOR 5 DAYS SOLD: 2018 [facility] valacyclovir 1000 MG Oral Tablet Valacyclovir HCl 1 GM Valac yclovir HCl 1 GM 07/19/2019 12:00:00 AM EST active 1 tablet eCW1 ([facility]) 100 mg 07/08/2019 12:00:00 AM EST capsule 14 TAKE ONE CAPSULE BY MOUTH TWICE A DAY TAKE ONE CAPSULE BY MOUTH TWICE A DAY SOLD: 07/08/2019 [facility] Mometasone Furoate 50 MCG/ACT Nasal Suspension (NASONEX) 605 05-0830-1 07/01/2019 12:00:00 AM EST 2 {spray} Nasal active 2 spr ays by Nasal route daily [facility] 10 mEq 06/03/2019 12:00:00 AM EDT tablet,ER particles/cry stals 30 TAKE ONE TABLET BY MOUTH EVERY DAY TAKE ONE TABLET BY MOUTH EVERY DAY SOLD: 07/06/2019 [facility] Ranitidine 300 MG Oral Tablet ranitidine (ZANTAC) 300 MG tablet ranitidine (ZANTAC) 300 MG tablet 05/20/2019 12:00:00 AM EDT 300 mg Oral aborted Take 300 mg by mouth nightly [facility] Fluconazole 200 MG Oral Tablet fluconazole (DIFLUCAN) 200 MG tablet fluconazole (DIFLUCAN) 200 MG tablet 05/20/2019 12:00:00 AM EDT aborted [facility] Ranitidine 300 MG Oral Tablet ranitidine (ZANTAC) 300 MG tablet ranitidine (ZANTAC) 300 MG tablet 05/20/2019 12:00:00 AM EDT 300 mg Oral active Take 1 tablet by mouth nightly [facility] 100,000 unit/mL 04/21/2019 12:00:00 AM EDT suspension 70 SWISH AND SWALLOW 5ML BY MOUTH TWO TIMES A DAY FOR 7 DAYS SWISH AND SWALLOW 5ML BY MOUTH TWO TIMES A DAY FOR 7 DAYS SOLD: 07/17/2019 [facility] Omeprazole 40 MG Delayed Release Oral Ca psule omeprazole (PRILOSEC) 40 MG capsule omeprazole (PRILOSEC) 40 MG capsule 04/12/2019 12:00:00 AM EDT 40 mg Oral aborted Take 40 mg by mouth 2 (two) times a day [facility] Baclofen 10 MG Oral Tablet baclofen (LIORESAL) 10 MG t ablet baclofen (LIORESAL) 10 MG tablet 11/27/2018 12:00:00 AM EDT 10 mg Oral abort ed Take 10 mg by mouth 3 (three) times a day [facility] pantoprazole 40 MG Delayed Release Oral Tablet pantoprazole (PROTONIX) 40 MG tablet pantoprazole (PROTONIX) 40 MG tablet 11/24/2018 12:00:00 AM EDT aborted [facility] Aspirin 81 MG Delayed Release Oral Table t aspirin (ASPIRIN ADULT LOW DOSE) 81 MG EC tablet aspirin (ASPIRIN ADULT LOW DOSE) 81 MG EC tablet 81 mg Oral aborted Take 81 mg by mouth daily [facility] 12 HR Orphenadrine Citrate 100 MG Extend ed Release Oral Tablet orphenadrine (NORFLEX) 100 MG tablet orphenadrine (NORFLEX) 100 MG tablet 05/05/2017 12:00: 00 AM EDT 100 mg Oral aborted Take 100 mg by m outh [facility] Polysaccharide iron complex 150 MG Oral Capsule iron polysaccharides (POLY-IRON 150) 150 MG capsule iron polysaccharides (POLY-IRON 150) 150 MG capsule 03/24/2017 12:00:00 AM EDT aborted TAKE ONE CAPSULE BY MOUTH EVERY DAY [facility] cetirizine hydrochloride 10 MG Oral Tablet cetirizine (ZYRTEC) 10 MG tablet cetirizine (ZYRTEC) 10 MG tablet 5 mg Oral abort ed Take 5 mg by mouth [facility] Acetaminophen 325 MG / Hydrocodone Clara trate 7.5 MG Oral Tablet HYDROcodone- acetaminophen (NORCO) 7.5-325 MG per tablet HYDROcodone-acetaminophen (NORCO) 7.5-325 MG per tablet 1 {tbl} Oral aborted Take 1 tablet by mouth every 6 (six) hours as needed for pain [facility] Aspirin 81 MG Oral Tablet aspirin 81 MG tablet aspirin 81 MG tablet 81 mg Oral aborted Take 81 mg by mouth daily [facility] pregabalin 50 MG Oral Capsule pregabalin (LYRICA) 50 M G capsule pregabalin (LYRICA) 50 MG capsule 50 mg Oral aborted Take 50 mg by mouth 3 (three) times a day [facility] Multiple Minerals-Vitamins (JHG-SCV-ZXAE-D PO) 1 {tbl} O ral aborted Take 1 tablet by mouth daily [facility] Acetaminophen 325 MG Oral Tablet acetaminophen (TYLENO L) 325 MG tablet acetaminophen (TYLENOL) 325 MG tablet 650 mg Oral aborted Take 650 mg by mouth every 6 (six) hours as needed for pain [facility] Insurance Providers Payer name Policy type / Coverage type Policy ID Covered democrat ID Covered democrat's relationship to cruz Policy [place] Plan Information [place]307 [id number] SP [id number] [place]/307 [id number] SP [id number] INSURANCE COVID-19 [id number] EXCELL[place] [employer]BS INSURANCE COVID-19 COVID Scarlet C OVID EXCELLUS BCBS [id number] Scarlet UGD [id number] [employer]CELLUS BCBS B [id number] S UGD [id number] 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 [id number] SP [id number] BLUE CARD C [id number] Self [id number] BCBS EXCELLUS [id number] S UGD [id number] [employer]CELL[employer] BCBS [id number] Scarlet UGD [id number] BCBS EXCELLUS [id number] S UGD [id number] BCBS EXCELLUS [id number] SPO UGD [id number] BCBS EXCELLUS [id number] S UGD [id number] BCBS EXCELL[place] [id number] SPO UGD [id number] [place] [id number] S [id number] Blue Cross Blue Shield P [id number] SELF [id number] EXCELLUS BCBS [id number] Scarlet UGD [id number] EXCELLUS BCBS [id number] Scarlet UGD [id number] BLUE CARD C [id number] Self [id number] EXCELLUS BCBS [id number] [place]let UGD [id number] [place]/307 [id number] SP [id number] ANSI-Commercial [id number] ANSI-Commercial [id number] ANSI-Commercial [id number] ANSI-Commercial [id number]-[id number] ANSI-Commercial [id number]-[id number] ANSI-Commercial [id number]-dnhv-[id number] c55p0m2l-7883-9f97-qboz-47koci52h9kg BCBS Excell[employer] U/W Commercial [id number] Self [id number] BCBS [employer] U/W Commercial [id number] Self [id number] ANSI-Commercial [id number] ANSI-Commercial [id number]-[id number] ANSI-Commercial [id number]-7hby-[id number] eat1mvfw-0pej-547o-2vvf-[id number] ANSI-Commercial [id number]-[id number] ANSI-Commercial qx9e3owy-ol52-20c4-flhb-z00h974s0j22 ug8z1mpu-em68-92w1-venq-t46u100f2u27 ANSI-Commercial [id number]-cst4-[id number]-47jx-hus9-[id number] ANSI-Commercial n1a6cms7-jgt6-1208-vm76-18x028s1t8pw h5e9omf1-wex4-7589-xq75-29v302x7w5af ANSI-Commercial z2o6h00e-8m3s-125j-55hl-54y57q6n714t g8y2d46z-2e7r-848x-28os-35f47m0m211i ANSI-Commercial 6r133rf1-u662-455x-weu6-1blna508jul2 8o041yz1-p963-921q-ozp8-9xxkn576dww3 ANSI-Commercial [id number]-367i-pbir-[id number]-241p-adtp-cq94m323930d ANSI-Commercial 3epn06ow-l6r3-6o8h-3v93-8o25gj164h03 7kzp22xg-s8b2-4h4w-2m58-0d97pi679r91 ANSI-Commercial 86m537p5-3a74-0l2t-369d-[id number] 83v402z7-3q69-5i5v-764a-3402k9083386 ANSI-Commercial 9d1n58oo-lg1r-3z28-aq91-40352f8o5ogz 5k1m73ch-vq0d-9l55-ak64-50152k5u2qxo ANSI-Commercial s9455jtt-4999-62a8-fjy5-3fu0h4y82m42 d6069hgh-4176-30y9-ude3-4rm6m5m10e68 ANSI-Commercial 4745j0l2-yf72-5104-pv96-9z4i6lt5auur 2545q0h4-gi97-8150-sc29-6t5q5cf9cina ANSI-Commercial 17zy893g-lw4s-2zz9-v7q2-4neq9449f271 00xm091d-wv6k-2wz5-t9h7-6tqs1590p380 ANSI-Commercial e07fr589-2n06-522a-c4g2-061g1n7nfb4q d92wm396-4j96-550r-v1k9-610u2n6cfo1k ANSI-Commercial q05ne21h-pnq6-98ws-093x-m094228t6i63 x60kc59b-bvw0-19al-309u-f165626k9v13 ANSI-Commercial 46pslq80-vf0b-2pyb-8m2t-i5526dutg004 21rlzn35-uy3z-8uau-1o0i-p9764qdtd953 ANSI-Commercial c74999ke-2v52-2230-f727-tf3794dp4f18 t67367ie-7f47-0905-t217-gp8787ta2l18 ANSI-Commercial 10mr250s-o088-254w-z046-l155r3e260ur 03bx888r-a332-989u-w242-q069d9i866qj ANSI-Commercial 718m1511-4g6x-09l2-l6g0-obf0z2130i6o 307j9760-9b4z-04i9-o0c3-gzu3v1952m8m ANSI-Commercial 43h79egs-0x42-6t87-0b8t-i3v81239a76c 76y39kyu-8p86-2s29-3j5g-i6z71160e99q ANSI-Commercial 50105nmc-9t86-5644-9d14-781416i3ce61 32629gig-3p39-4473-6r90-492045z4ea45 ANSI-Commercial m1bvslmu-h719-40xz-sd68-co0pp02d69h7 h5oonwuz-w945-96cz-lf73-mb8tg67x05x2 ANSI-Commercial 87328m96-7654-7x3o-3b7p-tzw754h00x10 88159l19-2044-0z7u-1d9t-wge114l37w23 ANSI-Commercial v27h1306-39vz-6xmn-8128-kfb6t290u4yx k44g5581-86jv-9sob-0137-aku2x670o1zc ANSI-Commercial 00r6l25m-9413-0528-00c8-61632v90szql 36w1f35v-7372-6111-29v5-30748v43qgxt ANSI-Commercial 28o1o56h-y587-8w55-7p70-o04w88276p58 05w4n62z-p123-5d43-3y56-i29z27585b07 ANSI-Commercial 03842703-9964-18l7-912o-zzd97n4790cm 58225459-5970-51f9-558r-aaw21n2586rg ANSI-Commercial 42u34349-44jk-2n43-2076-43992049h7f4 65g09861-08to-8h74-7297-59989809j7m4 ANSI-Commercial 286i03v2-t7r0-500t-s787-623675555o96 496j25q3-r7k3-493a-q358-673309479d29 ANSI-Commercial 2lz33930-9w2y-7963-0c7q-35ig72gedvgs 5uk78720-0c9m-8350-1z1q-60rs09buuhsu ANSI-Commercial 19w3c20t-552k-4723-2073-0a90cm7535jw 26k7a56v-243k-8413-7123-8i39no2344pe ANSI-Commercial u442561o-7l4x-28i0-e963-mk366fua7729 t900457h-2w0o-41m2-z155-dc570xbw5345 ANSI-Commercial pgc89by6-0894-296n-83a2-a6mm9s086c3g jbs96ie7-4067-655i-95m1-m5kd1x782s1k ANSI-Commercial x0hoilli-5539-8626-c15l-1kq1472v540k j8zzopiz-3777-8935-t29o-1xy1084x873e ANSI-Commercial 194d969f-5rt9-7452-ol0l-r79zn841f0yd 946k997h-4rm2-9031-ks6r-g75su421w0iy ANSI-Commercial 60ed136z-z494-2k06-cw37-7s7c7v83n2bc 12ak066u-y220-2j42-uc34-1y0k5r76x9rz ANSI-Commercial 416363pd-210u-5091-v5v7-4o365s5p7j44 602059ff-861r-7447-z0l3-5l622f1y4o32 ANSI-Commercial 6zecv937-x405-97qy-icr8-8n234706354o 6grlb458-h330-52wo-vic3-1c781194465g ANSI-Commercial 67n586i5-iw39-8628-n9r1-5ehewb925ttj 36r652q7-yr84-9709-b2a5-7uooqo802aei ANSI-Commercial oj0z2y2d-o446-390q-ftt9-s8inuuh2997j sj8j5h7v-p104-822k-ynv8-b8zfwzb9055x ANSI-Commercial nsd5c722-nvy9-3686-82vv-fr9slaku10x7 qkm6l812-jvz2-4344-02of-gb0nuhir24x8 ANSI-Commercial 296p777d-066v-01ea-8405-0433e5q2v0v4 900e995f-622k-64ji-2286-7029z3k3w8s0 ANSI-Commercial y47754z9-xre5-731u-kxa2-5356437gzch7 i20710w6-jld8-934g-yow5-8656050ebdx7 ANSI-Commercial 6026b765-43yj-2969-6599-dj7p44j85390 7980k449-58ml-2852-3697-za9z48q98208 ANSI-Commercial o236xc6s-l4p2-0c32-t71e-g9825ntx9458 t955dl5y-o0g2-2z88-k76g-l1430uea7829 ANSI-Commercial 48y9g861-a4fq-3211-b446-ufl857jasg74 11k1z600-w7aj-4105-z652-qya464lrtg99 ANSI-Commercial 00x914g7-k48t-98d9-u2d6-213s18p69y48 75l512r7-h00k-77u0-h7d5-054v62s46h57 ANSI-Commercial n40187yf-or5v-18b9-88e2-t8922xz7727c z89481dw-wj9r-11o8-33s0-e6635pq0825b ANSI-Commercial r6bg7x1b-5u5w-5c92-l14r-e7174axel059 o0uw2v1y-4z8a-5e52-r29b-i4922kakv963 ANSI-Commercial c43t6sj4-9549-5jq2-e777-1z61tw17sjc6 j26p6wx2-3455-1sb7-p469-5m88vr57bjf3 ANSI-Commercial 2ue5xs64-63qj-8618-420b-755qm9068879 3vb7ub42-48jx-4152-166v-992kw3027123 ANSI-Commercial 6c3ub884-9z86-4418-j9c9-l7170u14lewp 8g5wr546-4q03-2912-k4r7-i2495i51dyvv ANSI-Commercial 0x2176l1-268w-2n68-104y-sb57m066wh61 2z6388o3-566y-2w77-710t-gl46j249kh82 ANSI-Commercial t60z29hc-444z-37l4-zq9h-42dlmr6s7844 p97s99zr-045l-65o2-lz9g-51buec2j7983 ANSI-Commercial 46383283-f24j-63i0-6437-34020407x1b2 90165602-n69u-79l1-9034-52180277w7u0 ANSI-Commercial 78529p38-8720-34fp-9n72-7z90d1v0448y 77171u72-3538-08vc-3o25-6u37r4z1888m ANSI-Commercial 619s798s-b680-4187-0wax-359av89fn79r 956f960f-o019-3611-5wvn-691fg05lm48f ANSI-Commercial vm6r15f0-24mj-9ue4-v938-93g9814t2z4g rm0x51h4-32wt-7iv5-z957-24y8652x0b5m ANSI-Commercial 5421474j-o638-76zn-62n6-1p44406j03va 9068110u-q161-68db-33q3-7u98784t46du ANSI-Commercial 0rn4542g-366l-5517-n885-6a0q38hfh980 0bv1238m-475l-0482-r465-3u0w31wdh669 ANSI-Commercial j0b29471-774e-0331-fk89-ol650w38mhxg v0a75251-154k-2124-xs73-oj832y70dfwd ANSI-Commercial 64hj38j4-4132-50a6-tm53-2hj08f8yl637 78ea85d3-4769-99h0-uy17-0uz97p1se586 ANSI-Commercial ug4h3jt6-4308-4805-m150-4045qn134u75 mh0g6ou1-6789-4891-v817-7302hg063w93 ANSI-Commercial c509r2r3-bjk6-0kva-80z7-29040a330506 f900d8w5-qak9-4foz-10d1-84425s254656 ANSI-Commercial se819387-no6d-4i06-49jw-672866tkd363 le278819-js6o-7n29-98kq-192729hfo152 ANSI-Commercial 8355i8x9-47r3-98i0-yik6-i5f80033ba78 0865d2q9-28c1-46f5-slz5-d3e78863el97 ANSI-Commercial 7c733p80-c036-8p7f-nmx4-69513v635roe 4c423s34-d106-8d3s-opi4-45028n730knj ANSI-Commercial 41d1qr83-5k5t-0zuk-4nk7-u848242tqqe5 52q0sp69-2v7g-9vmk-2oo8-l838920evaa4 ANSI-Commercial 884m416l-8725-2l68-1k2a-1726944516k1 148f380s-3502-6k35-4l8p-9220668964m4 ANSI-Commercial 187b0390-3940-02s7-839r-bx34y4plvco3 561v2757-5155-64p2-260q-bh75z7kwtyz8 ANSI-Commercial 63507m7f-b69m-357p-l639-v8z2901v7852 93391u7u-p69q-849k-e760-q3p6461m0586 ANSI-Commercial sv298191-q0z0-8393-54z7-6442hqt8237w mo723559-h5w7-7723-44e6-6302zvj2104t ANSI-Commercial n7n1j7g5-6u26-5050-0315-h4at739862m1 g5g3u9m5-3f95-2277-6314-z0tq033183y3 ANSI-Commercial o905c73z-37sb-0356-7y71-z5032r8b8r7b b927z67k-97bb-4318-0d09-a8409e2l4z8l ANSI-Commercial 5xp2996i-86g2-7768-2834-97s34qig80c5 9rt3286w-20u4-6127-6172-44w42rlf47e1 ANSI-Commercial cp3p56n8-504z-7375-6lx7-m7268056ky0l em1d70q8-560c-7438-6ro4-f4395732dc2e ANSI-Commercial x8vl3477-458k-025v-1ogb-aw4wjqh03664 y8rc3791-239c-732p-5rwq-gr9klsl21797 ANSI-Commercial y1784777-01h6-4k1a-55b7-3865y4c634h2 r2475137-13e2-5a7c-03f2-7006j0e418i6 ANSI-Commercial 77p64d0d-85re-79wh-87af-9r2249rgwgjy 93q42i8m-38sk-22ji-00ki-0s0012gtlmyb ANSI-Commercial 557r7q91-sndk-42k2-y1rp-911v52383j31 045y1z70-dzpq-27p0-o1nu-931i38216c60 ANSI-Commercial z096l600-4013-015x-rp45-2629z49265l6 y108v954-1886-967l-nc04-7458x74368f9 ANSI-Commercial 84iv979e-k649-2999-4578-7375v4v98199 51pl438g-x156-2023-9883-7027p5e91304 ANSI-Commercial 03ncpfmq-0502-7258-05z8-7ha9mh29xpe0 09vxolnw-7886-3901-05o5-9iw2us68sfh8 ANSI-Commercial 03o52i63-o267-7963-030i-418sa60q804v 99p92v92-b715-0540-302n-817yv72h529n ANSI-Commercial bp98cjhl-348q-6756-274q-d324n8z93fup hz35ellj-774z-7723-522h-z147k9s61aah ANSI-Commercial 9f671781-91v6-42f1-1q60-3499810c50j2 2q610212-70w4-09k3-6l69-9570859h76b4 ANSI-Commercial 4b130a00-02x1-7m94-116c-75fk94v92054 1s010s16-75p9-1n86-758g-50pd45m50787 [employer] [place] PPO 302/307 [id number] SP [id number] [employer] [place] PPO 302/307 [id number] SP [id number] ANSI-Commercial 58a9w3x7-5j79-6e1h-9n24-q9788s870669 90k5t7c1-1y32-7d6q-9x06-j9990e407149 ANSI-Commercial 85036177-pb76-6v64-3979-2rwb86x53f2k 09710764-wx40-9y05-4804-1tdt32e97v4o ANSI-Commercial t197vqfv-96yf-7nw3-8f5w-9b5a384f6tu6 a325ykbg-35om-4bo2-4b0o-2c5h804q1vj3 ANSI-Commercial 5806wc5w-86ee-865w-sv12-654540k79ph5 3460ak1q-83ub-004s-sv78-879774k95ka2 [facility] () Workers Compensation [id number] Self [id number] BS [place] Med[employer] Part B [id number] Self [id number] BS [place] Commercial [id number] Family Dependent [id number] ANSI-Commercial 664914j3-slmh-303d-8j97-x8w0b81hezfh 170684e1-yshf-169w-4x54-p7n4o52dkkal ANSI-Commercial [id number] ANSI-Commercial [id number] ANSI-Commercial [id number]-[id number] [facility] () Workers Compensation [id number] Self [id number] [facility] Part B [id number] Self [id number] ANSI-Commercial [id number] ANSI-Commercial [id number] [facility] Health Maintenance Organization (HMO) [id number] Self [id number] ANSI-Commercial [id number] ANSI-Commercial [id number] ANSI-Commercial [id number] [id number] ANSI-Commercial [id number] ANSI-Commercial [id number] ANSI-Commercial [id number] ANSI-Commercial [id number]-[id number] ANSI-Commercial [id number] ANSI-Commercial [id number] ANSI-Commercial [id number] ANSI-Commercial [id number] ANSI-Commercial [id number] ANSI-Commercial [id number] ANSI-Commercial [id number] ANSI-Commercial [id number] ANSI-Commercial [id number] BLUE CROSS BLUE SHIELD -O/P [id number] 18 [id number] [employer] BCBS B [id number] S UGD [id number] [employer] [place] (OUT OF STATE - ALL) [id number] 1 [id number] [facility] (OUT OF STATE - ALL) [id number] 1 [id number] [facility] () Workers Compensation [id number] Self [id number] BS [place] Commercial [id number] Self [id number] BS [place] Medigap Part B [id number] Family Depend ent [id number] [facility] () Workers Compensation [id number] Self [id number] BS [place] Commercial [id number] Self [id number] BLUE CARD C [id number] Spouse [id number] BCBS [employer] Ppo U/W Commercial [id number] Self [id number] [facility] () Workers Compensation [id number] Self [id number] BS [place] Commercial [id number] Self [id number] [facility] () Workers Compensation [id number] Self [id number] BS [place] [employer] [id number] Self [id number] [facility] (OUT OF STATE - ALL) [id number] BCBS EXCELL[employer] BC [id number] SPO UGD [id number] BCBS [place] PPO 302/307 [id number] [id number] [facility] () Workers Compensation [id number] Self [id number] BS [place] Commercial [id number] Self [id number] [facility] () Workers Compensation [id number] Self [id number] BS [place] Commercial [id number] Family Dependent [id number] [facility] () Workers Compensation [id number] Self [id number] [facility] () Workers Compensation [id number] Self [id number] EXCELL[employer] BCBS B [id number] P UGD [id number] BCBS [place] PPO 302/307 [id number] [place]BS [place] PPO 302/307 [id number] HU2 [id number] [place]BS [place] PPO 302/307 [id number] HU2 [id number] EXCELLUS BCBS B [id number] P UGD [id number] BCBS [place] PPO 302/307 [id number] [id number] EXCELLUS C [id number] Spouse [id number] STATE INS FUND WC W [id number] Empl [id number] BCBS [place] 210/710 [id number] SP [id number] STATE INSURANCE FUND O [id number] S [id number] STATE INSURANCE FUND [id number] SP [id number] STATE INSURANCE FUND [id number] SP [id number] BCBS [place] 210/710 [id number] STATE INSURANCE FUND [id number] SP [id number] STATE INSURANCE FUND WC [id number] S [id number] STATE INSURANCE FUND WC [id number] S [id number] [employer] [facility]. WC [id number] S [id number] Problems, Conditions, and Diagnoses Code Display Name Description Problem Type Effective Dates Data Source(s) Z98.890 History of lumbar surgery History of lumbar surgery 64 [id number] 07/12/2020 12:00:00 AM EST [facility] [id number] Cigarette smoker Cigarette smoker Problem 05/23/2020 12 :00:00 AM EDT [facility] ([facility]) M48.062 Spinal stenosis of lumbar region with ne urogenic claudication Spinal stenosis of lumbar region with neurogenic claudication 41976796 04/04/2020 12:00:00 AM EDT [facility] K58.2 08656519 Irritable bowel syndrome with [facility] constipation and diarrhea Problem 12/30/2019 12:00:00 AM EDT [facility] ([facility]) K58.2 17518029 Irritable bowel syndrome with hailey th constipation and diarrhea Problem 12/30/2019 12:00:00 AM EDT eCW1 ([facility]) 75412920 Disorder of tongue Disorder of tongue Problem 12:00:00 AM EDT [facility] ([facility], ) K59.00 19670280 Constipation, unspecified constipation ty pe Problem 10/01/2019 12:00:00 AM EST eCW1 ([facility]) K59.00 20116615 Constipation, unspecified constipation ty pe Problem 10/01/2019 12:00:00 AM EST eCW1 ([facility]) Chronic obstructive pulmonary disease wi th (acute) exacerbation Chronic obstructive pulmonary disease with (acute) exacerbation Problem 07/27/2019 12:00:00 AM EST [facility] ([facility], ) [id number] Preoperative state Preoperative state Problem 10/2018 12:00:00 AM EST [facility] ([facility], ) [id number] Preoperative cardiovascular examination Preoperative cardiovascular examination Problem 07/21/2019 12:00:00 AM EST [facility] ([facility]) J44.9 72051794 Chronic obstructive pulmonary di sease, unspecified COPD type Problem 07/19/2019 12:00:00 AM EST eCW1 ([facility]) G47.33 95185228 Obstructive sleep apnea syndrome Problem 07/19/2019 12:00:00 AM EST eCW1 ([facility]) J44.9 90783956 Chronic obstructive pulmonary di sease, unspecified COPD type Problem 07/19/2019 12:00:00 AM EST eCW1 ([facility]) G47.33 98334168 Obstructive sleep apnea syndrome Problem 07/19/2019 12:00:00 AM EST eCW1 ([facility]) M99.73 Connective tissue and disc s tenosis of intervertebral foramina of lumbar region Connective tissue and disc stenosis of i Diagnosis 08/02/2020 08:15:08 AM EST [facility] M48.062 Spinal stenosis, lumbar region with neur ogenic claudication Spinal stenosis, lumbar region with neur Diagnosis 08/02/2020 08:15:08 AM [facility] M51.36 Other intervertebral disc degeneration, lumbar region Other intervertebral disc degeneration, Diagnosis 08/02/2020 08:15:08 AM [facility] Z98.890 Other specified postprocedural states Ot her specified postprocedural states Diagnosis 08/02/2020 08:15:08 AM [facility] U07.1 COVID-19 COVID-19 Diagnosis 06/15/2020 07:44:49 AM ED T [facility] G95.9 Disease of spinal cord, unspecified Disease of s kade cord, unspecified Diagnosis 05/15/2020 01:22:52 PM EDT [facility] M99.83 Other biomechanical lesions of lumbar re gion Other biomechanical lesions of lumbar re Diagnosis 03/14/2020 03:54:46 PM EDT [facility] M54.5 Low back pain Low back pain Diagnosis 03/08/2020 01:06:00 PM EDT [facility] M54.2 Cervicalgia Cervicalgia Diagnosis 01/13/2020 09:15:34 AM EDT [facility] R05 Cough COUGH Diagnosis 11/15/2019 11:49:00 AM [facility] K21.9 Gastro-esophageal reflux disease without esophagitis GASTRO-ESOPHAGEAL REFLUX DISEASE WITHOUT Diagnosis 10/13/2019 04:00:00 PM [facility] R11.0 Nausea NAUSEA Diagnosis 10/13/2019 04:00:00 PM [facility] M54.5 Low back pain Low back pain Diagnosis 09/24/2019 08:33:47 AM [facility] M51.36 Other intervertebral disc degeneration, lumbar region Other intervertebral disc degeneration, Diagnosis 09/24/2019 08:33:47 AM [facility] M85.80 Other specified disorders of bone density and structure, unspecified site OTH DISRD OF BONE DENSITY AND STRUCTURE, UNSPECIFI Diagnosis 08/09/2019 02:36:00 PM [facility] M99.83 Other biomechanical lesions of lumbar re gion OTHER BIOMECHANICAL LESIONS OF LUMBAR RE Diagnosis 08/09/2019 02:36:00 PM EST [facility] M54.5 Low back pain LOW BACK PAIN Diagnosis 08/09/2019 02:36:00 PM [facility] M51.36 Other intervertebral disc degeneration, lumbar region OTHER INTERVERTEBRAL DISC DEGENERATION, LUMBAR REGION Diagnosis 2018 02:36:00 PM [facility] A49.02 Methicillin resistant Staphylococcus aur eus infection, unspecified site METHICILLIN RESIS STAPH INFECTION, UNSP SITE Diagnosis 9 01:20:00 PM [facility] Surgeries/Procedures Procedure Description Date Indications Data Source(s) INJECTION 1 TENDON SHEATH/LIGAMENT APONEUROSIS 020 12:00:00 AM EST [facility] ([facility], ) XR OR SPINE LUMBAR XR OR SPINE LUMBAR Routine 06/20/2020 9:06 AM E DT 06/20/2020 01:06:38 PM EDT [facility] RADEX SPINE 1 VIEW SPECIFY LEVEL XR OR SPINE LUMBAR CONTINUATIO N STAT 06/20/2020 8:27 AM EDT 06/20/2020 12:27:27 PM EDT [facility] LAMOT PRTL FFD EXC DISC REEXPL 1 NTRSPC LUMBAR TANIA CTOMY, SPINE, THORACOLUMBAR, 2 LEVELS, WITH DECOMPRESSION 06/20/2020 7:41 AM EDT Spinal stenosis of lumbar region with neurogenic claudication 06/20/2020 11:41:00 AM EDT - 06/20/2020 03:01:00 PM EDT Spinal stenosis of lumbar region with neurogenic claudication [facility] Spinal stenosis of lumbar region with ne urogenic claudication POC GLUCOSE POC GLUCOSE Routine 06/20/2020 7:17 AM EDT 06/20/2020 11:17:00 AM EDT [facility] POCT POTASSIUM POCT POTASSIUM Routine 06/20/2020 7:17 AM EDT 06/20/2020 11:17:00 AM EDT [facility] BLOOD COUNT HEMATOCRIT POCT HEMATOCRIT Routine 06/20/2020 7:17 AM EDT 06/20/2020 11:17:00 AM EDT [facility] MRI SPINAL CANAL CERVICAL W/O CONTRAST MATRL MRI CERVICAL S PINE WO CONTRAST Routine 06/15/2020 9:16 AM EDT Cervical myelopathy 06/15/2020 01:16:13 PM EDT Cervical myelopat hy [facility] Cervical myelopathy CT LUMBAR SPINE W/O CONTRAST MATERIAL CT LUMBAR SPINE WO CONTRA ST Routine 06/15/2020 8:27 AM EDT Spinal stenosis of lumbar region with neurogenic claudication 06/15/2020 12:27:55 PM EDT Spinal stenosis of lumbar region with neurogenic juan manuel ication [facility] Spinal stenosis of lumbar region with ne urogenic claudication Spirometry 06/07/2020 12:00:00 AM EDT M [facility] ([facility], ) MYOCARDIAL SPECT MULTIPLE STUDIES 06/06/2020 12:00:00 AM EDT [facility] ([facility]) CV STRS TST XERS&/OR RX CONT ECG PHYS SI&R 06/06/2020 12:00:00 AM EDT [facility] ([facility]) ECG ROUTINE ECG W/LEAST 12 LDS W/I&R 05/23/2020 12:00: 00 AM EDT [facility] ([facility]) MRI SPINAL CANAL LUMBAR W/O CONTRAST MATERIAL MRI LUMBAR SP INE WO CONTRAST Routine 03/08/2020 2:01 PM EDT Low back pain, unspecified back pain laterality, unspecified chronicity, unspecified whether sciatica present 03/08/2020 06:01:08 PM EDT Low back pain, unspecified back pain laterality, unspecified chronicity, unspecified whether sciatica present [facility] Low back pain, unspecified back pain lat erality, unspecified chronicity, unspecified whether sciatica present Spirometry 03/06/2020 12:00:00 AM EDT [facility] ([facility] ) Spirometry 11/12/2019 12:00:00 AM EDT [facility] ([facility], ) XR OR SPINE LUMBAR XR OR SPINE LUMBAR STAT 09/08/2019 11:[address] 09/08/2019 04:19:25 PM EST [facility] RADEX SPINE 1 VIEW SPECIFY LEVEL XR OR SPINE LUMBAR CONTINUATIO N STAT 09/08/2019 9:20 AM EST 09/08/2019 02:20:04 PM EST [facility] TEJEDA FACETEC&FORAMOT 1 SEGMENT LUMBAR LAMINECTOMY, SPI NE, THORACOLUMBAR, 1 LEVEL, WITH DECOMPRESSION 09/08/2019 8:34 AM EST Low back pain, unspecified back pain laterality, unspecified chronicity, unspecified whether sciatica present DDD (degenerative disc disease), lumbar Neural foraminal stenosis of lumbar spine 09/08/2019 0 1:34:00 PM EST - 09/08/2019 03:47:00 PM EST Neural foraminal stenosis of lumbar spin eDDD (degenerative disc disease), lumbarLow back pain, unspecified back pain laterality, unspecified chronicity, unspecified whether sciatica present [facility] Neural foraminal stenosis of lumbar spin e DDD (degenerative disc disease), lumbar Low back pain, unspecified back pain lat erality, unspecified chronicity, unspecified whether sciatica present POCT VENOUS BLOOD GAS W ROHITH POCT VENOUS BLOOD GAS W ROHITH alvarado 09/08/2019 7:23 AM EST 09/08/2019 12:23:00 PM EST [facility] BLOOD TYPING ABO TYPE AND SCREEN Routine 09/08/2019 7:14 AM EST 09/08/2019 12:14:00 PM EST [facility] GLUC BLD GLUC MNTR DEV CLEARED FDA SPEC HOME USE POCT GLUCOSE Routine 09/08/2019 7:01 AM EST 09/08/2019 12:01:00 PM EST [facility] ECG ROUTINE ECG W/LEAST 12 LDS W/I&R 07/21/2019 12:00: 00 AM EST [facility] ([facility]) ECG ROUTINE ECG W/LEAST 12 LDS TRCG ONLY W/O I&R ECG 12-LEAD Routine 07/16/2019 12:11 PM EST Low back pain, unspecified back pain laterality, unspecified chronicity, unspecified whether sciatica present DDD (degenerative disc disease), lumbar Neural foraminal stenosis of lumbar spine 07/16/2019 05:11:3 1 PM EST Neural foraminal stenosis of lumbar spineDDD (degenerative disc disease), lumbarLow back pain, unspecified back pain laterality, unspecified chronicity, unspecified whether sciatica present [facility] Neural foraminal stenosis of lumbar spin e DDD (degenerative disc disease), lumbar Low back pain, unspecified back pain lat erality, unspecified chronicity, unspecified whether sciatica present BLOOD TYPING ABO TYPE AND SCREEN Routine 07/16/2019 12:10 PM EST Low back pain, unspecified back pain laterality, unspecified chronicity, unspecified whether sciatica present DDD (degenerative disc disease), lumbar Neural foraminal stenosis of lumbar spine 07/16/2019 05:10:0 0 PM EST Neural foraminal stenosis of lumbar spineDDD (degenerative disc disease), lumbarLow back pain, unspecified back pain laterality, unspecified chronicity, unspecified whether sciatica present [facility] Neural foraminal stenosis of lumbar spin e DDD (degenerative disc disease), lumbar Low back pain, unspecified back pain lat erality, unspecified chronicity, unspecified whether sciatica present THROMBOPLASTIN TIME PARTIAL PLASMA/WHOLE BLOOD APTT Routine 07/16/2019 12:00 PM EST Low back pain, unspecified back pain laterality, unspecified chronicity, unspecified whether sciatica present DDD (degenerative disc disease), lumbar Neural foraminal stenosis of lumbar spine 07/16/2019 05:00:0 0 PM EST Neural foraminal stenosis of lumbar spineDDD (degenerative disc disease), lumbarLow back pain, unspecified back pain laterality, unspecified chronicity, unspecified whether sciatica present [facility] Neural foraminal stenosis of lumbar spin e DDD (degenerative disc disease), lumbar Low back pain, unspecified back pain lat erality, unspecified chronicity, unspecified whether sciatica present PROTHROMBIN TIME PROTIME-INR Routine 07/16/2019 12:00 PM EST Low back pain, unspecified back pain laterality, unspecified chronicity, unspecified whether sciatica present DDD (degenerative disc disease), lumbar Neural foraminal stenosis of lumbar spine 07/16/2019 05:00:0 0 PM EST Neural foraminal stenosis of lumbar spineDDD (degenerative disc disease), lumbarLow back pain, unspecified back pain laterality, unspecified chronicity, unspecified whether sciatica present [facility] Neural foraminal stenosis of lumbar spin e DDD (degenerative disc disease), lumbar Low back pain, unspecified back pain lat erality, unspecified chronicity, unspecified whether sciatica present BLOOD COUNT COMPLETE AUTOMATED CBC Routine 9 12:00 PM EST Low back pain, unspecified back pain laterality, unspecified chronicity, unspecified whether sciatica present DDD (degenerative disc disease), lumbar Neural foraminal stenosis of lumbar spine 07/16/2019 05:00:0 0 PM EST Neural foraminal stenosis of lumbar spineDDD (degenerative disc disease), lumbarLow back pain, unspecified back pain laterality, unspecified chronicity, unspecified whether sciatica present [facility] Neural foraminal stenosis of lumbar spin e DDD (degenerative disc disease), lumbar Low back pain, unspecified back pain lat erality, unspecified chronicity, unspecified whether sciatica present HEMOGLOBIN GLYCOSYLATED A1C HEMOGLOBIN A1C Routine 07/16/2019 12:00 PM EST Low back pain, unspecified back pain laterality, unspecified chronicity, unspecified whether sciatica present DDD (degenerative disc disease), lumbar Neural foraminal stenosis of lumbar spine 07/16/2019 05:00:0 0 PM EST Neural foraminal stenosis of lumbar spineDDD (degenerative disc disease), lumbarLow back pain, unspecified back pain laterality, unspecified chronicity, unspecified whether sciatica present [facility] Neural foraminal stenosis of lumbar spin e DDD (degenerative disc disease), lumbar Low back pain, unspecified back pain lat erality, unspecified chronicity, unspecified whether sciatica present COMPREHENSIVE METABOLIC PANEL COMPREHENSIVE METABOLIC PANEL Rou christiano 07/16/2019 12:00 PM EST Low back pain, unspecified back pain laterality, unspecified chronicity, unspecified whether sciatica present DDD (degenerative disc disease), lumbar Neural foraminal stenosis of lumbar spine 07/16/2019 05:00:0 0 PM EST Neural foraminal stenosis of lumbar spineDDD (degenerative disc disease), lumbarLow back pain, unspecified back pain laterality, unspecified chronicity, unspecified whether sciatica present [facility] Neural foraminal stenosis of lumbar spin e DDD (degenerative disc disease), lumbar Low back pain, unspecified back pain lat erality, unspecified chronicity, unspecified whether sciatica present Results ID Date Data Source [id number] 08/31/2020 12:00:00 PM EST [facility] Name Value Range Interpretation Code Description Data Irena rce(s) Supporting Document(s) SARS coronavirus 2 RNA Not Detected [facility] [place] This lab was ordered by [facility] and reported by [facility]. ID Date Data Source [id number] 06/27/2020 09:55:12 AM EST [facility]FORMATIONPatient [facility] Name Date of Age Gend*PT [id number] Debbi Nelson 1965 54 years F SDCXPT Location Admission Date/Time Visit ID Attending [id number] 06/20/20 0541 --- --- EPI ID CSN Admitting Pr ovider [id number] Kevin Pacheco MD([id number]) [place] [address] OPERATIVE REPORT OPNAME: DEBBI NELSONRJacinda#: [id number] #: [id number] ADMISSION DATE: 06/20/2020DOB: 1965 SEX: F PT TYPE: S SURACCT #: [id number] CARE PHYSICIAN: OSKAR POWERSADATE OF OPERATION: 05/26PREOPERATIVE DIAGNOSIS:Lumbar stenosis.POSTOPERATIVE DIAGNOSIS:Lumbar stenosis.PROCEDURES:Lumbar reexploration, L4-L5 laminectomy and use of injectable Marcaine.SURGEON:Kevin Pacheco MDASSISTANT:Martina Smith NPANESTHESIA:General anesthesia.ESTIMATED BLOOD LOSS:Minimum.POSTOPERATIVE CONDITION:Stable.INDICATIONS FOR SURGERY:The patient is a 54-year-old female with left foraminotomy in the past, nowshe presents with neurogenic claudication, walking hunched over. Patientunderstood risks and benefits, alternatives and indications of surgery.Outcomes discussed, outcomes not guaranteed. Risks, benefits, alternatives,indications for OR discussed. Risk include but not limited to infection, csfleak, N/T/P, B/B/S dysfn, hematoma, difficulty with instability needing fusion,need to do other levels, MD, DVT, blindness. Patient understands and desires toproceed.OPERATIVE FINDINGS:The patient has severe scar tissue from prior surgery and this was whereshe had the most stenosis. We were able to get around the scar tissue andwe will take the bone L5 off We went past thestenosis upward on the bony decompression as seen on the MRI scan. No signof CSF leak, hemostasis, no sign of instability.DESCRIPTION OF OPERATION:Patient was brought to the operating room in stable condition. Patient wasintubated without any difficulty. She was placed in prone position on theCamden frame. Dependent parts were noted to be in good position. We shota localizing x-ray. Lumbar was prepped and draped in usual sterile manner.The time-out was done. We then made a midline incision going through theprior incision site and exposed the L4-L5 lamina. X-rays shotintraoperatively confirmed by Radiology that we were at L5 lamina and thenMarked L5 and L4 accordingly. I saw the scar tissue at the L4-H2izbuofqa from the prior foraminotomy, itwas quite scarred in. We moved the microscope into position using roughdiamond ras. We took out the lamina of L5 first by using a ras to drillout the gutters on both sides and up fdc of L4 past the stenosis. Wewere cognizant of the fact she had minimal spondylolisthesis and carefulnot to take too much bone. We then used #2 Kerrison and #3 Kerrison tofinish the gutter. We then reflected the L5 en bloc at the junction wherethe stenosis was tight, it took about 20 minutes to free up the scartissue, removed the L5 lamina, it was quite scarred in. We then underbiteL4 further into her past the junction of the stenosis and dura was nice andopen and not compressed. We then removed the scar tissue in piecemeal tofree up stenosis further. Once we did this, we were satisfied withdecompression. No sign of CSF leak. Hemostasis was excellent. As aprecaution, we put DuraSeal in. We then closed the deep fascia with 0Vicryl, Anabel's with 3-0. We injected subcutaneous Mar parrish and then skinwas closed with nylon. Patient was dressed appropriately, extubated andtransferred to recovery room in stable condition. Sponge, instrument andneedle counts correct.Kevin Pacheco, SAWYERYE/NTS Job #: [id number] DOC #: [id number] Name Value Range Interpretation Code Description Data Irena rce(s) Supporting Document(s) ID Date Data Source [id number] 06/22/2020 11:23:41 AM EDT [facility]FORMATIONPatient [facility] Name Date of Age Gend*PT [id number] Debbi Nelson 1965 54 years F SDCXPT Location Admission Date/Time Visit ID Attending [id number] 06/20/20 0541 --- --- EPI ID CSN Admitting Pr drew [id number] Kevin Pacheco MD([id number])Surgical Discharge SummaryDebbi NelsonMRN: [id number] date: 06/20/2020Admitting Physician: SAWYER Quinonesischarge date and time:Discharge Orders Placed(From admission, onward) NoneDischarge Physician: Martina Smith NPPrincipal Diagnosis: Spinal stenosis of lumbar region with neurogenicclaudicationSecondary Diagnoses:Active Hospital Problems Diagnosis Date Noted Spinal stenosis of lumbar region with neurogenic claudication 04/04/2020 Added automatically from request for surgery [id number] Hospital ProblemsNo resolved problems to display.Discharge Medications:Your medication listASK your doctor about these medications Instructions Last Dose Given Morning Afternoon Evening Bedtime As Neededalbuterol 108 (90 Base) MCG/ACT inhalerCommonly known as: PROVENTIL HFA;VENTOLIN HFA Inhale 2 puffs every 4 (four) hours as needed for shortness of breathalbuterol (2.5 MG/3ML) 0.083% nebulizer solutionCommonly known as: PROVENTIL Take 2.5 mg by nebulization 4 (four) times a day as needed for shortness ofbreathAMILoride 5 MG tabletCommonly known as: MIDAMOR Take 5 mg by mouth 2 (two) times a dayamitriptyline 50 MG tabletCommonly known as: ELAVIL Take 50 mg by mouth nightlyASPIRIN ADULT LOW DOSE 81 MG EC tabletGeneric drug: aspirin Take 81 mg by mouth dailybaclofen 10 MG tabletCommonly known as: HUNG RESAL Take 10 mg by mouth 3 (three) times a ihlMYD-BLP-YBYD PO Take 1 tablet by mouth dailyCholecalciferol 50 MCG (1999 UT) Caps Take 2,000 Units by mouth dailyIMITREX 100 MG tabletGeneric drug: SUMAtriptan Take 100 mg by mouth daily as needed for migraine Take one by mouth at onset ofheadache. May repeat once after 2 hours if needed.irbesartan 75 MG tabletCommonly known as: AVAPRO Take 37.5 mg by mouth nightlylactulose 10 GM/15ML solutionCommonly known as: CHRONULAC Take 10 g by mouth daily as needed (for constipation)mometasone 50 MCG/ACT nasal sprayCommonly known as: NASONEX 1 spray into each nostril daily as needed (for allergies)MUCINEX 600 MG 12 hr tabletGeneric drug: guaiFENesin Take 600 mg by mouth 2 (two) times a day as needed for congestionnitroglycerin 0.4 MG SL tabletCommonly known as: NITROSTAT Place 0.4 mg under the tongue every 5 (five) minutes as needed for chest painondansetron 8 MG disintegrating tabletCommonly known as: ZOFRAN-ODT Take 8 mg by mouth every 8 (eight) hours as needed for nauseapantoprazole 40 MG tabletCommonly known as: PROTONIX Take 40 mg by mouth dailypolyethylene glycol 17 g packetCommonly known as: GLYCOLAX Take 17 g by mouth dailypotassium chloride SA 10 MEQ tabletCommonly known as: K-DUR,KLOR-CON Take 10 mEq by mouth dailypregabalin 75 MG capsuleCommonly known as: LYRICA Take 75 mg by mouth 3 (three) times a daySPIRIVA RESPIMAT 2.5 MCG/ACT AersGeneric drug: Tiotropium Calvert Monohydrate Inhale 2 puffs dailySYMBICORT 160-4.5 MCG/ACT inhalerGeneric drug: budesonide-formoterol Inhale 2 puffs 2 (two) times a dayvitamin B-12 500 MCG tabletCommonly known as: CYANOCOBALAMIN Take 500 mcg by mouth dailyIndication for Admission: Lumbar stenosisHospital Course & Complications: Patient was admitted 06/19/2020 for a L4-B0xjiqxurloir, re-do at L4-5. Her pain was controlled, she worked with PT, andshe did well.Past Medical History:Past Medical History:Diagnosis Date Advanced Airway Equipment Used Anemia Asthma Carpal tunnel syndrome Chronic low back pain CKD (chronic kidney disease) stage 3, GFR 30-59 ml/min COPD (chronic obstructive pulmonary disease) with chronic bronchitis Cyst of sphenoid sinus Degenerative disc disease, lumbar Fibromyalgia GERD (gastroesophageal reflux disease) Hypertension IBS (irritable bowel syndrome) Migraines MRSA (methicillin resistant Staphylococcus aureus) 2019 skin infection Neuroforaminal stenosis of lumbar spine Osteoarthritis Pineal gland cyst C/O headaches....Treated with Botox injection Sleep apnea CPAP Spinal stenosis of lumbar region with neurogenic claudication Vaginal itching 07/16/2019Surgical Procedures:Procedure(s):REDO L 4, 5 LAMINECTOMY WITH DECOMPRESSION (Bilateral)Significant Diagnostic Studies: radiology: X-Ray: lumbar and MRI: lumbarTreatments: IV hydration, antibiotics: Ancef and analgesia: acetaminophen andbaclofen, oxycodone, fentanyl.Discharge Exam:Vitals: Temp: [96.7 F-98.2 F] 96.7 FHeart Rate: [76-87] 87Resp: [14] 14BP: (92-114)/(56-60) 114/60Refer to physical examination day of Discharge.Items needing special attention: NoneDischarged Condition:goodDisposition: Home or Self CareSignature: Martina Smith, ALICIADate: June 20, 2020Time: 10:43 AM Name Value Range Interpretation Code Description Data Irena garrison(s) Supporting Document(s) ID Date Data Source [id number] 06/20/2020 09:12:02 AM EDT [address] [address]Gtnzxoc Name: DEBBI NELSONDOB: 1965Sex: FOrdering Provider: KEVIN Reed Prov: KEVIN Godoy Provider: Procedure Performed: XR OR SPINE LUMBARExam Date: 06/20/2020 09:06MRN: [id number] Number: [id number] Class: InpatientAccount #: [id number] for Exam: painTechnique: Lateral view obtained.Comparison: January 14, 2020Findings: There are needles marking the spinous process of the L3 and L5 vertebra posteriorly.The alignment is intact. Minimal L4-5 disc space narrowing is noted.IMPRESSION: Operative localization image as above.Report electronically signed by: SHER DURAN On 06/20/2020 9:12 AMWorkstation ID: [id number] Name Value Range Interpretation Code Description Data Irena rce(s) Supporting Document(s) ID Date Data Source [id number] 06/20/2020 08:35:30 AM EDT [address] [address]Hmrftlx Name: DEBBI NELSONDOB: 1965Sex: FOrdering Provider: KEVIN Reed Prov: KEVIN Godoy Provider: Procedure Performed: XR OR SPINE LUMBAR CONTINUATIONExam Date: 06/20/2020 08:27MRN: [id number] Number: [id number] Class: InpatientAccount #: [id number] for Exam: spondylosisTechnique: Lateral view obtained.Comparison: Prior study performed earlier in the day.Findings: There is a surgical instrument posteriorly at the L5-S1 level. A retractor is positioned just above this at the L4-5 interspinous space.IMPRESSION: L5-S1 localization.Report electronically signed by: SHER DURAN On 06/20/2020 8:35 AMWorkstation ID: [id number] Name Value Range Interpretation Code Description Data Irena rce(s) Supporting Document(s) ID Date Data Source [id number] 06/20/2020 08:15:48 AM EDT [facility] INFORMATIONPatient MRN Name Date of Age Gend*PT [id number] Debbi Nelson 1965 54 years F SDCXPT Location Admission Date/Time Visit ID Attending Provider --- --- --- --- EPI ID CSN Admitting Provider [id number] ---AirwayPatient location during procedure: ORUrgency: electiveDifficult airway: noAdvanced airway equipment used: noIndications and Patient ConditionIndications for airway management: anesthesiaPreoxygenated: yesPatient position: sniffingIn-line stabilization: noMask ventilation: 1 - vent by maskFinal Airway/ApproachesFinal airway type: ETTNumber of attempts at final approach: 1Number of other approaches attempted: 0Final Airway DetailsFinal ETT airway: ETT - singleCuffed: yesTechnique used for successful ETT placement: direct laryngoscopy and regularstyletCricoid pressure: noRSI: noInsertion site: oralBlade type/size: MAC 3ETT size: 7.0 mmMeasured from: lipsETT to lips: 21 cmPlacement verified by: + [id number] view: grade IIb - view of arytenoids or posterior of glottis onlyAdditional NotesI performed this patients' endotracheal intubation which required substantiallyincreased work beyond that of the typical emergency endotracheal intubationbased on the need to use COVID-19 precautions which required increased time andskill employed through use of personal protective equipment in preparing for andduring the intubation as well as the additional time spent properly disposing ofthe equipment upon completion of the procedure. Name Value Range Interpretation Code Description Data Irena rce(s) Supporting Document(s) ID Date Data Source [id number] 06/20/2020 07:39:05 AM EDT [facility] INFORMATIONPatient MRN Name Date of Age Gend*PT [id number] Debbi Nelson 1965 54 years F SDCXPT Location Admission Date/Time Visit ID [facility] --- Kevin Pacheco MD([id number]) EPI ID CSN Admitting Provider [id number] Kevin Pacheco MD([id number])See dictated note. H and P updated.Pt s/p formaintomy lumbar now with neurogenic claudicationPt stable for surgery.Plan L5, L4 laminectomyOutcomes discussed, outcomes not guaranteed. Risks, benefits, alternatives,indications for OR discussed. Risk include but not limited to infection, csfleak, N/T/P, risk of suni C-19 during perioperative period, B/B/S dysfn, hematoma, difficulty with instability needing fusion, need to doother levels, MD, DVT, blindness. Patient understands and desires to proceed. Name Value Range Interpretation Code Description Data Irena rce(s) Supporting Document(s) ID Date Data Source [id number] 06/20/2020 07:36:33 AM EDT [facility] Name Value Range Interpretation Code Description Data Irena rce(s) Supporting Document(s) POC POTASSIUM 4.1 MMOL/L (3.6-5.2) [facility] PERFORMED BY [facility] CLINICAL STAFF ID Date Data Source [id number] 06/20/2020 07:36:33 AM EDT [facility] Name Value Range Interpretation Code Description Data Irena rce(s) Supporting Document(s) POC GLU 103 MG/DL (70-99) H [facility]FOR[facility] CLINICAL STAFF ID Date Data Source [id number] 06/20/2020 07:36:33 AM EDT [facility] Name Value Range Interpretation Code Description Data Irena rce(s) Supporting Document(s) POC HCT 39 % (36.0-47.0) [facility] CLINICAL STAFF ID Date Data Source [id number] 06/15/2020 09:49:19 AM EDT [address] [address]Moofjec Name: DEBBI NELSONDOB: 1965Sex: FOrdering Provider: KEVIN PACHECOAuthorinii Prov: KEVIN Godoy Provider: KEVIN Bruno Performed: MRI CERVICAL SPINE WO CONTRASTExam Date: 06/15/2020 09:16MRN: [id number] Number: [id number] Class: OutpatientAccount #: [id number] for Exam: C- spine fusion, follow upTechnique: MRI images obtained on a 1.5 arlene scanner.Comparison: MRI 03/30/2018.Findings: Again, the patient is status post anterior cervical fusion and discectomy C3-C7. Susceptibility artifact related t o fixation hardware noted.Alignment satisfactory. Vertebral height maintained. Cerebellar tonsils are properly positioned. Cervical cord is of homogeneous signal intensity.C2-3: Minimal posterior disc bulging without mass effect. No canal or foraminal narrowing.C3-4: Diffuse posterior disc osteophyte complex most prominent right paracentral and foraminal region results in mild canal stenosis. Resultant mild mass effect upon the ventral margin of the cervical cord. There is moderate right and mild left foraminal narrowing similar prior exam.C4-5: Mild left-sided posterior osteophytic ridging without canal or foraminal narrowing.C5-6: Mild uncovertebral joint spurring and disc bulging results in mild foraminal narrowing. No canal stenosis.C6-7: Right posterior ossific spurring exerts mild mass effect upon the canal. There is mild right- sided spinal canal stenosis. There is no significant foraminal narrowing.C7-T1: Unremarkable.The paravertebral soft structures within normal limits.IMPRESSION: Status post anterior cervical fusion and discectomies at C3-C7 with alignment of the cervical spine satisfactory.Disc osteophyte complex at C3-4 with mild central spinal canal stenosis and bilateral foraminal narrowing as above.Right paracentral posterior osteophytic ridging at C6-7 with mild mass effect upon the canal and mild stenosis appears unchanged.Report electronically signed by: MEERA SALDAÑA On 06/15/2020 9:49 AMWorkstation ID: [id number] Name Value Range Interpretation Code Description Data Irena rce(s) Supporting Document(s) ID Date Data Source [id number] 06/15/2020 08:51:19 AM EDT [address] [address]Dtaknei Name: DEBBI NELSONDOB: 1965Sex: FOrdering Provider: KEVIN Reed Prov: KEVIN Godoy Provider: KEVIN Bruno Performed: CT LUMBAR SPINE WO CONTRASTExam Date: 06/15/2020 08:27MRN: [id number] Number: [id number] Class: OutpatientAccount #: [id number] for Exam: L/S- spine stenosisTechnique: Helically acquired axial images performed with multi- planar reformats.One or more of the following dose reduction techniqueswere utilized; automated exposure control, dose modulation, technique adjustment based on patient size and iterativereconstruction algorithms. Multiplanar reconstructions were created and reviewed.Comparison: MRI 03/08/2020FINDINGS: Mild curvature lumbar spine, convex to the left. Normal lumbar lordosis. Vertebral height maintained. Stable mild degenerative disc disease at L3-4 and L4-5 levels. Mild to moderate facet arthropathy at L4-5 and L5-S1 levels most prominent at L4-5. No pars defects identified. Stable grade 1 anterolisthesis at L4-5 of 3 mm.T12-L1 and L1-2 levels are unremarkable.L2-3: Mild facet arthropathy. No canal stenosis. No foraminal narrowing. No disc herniation.L3-4: Very mild facet arthropathy. Mild diffuse posterior disc bulging without canal or significant foraminal stenosis.L4-5: There is mild diffuse posterior disc bulging slightly more prominent on the right. Bilateral facets moderate bilateral facet arthropathy and posterior ligamentous hypertrophy resulting in stable moderate canal stenosis. Disc bulge most prominent within the right inferolateral region. There is mass effect upon the nerve root lateral to the foramen is more prominent than on prior MRI may represent a right far lateral disc protrusion. There is moderate to severe right and moderate left foraminal narrowing.L5-S1: Very mild disc bulging without canal. There is mild right-sided foraminal narrowing.No intraosseous lesion identified. Surgical clips are seen in the gallbladder fossa compatible with prior cholecystectomy. Paravertebral soft structures within normal limits. IMPRESSION: Stable degenerative changes of the lumbar spine. Mild curvature, convex to the right.Degenerative grade 1 anterolisthesis at L4-5 is stable. There is moderate canal stenosis at L4-5 and bilateral foraminal stenosis as above. Findings which may represent a right far lateral disc protrusion new since prior MRI mass effect upon the nerve root lateral to the foramen.Report electronically signed by: MEERA SALDAÑA On 06/15/2020 8:51 AMWorkstation ID: [id number] - [id number] Name Value Range Interpretation Code Description Data Irena rce(s) Supporting Document(s) ID Date Data Source [id number] 06/15/2020 07:46:00 AM EDT [facility] Name Value Range Interpretation Code Description Data Irena rce(s) Supporting Document(s) SARS coronavirus 2 RNA [facility] This lab was ordered by [facility] and reported by [facility]. ID Date Data Source [id number] 06/16/2020 12:11:20 PM EDT [facility] Name Value Range Interpretation Code Description Data Irena rce(s) Supporting Document(s) SARS-COV-2 [facility]ENN[facility]ER [facility] Not DetectedReference range: Not Detecte d This nucleic acid amplification test was developed and its performance characteristics determined by [employer]. Nucleic acid amplification tests include PCR and TMA. This test has not been FDA cleared or approved. This test has been authorized by FDA under an Emergency Use Authorization (EUA). This test is only authorized for the duration of time the declaration that circumstances exist justifying the authorization of the emergency use of in vitro diagnostic tests for detection of SARS-CoV-2 virus and/or diagnosis of COVID-19 infection under section 564(b)(1) of the Act, 21 U.S.C. 360bbb-3(b) (1), unless the authorization is terminated or revoked sooner. When diagnostic testing is negative, the possibility of a false negative result should be considered in the context of a patient's recent exposures and the presence of clinical signs and symptoms consistent with COVID- 19. An individual without symptoms of COVID- 19 and who is not shedding SARS -CoV-2 virus would expect to have a negative (not detected) result in this assay. Performed At: RN [facility] [address] [id number] John Jarquin MD Ph:[phone] ID Date Data Source [id number] 05/30/2020 09:44:27 AM EDT [facility] INFORMATIONPatient MRN Name Date of Age Gend*PT [id number] Debbi Nelson 1965 54 years F OPPT Location Admission Date/Time Visit ID Attending Provider --- --- --- Kevin Pacheco MD([id number]) EPI ID CSN Admitting Provider [id number] ---OUTPATIENT / OBSERVATIONAL SURGICAL OR INVASIVE PROCEDUREName: Debbi Nelson : 1965 Sex: female Care Provider: Ruy RUSSELLending Physician: Dr. Pacheco.HISTORY OF PRESENT ILLNESS:This is a 54 years old white female with a historyof lumbar spinal stenosis who initially underwent bilateral foraminotomy L4-5 on09/08/[address] Pacheco. Patient was doing fairly well for a while,unfortunately in December 2019 she helped her mother get up after she fell andinjured her back. Patient complains of low back pain radiating to bilaterallower extremities with tingling and weakness. The pain aggravates with bendingand other exertional activity. She denies any bowel or bladder control issues.Laying down in bed alleviates pain. She had physical therapy and spinalinjections which failed to alleviate her symptoms. Currently uses Lyrica andbaclofen for pain control. Subsequently patient met with Dr. Pacheco for surgicalintervention. All options were discussed and she has elected to undergoLAMINECTOMY, SPINE, THORACOLUMBAR, 2 LEVELS, WITH DECOMPRESSION redo L4,5laminectomy on 06/20/2020.PAST MEDICAL HISTORY:Past Medical History:Diagnosis Date Advanced Airway Equipment Used Anemia Asthma Carpal tunnel syndrome Chronic low back pain CKD (chronic kidney disease) stage 3, GFR 30-59 ml/min COPD (chronic obstructive pulmonary disease) with chronic bronchitis Cyst of sphenoid sinus Degenerative disc disease, lumbar Fibromyalgia GERD (gastroesophageal reflux disease) Hypertension IBS (irritable bowel syndrome) Migraines MRSA (methicillin resistant Staphylococcus aureus) 2018 skin infection Neuroforaminal stenosis of lumbar spine Osteoarthritis Pineal gland cyst C/O headaches....Treated with Botox injection Sleep apnea CPAP Spinal stenosis of lumbar region with neurogenic claudication Vaginal itching 07/16/2019PAST SURGICAL HISTORY:Past Surgical History:Procedure Laterality Date ANTERIOR CERVICAL DISCECTOMY W/ FUSION 07/13/2015 C4-7 ANTERIOR CERVICAL DISCECTOMY W/ FUSION 07/25/2016 C3-4 BACK SURGERY Bilateral 09/08/2019 Procedure: Bilateral foraminotomy L4-5; Surgeon: Kevin Pacheco MD; Laterality:Bilateral; BREAST BIOPSY Right CHOLECYSTECTOMY 1987 COLONOSCOPY 2012 HYSTERECTOMY total PANENDOSCOPY TONSILLECTOMY TUBAL LIGATIONALLERGIES:AllergiesAllergen Reactions Sulfa Antibiotics Hives and Swelling Gabapentin Other (See Comments) Memory loss, shaking and stuttering Topiramate Other (See Comments) Memory loss, shaking, stutteringMEDICATIONS:Prior to Admission medicationsMedication Sig Start Date End Date Taking? Authorizing Provideralbuterol (PROVENTIL HFA;VENTOLIN HFA) 108 (90 Base) MCG/ACT inhaler Inhale 2puffs every 4 (four) hours as needed for shor tness of breath HistoricalProvider, MDalbuterol (PROVENTIL) (2.5 MG/3ML) 0.083% nebulizer solution Take 2.5 mg bynebulization 4 (four) times a day as needed for shortness of breathHistorical Provider, MDAMILoride (MIDAMOR) 5 MG tablet Take 5 mg by mouth 2 (two) times a dayHistorical Provider, MDamitriptyline (ELAVIL) 50 MG tablet Take 50 mg by mouth nightly 10/05/18Historical Provider, Rodspirin (ASPIRIN ADULT LOW DOSE) 81 MG EC tablet Take 81 mg by mouth dailyHistorical Provider, baclofen (LIORESAL) 10 MG tablet Take 10 mg by mouth 3 (three) times a dayHistorical Provider, JXTkjokqc-Yrknthybb-Vqsa (CYY-QNU-LNNL PO) Take 1 tablet by mouth dailyHistorical Provider, TAMIRholecalciferol 50 MCG (2000 UT) CAPS Take 2,000 Units by mouth dailyHistorical Provider, guaiFENesin (MUCINEX) 600 MG 12 hr t ablet Take 600 mg by mouth 2 (two) times aday as needed for congestion 05/10/19 Historical Provider, irbesartan (AVAPRO) 75 MG tablet Take 37.5 mg by mouth nightly HistoricalProvider, lactulose (CHRONULAC) 10 GM/15ML solution Take 10 g by mouth daily as needed(for constipation) Historical Provider, Olgaometasone (NASONEX) 50 MCG/ACT nasal spray 1 spray into each nostril daily asneeded (for allergies) Historical Provider, nitroglycerin (NITROSTAT) 0.[address] 0.4 mg under the tongue every 5(five) minutes as needed for chest pain Historical Provider, ondansetron (ZOFRAN-ODT) 8 MG disintegrating tablet Take 8 mg by mouth every 8(eight) hours as needed for nausea Historical Provider, Donaldantoprazole (PROTONIX) 40 MG tablet Take 40 mg by mouth daily HistoricalProvider, Donaldolyethylene glycol (GLYCOLAX) 17 g packet Take 17 g by mouth dailyHistorical Provider, MDpotassium chloride SA (K-DUR,KLOR-CON) 10 MEQ tablet Take 10 mEq by mouth dailyHistorical Provider, MDpregabalin (LYRICA) 75 MG capsule Take 75 mg by mouth 3 (three) times a dayHistorical Provider, DARIUSPIRIVA RESPIMAT 2.5 MCG/ACT AERS Inhale 2 puffs daily 12/04/18 HistoricalProvider, DARIUSUMAtriptan (IMITREX) 100 MG tablet Take 100 mg by mouth daily as needed formigraine Take one by mouth at onset of headache. May repeat once after 2 hoursif needed. Historical Provider, DARIUSYMBICORT 160- 4.5 MCG/ACT inhaler Inhale 2 puffs 2 (two) times a dayHistorical Provider, vitamin B-12 (CYANOCOBALAMIN) 500 MCG tablet Take 500 mcg by mouth dailyHistorical Provider, Ishanclofen (LIORESAL) 10 MG tablet Take 1 tablet (10 mg total) by mouth 3 (three)times a day as needed 09/09/19 05/30/20 Martina Smith, NPHYDROcodone-acetaminophen (NORCO) 7.5-325 MG per tablet Take 1 tablet by mouthevery 6 (six) hours as needed for pain 05/30/20 Historical Provider, OlgaethylPREDNISolone (MEDROL, URIEL,) 4 MG tablet follow package directions 04/03/2010 Kevin Pacheco, Olgaetoclopramide (REGLAN) 10 MG tablet 10/01/19 05/30/20 Historical Provider, OLGAultiple Minerals-Vitamins (WMK-RLT-BOTL-D PO) Take 1 tablet by mouth daily05/30/20 Historical Provider, omeprazole (PRILOSEC) 40 MG capsule Take 40 mg by mouth 2 (two) times a day04/12/19 05/30/20 Historical Provider, Donaldregabalin (LYRICA) 50 MG capsule Take 3 times per day. MDD: 3 tablets 09/09/2009 Martina Smith, NPSocial HistoryTobacco Use Smoking status: Former Smoker Packs/day: 0.50 Years: 40.00 Pack years: 20.00 Types: Cigarettes Last attempt to quit: 2019 Years since quittin.7 Smokeless tobacco: Never UsedSubstance Use Topics Alcohol use: Yes Comment: occasional Drug use: NeverFamily HistoryProblem Relation Age of Onset Coronary artery disease Father Diabetes Sister Diabetes Mother Malig Hyperthermia Neg HxREVIEW OF SYSTEMS:Respiratory: Reports occasional cough. Denies any shortness of breath, yellowsputum production or wheezing.Cardiovascular: Denies any chest pain, pressure or tightness. Denies anyparoxysmal nocturnal dyspnea or orthopnea.GI: Reports diarrhea and constipation secondary to IBS. Denies nausea, vomitingor melena.Neurologic: Complains of tingling in bilateral fingers and bilateral lowerextremities. Denies any tremors or syncope.Vascular: Denies any edema. Denies claudication.PHYSICAL EXAM:GENERAL: She is a 54 years old, pleasant whtie female, in no acute distress attime of examination. Vitals on arrival to the office are BP 105/68 (BP Location:Left upper arm, Patient Position: Sitting) | Pulse 85 | Temp 96.4 F(Temporal) | Ht 1.575 m (5' 2") | Wt 77.2 kg (170 lb 4.8 oz) | SpO2 95% |BMI 31.15 kg/m Body mass index is 31.15 kg/m ..Skin is pink, warm, and dry.NECK: She has a grade 2 airway. Neck is supple, midline, without cervicaladenopathy. No thyromegaly. No carotid bruits.MENTAL / NEUROLOGICAL STATUS: [id number]: Clear to auscultation. No wheezes, rhonchi or crackles.HEART: Rate rhythm regular. S1, S2. No murmur, rub or gallop.ABDOMEN: Bowel sounds positive times four. Soft, non tender. No reboundtenderness. No hepatosplenomegaly. Negative CVAT.EXTREMITIES: Pulses are symmetrical. No edema.OPERATIVE SITE: Back without rashes or lesions.Anesthesia complications: deniesCSHA Frailty Scale :: 3/10 Managing Well (medical problems are well controlled,but are not regularly active beyond routine walking).ASSESSMENT: Primary Diagnosis/Indication: Stenosis of lumbar region withneurogenic claudication.PLAN: Procedure: LAMINECTOMY, SPINE, THORACOLUMBAR, 2 LEVELS, WITH DECOMPRESSIONredo L4,5 laminectomy.05/30/2020 9:43 Bonnie Edwards document or parts of this document, were dictated using [employer] speaking software. A reasonable attempt at proofreading has beenmade to minimize errors. Please call with any questions or corrections. Name Value Range Interpretation Code Description Data [facility](s) Supporting Document(s) ID Date Data Source [id number] 05/30/2020 06:34:07 PM EDT [facility] Name Value Range Interpretation Code Description Data [facility](s) Supporting Document(s) HEMOGLOBIN A1C @ 5.9 % (4.0-6.0) [facility] Performed using Siemens [place] immunoassa y.Care must be taken when interpreting MyM2bqbmgqaj in patients with a hemoglobin variantor decreased erythrocyte lifespan. Values 5.7 - 6.4% suggest prediabetes.Values >=6.5% are diagnostic for diabetes.REFERENCE: DIABETES CARE 2018: 41(S13-S27). EST AVERAGE GLUCOSE 123 mg/dL [facility] ID Date Data Source [id number] 05/30/2020 05:55:22 PM EDT [facility] [place] [facility] Name Value Range Interpretation Code Description Data [facility] rce(s) Supporting Document(s) SODIUM 141 mmol/L (136-145) [facility] [place] [facility] POTASSIUM 4.3 mmol/L (3.6-5.2) [facility] [place] [facility] CHLORIDE 107 mmol/L (100-108) [facility] [place] [facility] CO2 28 mmol/L (22-31) [facility] [place] [facility] ANION GAP 6 mmol/L (7-16) L [facility] [place] [facility] UREA NITROGEN 9 mg/dL (7-24) [facility] [place] [facility] CREATININE 0.87 mg/dL (0.60-1.00) [facility] [place] [facility] BUN/CREAT RATIO 10.3 RATIO (10.0-20.0) [facility] GLUCOSE 100 mg/dL (70-99) H [facility] [place] [facility] CALCIUM 9.1 mg/dL (8.4-10.2) [facility] [place] [facility] TOTAL PROTEIN 6.3 g/dL (6.4-8.2) L [facility] [place] [facility] ALBUMIN 3.3 g/dL (3.5-4.6) L [facility] [place] [facility] GLOBULIN 3.0 g/dL (2.7-4.3) [facility] ALB/GLOB RATIO 1.1 RATIO [facility] [place] [facility] ALKALINE PHOSPHATASE 71 U/L (45-117) [facility] BILIRUBIN,TOTAL 0.2 mg/dL (0.0-1.0) [facility] [place] [facility] PLEASE NOTE:Total bilirubin results may be falselyelevated in patients taking Eltrombopag. AST (SGOT) 15 U/L (11-39) [facility] ALT (SGPT) 21 U/L (12-78) [facility] GFR >60 ml/min/1.73m2 (>59) [facility] [place] [facility] GFR ( AMER) >60 ml/min/1.73m2 (>59) [facility] [place] [facility] GFR INTERPRETATION Lab [facility] [place] --NORMAL KIDNEY FUNCTION OR MILD DISEASE - GFR >OR= 60CHRONIC KIDNEY DISEASE - GFR 15 - 59RENAL FAILURE - GFR <15 Est. GFR calculation based on the MDRDstudy equation, which assumes a steadystate for creatinine. Est. GFR should notbe used for medication dosing. ID Date Data Source [id number] 05/30/2020 05:20:18 PM EDT [facility] [place] [facility] Name Value Range Interpretation Code Description Data Irena rce(s) Supporting Document(s) PT 10.6 s (9.2-11.9) [facility] [place] [facility] INR 1.02 [facility] [place] [facility] SUGGESTED THERAPEUTIC RANGES USING INR F ORSTABILIZED ANTICOAGULATED PATIENTS:STANDARD DOSE THERAPY INR 2.0-3.0 DVT, PE, PREVENT DVT OR EMBOLISMHIGH DOSE THERAPY INR 2.5-3.5 PREVENT EMBOLISM FROM MECHANICAL HEART VALVE ID Date Data Source [id number] 05/30/2020 05:20:18 PM EDT [facility] Name Value Range Interpretation Code Description Data Irena rce(s) Supporting Document(s) APTT 27.6 s (22.0-34.3) [facility] [place] [facility] ID Date Data Source [id number] 05/30/2020 05:01:26 PM EDT [facility] [place] [facility] Name Value Range Interpretation Code Description Data Irena rce(s) Supporting Document(s) WBC 4.8 10*3/uL (4.1-11.0) [facility] [place] [facility] [place] RBC 4.59 10*6/uL (4.00-5.40) [facility] [place] [facility] HGB 12.2 g/dL (12.0-16.0) [facility] [place] [facility] HCT 38.1 % (36.0-47.0) [facility] [place] [facility] MCV 83.0 fL (80.0-95.0) [facility] [place] [facility] [facility] MCH 26.6 pg (27.0-32.0) L [facility] [place] [facility] [facility] MCHC 32.1 g/dL (32.0-36.0) [facility] [place] [facility] RDW 14.8 % (10.5-14.5) H [facility] [place] [facility] [facility] PLT 223 10*3/uL (150-450) [facility] [place] [facility] MPV 9.2 fL (7.1-10.7) [facility] [place] [facility] ID Date Data Source [id number] 05/30/2020 02:11:46 PM EDT [facility] [place] [facility] [place] SPEC EXP DATE 06/21/2020PATI ENT ABO/Rh O POSITIVEANTIBODY SCREEN NEGATIVETESTING SITE PERFORMED AT [address] [place], [place] [address]BLOOD BANK COMMENT BLOOD TYPE CONFIRMED. Name Value Range Interpretation Code Description Data Irena rce(s) Supporting Document(s) TYPE AND SCREEN [facility] [place] [facility] ID Date Data Source [id number] 05/31/2020 10:41:00 AM EDT [facility] [place] [facility] Name Value Range Interpretation Code Description Data Irena rce(s) Supporting Document(s) SPECIMEN DESCRIPTION [facility] STAPH SCREEN RESULTS (ONEGSA) [facility] COMMENT [facility] [place] [facility] GENE TO DETECT STAPH AUREUS. (2) RT-P CR WAS PERFORMED FOR THE mecA AND [employer] GENES TO DETECT METHICILLIN RESISTANCE IN STAPH AUREUS. 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 ID Date Data Source [id number] 03/28/2020 09:08:53 AM EDT [facility], PCName: Estefany ManriqueB: 1965Provider: Milena Malhotra: 03/27/2020 Chief ComplaintChronic low back pain. Chief Complaint 2NYSW VAS PAIN Established: MA completing section: Aurelia Florence LPN History of Present IllnessRecent test/procedures: Patient was asked and denies having any tests since their last visit. Patient was asked and denies being seen by any Physicians since their last visit. At today's visit patient presents with their Self Patient is currently working. The patient is being seen for a post block examination. Pain Duration: years Pain Score: a current pain level of 8/10, a minimum pain level of 8/10 and a maximum pain level of 10/10. Condition type: The patient is being seen for a chronic condition. PAIN LOCATION: the pain is located in the low back and . The etiology of this injury/condition is degenerative and unknown. RELATIONSHIP TO INJURY: This condition is not related to a specific injury. - Nerve Block: Pertinent Information LUMBAR, INTERLAMINAR (STEROID INJECTION). Targeting the L4 L5 level . 02/24/2020. 50 % of pain relief was provided lasting for 2 week(s). INTERVAL EVENTS: include . She did not get ay relief of pain for about 1-2 weeks after the block, but then experienced about 50% relief for about 2 weeks. Patient has an appointment with Dr. Pacheco next Friday. She thinks they will be discussing a lumbar fusion. She has a back brace which helps with her back pain but makes her legs feel heavy. ASSOCIATED SYMPTOMS: include difficulty walking and radiating. Review of SystemsConstitutional: Normal. Eyes: Normal. ENT: normal. Cardiovascular: Normal. Respiratory: wheezing and cough. Gastrointestinal: constipation. Genitourinary: Normal. Musculoskeletal: lower back pain and limb swelling. Integumentary: Normal. Neurological: dizziness. Psychiatric: Normal. Endocrine: Normal. Hematologic/Lymphatic: Normal. Patient maintains at today's visit there has been no change in his/her hematologic history. I reviewed the above with the patient and I feel the ROS to be negative/normal other than musculoskeletal. Active Problems 1. Cervical radiculopathy (723.4) (M54.12) 2. Chronic low back pain (724.2,338.29) (M54.5,G89.29) 3. Chronic migraine (346.70) (G43.709) 4. Chronic neck pain (723.1,338.29) (M54.2,G89.29) 5. Common migraine without aura (346.10) (G43.009) 6. DDD (degenerative disc disease), cervical (722.4) (M50.30) 7. manager intermediate (current) use of opiate analgesic (V58.69) (Z79.891) 8. Lumbar radiculopathy (724.4) (M54.16) 9. Neural foraminal stenosis of cervical spine (723.0) (M99.71) 10. Protrusion of lumbar int ervertebral disc (722.10) (M51.26) Allergies Gabapentin CAPS Lethargy; Swelling;; Recorded By: Shante Moore; 09/09/2018 1:09:08 PM Sulfa Drugs Hives; Shaking; Dizziness; Recorded By: Shante Moore; 09/09/2018 1:09:08 PM Topamax Lethargy; Swelling;; Recorded By: Shante Moore; 09/09/2018 1:09:08 PMDenied Adhesive Tape Recorded By: Shante Moore; 09/09/2018 1:09:08 PM Iodinated Contrast Media Recorded By: Shante Moore; 09/09/2018 1:09:08 PM Latex Recorded By: Shante Moore; 09/09/2018 1:09:08 PM Current Meds Albuterol AERS;Therapy: (Recorded:27Mar2020) to Recorded aMILoride HCl - 5 MG Oral Tablet;Therapy: (Recorded:09Sep2018) to Recorded Amitriptyline HCl - 50 MG Oral Tablet;Therapy: (Recorded:09Sep2018) to Recorded Aspirin 81 MG TABS;Therapy: (Recorded:09Sep2018) to Recorded Baclofen 10 MG Oral Tablet;Therapy: (Recorded:09Sep2018) to Recorded Calcium + D TABS;Therapy: (Recorded:27Mar2020) to Recorded Dicyclomine HCl CAPS;Therapy: (Recorded:27Mar2020) to Recorded Irbesartan TABS;Therapy: (Recorded:09Sep2018) to Recorded Lactulose SOLN;Therapy: (Recorded:27Mar2020) to Recorded Lomotil TABS;Therapy: (Recorded:27Mar2020) to Recorded Lyrica 50 MG Oral Capsule;Therapy: (Recorded:0 01Apr2019) to RecordedLD 04/01/19 6 am Magnesium 500 MG Oral Capsule;Therapy: (Recorded:09Sep2018) to Recorded Melatonin 3 MG Oral Tablet;Therapy: (Recorded:09Sep2018) to Recorded Nasonex 50 MCG/ACT Nasal Suspension;Therapy: (Recorded:09Sep2018) to Recorded Nitro-Dur 0.4 MG/HR Transdermal Patch 24 Hour;Therapy: (Recorded:09Sep2018) to Recorded Ondansetron 8 MG Oral Tablet Disintegrating;Therapy: (Recorded:09Sep2018) to Recorded Orphenadrine Citrate ER 100 MG Oral Tablet Extended Release 12 Hour;Therapy: (Recorded:09Sep2018) to Recorded Pantoprazole Sodium 40 MG Oral Tablet Delayed Release;Therapy: (Recorded:09Sep2018) to Recorded Potassium Chloride TBCR;Therapy: (Recorded:27Mar2020) to Recorded Spiriva HandiHaler CAPS;Therapy: (Recorded:27Mar2020) to Recorded SUMAtriptan Succinate 100 MG Oral Tablet;Therapy: (Recorded:09Sep2018) to Recorded Symbicort 160-4.5 MCG/ACT Inhalation Aerosol;Therapy: (Recorded:09Sep2018) to Recorded Ventolin HFA 108 (90 Base) MCG/ACT Inhalation Aerosol Solution;Therapy: (Recorded:09Sep2018) to Recorded Vitamin B-12 TABS;Therapy: (Recorded:27Mar2020) to Recorded Vitamin D 1000 UNIT TABS;Therapy: (Recorded:09Sep2018) to Recorded Past Medical History History of anemia (V12.3) (Z86.2) Denied: History of anticoagulant therapy History of arthritis (V13.4) (Z87.39) History of artificial joint (V43.60) (Z96.60) History of asthma (V12.69) (Z87.09) Denied: History of coagulation defect History of gastroesophageal reflux (GERD) (V12.79) (Z87.19) History of hypertension (V12.59) (Z86.79) History of kidney disease (V13.09) (Z87.448) History of neck pain (V13.59) (Z87.39) History of sleep apnea (V13.89) (Z86.69) History of Not currently (V49.89) (Z78.9) Surgical History Denied: History of Cardioverter defibrillator insertion History of Gallbladder surgery History of Hysterectomy History of Neck surgery Denied: History of Permanent pacemaker insertion History of Tonsillectomy History of Tubal ligation Family History Family history of cardiac disorder (V17.49) (Z82.49) Family history of hypertension (V17.49) (Z82.49) Family history of lung cancer (V16.1) (Z80.1) Family history of diabetes mellitus (V18.0) (Z83.3) Family history of cardiac disorder (V17.49) (Z82.49) Family history of hypertension (V17.49) (Z82.49) Social History Current every day smoker (305.1) (F17.200) Current non-drinker of alcohol (V49.89) (Z78.9) Full-time employment No illicit drug use VitalsVital Signs Recorded: 27Mar2020 09:20AM Height: 5 ft 3 inWeight: 178 lb BMI Calculated: 31.53BSA Calculated: 1.84Systolic: 121, SittingDiastolic: 77, S ittingHeart Rate: 84Respiration: 18Temperature: 98.2 FHeight measured w/wo shoes: w/shoesPain Scale: 8 Physical ExamGeneral: The patient is a well nourished/well developed, female, heavy set, who is in no acute distress and appears stated age. Eyes: Lids are atraumatic, no lesions, sclerae are anicteric. Ears, Nose, Mouth, Throat: external ears and nose without trauma. Respiratory: Normal chest expansion and respiratory effort. Gait and Station: Gait was antalgic. Skin: Warm, dry, acyanotic. Psychological: Alert and oriented to person, place and time. Mood and affect are pleasant and appropriate. Ju dgement intact. Insight normal without delusions or hallucinations. Denies suicidal/homicidal ideation. Assessment 1. Chronic low back pain (724.2,338.29) (M54.5,G89.29) 2. Lumbar radiculopathy (724.4) (M54.16) Plan 1. Aspirin, Aspirin Products (Trans/Thor Lumb Inter/Para/Splanch/Stellate Procedure Patient education Status: Hold For - Scheduling Requested for: [id number] 2. Block (Transforaminal) ([facility]) Referral Procedure Procedure Status: Hold For - Scheduling Requested for: [id number] Type : Private (No Auth needed)Is patient currently on a biologic? : NoReminder: : Place order for Anticoag: Aspirin Products Transforam-InterlamIs your patient taking aspirin for cardiac or stroke prevention...? : YesIs patient taking Aspirin > 81 mg...? : NoIs your patient on an Anticoagulant -OR- have Coagulopathy...? : NoReminder: : Place order for Anticoag: Aspirin Products Transforam-InterlamSedation : NoLaterality : BLANCHE (...NO CERVICAL...)Area : LumbarBlock : TransforaminalProfessional Collection Card Clerk needed for block? : NoFront Desk Reminder: : Schedule the Status Post BlockPt weight: SODS: </= 450 lbs. HODS: </= 400 lbs. ENTER WEIGHT: : 178IF PT has Thrombocytopenia are platelets >/= 100,000 ? : NAAre you ordering pyhsical therapy...? : NoDoes patient require a Serene lift? : NoIs this an urgent request? : No - This is not an urgent request Medication:. The patient does not receive any medication prescriptions from this office. Treatment includes: PROCEDURE(S): ASIPP Risk Stratification of Patients presenting for Interventional Pain Procedures: Decreasing Morbidity of COVID-19 According to the Covid-19 ASIPP guidelines and the medical history as relayed to me by the patient, the Covid-19 risk stratification is medium.- Procedure is within Insurance Guidelines: order based on pertinent information, MRI and patient symptoms indicating a different pain generator site and/or past treatment effectiveness as documented in the HPI.- Nerve Block Plan: I am ordering a, BILATERAL, LUMBAR, TRANSFORAMINAL EPIDURAL STEROID INJECTION. Definitive levels to be determined by the interventional physician based on fluoroscopic imaging and symptomatology at the time of the procedure. , targeting the L4 L5 level and under fluoroscopy without sedation. NERVE BLOCK: The material risks, benefits, alternatives have been discussed with the patient, including no treatment. They include, but are not limited to, bleeding, bruising, infection, damage to targeted and non-targeted tissue, increased pain, nerve injury or other reaction, if severe, could lead to CVA, arrhythmias or . The patient was given procedure instructions and educational material for this specific procedure at the time of the visit.- Bleeding Disorder: Patient denies having a bleeding disorder. - Anticoagulation therapy:. Patient denies current treatment with anti-coagulation therapy. FOLLOW UP: The patient should have a follow up visit 4 weeks post block. CONTINUE TREATMENT: Debbi will continue with the following:. Patient will follow up with Surgeon. Debbi is participating in a home exercise program and is encouraged to continue. Miscellaneous: - ACTIVITY COUNSELING: Discussed use of stationary/recumbent bike and/or continue exercises and stretches patient may have learned at PT. Patient encouraged to increase daily physical activity including ergonomics and aerobic activity. - MENTAL HEALTH CLINICIAN: The patient was counseled on the following: treatment plan. Discussion/SummaryPatient with chronic low back pain and bilateral leg pain here for follow up. She had a lumbar interlaminar block that she felt helped about 50% for less than [address] Brower suggests proceeding with a bilateral lumbar transforaminal block in effort to achieve more effective relief. The patient is interested in proceeding. She understands the risks and benefits of the procedure. Per ASIPP COVID risk stratification tool, the patient is moderate risk and has been previously educated on this. She will be following up with Dr. Pacheco on Friday to discuss surgical intervention. Follow up SPB. Signatures Electronically signed by : JAYSHREE Barney; Mar 27 2020 9:49AM EST (Author) Electronically signed by : Shane Arnold MD; Mar 28 2020 9:08AM EST Name Value Range Interpretation Code Description Data Irena rce(s) Supporting Document(s) ID Date Data Source [id number] 03/16/2020 04:21:06 PM [facility] Name Value Range Interpretation Code Description Data [facility] rce(s) Supporting Document(s) Progress Note [facility] [id number] [facility] [file] [id number]== ID Date Data Source [id number] 03/08/2020 02:29:03 PM EDT [address] [id number] Name: DEBBI MANRIQUEB: 1965Sex: FOrdering Provider: MARTINA Ceballos Prov: MARTINA Calvilloerrroldan Provider: MARTINA HERNANDEZrocedure Performed: MRI LUMBAR SPINE WO CONTRASTExam Date: 03/08/2020 14:01MRN: [id number] Number: [id number] Class: OutpatientAccount #: [id number] for Exam: Back pain, prior surgery, new or progressive sxTechnique: MRI images obtained on a 1.5 arlene scanner.Comparison: February 24, 2019 MR lumbar spine.No contrast was used.Findings:The vertebral bodies are normal in height and alignment. A normal lordosis is seen. Mild to moderate narrowing is seen of the L3-4 and L4-5 discs.A Schmorl's node is seen of the superior L4 vertebral endplate. The conus medullaris appears normal in size and signal intensity with the tip terminating at the L1 vertebral level.T12-L1 disc level: No disc or foraminal abnormality is seen.L1-2 disc level: No disc or foraminal abnormality is seen.L2-3 disc level: A disc bulge is seen without an acquired spinal stenosis. No foraminal abnormality is seen.L3-4 disc level: A disc bulge is seen without an acquired spinal stenosis. No foraminal abnormality is seen.L4-5 disc level: A disc bulge is seen with progression of degenerative changes of the posterior elements especially of the facet joints and ligamentum flavum with at least a moderate acquired spinal stenosis. Extraforaminal disc components are seen which at least touch the postganglionic nerves. Narrowing is seen of the neural foramina at least touching the dorsal root ganglia. L5-S1 disc level: A disc bulge is seen without an acquired spinal stenosis. Narrowing is seen of the neuroforamina touching the dorsal root ganglia.The paravertebral soft tissues appear unremarkable.IMPRESSION:Lumbar spondylosis worse at L4-5 which has progressed from the prior study with at least a moderate acquired spinal stenosis.Report electronically signed by: KEVIN TALLEY On 03/08/2020 2:29 PMWorkstation ID: [id number] - [id number] Name Value Range Interpretation Code Description Data Irena rce(s) Supporting Document(s) ID Date Data Source [id number] 03/06/2020 08:18:00 AM EDT [facility] ([facility], ) Name Value Range Interpretation Code Description Data Irena rce(s) Supporting Document(s) PDFReport Laboratory test result [facility] ([facility], ) FVC-Pred 3.23 L [facility] ([facility], ) FVC-Pre 2.38 L [facility] ([facility], ) FVC-%Pred-Pre 73 L [facility] ([facility], ) Fev1-Pred 2.52 L [facility] ([facility], ) FVC-LLN 2.57 L [facility] ([facility]) Fev1-Pre 1.82 L [facility] ([facility], ) Fev1-LLN 1.96 L [facility] ([facility], ) Fev1-%Pred-Pre 72 L [facility] ([facility], ) Fev6-Pre 2.38 L [facility] ([facility], ) Fev6-Pred 3.12 L [facility] ([facility]) Fev6-%Pred-Pre 76 L [facility] ([facility]) Btf7rzi-Bhi 76 % [facility] ([facility]) Fev6-LLN 2.47 L [facility] ([facility], ) Ejd2hjt-Suzd 79 % [facility] ([facility]) Lyp6vgz-%Pred-Pre 96 % [facility] ([facility]) Qzu5jcf-Rajs 97 % [facility] ([facility]) Ubt7hsj-STU 69 % [facility] ([facility]) Gyz4bju-%Pred-Pre 103 % [facility] ([facility]) FEFMax-Pred 6.27 L/E/sec [facility] ([facility], ) Yjt3haj-Nkh 100 % [facility] ([facility]) FEFMax-Pre 4.95 L/E/sec [facility] ([facility], ) FEFMax-%Pred-Pre 78 L/E/sec [facility] ([facility]) FEFMax-LLN 4.63 L/E/sec [facility] ([facility]) Eus0091-Muma 2.43 L/E/sec [facility] ([facility]) Alv3289-%Pred-Pre 62 L/E/sec [facility] ([facility], ) Dtl2340-Umf 1.52 L/E/sec [facility] ([facility], ) Ogm2wyu1-Hnwu 81 % [facility] ([facility]) ExpTime-Pre 5.84 sec [facility] ([facility]) Oqa6598-SIJ 1.25 L/E/sec [facility] ([facility], ) Qqr5xbl9-Xwy 76 % [facility] ([facility]) Csj6feo4-%Pred-Pre 93 % [facility] ([facility], ) Nve7yha7-REP 73 % [facility] ([facility]) ID Date Data Source [id number] 02/21/2020 10:22:00 AM EDT [facility] Name Value Range Interpretation Code Description Data Irena rce(s) Supporting Document(s) SARS-COV-2 RNA RESP QL JENNIFER[facility] This lab was ordered by [facility] MIN[facility] Ramon [facility] and reported by [employer]. ID Date Data Source [id number] 02/17/2020 09:34:46 AM EDT [facility], PCName: Estefany Magallon: 1965Provider: Milena Malhotra: 02/17/2020 Chief ComplaintChronic low back pain. Chief Complaint 2NYSW VAS PAIN Established: MA completing section: TODUME History of Present IllnessRecent test/procedures: Patient was asked and denies having any tests since their last visit. Patient was asked and denies being seen by any Physicians since their last visit. The patient was last seen by a [facility] provider on 05/13/2019. At today's visit patient presents with their Self Patient is currently working. The patient is being seen for a follow- up > 6 mths (last appt date: 06/28/2019) Pain Duration: YRS Pain Score: a current pain level of 8/10. Condition type: The patient is being seen for a chronic condition. PAIN LOCATION: the pain is located in the low back and . The etiology of this injury/condition is degenerative and unknown. RELATIONSHIP TO INJURY: This condition is not related to a specific injury. - Nerve Block: Pertinent Information LUMBAR, INTERLAMINAR (STEROID INJECTION). Targeting the L5 S1 level . 06/28/2019. 75 % of pain relief was provided lasting for 2 month(s). Allows patient to increase activity and functionality Including the following activities for longer periods of time with less pain: activities of daily living, sleeping, walking, standing, sitting and grocery shopping. - Nerve Block: Pertinent Information CERVICAL, INTERLAMINAR (STEROID INJECTION). Targeting the C7 T1 level . 06/14/2019. 25 % of pain relief was provided lasting for 2 day(s). INTERVAL EVENTS: include . Patient had a lumbar laminectomy at L4-[address] Pacheco in August. She tells me that this went well and she is waiting to go back and follow up with him in April. She had nerve blocks last year that offered some relief of pain. Her low back is bothering her and Dr. Pacheco said she could do more injections. She is waiting to see a neurologist for her neck and hand pain. ASSOCIATED SYMPTOMS: include difficulty walking and radiating. Review of SystemsConstitutional: Normal. Eyes: Normal. ENT: normal. Cardiovascular: Normal. Respiratory: Normal. Gastrointestinal: Normal. Genitourinary: Normal. Musculoskeletal: neck pain, lower back pain and limb pain. Integumentary: Normal. Neurological: Normal. Psychiatric: Normal. Endocrine: Normal. Hematologic/Lymphatic: Normal. Patient maintains at today's visit there has been no change in his/her hematologic history. I reviewed the above with the patient and I feel the ROS to be negative/normal other than musculoskeletal. Active Problems 1. Cervical radiculopathy (723.4) (M54.12) 2. Chronic low back pain (724.2,338.29) (M54.5,G89.29) 3. Chronic migraine (346.70) (G43.709) 4. Chronic neck pain (723.1,338.29) (M54.2,G89.29) 5. Common migraine without aura (346.10) (G43.009) 6. DDD (degenerative disc disease), cervical (722.4) (M50.30) 7. manager intermediate (current) use of opiate analgesic (V58.69) (Z79.891) 8. Lumbar radiculopathy (724.4) (M54.16) 9. Neural foraminal stenosis of cervical spine (723.0) (M99.81) 10. Protrusion of lumbar intervertebral disc (722.10) (M51.26) Allergies Gabapentin CAPS Lethargy; Swelling;; Recorded By: Shante Moore; 09/09/2018 1:09:08 PM Sulfa Drugs Hives; Shaking; Dizziness; Recorded By: Shante Moore; 09/09/2018 1:09:08 PM Topamax Lethargy; Swelling;; Recorded By: Shante Moore; 09/09/2018 1:09:08 PMDenied Adhesive Tape Recorded By: Shante Moore; 09/09/2018 1:09:08 PM Iodinated Contrast Media Recorded By: Shante Moore; 09/09/2018 1:09:08 PM Latex Recorded By: Shante Moore; 09/09/2018 1:09:08 PM Current Meds aMILoride HCl - 5 MG Oral Tablet;Therapy: (Recorded:09Sep2018) to Recorded Amitriptyline HCl - 50 MG Oral Tablet;Therapy: (Recorded:09Sep2018) to Recorded Aspirin 81 MG TABS;Therapy: (Recorded:09Sep2018) to Recorded Baclofen 10 MG Oral Ta blet;Therapy: (Recorded:09Sep2018) to Recorded Irbesartan TABS;Therapy: (Recorded:09Sep2018) to Recorded Lyrica 50 MG Oral Capsule;Therapy: (Recorded:[id number]) to RecordedLD 04/01/19 6 am Magnesium 500 MG Oral Capsule;Therapy: (Recorded:09Sep2018) to Recorded Melatonin 3 MG Oral Tablet;Therapy: (Recorded:09Sep2018) to Recorded Nasonex 50 MCG/ACT Nasal Suspension;Therapy: (Recorded:09Sep2018) to Recorded Nitro-Dur 0.4 MG/HR Transdermal Patch 24 Hour;Therapy: (Recorded:09Sep2018) to Recorded Ondansetron 8 MG Oral Tablet Disintegrating;Therapy: (Recorded:09Sep2018) to Recorded Orphenadrine Citrate ER 100 MG Oral Tablet Extended Release 12 Hour;Therapy: (Recorded:09Sep2018) to Recorded Pantoprazole Sodium 40 MG Oral Tablet Delayed Release;Therapy: (Recorded:09Sep2018) to Recorded SUMAtriptan Succinate 100 MG Oral Tablet;Therapy: (Recorded:09Sep2018) to Recorded Symbicort 160-4.5 MCG/ACT Inhalation Aerosol;Therapy: (Recorded:09Sep2018) to Recorded Ventolin HFA 108 (90 Base) MCG/ACT Inhalation Aerosol Solution;Therapy: (Recorded:09Sep2018) to Recorded Vitamin D 1000 UNIT TABS;Therapy: (Recorded:09Sep2018) to Recorded Zofran 8 MG Oral Tablet;Therapy: (Recorded:09Sep2018) to Recorded Past Medical History History of anemia (V12.3) (Z86.2) Denied: History of anticoagulant therapy History of arthritis (V13.4) (Z87.39) History of artificial joint (V43.60) (Z96.60) History of asthma (V12.69) (Z87.09) Denied: History of coagulation defect History of gastroesophageal reflux (GERD) (V12.79) (Z87.19) History of hypertension (V12.59) (Z86.79) History of kidney disease (V13.09) (Z87.448) History of neck pain (V13.59) (Z87.39) History of sleep apnea (V13.89) (Z86.69) History of Not currently (V49.89) (Z78.9) Surgical History Denied: History of Cardioverter defibrillator insertion History of Gallbladder surgery History of Hysterectomy History of Neck surgery Denied: History of Permanent pacemaker insertion History of Tonsillectomy History of Tubal ligation Family History Family history of cardiac disorder (V17.49) (Z82.49) Family history of hypertension (V17.49) (Z82.49) Family history of lung cancer (V16.1) (Z80.1) Family history of diabetes mellitus (V18.0) (Z83.3) Family history of cardiac disorder (V17.49) (Z82.49) Family history of hypertension (V17.49) (Z82.49) Social History Current every day smoker (305.1) (F17.200) Current non-drinker of alcohol (V49.89) (Z78.9) No illicit drug use Unemployed, not looking for work VitalsVital Signs Recorded: 17Feb2020 08:49AM Height: 5 ft 2 inWeight: 179 lb BMI Calculated: 32.74BSA Calculated: 1.82Systolic: 123, SittingDiastolic: 73, SittingHeart Rate: 87Respiration: 15Temperature: 97.2 F, TympanicHeight measured w/wo shoes: w/shoesPain Scale: 8 Physical ExamGeneral: The patient is a well nourished/well developed, female, heavy set, who is in no acute distress and appears stated age. Eyes: Lids are atraumatic, no lesions, sclerae are anicteric. Ears, Nose, Mouth, Throat: external ears and nose without trauma. Respiratory: Normal chest expansion and respiratory effort. Gait and Station: Gait was normal. Skin: Warm, dry, acyanotic. Psychological: Alert and oriented to person, place and time. Mood and affect are pleasant and appropriate. Judgement intact. Insight normal without delusions or hallucinations. Denies suicidal/homicidal ideation. Assessment 1. Chronic neck pain (723.1,338.29) (M54.2,G89.29) 2. Chronic low back pain (724.2,338.29) (M54.5,G89.29) 3. Lumbar radiculopathy (724.4) (M54.16) Plan 1. Aspirin, Aspirin Products (Trans/Thor Lumb Inter/Para/Splanch/Stellate Procedure Patient education Status: Hold For - Scheduling Requested for: 17Feb2020 2. Block (Thoracic/Lumbar Interlaminar) ([facility]) Referral Procedure Procedure Status: Hold For - Scheduling Requested for: [id number] Type : Private (No Auth needed)Is patient currently on a biologic? : NoReminder: : Place order for Anticoag: Aspirin Products Transforam-InterlamIs your patient taking aspirin for cardiac or stroke prevention...? : YesIs patient taking Aspirin > 81 mg...? : NoIs your patient on an Anticoagulant -OR- have Coagulopathy...? : NoSedation : NoArea: : LumbarBlock : Interlaminar (Epidural)Professional Collection Card Clerk needed for block? : NoFront Desk Reminder: : Schedule the Status Post BlockPt weight: SODS: </= 450 lbs. HODS: </= 400 lbs. ENTER WEIGHT: : 179IF PT has Thrombocytopenia are platelets >/= 100,000 ? : NAAre you ordering pyhsical therapy...? : NoDoes patient require a Serene lift? : NoIs this an urgent request? : No - This is not an urgent request Medication:. The patient does not receive any medication prescriptions from this office. Treatment includes: PROCEDURE(S): ASIPP Risk Stratification of Patients presenting for Interventional Pain Procedures: Decreasing Morbidity of COVID-19 Risk Factor - Age (years) Comments: 1Risk Factor - Pulmonary Comments: 3Risk Factor - Cardiovascular Comments: 2Risk Factor - Obesity Comments: 2Risk Factor - Renal Comments: 2Total Points: 10 According to the Covid-19 ASIPP guidelines and the medical history as relayed to me by the patient, the Covid-19 risk stratification is medium.- Procedure is within Insurance Guidelines: order based on pertinent information, MRI and patient symptoms indicating a different pain generator site and/or past treatment effectiveness as documented in the HPI.- Nerve Block Plan: I am ordering a, LUMBAR, INTERLAMINAR (STEROID INJECTION). Definitive levels to be determined by the interventional physician based on flu oroscopic imaging and symptomatology at the time of the procedure. This procedure is , targeting the L5 S1 level and under fluoroscopy without sedation. NERVE BLOCK: The material risks, benefits, alternatives have been discussed with the patient, including no treatment. They include, but are not limited to, bleeding, bruising, infection, damage to targeted and non-targeted tissue, increased pain, nerve injury or other reaction, if severe, could lead to CVA, arrhythmias or . The patient was given procedure instructions and educational material for this specific procedure at the time of the visit.- Bleeding Disorder: Patient denies having a bleeding disorder. - Anticoagulation therapy:. Patient denies current treatment with anti-coagulation therapy. FOLLOW UP: The patient should have a follow up visit 4 weeks post block. CONTINUE TREATMENT: Debbi will continue with the following:. Patient will follow up with Surgeon. Debbi is participating in a home exercise program and is encouraged to continue. Miscellaneous: - ACTIVITY COUNSELING: Discussed use of stationary/recumbent bike and/or continue exercises and stretches patient may have learned at PT. Patient encouraged to increase daily physical activity including ergonomics and aerobic activity. - MENTAL HEALTH CLINICIAN: The patient was counseled on the following: treatment plan. Discussion/SummaryPatient with chronic low back pain here for follow up. She had a lumbar interlaminar block in August by Dr. Pacheco. This went well, but she is still having a lot of back pain. The patient tells m that Dr. Pacheco recommended she could proceed with nerve blocks. We will schedule her for a lumbar interlaminar block. She understands the risks and benefits of the procedure. Per ASIPP COVID risk stratification tool, the patient is moderate risk, and was educated on this today. She knows to stop ASA 7 days prior to the cervical interlaminar block. Follow up SPB. Signatures Electronically signed by : JAYSHREE Barney; Feb 17 2020 9:08AM EST (Author) Electronically signed by : Jed Brower MD; Feb 17 2020 9:34AM EST Name Value Range Interpretation Code Description Data Irena rce(s) Supporting Document(s) ID Date Data Source [id number] 01/14/2020 01:36:00 PM EDT [place] COMPLETE W BENDING VIEWSCLINICAL HISTORY: Back pain.COMPARISON: CT lumbar spine 07/22/2017TECHNIQUE: 7 views were obtained.FINDINGS: No acute fracture or malalignment. Minimal L4 on L5 anterolisthesis of 1 to 2 mm. Bone mineralization is normal. Mild facet arthropathy at L4 and L5. No evidence of instability. Minimal endplate spurring in the lower lumbar spine. Disc spaces are preserved. Soft tissues are unremarkable.IMPRESSION: No fracture or acute findings. Minimal degenerative changes. Minimal L4 on L5 anterolisthesis of 1 to 2 mm. No instability.Dictated by: JOAQUINA FENTON M.D. on 01/14/2020 Transcribed by: jessica on 01/14/2020 02:03 PMcc: Name Value Range Interpretation Code Description Data Irena rce(s) Supporting Document(s) ID Date Data Source [id number] 01/14/2020 01:36:00 PM EDT [place] [facility] PELVIS AP 1V OR 2VCLINICAL HISTORY: Back pain.COMPARISON: None available.TECHNIQUE: 1 AP upright view of the pelvisFINDINGS: Osseous structures: Unremarkable with no focal lesion or acute fracture.Soft tissues: Normal.The visualized joint spaces are unremarkable.IMPRESSION: Negative.Dictated by: JOAQUINA FENTON M.D. on 01/14/2020 Transcribed by: jessica on 01/14/2020 02:01 PMcc: Name Value Range Interpretation Code Description Data Irena rce(s) Supporting Document(s) ID Date Data Source [id number] 11/17/2019 01:15:00 PM EDT [facility] SECS IN MODERATE NUMBERSRARE WBCSSMALL N UMBERS GRAM-POSITIVE COCCI IN CHAINSRARE GRAM NEG COCCIRARE YEAST LIKENORMAL OROPHARYNGEAL MANDI ISOLATEDNO PATHOGENS ISOLATED-48 HOURS Name Value Range Interpretation Code Description Data Irena rce(s) Supporting Document(s) ID Date Data Source [id number] 10/14/2019 09:43:00 AM EST [facility] DATE OF EXAMINATION: 10/13/2019 15:18 EST UPPER G.I. W/SMALL BOWEL HISTORY: Gastroesophageal reflux disease FLUOROSCOPY TIME: 1 minute 18 seconds NUMBER OF IMAGES: 4 UGI EXAM: Preliminary pan washer view of the abdomen appears unremarkable. Distal esophagus, stomach, duodenal bulb, and the remainder of the duodenumappear normal. There is no evidence for any mucosal lesions or ulcerations. Nosigns of gastroesophageal reflux or reflux esophagitis are identified. IMPRESSION: Unremarkable double contrast upper GI examination. SMALL BOWEL FOLLOW-THROUGH EXAM: Regional and ileal loops appear normal. Transit time is approximately 60minutes, within normal range. There is no obstruction. IMPRESSION: Unremarkable small bowel follow-through Electronically signed in PS360 by: Keila Cano M.D. 10/14/2019 9:38 EST Name Value Range Interpretation Code Description Data [facility] Supporting Document(s) ID Date Data Source [id number] 09/22/2019 03:44:51 PM EST [facility] NT INFORMATIONPatient MRN Name Date of Age Gend*PT [id number] Debbi Nelson 1965 54 years F SDCXPT Location Admission Date/Time Visit ID Attending [id number] 09/08/19 0614 --- --- EPI ID CSN Admitting Provider [id number] Kevin Pacheco MD([id number]) [place] [address] OPERATIVE REPORT OPNAME: DEBBI NELSONIdalia#: [id number] #: [id number] ADMISSION DATE: 09/08/2019DOB: 1965 SEX: F PT TYPE: S SURACCT #: [id number] CARE PHYSICIAN: OSKAR MARTINEZ OF OPERATION: 08/25PREOPERATIVE DIAGNOSIS:Lumbar foraminal stenosis.POSTOPERATIVE DIAGNOSIS:Lumbar foraminal stenosis.SURGERY:Bilateral lumbar L4-5 foraminotomy, placement of Depo-Medrol, use ofMarcaine.SURGEON:Dr. Pacheco.WEB ANALYTICS DEVELOPER:Martina Smith.ANESTHESIA:General.ESTIMATED BLOOD LOSS:Minimal.DISPOSITION:The patient is a 53-year-old female with discomfort down the legs, leftgreater than right, worse with walking. The patient understood risks,benefits, alternatives and indications for surgery.Outcomes discussed, outcomes not guaranteed. Risks, benefits, alternatives,indications for OR discussed. Risk include but not limited to infection, csfleak, N/T/P, B/B/S dysfn, hematoma, difficulty with instability needing fusion,need to do other levels, MD, DVT, blindness. Patient understands and desires toproceed.OPERATIVE FINDINGS:The patient had foraminal narrowing, left greater than right. She also hadsome central stenosis on the L4, which we removed. After decompression, Sac was nice and open as well as the nerve roots. After decompression, nosigns of instability. Hemostasis was excellent. No sign of CSF leak.DESCRIPTION OF OPERATION:Patient brought to the operating room in stable condition. Prior tointubation, the patient was able to extend her neck without difficulty.She was intubated without any difficulty, placed in a prone position on tothe Kambin frame. Dependent parts were noted to be in good position.Localizing x-ray was done. Lumbar was prepped and draped in usual sterilemanner. Time-out was done. We made a midline incision. We then didsubperiosteal dissection to expose the L4-L5 junction on both sides.X- rays confirmed by Radiology that we were at the L4-L5 junction. We thenmoved the microscope in position to get access to the foramen better. Weremoved the inferior part of the lamina of L4. We sawsome central stenosis by indentation of the bone from bottom L4, we thinned thisOut with ras and removed with a 2 Kerrison. We then underbite the foramen fromtheright to the left L4-L5 and removed the hypertrophied ligamentum flavum.We did this, similarly from the left to the right. In this manner, weopened up to foramen. We could see the sac was nice and open. No sign ofCSF leak. Hemostasis was excellent. The nerve and the sac was nice andfree. We irrigated with IrriSept. We made sure there were no bonespicules, there were none. We then placed Depo-Medrol and FloSeal down.We closed the deep fascia with 0 Vicryl, Anabel's with 3-0, and then weinjected with Marcaine and we closed the skin with nylon. Patient wasdressed appropriately, extubated and transferred to recovery room in stablecondition. Sponge, instrument and needle counts correct.KARIN Watkins/NIMO Job #: [id number] DOC #: [id number] Name Value Range Interpretation Code Description Data Irena rce(s) Supporting Document(s) ID Date Data Source [id number] 09/09/2019 08:48:07 AM EST [facility] NT INFORMATIONPatient MRN Name Date of Age Gend*PT [id number] Debbi Nelson 1965 53 years F SDCXPT Location Admission Date/Time Visit ID Attending [id number] 09/08/19 0614 --- Kevin Pacheco MD([id number]) EPI ID CSN Admitting Provider [id number] Kevin Pacheco MD([id number])Surgical Discharge SummaryDebbi Brody NelsonMRN: [id number] date: 09/08/2019Admitting Physician: SAWYER Quinonesischarge date and time:Discharge Orders Placed(From admission, onward) NoneDischarge Physician: Silvia Lambert Diagnosis: <principal problem not specified>Secondary Diagnoses:Active Hospital Problems Diagnosis Date Noted Low back pain 05/31/2019 DDD (degenerative disc disease), lumbar 05/31/2019 Neural foraminal stenosis of lumbar spine 05/31/2019Resolved Hospital ProblemsNo resolved problems to display.Discharge Medications:Your medication listASK your doctor about these medications Instructions Last Dose Given Morning Afternoon Evening Bedtime As Neededacetaminophen 325 MG tabletCommonly known as: TYLENOL Take 650 mg by mouth every 6 (six) hours as needed for painalbuterol 108 (90 Base) MCG/ACT inhalerCommonly known as: PROVENTIL HFA;VENTOLIN HFA Inhale 2 puffs every 4 (four) hours as needed for shortness of breathAMILoride 5 MG tabletCommonly known as: MIDAMOR Take 10 mg by mouth dailyamitriptyline 50 MG tabletCommonly known as: ELAVIL Take 50 mg by mouth nightlyaspirin 81 MG tablet Take 81 mg by mouth dailybaclofen 10 MG tabletCommonly known as: LIORESAL Take 10 mg by mouth 3 (three) times a sirFJX-NHG-UEJJ-D PO Take 1 tablet by mouth dailyCholecalciferol 50 MCG (2000 UT) Caps Take 2,000 Units by mouth dailyirbesartan 75 MG tabletCommonly known as: AVAPRO Take 75 mg by mouth dailyLYRICA 50 MG capsuleGeneric drug: pregabalin Take 50 mg by mouth 3 (three) times a daymometasone 50 MCG/ACT nasal sprayCommonly known as: NASONEX 2 sprays into each nostril dailyMUCINEX 600 MG 12 hr tabletGeneric drug: guaiFENesin Take 600 mg by mouth 2 (two) times a day as needed for congestionomeprazole 40 MG capsuleCommonly known as: PriLOSEC Take 40 mg by mouth 2 (two) times a dayondansetron 8 MG disintegrating tabletCommonly known as: ZOFRAN-ODT Take 8 mg by mouth every 8 (eight) hours as needed for nauseapotassium chloride SA 10 MEQ tabletCommonly known as: K-DUR,KLOR-CON Take 10 mEq by mouth dailySPIRIVA RESPIMAT 2.5 MCG/ACT AersGeneric drug: Tiotropium Calvert Monohydrate Inhale 2 puffs dailySYMBICORT 160-4.5 MCG/ACT inhalerGeneric drug: budesonide-formoterol Inhale 2 puffs dailyIndication for Admission: Foraminal stenosis, surgical intervention, bilateralL4-5 foraminotomies.Hospital Course & Complications: Patient was admitted 09/08/2018 for bilateralL4-5 foraminotomies. Her pain was controlled, she worked with physical therapy,and she did well.Past Medical History:Past Medical History:Diagnosis Date Anemia Asthma Carpal tunnel syndrome Chronic low back pain CKD (chronic kidney disease) stage 3, GFR 30-59 ml/min COPD (chronic obstructive pulmonary disease) with chronic bronchitis Cyst of sphenoid sinus Degenerative disc disease, lumbar GERD (gastroesophageal reflux disease) Hypertension MRSA (methicillin resistant Staphylococcus aureus) Neuroforaminal stenosis of lumbar spine Osteoarthritis Pineal gland cyst C/O headaches....Treated with Botox injection Sleep apnea CPAP Vaginal itching 07/16/2019Surgical Procedures:Procedure(s):Bilateral foraminotomy L4-5 (Bilateral)Significant Diagnostic Studies: radiology: X-Ray: lumbar and MRI: lumbarTreatments: IV hydration, antibiotics: Ancef and analgesia: acetaminophen, norcoand fentanyl, baclofenDischarge Exam:Vitals: Temp: [97.5 F-97.6 F] 97.6 FHeart Rate: [78-91] 79Resp: [12-22] 15BP: (104-131)/(55-62) 108/55Refer to examination day of dischargeItems needing special attention: NoneDischarged Condition: GoodDisposition: Home or Self CareSignature: Martina Smith NPDate: September 08, 2019Time: 10:58 AM Name Value Range Interpretation Code Description Data Irena rce(s) Supporting Document(s) ID Date Data Source [id number] 09/09/2019 08:46:56 AM EST [facility] NT INFORMATIONPatient MRN Name Date of Age Gend*PT [id number] Debbi Nelson 1965 53 years F SDCXPT Location Admission Date/Time Visit ID Attending [id number] 09/08/19 0614 --- Kevin Pacheco MD([id number]) EPI ID CSN Admitting Provider [id number] Kevin Pacheco MD([id number])See dictated note. H and P updated.Pt with lumbar foraminal stenosis at L45Pt stable for surgery.Plan L45 blanche foramintomyOutcomes discussed, outcomes not guaranteed. Risks, benefits, alternatives,indications for OR discussed. Risk include but not limited to infection, csfleak, N/T/P, B/B/S dysfn, hematoma, difficulty with instability needing fusion,need to do other levels, MD, DVT, blindness. Patient understands and desires toproceed. Name Value Range Interpretation Code Description Data Irena rce(s) Supporting Document(s) ID Date Data Source [id number] 09/08/2019 11:47:[address] [id number] Name: DEBBI NELSONDOB: 1965Sex: FOrdering Provider: KEVIN Reed Prov: KEVIN Goody Provider: Procedure Performed: XR OR SPINE LUMBARExam Date: 09/08/2019 11:19MRN: [id number] Number: [id number] Class: InpatientAccount #: [id number] for Exam: Low back pain, unspecified back pain laterality, unspecified chronicity, unspecified whether sciatica present [M54.5]DDD (degenerative disc disease), lumbar [M51.36]Neural foraminal stenosis of lumbar spine [M99.83]Technique: Lateral view obtained.Comparison: Preoperative lumbar spine x-rays August 09, 2019.FINDINGS: Vertebral bodies are labeled L1-S1. [place] indicate the L3-L4 and L4-5 disc spaces.IMPRESSION: Vertebral bodies labeled L1-S1. [place] indicates the L3-L4 and L4-5 disc spaces.Report electronically signed by: ROB LAI On 09/08/2019 11:47 AMWorkstation ID: [id number] Name Value Range Interpretation Code Description Data Irena rce(s) Supporting Document(s) ID Date Data Source [id number] 09/08/2019 11:16:21 AM EST [facility] NT INFORMATIONPatient MRN Name Date of Age Gend*PT [id number] Omar Debbi Skinner 1965 53 years F SDCXPT Location Admission Date/Time Visit ID Attending Provider --- --- --- --- EPI ID CSN Admitting Provider [id number] ---AirwayPatient location during procedure: ORUrgency: electiveDifficult airway: noAdvanced airway equipment used: yesStaffingPerformed by: Rc Blankenship CRNAAnesthesiologist: Tony Galan MDIndications and Patient ConditionIndications for airway management: anesthesiaPreoxygenated: yesPatient position: sniffingIn-line stabilization: noMask ventilation: 2 - vent by mask + OA or adjuvant +/- NMBAFinal Airway/ApproachesFinal airway type: ETTNumber of attempts at final approach: 1Number of other approaches attempted: 0Final Airway DetailsFinal ETT airway: ETT - singleCuffed: yesTechnique used for successful ETT placement: GlidescopeCricoid pressure: noRSI: noInsertion site: oralBlade type/size: MAC 3ETT size: 7.0 mmMeasured from: lipsETT to lips: 21 cmPlacement verified by: chest auscultation and + [id number]: CTA and equal breath sounds bilateralGrade view: grade I - full view of glottisAdditional NotesSmall mouth opening with hx of cervical fusions. Neck neutral and notmanipulated during intubation. Name Value Range Interpretation Code Description Data Irena rce(s) Supporting Document(s) ID Date Data Source [id number] 09/08/2019 09:35:19 AM EST [address] [address]Ftfcnub Name: DEBBI Brody OMARDOB: 1965Sex: FOrdering Provider: KEVIN Reed Prov: KEVIN Godoy Provider: Procedure Performed: XR OR SPINE LUMBAR CONTINUATIONExam Date: 09/08/2019 09:20MRN: [id number] Number: [id number] Class: InpatientAccount #: [id number] for Exam: Low back pain, unspecified back pain laterality, unspecified chronicity, unspecified whether sciatica present [M54.5]DDD (degenerative disc disease), lumbar [M51.36]Neural foraminal stenosis of lumbar spine [M99.83]Technique: Lateral vi ew obtained.Comparison: Prior study performed earlier in the day.Findings: Surgical instruments are noted posteriorly at the L4-5 level.The alignment is intact.IMPRESSION: L4-5 localization.Report electronically signed by: SHER DURAN On 09/08/2019 9:35 AMWorkstation ID: [id number] - [id number] Name Value Range Interpretation Code Description Data Irena rce(s) Supporting Document(s) ID Date Data Source [id number] 09/08/2019 07:30:09 AM EST [facility] Name Value Range Interpretation Code Description Data Irena rce(s) Supporting Document(s) POC SOURCE [facility] POC TEMPERATURE [facility] POC FIO2 [facility] POC VENOUS PH (7.33-7.43) [facility] POC VENOUS PCO2 (38.0-50.0) [facility] POC VENOUS PO2 (30-50) [facility] POC VENOUS SO2 (60-85) [facility] POC VENOUS BASE EXCESS [facility] [facility] POC VENOUS HCO3 (23.0-27.0) [facility] [place] [facility] POC VENOUS TOTAL CO2 (24-28) [facility] [place] [facility] PERFOR[facility] BY [facility] CLINICAL STAFF POC HCT 37 % (36.0-47.0) [facility] [place] [facility] [place] POC SODIUM (136-145) [facility] [place] [facility] POC POTASSIUM 3.8 MMOL/L (3.6-5.2) [facility] [place] [facility] POC IONIZED CALCIUM (4.6-5.3) [facility] [place] [place] [facility] [place] POC GLU 102 MG/DL (70-99) H [facility] [place] [facility] PER[facility] [place] [facility] [place] ID Date Data Source [id number] 09/08/2019 08:39:57 AM EST [facility] [place] [facility] SPEC EXP DATE 09/11/2019PATI ENT ABO/Rh O POSITIVEANTIBODY SCREEN NEGATIVETESTING SITE PERFORMED AT [address] [place] [address] [facility] [id number] BANK COMMENT BLOOD TYPE CONFIRMED. Name Value Range Interpretation Code Description Data Irena rce(s) Supporting Document(s) TYPE AND SCREEN [facility] [place] [facility] [place] ID Date Data Source [id number] 09/08/2019 07:02:23 AM EST [facility] [place] [facility] [place] Name Value Range Interpretation Code Description Data Irena rce(s) Supporting Document(s) POC NOVA GLU 98 mg/dL (70-99) [facility] [place] [facility] [place] PERFORMED BY [facility] CLINICAL STAFF ID Date Data Source [id number] 08/09/2019 03:06:00 PM EST [facility] DATE OF EXAMINATION: 08/09/2019 14:41 ES T TECHNIQUE: 5 views of the lumbar spine were obtained. HISTORY: Pain FINDINGS: Bones are mildly osteopenic. Mild to moderate degenerative changes are seen atall levels. There is no fracture or subluxation.. IMPRESSION: Mild to moderate osteopenia and degenerative changes.. Electronically signed in PS360 by: Keila Cano M.D. 08/09/2019 15:01 EST Name Value Range Interpretation Code Description Data Irena rce(s) Supporting Document(s) ID Date Data Source [id number] 07/16/2019 01:09:39 PM EST [facility] Name Value Range Interpretation Code Description Data Irena rce(s) Supporting Document(s) EKG [facility] ONCIQm1zVwVAScFuy7QcGmSuTIMqNQ6cyqx2Y8K2hKAgN0ZdtBKqt2vqT7QjY1VqMQJcXOQLSK6OwYTh jb2 [file] +2fb/KfywD5j2K4V/MsR/3LEv/tDzDdEen72+J LMPxm0aUHgOztFh234+LECMwg2lGXlBmeDr011+MJMVre5uZXbCyjAb800+FQQWnp4vYkjQ9gFzeHSuZ zGKWquGRm8sT/7Z1e/4lQjtF8+jbOw3UFzQt31mSw/OmsuZ+g9+PStgVgi8c0j2vxZx139+WOGHea9eV IeitflqmojBvl4zQ3BqkMLcYEH8dbryqKaPZXyOD+B 0eqvlnSjWJ4H4x7v/ymy4xW5bmfq3sb5nHwVy+Kw2dis4SbS4/IEU19s8Jg1S/0orFNWD5L+2YGnXb08 enjTl26g+cTNk3OYK7rXq+zf/32Nde48Ux72lyh/ONj5/PFXycHO/vobwBE3QnwR37/V/zZ//y 7ZmlDRBw55RxxtqgSS2Z2KKCjHuqOV8UD+YllrZ5vk tpXhfgVwF+XvDPMZ7D7HvVqiVpNhWM8k+9+nYRcV3aF8Avzj0sJ2QzPIEn6X0dbTL3P8ldGzNkP2vtL7 e/KkQac0rVGq/Yq63APzBI+Zmjd+TrR++TB4E76wVeZR9SnfJUaBx9+LK9RR2ZFq9/5mfwR1xr0cs2D/ lV/gPbKap08h+4MlZ9RJap8HUOXU8ZmlzQNC4PzR5H 4leB+XAfszEXVlL5JEVpTjkIlP1FEvN1DJzrnqQagcFxWaJ/FeBXMfv+jdn+RoaP3WrpOD/l5mhaACZK hamFth5zyP1G+EPLExS7WOHiLenOmO2K+UUPXpK9DkWkpGin3LaU23TRbHyTITrepPstRH2WpQTu7+AQ 4BRmLcmU2LPdXdoZYQfJXsHxxlM7ZRgGynD6NYg5y+ 9Q/H8N74N8DnUkTX44qK3P+MSMaxdpRwS5zqKjHmNsVuyie00MOp/2vOiAr4tFe7Fp11Ccas1Vt/88vP o7ii73Ahw/Jr/L8tifmu6BLtrgo2clFtqxwM9PURbfap6HA+YinRM7rftB86l+QZMNEbAy2QP289WS5x uB+OTCAUmF2sub6CRf4qN+MfRtpagwW21Nh/nGWP38 Qbr8ucxN+Mary Ann/Rwcq+MbY+X2Zi7lff411qt3kc+/yhYx4+ev/oyNI//iCpKXRC9jNW/vz1+EoRB8vp4u [file] vZydkrd9r5Ra9rrT/nmFQNbXD6+Ward/2xz1Ssrq6vg 8LC/xqJb+q/h7pn50I25kk172dxJm9gj6YgFHmrVqiRd0ttqW/QcI8QxrVmY74C7Oq+U0uxHsAV+QJeU UpUuhJQ1rcK78f7u+piE8qO9x3wd38qc/wPPtWxq/qM/td45/Xf2VxyMLhhZeSNWhfp2Bljg7HV91KY4 wsbUt+NfN/m2aNi38XutbMD+14zz9ig+zkV+e5tpNf CR85ApnledZZZ9Rg55lZN2/n/bSf3M+EvCD3/wuOv7RuEahNY48mhP2sD+PNnLGanGDTB6jVc5gOcJqI jM03LIc25wlt9Pdt6Wog0Cxw7Mt0Wgez7/B74a+66fgqr1Ol21/b+v7d1s/5nw8we379ezhsw3V0jKM8 9+Dp52ag5iuHBWrmwEXUp4ozk7Hh3w8iYlszN3boql CzoJ9G0Gsszp1cx9d+48mvDs/Z0fuSO/dAkJ6013bjdi/bya/Os2wnv/LT6/vwq7Iz+hJCgp2oG/kbk1 2uXfjQXf9dWyz05vJ6dH/4p0v545nMnd8afGGio3b8wS176Fg3cxF+tRG/2ohfbcSvNuJXG/GrjfXgRv knL095Go/a2B/c2B/cq+NIez+QMZ+4Jbtw9atqohp/ 7z3w+sT/LsitN/tyN+gIR/blbmAETtC/OvtyN+j1d/bdweQvFlnapH8tZMP3+hR9uN40WySBUYq6isRl TRNREC2UHkE3DAKl+1K3SXajsgVyBMVcMWOHmFQZdDOjxoTw6DQzto+eBIuAY+H2lLkC3zFaIX4OgGC5 x8AnAa+Q467M1eE+2earMY4Oy/Pnf60rzr+EvbIvd4 KHmhTwkL1tK840zrle3Mz5/X0Gi0JgzmMByeD8b/DvmEpHv8ZkXg9Fw7dg527bkjiCgrxyj67EIdloGr bOs3FTuRV6DZtMTuZWoNI6IELtmJ003fb/Jv/bTEGW1FTzUrwoiyg7UVUa+4JYIWu2nj/E8nXeDJdeUE /sbFDnU19whgs1uOkZ2Es7YZ9wyfKRxjYtu5eCm/juan manuel [file] HEMPH5507sKrObGcAYVRGZEYG9990fCtKiUwIZPUKEOKC6216vKwJlJmJBVUASSVW0194bQmRjUxKGDY DRKQA6670mFhQgWfBXNDKPOAO90mjnRtLqGlAYD5JJ YjkZ5bGuiMEtaHkSbGXy3DuxGznqWhuP81mh/DBnj8dK025Qwy1o1x3n26YtvQX3hsH304sd76QFNJfq 52hnco4yZL885NSWnhltSb1stXwi9x5v2lY4PbSxcsQve43cf+m5/i+povU5K6Sorpd2//ahWmA010oa i4fQ771iF8rkgtsb5zRe0Vqdpy29ddO3/83z/f/hYH 5oxC7inM7Thzs34nfBeebt9ao5mBgj2/vD1/63Gm83pIq96lPw+8i5whESy2+c2UuXGw8BQ2iPobd24f oxQPcPr0+MuHjw/3P0///zA07199t24+Bi72Tnld02kOIN/1zfo03G3gcqaNpJaC3brBnb7j6h9uIxjM 0Ih18P7wAc090NIFhoZ567ys6eT8V7WiE8tZ9/9D4/ A4IVn6u/cLUvmtVEgkTRyrG1q4akSSayynfopW3sh0B56QkreNVq4sNez+l/uPH5c+Ot6kNuqoSe9RB7 ffHsbFwS+2bv1m/6Uwkp03y7/uXfXh9u9w2Jli95juoCrS7DYlwAw/+PnI8KXa2/6A6tn32MaV2I212C Cff83lgu1l4yXf6yT74qGx/cf/3P3+figCMrt2wag+ 9coY3g3ycq++mX7+Y+o3u7sN52rmbz6+z38gEb12/lpz05mb0l8AvKW3ZERdart9bAiKkNOx05T94Fke f5kxcPgfzX0M0kbDj+6c7lOM4JD02/aUc27B0bCX0sc7e0he/T6u/xbv765em/vs5nPjYK0v/3D3+8EI 06G032t/3t99+nD3+Ew1tS8b/rF8sNg7/LkCOcNo15 /vj/fJPgweQmJ69+39+59yI2vz/Y/m4pk4o89kIMSSgmMsn7oo+fkYl+nUqls8q/3SPXe/9o6aspywDj mwd87ySllrBnd1lJn0bUftn1rIjgcjVcFH60Rs9uAtxgxq4U5cb6gUPz+aclalYsmZ108/bqet4/d/A7 WmoyvqzbCobPTvQR2TOW1cb1DkLgL5VGWae2UnTKvz NKu3bKNlKCvjqaNjy2LrvtabM8Ics2CwGrNtMMZsItDvKws8FKOhFwC7sXOiRhXiUOBlH2FlPPNvAqK2 RnPdPUCCXW6EIJTfnzQnOzBvXNC+FhNvFW9inxguMINti2XuWFvmVArlOTEdF5E3uFseCRNuT0TtfQ47 TCZuH3LonmZ3VTK6XLWiLfGxLCFbvOVnSFImOTY+Pm WcIB8rugmsOWGgv0NuXDrgCTQ7cC3wXFgPPOCTYKpPPLpwFjB2a12pikCJVFUhLZZpHL9FecRtnXcrfv LonNLkXJB6GkSnLBVlUjDqAhX7DJELLUFtVMBnLJPhQFRtR0XohAmiNNzURYUVXTbPFBghRaGiy5T7IO IipsZFE34IQPyvOQLHWgZeBEGmGcClHPI1JSQeJ4Yl dkGxfXWtFFQTDFhdWdpqJFKdlP5omXzoT7SuRSZ4z3RfWJ9TB8ZvFIXrLOEOBAP7s9PfGGSlupiqbbrq YqPzQQPkGITcYJJvNZ2Uxx1dhGWlbgZwSNVQIOecUzraWP5vbDdibtgwO8ZtaXZyBZD+KvCrES1cji9+ WoHrFJLoTwp9NUKuOXkeHPBkMCItRDCpH1whYMIoMm GnOHCtNzIrLY1Jo6YljWEbBr8hlsOiMgjQgTBwOzcdLENpCXKsBMZnGaPPUTFyJNLdGBSuUCQ6YJDkMY RsXUcjEMVuESMfMHH5TKScHIFgRF3sFiOvINNgVOE4AGofLANsJDXvzqQDMLMxZPE7FWQ4KITmMXWwAS ZeGQrfUBFwQEVvZTIrYXG1RSL7ENJfOoAaVKLdMJMy UFHxZWMuTAWaeaPZCWImXUKmTIO4XOOqVKOuMTIxHDjvEPFiSRAxDTpeWSWuFAKjAV6xFeOjPDUzZTDt LVlgHDCiQAEkpcJKBFDsHPYtYMUnVMQiAVVbYNGsUNfwMLFjQLOgSWAfYCUkQSEdXL6rNsKdFPSwAWB7 TEOrPZLsQVEjgxOCKYXaVUPkWLl0PVWyYVFzYQOoCZ iaVITwEXKeINK9PUXoGBUdQJ1cEnRkCAZeZPX0MzExHCKpMIIfptSLMEFlMONuRNY6SfXkRXNrDRXlZD rbBLYjGFCgHVmgPCYvPONgHT7tEkHbEAZaREIpOOlcQQMoEZUcmzVUGYMqPLMfRUHdHjPzAFKmPNJiGB zmTNEoYXMjYUz3AYNiNHGoSN4xYrVvZERcZCT9GGzm EVWrSQSqrpIRPDUpGHRaMNfgBGMoGJBbHUFbFTamUOBuZBItGPO0DMUmAJVyZE0uVvMtHXAoBLKxSXHp VsW1CrNiGwEUlJJvdHwibgk4XBwzO2v5NVLwJArpDL4xtlFgXXVrFguyXb0uoZH8FZWeEbzTSy2Ye3Fs ksO5qmYjFhTsETfiBxZlGL8F ID Date Data Source [id number] 07/16/2019 06:25:12 PM EST [facility] [place] [facility] [place] SPEC EXP DATE 07/31/2019PATI ENT ABO/Rh O POSITIVEANTIBODY SCREEN NEGATIVETESTING SITE PERFORMED AT [address] [place] [address] Name Value Range Interpretation Code Description Data Irena rce(s) Supporting Document(s) TYPE AND SCREEN [facility] [place] [facility] [place] ID Date Data Source [id number] 07/17/2019 02:24:40 PM EST [facility] [place] [facility] [place] Name Value Range Interpretation Code Description Data Irena rce(s) Supporting Document(s) SPECIMEN DESCRIPTION [facility] [place] [facility] [facility] [place] STAPH SCREEN RESULTS (ONEGSA) [facility] [place] [facility] [facility] [place] COMMENT [facility] [place] [facility] GENE TO DETECT STAPH AUREUS. (2) RT-P CR WAS PERFORMED FOR THE mecA AND [employer] GENES TO DETECT METHICILLIN RESISTANCE IN STAPH AUREUS. ID Date Data Source [id number] 07/16/2019 05:41:56 PM EST [facility] [place] [facility] [place] Name Value Range Interpretation Code Description Data Irena rce(s) Supporting Document(s) HEMOGLOBIN A1C @ 5.9 % (4.0-6.0) [facility] [place] [facility] [place] Performed using Siemens [place] immunoassa y.Care must be taken when interpreting DgT1ppnqhnnw in patients with a hemoglobin variantor decreased erythrocyte lifespan. Values 5.7 - 6.4% suggest prediabetes.Values >=6.5% are diagnostic for diabetes.REFERENCE: DIABETES CARE 2018: 41(S13-S27). EST AVERAGE GLUCOSE 123 mg/dL [facility] [place] [facility] [place] ID Date Data Source [id number] 07/16/2019 05:17:45 PM EST [facility] [place] [facility] [place] Name Value Range Interpretation Code Description Data Irena rce(s) Supporting Document(s) WBC 12.8 10*3/uL (4.1-11.0) H [facility] [place] [facility] [place] RBC 4.44 10*6/uL (4.00-5.40) [facility] [place] [facility] [place] HGB 12.7 g/dL (12.0-16.0) [facility] [place] [facility] [place] HCT 38.7 % (36.0-47.0) [facility] [place] [facility] [place] MCV 87.2 fL (80.0-95.0) [facility] [place] [facility] [place] MCH 28.5 pg (27.0-32.0) [facility] [place] [facility] [place] MCHC 32.7 g/dL (32.0-36.0) [facility] [place] [facility] [place] RDW 15.2 % (10.5-14.5) H [facility] [place] [facility] [place] PLT 283 10*3/uL (150-450) [facility] [place] [facility] [place] MPV 7.6 fL (7.1-10.7) [facility] [place] [facility] [place] ID Date Data Source [id number] 07/16/2019 04:37:48 PM EST [facility] [place] [facility] Name Value Range Interpretation Code Description Data Irena rce(s) Supporting Document(s) APTT 25.5 s (22.0-34.3) [facility] [place] [facility] [place] ID Date Data Source [id number] 07/16/2019 04:37:48 PM EST [facility] [place] [facility] [place] Name Value Range Interpretation Code Description Data Irena rce(s) Supporting Document(s) PT 9.6 s (9.2-11.9) [facility] [place] [facility] INR 0.93 [facility] [place] [facility] SUGGESTED THERAPEUTIC RANGES USING INR F ORSTABILIZED ANTICOAGULATED PATIENTS:STANDARD DOSE THERAPY INR 2.0-3.0 DVT, PE, PREVENT DVT OR EMBOLISMHIGH DOSE THERAPY INR 2.5-3.5 PREVENT EMBOLISM FROM MECHANICAL HEART VALVE ID Date Data Source [id number] 07/16/2019 04:08:37 PM EST [facility] [place] [facility] [place] Name Value Range Interpretation Code Description Data Irena rce(s) Supporting Document(s) SODIUM 141 mmol/L (136-145) [facility] [place] [facility] POTASSIUM 4.6 mmol/L (3.6-5.2) [facility] [place] [facility] CHLORIDE 104 mmol/L (100-108) [facility] [place] [facility] CO2 32 mmol/L (22-31) H [facility] [place] [facility] [place] ANION GAP 5 mmol/L (7-16) L [facility] [place] [facility] [place] UREA NITROGEN 16 mg/dL (7-24) [facility] [place] [facility] CREATININE 0.85 mg/dL (0.60-1.00) [facility] [place] [facility] BUN/CREAT RATIO 18.8 RATIO (10.0-20.0) [facility] [place] [facility] [place] GLUCOSE 100 mg/dL (70-99) H [facility] [place] [facility] CALCIUM 9.5 mg/dL (8.4-10.2) [facility] [place] [facility] TOTAL PROTEIN 6.7 g/dL (6.4-8.2) [facility] [place] [facility] [place] ALBUMIN 3.6 g/dL (3.5-4.6) [facility] [place] [facility] [place] GLOBULIN 3.1 g/dL (2.7-4.3) [facility] [place] [facility] ALB/GLOB RATIO 1.2 RATIO [facility] [place] [facility] [place] ALKALINE PHOSPHATASE 55 U/L (45-117) [facility] [place] [facility] [place] BILIRUBIN,TOTAL 0.4 mg/dL (0.0-1.0) [facility] [place] [facility] [place] AST (SGOT) 8 U/L (11-39) L [facility] [place] [facility] [place] ALT (SGPT) 26 U/L (12-78) [facility] [place] [facility] [place] GFR >60 ml/min/1.73m2 (>59) [facility] [place] [facility] GFR ( AMER) >60 ml/min/1.73m2 (>59) [facility] [place] [facility] GFR INTERPRETATION [facility] [place] [place] --NORMAL KIDNEY FUNCTION OR MILD DISEASE - GFR >OR= 60CHRONIC KIDNEY DISEASE - GFR 15 - 59RENAL FAILURE - GFR <15 Est. GFR calculation based on the MDRDstudy equation, which assumes a steadystate for creatinine. Est. GFR should notbe used for medication dosing. ID Date Data Source [id number] 07/16/2019 11:56:56 AM EST [facility] INFORMATIONPatient MRN Name Date of Age Gend*PT [id number] Debbi Nelson 1965 53 years F OPPT Location Admission Date/Time Visit ID Attending Provider --- --- --- Kevin Pacheco MD([id number]) EPI ID CSN Admitting Provider [id number] ---HISTORY PHYSICALName: Debbi Nelson : 1965 Sex: female Care Provider: OSKAR SHRESTHA DOAttending Physician: Dr. PachecoInformant: The patient who is reliable.Chief Complaint: Low back painHISTORY OF PRESENT ILLNESS: 53 years old white female with history of chroniclow back pain for several years. Patient recently has noted worsening of hersymptoms. She complains of pain in the lower back radiating down both legs tothe toes. She also complains of numbness and tingling in the lower extremitiesto the toes. Patient indicates she has had 2 mechanical falls recently. Shedenies any injury. Patient has been treated with nerve blocks in the past. Thepatient does not use assistive devices to ambulate.The Patient met with Dr. Pacheco, options were discussed and they have elected tounder go bilateral foraminotomies L4-5 on 07/30/19.PAST MEDICAL HISTORY:Past Medical History:Diagnosis Date Anemia Asthma Carpal tunnel syndrome Chronic low back pain CKD (chronic kidney disease) stage 3, GFR 30-59 ml/min COPD (chronic obstructive pulmonary disease) with chronic bronchitis Cyst of sphenoid sinus Degenerative disc disease, lumbar GERD (gastroesophageal reflux disease) Hypertension MRSA (methicillin resistant Staphylococcus aureus) Neuroforaminal stenosis of lumbar spine Osteoarthritis Pineal gland cyst C/O headaches....Treated with Botox injection Sleep apnea CPAP Vaginal itching 07/16/2019PAST SURGICAL HISTORY:Past Surgical History:Procedure Laterality Date ANTERIOR CERVICAL DISCECTOMY W/ FUSION 07/13/2015 C4-7 ANTERIOR CERVICAL DISCECTOMY W/ FUSION 07/25/2016 C3-4 BREAST BIOPSY CHOLECYSTECTOMY 1987 COLONOSCOPY 2012 HYSTERECTOMY TONSILLECTOMY TUBAL LIGATIONALLERGIES:AllergiesAllergen Reactions Sulfa Antibiotics Hives and Swelling Gabapentin Other (See Comments) Memory loss, shaking and stuttering Topiramate Memory loss, shaking, stutteringMEDICATIONS:Prior to Admission medicationsMedication Sig Start Date End Date Taking? Authorizing Provideralbuterol (PROVENTIL HFA;VENTOLIN HFA) 108 (90 Base) MCG/ACT inhaler Inhale 2puffs every 4 (four) hours as needed for shortness of breath HistoricalProvider, MDAMILoride (MIDAMOR) 5 MG tablet Take 10 mg by mouth daily 11/02/18 HistoricalProvider, MDamitriptyline (ELAVIL) 50 MG tablet Take 50 mg by mouth nightly 10/05/18Historical Provider, Rodspirin 81 MG tablet Take 81 mg by mouth daily Historical Provider, baclofen (LIORESAL) 10 MG tablet Take 10 mg by mouth 3 (three) times a day11/27/18 Historical Provider, TAMIRholecalciferol 50 MCG (2000 UT) CAPS Take 2,000 Units by mouth dailyHistorical Provider, guaiFENesin (MUCINEX) 600 MG 12 hr tablet Take 600 mg by mouth 2 (two) times aday as needed for congestion 05/10/19 Historical Provider, irbesartan (AVAPRO) 75 MG tablet Take 75 mg by mouth daily 11/27/18 HistoricalProvider, Olgaometasone (NASONEX) 50 MCG/ACT nasal spray 2 sprays into each nostril daily12/05/17 Historical Provider, OLGAultiple Minerals-Vitamins (ZXY-QVM-BBJI-D PO) Take 1 tablet by mouth dailyHistorical Provider, omeprazole (PRILOSEC) 40 MG capsule Take 40 mg by mouth 2 (two) times a day04/12/19 Historical Provider, ondansetron (ZOFRAN-ODT) 8 MG disintegrating tablet Take 8 mg by mouth every 8(eight) hours as needed for nausea Historical Provider, Donaldotassium chloride SA (K-DUR,KLOR-CON) 10 MEQ tablet Take 10 mEq by mouth dailyHistorical Provider, MDpregabalin (LYRICA) 50 MG capsule Take 50 mg by mouth 3 (three) times a dayHistorical Provider, MDranitidine (ZANTAC) 300 MG tablet Take 300 mg by mouth nightly 05/20/19 05/19/20Historical Provider, DARIUSPIRIVA RESPIMAT 2.5 MCG/ACT AERS Inhale 2 puffs daily 12/04/18 HistoricalProvider, MDSYMBICORT 160-4.5 MCG/ACT inhaler Inhale 2 puffs daily 09/09/18 HistoricalProvider, MDcetirizine (ZYRTEC) 10 MG tablet Take 5 mg by mouth 07/16/19 HistoricalProvider, MDfluconazole (DIFLUCAN) 200 MG tablet 05/20/19 07/16/19 Historical Provider, iron polysaccharides (POLY-IRON 150) 150 MG capsule TAKE ONE CAPSULE BY MOUTH DAY 03/24/17 07/16/19 Historical Provider, orphenadrine (NORFLEX) 100 MG tablet Take 100 mg by mouth 05/05/17 07/16/19Historical Provider, MDpantoprazole (PROTONIX) 40 MG tablet 11/24/18 07/16/19 Historical Provider, MDSocial HistorySocioeconomic History Marital status: Spouse name: Not on file Number of children: Not on file Years of education: Not on file Highest education level: Not on fileOccupational History Not on fileSocial Needs Financial resource strain: Not on file Food insecurity: Worry: Not on file Inability: Not on file Transportation needs: Medical: Not on file Non-medical: Not on fileTobacco Use Smoking status: Former Smoker Packs/day: 0.50 Years: 40.00 Pack years: 20.00 Types: Cigarettes Last attempt to quit: 2019 Years since quittin.8 Smokeless tobacco: Never UsedSubstance and Sexual Activity Alcohol use: Yes Drug use: No Sexual activity: Not on fileLifestyle Physical activity: Days per week: Not on file Minutes per session: Not on file Stress: Not on fileRelationships Social connections: Talks on phone: Not on file Gets together: Not on file Attends roman catholic service: Not on file Active member of club or organization: Not on file Attends meetings of clubs or organizations: Not on file Relationship status: Not on file Intimate partner violence: Fear of current or ex partner: Not on file Emotionally abused: Not on file Physically abused: Not on file Forced sexual activity: Not on fileOther Topics Concern Not on fileSocial History Narrative Not on fileFamily HistoryProblem Relation Age of Onset Coronary artery disease Father Diabetes SisterREVIEW OF SYSTEMS:Constitution: Weight stable, Denies weakness, fatigue, fever or chills. Caffeineintake: 2 cups/day.SKIN: C/O open area at base of spine.HEENT: Denies any loose or broken teeth. Patient wears corrective lenses.Denies any blurred vision, double vision, dizziness, tinnitus, or sore throatRespiratory: Denies any shortness of breath, TAMAYO, cough, sputum production,hemoptysis or wheezing.Cardiovascular: Denies any chest pain/ pressure or tightness. Denies anyproximal nocturnal dyspnea, orthopnea, palpitations, edema,leg ulcers,claudication.Muscle/Skeletal System: See HPINeurologic: Denies any headaches, tremors, hx seizures or syncope.GI: Denies any abdominal pain,nausea, vomiting, dysphagia, odynophagia,hematemesis, diarrhea, constipation or melena.: Denies any dysuria, frequency, urgency, hematuria or nocturia.Endocrine: Denies polyuria, polydipsia or polyphagia. Denies any heat or coldintolerance, or night sweats.Hematology: Denies any bleeding or bruising tendencies.HA Frailty Scale :: 5/10 Mildly Frail (more evident slowing and need help inhigh order IADLs (finances, transportation, heavy housework, medications).Typically, mild frailty progressively impairs shopping and walking outsidealone, meal preparation and housework).Anesthesia complications: slow heart rate onceSteroid use: Recent short-term course.DNR Status: full codeHCP: yes per patient.PHYSICAL EXAM:General: She is a 53 years old, pleasant white female, in no acute distress attime of examination. Vitals on arrival to the office are BP 110/76 (BP Location:Left upper arm, Patient Position: Sitting) | Pulse 78 | Ht 1.6 m (5' 3") | Wt81.3 kg (179 lb 4.8 oz) | SpO2 98% | BMI 31.76 kg/m Body mass index is 31.76kg/m ..Skin is pink warm and dry. Open area lower spine. Erythema and purulentdrainage.HEENT: She is normocephalic, atraumatic. [place] conjunctivae. Anicteric sclerae.Pupils are equal, round, reactive to light and accommodation. Extraocularmovements are intact. Ears: Without drainage or lesion. Mouth: Dentition is ingood repair. She has a grade +2 airway. Neck is supple midline without cervicaladenopathy. There is no tonsillo pharyngeal congestion. Mucous membranes aremoist. There are no oral lesions. No jugular distention. No carotid bruit.CHEST/BREAST: A/P less than transverse. Breast exam declined.LUNGS: Clear to auscultation. No wheezes, rhonchi or crackles.HEART: Rate rhythm regular. S1, S2. I-II/ systolic murmur at base. No rub orgallop.ABDOMEN: Bowel sounds positive times four. Soft, non tender. No reboundtenderness. No hepatosplenomegaly. Negative CVAT.GENITAL/RECTAL: Deferred.MUSCLE/SKELETAL: Strength is 5/5. Sheet Taker are equal.NEUROLOGICALLY: Cranial nerves II through XII are grossly intact.VASCULAR: Pulses are symmetrical. No edema.IMPRESSION:1. Neural foraminal stenosis of lumbar spine.2. Medical co morbidities as listed above.3. ALLERGIES:Sulfa antibiotics; Gabapentin; and Topiramate4. Pilonidal cyst: Patient is scheduled to see family practice July 19.Dr. Pacheco's office notifiedPLAN:1. Surgery as per Dr. Pacheco.2. Anticipated length of stay as per guidelines, barring any operativecomplications or exacerbations of medical co morbidities.3. Discharge plan is to return home with the assistance of family.4. Instructions for Surgery:- You may take Tylenol (Acetaminophen) for pain as needed the morning of surgery *STOP*Stop all Multivitamins and all Herb al drugs including Green Teas and Fish OilNSAID's - which include Ibuprofen (i.e. Motrin, Advil), Naproxen (i.e. Aleve)Seven days prior to surgery.Instructions for patient's medicationsCurrent Outpatient MedicationsMedication Instructions albuterol (PROVENTIL HFA;VENTOLIN HFA) 108 (90 Base) MCG/ACT inhaler CONTINUEas prescribed AMILoride (MIDAMOR) 5 MG tablet CONTINUE as prescribed amitriptyline (ELAVIL) 50 MG tablet CONTINUE as prescribed aspirin 81 MG tablet Per Surgeon baclofen (LIORESAL) 10 MG tablet CONTINUE as prescribed Cholecalciferol 50 MCG (1999 UT) CAPS STOP taking 1 WEEK before guaiFENesin (MUCINEX) 600 MG 12 hr tablet CONTINUE as prescribed irbesartan (AVAPRO) 75 MG tablet CONTINUE as prescribed mometasone (NASONEX) 50 MCG/ACT nasal spray CONTINUE as prescribed Multiple Minerals-Vitamins (QWX-CQT-YPIB-D PO) STOP taking 1 WEEK before omeprazole (PRILOSEC) 40 MG capsule CONTINUE as prescribed ondansetron (ZOFRAN-ODT) 8 MG disintegrating tablet CONTINUE as prescribed potassium chloride SA (K-DUR,KLOR-CON) 10 MEQ tablet CONTINUE as prescribed pregabalin (LYRICA) 50 MG capsule CONTINUE as prescribed ranitidine (ZANTAC) 300 MG tablet CONTINUE as prescribed SPIRIVA RESPIMAT 2.5 MCG/ACT AERS CONTINUE as prescribed SYMBICORT 160-4.5 MCG/ACT inhaler CONTINUE as prescribedNo current facility- administered medications for this visit.07/16/2019 11:53 Bonnie Leon document or parts of this document, were dictated using [employer] speaking software. A reasonable attempt at proofreading has beenmade to minimize errors. Please call with any questions or corrections. Name Value Range Interpretation Code Description Data Irena rce(s) Supporting Document(s) ID Date Data Source [id number] 07/08/2019 01:47:00 PM EST [facility] DATE OF EXAMINATION: 07/08/2019 13:24 ES T CHEST 2 VIEWS HISTORY: MRSA TECHNIQUE: PA and lateral radiographs of the chest COMPARISON: 04/11/2019 FINDINGS: No evidence of focal consolidation, pneumothorax or large pleural effusion.Lungs are clear. Mediastinal structures are unremarkable. No aggressive osseouslesions. IMPRESSION: No focal consolidation. Electronically signed in [id number] by: Keila Cano M.D. 07/08/2019 13:41 EST Name Value Range Interpretation Code Description Data Irena rce(s) Supporting Document(s) Procedure Social History Code Duration Value Status Description Data Source(s ) Alcohol intake 07/12/2020 12:00:00 AM EST Yes completed [facility] Cigarette pack-years 07/12/2020 12:00:00 AM EST UNK completed [facility] Cigarettes smoked current (pack per day) - Reported 07/12/20 12:00:00 AM EST UNK completed [facility] Smoking 07/12/2020 12:00:00 AM EST Former smoker completed Former smoker [facility] Alcohol intake 06/21/2020 12:00:00 AM EDT Yes completed [facility] Cigarette pack-years 06/21/2020 12:00:00 AM EDT UNK completed [facility] Cigarettes smoked current (pack per day) - Reported 06/21/20 12:00:00 AM EDT UNK completed [facility] Smoking 06/21/2020 12:00:00 AM EDT Former smoker completed Former smoker [facility] Smoking 06/13/2020 12:00:00 AM EDT Former Smoker completed Former Smoker [email or web address] ([facility]) Smoking 06/13/2020 12:00:00 AM EDT Former Smoker completed Former Smoker [email or web address] ([facility]) Smoking 06/07/2020 12:00:00 AM EDT Patient is a former smoker completed Patient is a former smoker [facility] ([facility] Alcohol intake 05/30/2020 12:00:00 AM EDT Yes completed [facility] Cigarette pack-years 05/30/2020 12:00:00 AM EDT UNK completed [facility] Cigarettes smoked current (pack per day) - Reported 05/30/20 12:00:00 AM EDT UNK completed [facility] Smoking 05/30/2020 12:00:00 AM EDT Former smoker completed Former smoker [facility] Smoking 05/23/2020 12:00:00 AM EDT Patient is a former smoker completed Patient is a former smoker [facility] ([facility]) Alcohol intake 03/16/2020 12:00:00 AM EDT Current drinker of al cohol (finding) completed Current drinker of alcohol (finding) [facility] Cigarette pack-years 03/16/2020 12:00:00 AM EDT UNK completed [facility] Cigarettes smoked current (pack per day) - Reported 03/16/20 12:00:00 AM EDT UNK completed [facility] Smoking 03/16/2020 12:00:00 AM EDT Current every day smoker co mpleted Current every day smoker [facility] Smoking 12/30/2019 12:00:00 AM EDT Current Smoker completed Curre nt Smoker eCW1 ([facility]) Smoking 12/30/2019 12:00:00 AM EDT Current Smoker completed Curre nt Smoker eCW1 ([facility]) Smoking 12/30/2019 12:00:00 AM EDT Current Smoker completed Curre nt Smoker eCW1 ([facility]) Smoking 12/30/2019 12:00:00 AM EDT Current Smoker completed Curre nt Smoker eCW1 ([facility]) Smoking 12/30/2019 12:00:00 AM EDT Current Smoker completed Curre nt Smoker eCW1 ([facility]) Alcohol intake 11/08/2019 12:00:00 AM EDT Yes completed [facility] Cigarette pack-years 11/08/2019 12:00:00 AM EDT UNK completed [facility] Cigarettes smoked current (pack per day) - Reported 11/08/19 12:00:00 AM EDT UNK completed [facility] Smoking 11/08/2019 12:00:00 AM EDT Former smoker completed Former smoker [facility] Alcohol intake 09/09/2019 12:00:00 AM EST Yes completed [facility] Cigarette pack-years 09/09/2019 12:00:00 AM EST UNK completed [facility] Cigarettes smoked current (pack per day) - Reported 09/09/19 12:00:00 AM EST UNK completed [facility] Smoking 09/09/2019 12:00:00 AM EST Former smoker completed Former smoker [facility] Alcohol intake 07/16/2019 12:00:00 AM EST Yes completed [facility] Cigarette pack-years 07/16/2019 12:00:00 AM EST UNK completed [facility] Cigarettes smoked current (pack per day) - Reported 07/16/20 19 12:00:00 AM EST UNK completed [facility] Smoking 07/16/2019 12:00:00 AM EST Former smoker completed Former smoker [facility] Vital Signs ID Date Data Source UNK Name Value Range Interpretation Code Description Data Source(s) Body surface area Derived from formula 1.74 m2 1.74 m2 [facility] ([facility], ) Body weight 72.576 kg 72.576 kg [facility] ([facility]) [place] body weight 110 [lb_av] 110 [lb_av] [facility] ([facility]) Body mass index (BMI) [Ratio] 29.3 kg/m2 29.3 k g/m2 [facility] ([facility]) Body weight 160.00 [lb_av] 160.00 [lb_av] [facility] ([facility]) Body height 62 [in_i] 62 [in_i] [facility] ([facility]) 5'2" Body temperature 96.8 [degF] 96.8 [degF] [facility] ([facility]) Oxygen saturation in Arterial blood by Pulse oximetry 98 % 98 % [facility] Body mass index (BMI) [Ratio] 30.00 kg/m2 30.00 kg/m2 [facility] Body weight 74.39 kg 74.39 kg [facility] Body height 157.5 cm 157.5 cm [facility] Body temperature 36.11 Jennie 36.11 Jennie [facility] Heart rate 86 /min 86 /min [facility] Diastolic blood pressure 76 mm[Hg] 76 mm[Hg] [facility] Systolic blood pressure 111 mm[Hg] 111 mm[Hg] [facility] Oxygen saturation in Arterial blood by Pulse oximetry 96 % 96 % [facility] Respiratory rate 16 /min 16 /min [facility] Body temperature 36.28 Jennie 36.28 Jennie [facility] Heart rate 86 /min 86 /min [facility] Diastolic blood pressure 60 mm[Hg] 60 mm[Hg] [facility] Systolic blood pressure 114 mm[Hg] 114 mm[Hg] [facility] Body mass index (BMI) [Ratio] 29.81 kg/m2 29.81 kg/m2 [facility] Body weight 73.936 kg 73.936 kg [facility] Body height 157.5 cm 157.5 cm [facility] Diastolic blood pressure 83 mm[Hg] 83 mm[Hg] eCW1 ([facility]) Systolic blood pressure 114 mm[Hg] 114 mm[Hg] e CW1 ([facility]) Body temperature 98.1 [degF] 98.1 [degF] eCW1 ( [facility]) Respiratory rate 16 /min 16 /min eCW1 ([facility]) Heart rate 91 /min 91 /min eCW1 ([facility]) Body mass index (BMI) [Ratio] 28.34 kg/m2 28.34 kg/m2 W1 ([facility]) Body height 63 [in_i] 63 [in_i] eCW1 ([facility]) Body weight 160 [lb_av] 160 [lb_av] eCW1 ([facility]) Body mass index (BMI) [Ratio] 30.1 kg/m2 30.1 k g/m2 [facility] ([facility], ) Body weight 166.00 [lb_av] 166.00 [lb_av] MED[facility] T ([facility], ) Body height 62.25 [in_i] 62.25 [in_i] [facility] ([facility], ) 5'2.25" Body temperature 97.4 [degF] 97.4 [degF] [facility] ([facility], ) Oxygen saturation in Arterial blood by Pulse oximetry 95 % 95 % [facility] ([facility]) Heart rate 89 /min 89 /min [facility] Diastolic blood pressure 72 mm[Hg] 72 mm[Hg] [facility] Systolic blood pressure 126 mm[Hg] 126 mm[Hg] [facility] Body surface area Derived from formula 1.77 m2 1.77 m2 [facility] ([facility]) Body weight 75.298 kg 75.298 kg [facility] ([facility]) [place] body weight 110 [lb_av] 110 [lb_av] MED[facility] T ([facility]) Diastolic blood pressure 64 mm[Hg] 64 mm[Hg] [facility] ([facility]) sitting Systolic blood pressure 124 mm[Hg] 124 mm[Hg] M EDENT ([facility]) sitting Diastolic blood pressure 64 mm[Hg] 64 mm[Hg] [facility] ([facility]) sitting, large cuff Systolic blood pressure 128 mm[Hg] 128 mm[Hg] M [facility]ENT ([facility]) sitting, large cuff Respiratory rate 16 /min 16 /min [facility] ( [facility]) Heart rate 76 /min 76 /min [facility] ([facility] Regular Body mass index (BMI) [Ratio] 29.6 kg/m2 29.6 k g/m2 [facility] ([facility]) Body height 63 [in_i] 63 [in_i] [facility] ([facility]) 5'3" Body weight 167.00 [lb_av] 167.00 [lb_av] [facility] ([facility]) Body weight 78.473 kg 78.473 kg [facility]) [place] body weight 110 [lb_av] 110 [lb_av] [facility] T ([facility]) Body mass index (BMI) [Ratio] 31.4 kg/m2 31.4 k g/m2 [facility] ([facility]) Body weight 173.00 [lb_av] 173.00 [lb_av] [facility] ([facility]) Body height 62.25 [in_i] 62.25 [in_i] [facility] ([facility], ) 5'2.25" Diastolic blood pressure 78 mm[Hg] 78 mm[Hg] [facility], ) Systolic blood pressure 112 mm[Hg] 112 mm[Hg] M [facility]ENT ([facility]) Body weight 81.648 kg 81.648 kg [facility] ([facility]) Body mass index (BMI) [Ratio] 32.4 kg/m2 32.4 k g/m2 [facility], ) Body weight 180.00 [lb_av] 180.00 [lb_av] [facility] ([facility], ) Body height 62.5 [in_i] 62.5 [in_i] [facility], ) 5'2.50" Body temperature 97.4 [degF] 97.4 [degF] [facility] ([facility]) Oxygen saturation in Arterial blood by Pulse oximetry 96 % 96 % [facility] ([facility]) Heart rate 78 /min 78 /min [facility] ([facility], ) Diastolic blood pressure 70 mm[Hg] 70 mm[Hg] [facility] ([facility]) Systolic blood pressure 110 mm[Hg] 110 mm[Hg] [facility] Diastolic blood pressure 67 mm[Hg] 67 mm[Hg] eCW1 ([facility]) Systolic blood pressure 110 mm[Hg] 110 mm[Hg] e CW1 ([facility]) Body temperature 98.3 [degF] 98.3 [degF] eCW1 ( [facility]) Respiratory rate 18 /min 18 /min eCW1 ([facility]) Heart rate 87 /min 87 /min eCW1 ([facility]) Body mass index (BMI) [Ratio] 32.77 kg/m2 32.77 kg/m2 W1 ([facility]) Body height 63 [in_us] 63 [in_us] eCW1 ([facility]) Body weight Measured 185 [lb_av] 185 [lb_av] eC W1 ([facility]) Diastolic blood pressure 76 mm[Hg] 76 mm[Hg] eCW1 ([facility]) Systolic blood pressure 112 mm[Hg] 112 mm[Hg] e CW1 ([facility]) Body temperature 98.7 [degF] 98.7 [degF] eCW1 ( [facility]) Respiratory rate 18 /min 18 /min eCW1 ([facility]) Heart rate 91 /min 91 /min eCW1 ([facility]) Body mass index (BMI) [Ratio] 32.41 kg/m2 32.41 kg/m2 eCW1 ([facility]) Body height 63 [in_us] 63 [in_us] eCW1 ([facility]) Body weight Measured 183 [lb_av] 183 [lb_av] eC W1 ([facility]) Oxygen saturation in Arterial blood by Pulse oximetry 92 % 92 % [facility] Respiratory rate 16 /min 16 /min [facility] Body temperature 37.11 Jennie 37.11 Jennie [facility] Heart rate 88 /min 88 /min [facility] Diastolic blood pressure 83 mm[Hg] 83 mm[Hg] [facility] Systolic blood pressure 135 mm[Hg] 135 mm[Hg] [facility] Body mass index (BMI) [Ratio] 31.71 kg/m2 31.71 kg/m2 [facility] Body weight 81.194 kg 81.194 kg [facility] Body height 160 cm 160 cm [facility] Diastolic blood pressure--sitting 78 mm[Hg] 78 mm[Hg] [facility] ([facility]) large cuff, Ra Systolic blood pressure--sitting 126 mm[Hg] 126 mm[Hg] [facility] ([facility]) large cuff, Ra Heart rate 89 /min 89 /min [facility] ([facility]) Body mass index (BMI) [Ratio] 31.9 kg/m2 31.9 k g/m2 [facility] ([facility]) Body height 63 [in_i] 63 [in_i] [facility] ([facility]) 5'3" Body weight 180.00 [lb_av] 180.00 [lb_av] [facility] T ([facility]) Diastolic blood pressure 84 mm[Hg] 84 mm[Hg] eCW1 ([facility]) Systolic blood pressure 131 mm[Hg] 131 mm[Hg] e CW1 ([facility]) Body temperature 98.4 [degF] 98.4 [degF] eCW1 ( [facility]) Respiratory rate 18 /min 18 /min eCW1 ([facility]) Heart rate 93 /min 93 /min eCW1 ([facility]) Body mass index (BMI) [Ratio] 31.70 kg/m2 31.70 kg/m2 W1 ([facility]) Body height 63 [in_us] 63 [in_us] eCW1 ([facility]) Body weight Measured 179 [lb_av] 179 [lb_av] eC W1 ([facility]) Oxygen saturation in Arterial blood by Pulse oximetry 98 % 98 % [facility] Body mass index (BMI) [Ratio] 31.76 kg/m2 31.76 kg/m2 [facility] Body weight 81.33 kg 81.33 kg [facility] Body height 160 cm 160 cm [facility] Heart rate 78 /min 78 /min [facility] Diastolic blood pressure 76 mm[Hg] 76 mm[Hg] [facility] Systolic blood pressure 110 mm[Hg] 110 mm[Hg] [facility] Patient Treatment Plan of Care Planned Activity Planned Date Details Description Data Source (s) Oxycodone Hydrochloride 5 MG Oral Tablet 06/21/2020 12:00:00 AM EDT [facility] methylPREDNISolone (MEDROL, URIEL,) 4 MG tablet 04/03/2020 12:00:00 A M EDT [facility] Diazepam 5 MG Oral Tablet 03/16/2020 12:00:[address] [facility] Acetaminophen 325 MG / Hydrocodone Bitartrate 5 MG Ora l Tablet 03/16/2020 12:00:00 AM [facility] Levofloxacin 500 MG Oral Tablet 03/16/2020 12:00:[address] [facility] Albuterol 0.83 MG/ML Inhalant Solution 03/09/2020 12:00:[address] [facility] Spiriva Respimat 2.5 MCG/ACT Inhalation Aerosol Soluti on 02/28/2020 12:00:00 AM [facility] Atropine Sulfate 0.025 MG / Diphenoxylate Hydrochlorid e 2.5 MG Oral Tablet 02/28/2020 12:00:00 AM [facility] Dicyclomine Hydrochloride 20 MG Oral Tablet 02/28/2020 12:00:[address] [facility] Atropine Sulfate 0.025 MG / Diphenoxylat e Hydrochloride 2.5 MG Oral Tablet [Lomotil] 01/06/2020 12:00:00 AM EDT [facility] ([facility]) Atropine Sulfate 0.025 MG / Diphenoxylat e Hydrochloride 2.5 MG Oral Tablet [Lomotil] 01/06/2020 12:00:00 AM EDT eC ([facility]) Atropine Sulfate 0.025 MG / Diphenoxylat e Hydrochloride 2.5 MG Oral Tablet [Lomotil] 01/06/2020 12:00:00 AM EDT eC ([facility]) Atropine Sulfate 0.025 MG / Diphenoxylat e Hydrochloride 2.5 MG Oral Tablet [Lomotil] 01/06/2020 12:00:00 AM EDT eC ([facility]) Atropine Sulfate 0.025 MG / Diphenoxylat e Hydrochloride 2.5 MG Oral Tablet [Lomotil] 01/06/2020 12:00:00 AM EDT eC ([facility]) Atropine Sulfate 0.025 MG / Diphenoxylat e Hydrochloride 2.5 MG Oral Tablet [Lomotil] 01/06/2020 12:00:00 AM EDT eC ([facility]) Prednisone 20 MG Oral Tablet 12/30/2019 12:00:00 AM EDT eC ([facility]) Dicyclomine Hydrochloride 20 MG Oral Tablet 12/30/2019 12:00:00 AM EDT eCW1 ([facility]) doxycycline hyclate 100 MG Oral Tablet 12/30/2019 12:00:00 AM EDT eCW1 ([facility]) Loperamide Hydrochloride 2 MG Oral Capsule 12/30/2019 12:00:00 AM E DT eCW1 ([facility]) Prednisone 20 MG Oral Tablet 12/30/2019 12:00:00 AM EDT eCW1 ([facility]) Dicyclomine Hydrochloride 20 MG Oral Tablet 12/30/2019 12:00:00 AM EDT eCW1 ([facility]) doxycycline hyclate 100 MG Oral Tablet 12/30/2019 12:00:00 AM EDT eCW1 ([facility]) Loperamide Hydrochloride 2 MG Oral Capsule 12/30/2019 12:00:00 AM E DT eCW1 ([facility]) Prednisone 20 MG Oral Tablet 12/30/2019 12:00:00 AM EDT eCW1 ([facility]) Dicyclomine Hydrochloride 20 MG Oral Tablet 12/30/2019 12:00:00 AM EDT eCW1 ([facility]) doxycycline hyclate 100 MG Oral Tablet 12/30/2019 12:00:00 AM EDT eCW1 ([facility]) Loperamide Hydrochloride 2 MG Oral Capsule 12/30/2019 12:00:00 AM E DT eCW1 ([facility]) Prednisone 20 MG Oral Tablet 12/30/2019 12:00:00 AM EDT eCW1 ([facility]) Dicyclomine Hydrochloride 20 MG Oral Tablet 12/30/2019 12:00:00 AM EDT eCW1 ([facility]) doxycycline hyclate 100 MG Oral Tablet 12/30/2019 12:00:00 AM EDT eCW1 ([facility]) Loperamide Hydrochloride 2 MG Oral Capsule 12/30/2019 12:00:00 AM E DT eCW1 ([facility]) Prednisone 20 MG Oral Tablet 12/30/2019 12:00:00 AM EDT eCW1 ([facility]) Loperamide Hydrochloride 2 MG Oral Capsule 12/30/2019 12:00:00 AM E DT eCW1 ([facility]) doxycycline hyclate 100 MG Oral Tablet 12/30/2019 12:00:00 AM EDT eCW1 ([facility]) Dicyclomine Hydrochloride 20 MG Oral Tablet 12/30/2019 12:00:00 AM EDT eCW1 ([facility]) Prednisone 20 MG Oral Tablet 12/30/2019 12:00:00 AM EDT eCW1 ([facility]) Dicyclomine Hydrochloride 20 MG Oral Tablet 12/30/2019 12:00:00 AM EDT eCW1 ([facility]) doxycycline hyclate 100 MG Oral Tablet 12/30/2019 12:00:00 AM EDT eCW1 ([facility]) Loperamide Hydrochloride 2 MG Oral Capsule 12/30/2019 12:00:00 AM E DT eCW1 ([facility]) Metoclopramide 10 MG Oral Tablet 10/01/2019 12:00:00 AM EST [facility] Metoclopramide 10 MG Oral Tablet [Reglan] 10/01/2019 12:00:00 AM ES T eCW1 ([facility]) Lactulose 667 MG/ML Oral Solution 10/01/2019 12:00:00 AM EST eCW1 ([facility]) pregabalin 50 MG Oral Capsule 09/09/2019 12:00:00 AM EST [facility] Baclofen 10 MG Oral Tablet 09/09/2019 12:00:00 AM EST [facility] Acetaminophen 325 MG / Hydrocodone Bitartrate 7.5 MG O ral Tablet 09/09/2019 12:00:00 AM EST [facility] valacyclovir 1000 MG Oral Tablet 07/19/2019 12:00:00 AM EST eCW1 ([facility]) Mometasone Furoate 50 MCG/ACT Nasal Suspension (NASONE X) 07/01/2019 12:00:00 AM [facility] Ranitidine 300 MG Oral Tablet 05/20/2019 12:00:[address] [facility] Ranitidine 300 MG Oral Tablet 05/20/2019 12:00:00 AM EDT [facility] Fluconazole 200 MG Oral Tablet 05/20/2019 12:00:00 AM EDT [facility] Omeprazole 40 MG Delayed Release Oral Capsule 04/12/2019 12:00:00 A M EDT [facility] Baclofen 10 MG Oral Tablet 11/27/2018 12:00:00 AM EDT [facility] pantoprazole 40 MG Delayed Release Oral Tablet 11/24/2018 12:00:00 AM EDT [facility] Aspirin 81 MG Delayed Release Oral Tablet 10/23/2017 12:00:00 AM ES T [facility] 12 HR Orphenadrine Citrate 100 MG Extended Release Ora l Tablet 05/05/2017 12:00:00 AM EDT [facility] Polysaccharide iron complex 150 MG Oral Capsule 03/24/2017 12:00:00 AM EDT [facility] Multiple Minerals-Vitamins ([id number] PO) [facility] Acetaminophen 325 MG / Hydrocodone Bitartrate 7.5 MG Oral Tablet [facility] Acetaminophen 325 MG Oral Tablet [facility] cetirizine hydrochloride 10 MG Oral Tablet [facility] pregabalin 50 MG Oral Capsule [facility] Aspirin 81 MG Oral Tablet [facility]
[2020-09-05] MEDS ORDERED: LIDOCAINE 2% 100MG/5ML SDV (FOR ANES.) As Ordered ONE (11:43)
--- NOTE | 2020-09-05 12:29 | ROOR ---
Patient Name: Debbi Ramirez Procedure Date: 09/05/2020 11:46 AM Date of : 1965 Age: 54 Room: [facility] Gender: Female Note Status: Finalized Procedure: Upper GI endoscopy Indications: Heartburn, Suspected gastro-esophageal reflux disease Providers: Slade Quinonez MD Referring MD: OSKAR SHRESTHA DO Requesting Provider: Medicines: Monitored Anesthesia Care Complications: No immediate complications. Procedure: Pre-Anesthesia Assessment: - Prior to the procedure, a History and Physical was performed, and patient medications and allergies were reviewed. The patient is competent. The risks and benefits of the procedure and the sedation options and risks were discussed with the patient. All questions were answered and informed consent was obtained. Patient identification and proposed procedure were verified by the physician, the nurse and the anesthesiologist in the procedure room. Mental Status Examination: normal. Airway Examination: normal oropharyngeal airway and neck mobility. Respiratory Examination: clear to auscultation. CV Examination: normal. Prophylactic Antibiotics: The patient does not require prophylactic antibiotics. Prior Anticoagulants: The patient has taken no previous anticoagulant or antiplatelet agents. ASA Grade Assessment: II - A patient with mild systemic disease. After reviewing the risks and benefits, the patient was deemed in satisfactory condition to undergo the procedure. The anesthesia plan was to use monitored anesthesia care (MAC). Immediately prior to administration of medications, the patient was re-assessed for adequacy to receive sedatives. The heart rate, respiratory rate, oxygen saturations, blood pressure, adequacy of pulmonary ventilation, and response to care were monitored throughout the procedure. The physical status of the patient was re-assessed after the procedure. The Endoscope was introduced through the mouth, and advanced to the second part of duodenum. The upper GI endoscopy was accomplished without difficulty. The patient tolerated the procedure well. Findings: The Z-line was regular and was found 40 cm from the incisors. A small hiatal hernia was present. Scattered moderate inflammation characterized by adherent blood, erosions, granularity and linear erosions was found in the gastric antrum. Biopsies were taken with a cold forceps for histology. Biopsies were taken with a cold forceps for Helicobacter pylori testing. Verification of patient identification for the specimen was done by the physician and nurse using the patient's name, date and medical record number. Estimated blood loss was minimal. The duodenal bulb and second portion of the duodenum were normal. Impression: - Z-line regular, 40 cm from the incisors. - Small hiatal hernia. - Gastritis. Biopsied. - Normal duodenal bulb and second portion of the duodenum. Recommendation: - Patient has a contact number available for emergencies. The signs and symptoms of potential delayed complications were discussed with the patient. Return to normal activities tomorrow. Written discharge instructions were provided to the patient. - High fiber diet. - Continue present medications. - Recommend acid suppression medication for 8 weeks. - Follow an antireflux regimen. - Await pathology results. Procedure Code(s): --- Professional --- 10944, Esophagogastroduodenoscopy, flexible, transoral; with biopsy, single or multiple Diagnosis Code(s): --- Professional --- K44.9, Diaphragmatic hernia without obstruction or gangrene K29.70, Gastritis, unspecified, without bleeding R12, Heartburn CPT copyright 2019 [employer]. All rights reserved. The codes documented in this report are preliminary and upon accounts payable supervisor review may be revised to meet current compliance requirements. Slade Quinonez MD Slade Quinonez MD 09/05/2020 12:29:01 PM Electronically signed by Slade Quinonez MD Number of Addenda: 0 Note Initiated On: 09/05/2020 11:46 AM Estimated Blood Loss: Estimated blood loss was minimal.
[2020-09-05] MEDS ORDERED: propofoL 200 MG/20 ML VIAL As Ordered ONE (12:32)
--- NOTE | 2020-09-05 12:37 | ROOR ---
Patient Name: Debbi Ramirez Procedure Date: 09/05/2020 11:47 AM Date of : 1965 Age: 54 Room: [facility] Gender: Female Note Status: Finalized Procedure: Colonoscopy Indications: Change in bowel habits Providers: Slade Quinonez MD Referring MD: OSKAR SHRESTHA DO Requesting Provider: Medicines: Monitored Anesthesia Care Complications: No immediate complications. Procedure: Pre-Anesthesia Assessment: - Prior to the procedure, a History and Physical was performed, and patient medications and allergies were reviewed. The patient is competent. The risks and benefits of the procedure and the sedation options and risks were discussed with the patient. All questions were answered and informed consent was obtained. Patient identification and proposed procedure were verified by the physician, the nurse and the anesthesiologist in the procedure room. Mental Status Examination: alert and oriented. Airway Examination: normal oropharyngeal airway and neck mobility. Respiratory Examination: clear to auscultation. CV Examination: normal. Prophylactic Antibiotics: The patient does not require prophylactic antibiotics. Prior Anticoagulants: The patient has taken no previous anticoagulant or antiplatelet agents. ASA Grade Assessment: II - A patient with mild systemic disease. After reviewing the risks and benefits, the patient was deemed in satisfactory condition to undergo the procedure. The anesthesia plan was to use monitored anesthesia care (MAC). Immediately prior to administration of medications, the patient was re-assessed for adequacy to receive sedatives. The heart rate, respiratory rate, oxygen saturations, blood pressure, adequacy of pulmonary ventilation, and response to care were monitored throughout the procedure. The physical status of the patient was re-assessed after the procedure. The Colonoscope was introduced through the anus and advanced to the cecum, identified by appendiceal orifice and ileocecal valve. The colonoscopy was performed without difficulty. The patient tolerated the procedure well. The quality of the bowel preparation was good. The terminal ileum, ileocecal valve, appendiceal orifice, and rectum were photographed. Scope insertion time was 3 minutes. Scope withdrawal time was 9 minutes. The total duration of the procedure was 14 minutes. Findings: The digital rectal exam findings include palpable scar in anal canal with possible mild anal stricture. The terminal ileum appeared normal. Non-bleeding external and internal hemorrhoids were found during retroflexion. The hemorrhoids were medium-sized. Normal mucosa was found in the entire colon. Biopsies for histology were taken with a cold forceps from the right colon, left colon and rectosigmoid colon for evaluation of microscopic colitis. Verification of patient identification for the specimen was done by the physician and nurse using the patient's name, date and medical record number. Estimated blood loss was minimal. Impression: - Palpable scar in anal canal with possible mild anal stricture found on digital rectal exam. - The examined portion of the ileum was normal. - Non-bleeding external and internal hemorrhoids. - Normal mucosa in the entire examined colon. Biopsied. Recommendation: - Patient has a contact number available for emergencies. The signs and symptoms of potential delayed complications were discussed with the patient. Return to normal activities tomorrow. Written discharge instructions were provided to the patient. - High fiber diet. - Continue present medications. - Use fiber, for example Citrucel, Fibercon, Konsyl or Metamucil. - Await pathology results. - Repeat colonoscopy in 10 years for screening purposes. - Telephone GI clinic for pathology results in 2 weeks. - Return to primary care physician. Procedure Code(s): --- Professional --- 13108, Colonoscopy, flexible; with biopsy, single or multiple Diagnosis Code(s): --- Professional --- K64.8, Other hemorrhoids R19.4, Change in bowel habit CPT copyright 2019 [employer]. All rights reserved. The codes documented in this report are preliminary and upon parking manager review may be revised to meet current compliance requirements. Slade Quinonez MD Slade Quinonez MD 09/05/2020 12:37:04 PM Electronically signed by Slade Quinonez MD Number of Addenda: 0 Note Initiated On: 09/05/2020 11:47 AM Estimated Blood Loss: Estimated blood loss was minimal.
[2020-09-05 12:55] VITALS: BP 135/79
[2020-10-04] MEDS ORDERED: LYRI75CA PO (12:50)
[2020-10-04] MEDS ORDERED: ALBU83IN NEB (12:51)
== END 2020-09-05 13:09 | disposition home or self-care (01) ==
LOC: M OPP 10:11
PROVIDERS: ATTEND Internal Medicine Gastroenterology
DX: R19.4 Change in bowel habit (principal); R12 Heartburn; R13.10 Dysphagia, unspecified; D12.6 Benign neoplasm of colon, unspecified; K64.8 Other hemorrhoids; K44.9 Diaphragmatic hernia without obstruction or gangrene; K29.70 Gastritis, unspecified, without bleeding; I12.9 Hypertensive chronic kidney disease with stage 1 through stage 4 chronic kidney disease, or unspecified chronic kidney disease; K58.9 Irritable bowel syndrome, unspecified; M19.90 Unspecified osteoarthritis, unspecified site; M79.7 Fibromyalgia; G43.909 Migraine, unspecified, not intractable, without status migrainosus; J44.9 Chronic obstructive pulmonary disease, unspecified; G47.30 Sleep apnea, unspecified; N18.30 Chronic kidney disease, stage 3 unspecified; F17.210 Nicotine dependence, cigarettes, uncomplicated; Z88.2 Allergy status to sulfonamides; Z88.5 Allergy status to narcotic agent; Z88.8 Allergy status to other drugs, medicaments and biological substances; Z79.82 Long term (current) use of aspirin; Z79.899 Other long term (current) drug therapy; Z82.49 Family history of ischemic heart disease and other diseases of the circulatory system; Z83.3 Family history of diabetes mellitus; Z80.1 Family history of malignant neoplasm of trachea, bronchus and lung; Z82.3 Family history of stroke

== ENCOUNTER → 2020-09-15 | Outpatient (REF) | payer BC ==
[~2020-09-15] MED LIST changes: +ALBU83IN NEB; +LYRI75CA PO; -NS 1,000 ML IV ONE
[2020-09-15 16:33] LABS: BASO # 0.1 10^3/uL (0.0-0.2); BASO % 1.4 % (0.0-1.0); EOS # 0.2 10^3/uL (0.0-0.5); HEMATOCRIT 39.7 % (36.0-47.0); HEMOGLOBIN 12.4 g/dl (12.0-15.5); LYMPH # 1.6 10^3/uL (1.5-5.0); LYMPH % 28.3 % (24.0-44.0); MEAN CORPUSCULAR HEMOGLOBIN 26.7 pg (27.0-33.0); MEAN CORPUSCULAR HGB CONC 31.2 g/dl (32.0-36.5); MEAN CORPUSCULAR VOLUME 85.6 fl (80.0-96.0); MONO # 0.5 10^3/uL (0.0-0.8); MONO % 8.2 % (0.0-5.0); NEUTROPHILS # 3.3 10^3/uL (1.5-8.5); NEUTROPHILS % 57.9 % (36.0-66.0); PLATELET COUNT, AUTOMATED 235 10^3/uL (150-450); RED BLOOD COUNT 4.64 10^6/uL (4.00-5.40); WHITE BLOOD COUNT 5.8 10^3/uL (4.0-10.0)
[2020-09-15 17:06] LABS: ALBUMIN 3.5 GM/DL (3.2-5.2); ALT/SGPT 18 U/L (12-78); BILIRUBIN,TOTAL 0.2 MG/DL (0.2-1.0); BLOOD UREA NITROGEN 21 MG/DL (7-18); CALCIUM LEVEL 9.1 MG/DL (8.5-10.1); CARBON DIOXIDE LEVEL 31 MEQ/L (21-32); CHLORIDE LEVEL 106 MEQ/L (98-107); CHOLESTEROL LEVEL 212 MG/DL (<200); CHOLESTEROL RISK RATIO 4.156 (<5); CREATININE FOR GFR 0.79 MG/DL (0.55-1.30); GLOMERULAR FILTRATION RATE > 60.0 (>51); GLUCOSE, FASTING 92 MG/DL (70-100); HDL CHOLESTEROL 51 MG/DL (>40); LDL CHOLESTEROL 110 MG/DL (<100); NON-HDL-C 161 MG/DL; POTASSIUM SERUM 4.7 MEQ/L (3.5-5.1); SODIUM LEVEL 142 MEQ/L (136-145); TOTAL PROTEIN 6.7 GM/DL (6.4-8.2); TRIGLYCERIDES LEVEL 256 MG/DL (<150)
[2020-09-15 17:07] LABS: HEMOGLOBIN A1c 5.8 %
== END ==
LOC: M SFHCCLAY 09:53
PROVIDERS: ATTEND Family Medicine
DX: I12.9 Hypertensive chronic kidney disease with stage 1 through stage 4 chronic kidney disease, or unspecified chronic kidney disease (principal); N18.31 Chronic kidney disease, stage 3a; R73.01 Impaired fasting glucose; Z13.21 Encounter for screening for nutritional disorder

== ENCOUNTER → 2020-10-06 | Outpatient (CLI) | payer BC ==
[~2020-10-06] MED LIST changes: +VENTAER INH; +VITA80003 PO
== END ==
LOC: M LABSMTC 12:00
PROVIDERS: ATTEND Anesthesiology
DX: Z20.822 Contact with and (suspected) exposure to COVID-19 (principal)

== ENCOUNTER 2020-10-11 11:41 | Day surgery (SDC) | payer BC ==
[~2020-10-11] VITALS: Ht 154.9 cm; Wt 76.7 kg
[~2020-10-11 11:41] MED LIST changes: +LIDOCAINE 2% 100MG/5ML SDV (FOR ANES.) As Ordered ONE; +LR 1,000 ML IV ONE; +MIDAZOLAM INJ 2MG/2ML VIAL (J2250 PER 1MG) As Ordered ONE; +ROCURONIUM BROMIDE 50 MG/5 ML VIAL As Ordered ONE; -VENTAER INH; -VITA80003 PO; +ceFAZolin SOD 2 GM in IV 1 EA IV ONE; +fentaNYL 100 MCG/2 ML INJECTION (J3010) As Ordered ONE; +propofoL 200 MG/20 ML VIAL As Ordered ONE
--- OUTSIDE RECORDS SUMMARY | 2020-10-11 11:47 | CCD | Continuity of Care Document ---
Author Author [facility] Organization [facility] Address Unknown Phone Unavailable Care Team Providers Care Sterile Processing Tech Name Role Phone Nidia Lee MD Unavailable Unavailable Allergies, Adverse Reactions, Alerts Substance Reaction Status Criticality Sulfa (Sulfonamide Antibiotics) Active No Information topiramate Active No Information gabapentin Active No Information Sulfa (Sulfonamide Antibiotics) Active No Information Medications Medication Instructions Dosage Effective Dates (start - stop) Sta tus Comments orphenadrine citrate ER 100 mg tablet,extended release take 1 tablet by oral route 2 times every day in the morning and evening as needed 100 MG - Active amiloride 5 mg tablet take 1 tablet by oral route every day wit h food 5 MG - Active magnesium oxide 500 mg tablet take 1 tablet by oral route every da y - Active mometasone 50 mcg/actuation nasal spray spray 2 spray by intranasal route every day in each nostril - Active ondansetron HCl 8 mg tablet take [address] e every 24 hours for 2 days 8 MG - Active Lyrica 50 mg capsule take 1 capsule by oral route 3 times every day 50 MG - Active Doc-Q-Lace 100 mg capsule take 1 capsule by oral route every day at bedtime as needed - Active Diovan 40 mg tablet take 2 tablet by oral route every day 80 MG - Active nitroglycerin 0.[address] 1 tablet by sublingual route at the 1st sign of attack; may repeat every 5 min until relief; if pain persists after 3 tablets in 15 min, prompt medical attention is recommended 0.4 MG - Active baclofen 10 mg tablet take 1 tablet by oral route 2 times every day 10 MG - Active Ventolin HFA 90 mcg/actuation aerosol inhaler inhale 2 puff by inhalation route every 4 - 6 hours as needed 180 MCG - Active sumatriptan 100 mg tablet take 1 tablet by oral route after onset of migraine; may repeat after 2 hours if headache returns,not to exceed 200mg in 24hrs as needed 100 MG - Active pantoprazole 40 mg tablet,delayed release take 1 table t by oral route every day 40 MG - Active Symbicort 160 mcg-4.5 mcg/actuation HFA aerosol inhale r inhale 2 puff by inhalation route 2 times every day in the morning and evening 2.00 puff - Active aspirin 81 mg tablet,delayed release take 1 tablet by oral r oute every day 81 MG - Active Vitamin D3 2,000 unit tablet take 1 by Oral route every 1 - Active melatonin 3 mg tablet - Active amitriptyline 25 mg tablet take 1 tablet by oral route ever y day at bedtime 25 MG - Active Problems Condition Type Effective Dates (start - stop) Clinical S tatus Comments Raised antibody titer Diagnosis interpretation (observable entity) Fatigue Diagnosis interpretation (observable entity) Cervical disc disorder Diagnosis interpretation (observable entity) Chronic kidney disease, stage 3 (moderate) Diagnosis i nterpretation (observable entity) Fatigue Diagnosis interpretation (observable entity) Raised antibody titer Diagnosis interpretation (observable entity) Raised antibody titer Diagnosis interpretation (observable entity) Raised antibody titer Diagnosis interpretation (observable entity) Chronic kidney disease, stage 3 (moderate) Diagnosis i nterpretation (observable entity) Migraine Headaches Problem (finding) Active Anemia Problem (finding) Active Asthma Problem (finding) Active High Blood Pressure Problem (finding) Active Kidney Disease Problem (finding) Active Procedures Procedure Date No Information Results Test Name Date and Time Measure Units Reference Range Abnormal Flag St atus Comments No Information Advance Directives Directive Yes / No Effective Date File Name No Information Encounters Encounter Description Practice Location Reason(s) For Visit Diagnose s Date Provider Providers Copied on Encounter [facility], [address] [place] [address], [id number], [place] tel:[phone] [facility] No Information Jesus Jacob. [address] [place], [place], [id number], [place]. tel:[phone] [facility], [address], [place], [id number], [place] tel:[phone] [facility] Raised antibody titerFatigueCervical disc disorder Caroline altamirano. [address] [place] [address], [id number], [place]. tel:[phone] Consult[place]: [place], [address], [place], [address]. tel:[phone] Provider: Christiane Billingsley, [address] [place], [address]. tel:[phone] Provider: Jeff Saenz, [facility] [address] [address], [place], [address]. tel:[phone] Provider: Glenroy Yanez MD, [address] [facility] [address], [place], [address]. tel:[phone] Provider: Jaison Santos DO, [address] [place] [address], [address]. tel:[phone] [facility], [address] [place] [address], [id number], [place] tel:[phone] [facility] Chronic kidney disease, stage 3 (moderate)Fatigue Caroline Morales . [address] [place] [address], [id number], [place]. tel:[phone] Consulting [place]: [place], [address] [facility], [place], [address]. tel:[phone] Provider: Christopher Pedraza MD, [address] [place], [address]. tel:[phone] Provider: Jaison Santos DO, [address] [place] [address], [address]. tel:[phone] [facility], [address] [place] [address], [id number], [place] tel:[phone] [facility] Raised antibody titer Darion Hernadez. [address] [place] [address], [id number], . tel:[phone] Consulting Provider: [place], [address] , [place], [address]. tel:[phone] Provider: Christopher Pedraza MD, [address] [place] [address], [address]. tel:[phone] Provider: Jaison Santos DO, [address] [place] [address], [address]. tel:[phone] [facility], [address] [place] [address], [id number], [place] tel:[phone] [facility] Raised antibody titer Caroline Morales. [address] [place] [address], [id number], [place]. tel:[phone] Consulting Provider: Jung Moore MD, [address] , [place], [address]. tel:[phone] Provider: Christopher Pedraza MD, [address] [place] [address], [address]. tel:[phone] Provider: Jaison Santos DO, [address] [place] [address], [address]. tel:[phone] [facility], [address] [place] [address], [id number], [place] tel:[phone] [facility] Raised antibody titerChronic kidney disease, stage 3 (moderate) Caroline Morales. [address] [place] [address], [id number], [place]. tel:[phone] Consulting [place]: [place], [address], [place], [address]. tel:[phone] Provider: Christopher Pedraza MD, [address] [place], [address]. tel:[phone] Provider: Jaison Santos DO, [address] [place] [address], [address]. tel:[phone] Family History Family Member Type Diagnosis Age At Onset Sister Problem (finding) Lower Back Pain Sister Problem (finding) Lower Back Pain Mother Problem (finding) Osteoporosis Mother Problem (finding) Lower Back Pain Sister Problem (finding) Gout Sister Problem (finding) Fibromyalgia Mother Problem (finding) Osteoarthritis Mother Problem (finding) Ankylosing Spondylitis Brother Problem (finding) Lower Back Pain Father Problem (finding) Lower Back Pain Sister Problem (finding) Fibromyalgia Mother Problem (finding) Lower Back Pain Immunizations Vaccine Date Status Comments Influenza, split virus, injectable, 3 years and older Fluvirin administered Source: Other Provider Influenza, split virus, injectable, 3 years and older Fluvirin administered Note: Invalid documented adm in date was NULL/NULL/2013. ; Source: Other Provider Payers Payer name Insurance type Covered constitution party ID Authorization(s ) BCBS No Referral Required [id number] Social History Type Description Quantity Date Captured Comments Sex Female Smoking Status No Information Vital Signs Date / Time: Height Weight BMI Pulse Rate Blood Pressure Temperatu re Respiratory Rate Body Surface Area Head Circumference BMI percentile Pulse Ox In haled Ox No Information Chief Complaint And Reason For Visit No Information Reason For Referral Reason For Referral No Information Plan Of Treatment Date Type Action Status Goal Tobacco cessation counseling com pleted Goal Tobacco cessation counseling com pleted History Of Present Illness Encounter Date Complaint History Of Present I llness No Information Functional Status Date Functional Assessment No Information Medications Administered Medication Instructions Dosage Effective Dates (start - stop) Sta tus Comments No Information Instructions Date Instruction Additional Informati on call if symptoms worsen Physical Examination Exam Findings Details No Information
--- OUTSIDE RECORDS SUMMARY | 2020-10-11 11:47 | CCD ---
Author Author [facility] Organization [facility] Address Unknown Phone Unavailable Care Team Providers Care Motor Transport Inspector Name Role Phone Jaison Santos Unavailable PROBLEMS Type Condition ICD9-CM Code [id number] Code Onset Dates Condition S tatus SNOMED Code Notes Problem Hyperlipidemia E78.5 Active 34681366 Problem Asthma J45.909 Active 870661276 Problem Hypertension I10 Active 50051805 Problem CKD (chronic kidney disease) stage 3, GFR 30-59 ml/min N18.3 Active 916311753 Problem GERD (gastroesophageal reflux disease) K21.9 A ctive 430174041 Problem Neuropathy G62.9 Active 101411062 Problem Lumbar facet arthropathy M12.88 Active 5140753 08 Problem Essential hypertension I10 Active 66397940 Problem Chronic fatigue R53.82 Active 48744074 Problem Stage 3 chronic kidney disease N18.3 Active 4 94356970 Problem Constipation, unspecified constipation type K59.00 Active 66983807 Problem Altered taste R43.2 Active 548297773 Problem Irritable bowel syndrome with both constipation and diarrh ea K58.2 Active 35966457 Problem Fibromyalgia M79.7 Active 992504065 Problem COPD with acute exacerbation J44.1 Active 195 814803 Problem Chronic serous otitis media of both ears H65.23 Active 507405318 Problem Obstructive sleep apnea syndrome G47.33 Active 25082036 Problem Chronic obstructive pulmonary disease, unspecified COPD ty pe J44.9 Active 98093164 ALLERGIES Allergen (clinical drug ingredient) Drug/Non Drug Allergy do cumented on EMR Reaction Allergy Type Onset Date Status gabapentin Gabapentin([facility] Code:[address]-65) shaking Drug Allergy Active Sulfa (for allergy use only) Hives Drug Allergy Active topiramate Topiramate([facility] Code:[address]-53) shaking Drug Allergy Active ENCOUNTERS from 1963 to 2020-09-21 Encounter Location Date Provider Diagnosis [facility] [place] [address] Aug Jaison Santos Hypertension I10 ; Stage 3a chronic kidn ey disease N18.31 ; Impaired fasting glucose R73.01 ; Temporal headache R51.9 ; Obstructive sleep apnea syndrome G47.33 ; Chronic obstructive pulmonary disease, unspecified COPD type J44.9 ; Asthma J45.909 ; Low back pain M54.5 ; Fibromyalgia M79.7 ; Irritable bowel syndrome with both constipation and diarrhea K58.2 ; GERD (gastroesophageal reflux disease) K21.9 ; Cervicalgia M54.2 and Encounter for vitamin deficiency screening Z13.21 IMMUNIZATIONS No Information SOCIAL HISTORY Tobacco Use: Social History Observation Description Date Details (start date - stop date) Former Smoker Sex Assigned At : Social History Observation Description Sex Assigned At Unknown Audit Question Answer Notes Total Score: 2 Interpretation: Alcohol Education Language: Question Answer Notes Languages spoken: South Korean Zoroastrianism: Question Answer Notes Zoroastrianism 21 Restoration Domestic Violence: Question Answer Notes Status: Sexual [...] smoker (10-19 cigs/day) Smoking Cessation Information Given 09/15/2020 How long has it been since you last smoked? 3-6 months REASON FOR REFERRAL No Information VITAL SIGNS Weight 170 lbs Aug, Height 63 in Aug, BMI 30.11 kg/m2 Aug, Heart Rate 88 /min Aug, Respiratory Rate 16 /min Aug, Temperature 98.7 degrees Fahrenheit Aug, Oximetry 98RA Aug, Blood pressure systolic 114 mm Hg Aug, Blood pressure diastolic 76 mm Hg Aug, MEDICATIONS Medication SIG (Take, Route, Frequency, Duration) Notes Start Da te End Date Status Spiriva Respimat 2.5 MCG/ACT 2 puffs Inhalation Once a day Active Melatonin 3 MG 1 tablet at bedtime as needed with food Orally Once a day Active Nitroglycerin 0.4 MG Sublingual Act conrad Symbicort 160-4.5 MCG/ACT USE 2 INHALATIONS TWICE A DAY Active Torsemide 20 MG as directed Orally Once a day/prn Active Ondansetron HCl 8 MG 1 tablet Orally twice daily/prn Active Amiloride HCl 5 MG 1 tablet Orally bid Active Sumatriptan Succinate 100 MG 1 TABLET NEEDED ONCE A DAY ORALLY 90 DAYS Active Potassium Chloride ER 10 MEQ 1 tablet with food Orally Once a day Active Polyethylene Glycol 3350 - as directed Active Pantoprazole Sodium 40MG 1 tablet orally twice daily for 90 days Active Mucinex 600 MG 1 tablet as needed Orally every 12 hrs for 30 da ys Apr, Active Magnesium 500 MG 1 tablet with a meal Orally Once a day Active Elbow Strap Left/Right - right- daily Daily Dx Right lateral epi condylitis Apr, Active Mometasone Furoate 50 MCG/ACT 2 sprays in each nostril Nasally Once a day Active Aspir-81 81 MG 1 tablet Orally Once a day Active Vitamin D 1000 UNIT 1 tablet Orally Once a day Active Pregabalin 75 MG 1 capsule Orally three times daily MDD#3 Code D for 90 day(s) Aug, Active Ondansetron 8MG PLACE 1 TABLET ON TONGUE TWICE A DAY Active Irbesartan 75 MG 1/2 tablet Orally at bedtime Active Baclofen 10MG 1 tablet with food or milk Orally Three times a day for 90 days Active Ventolin HFA 108 (90 BASE) MCG/ACT 2 PUFFS NEEDED E VERY 4 HRS INHALATION 90 DAY(S) Active Amitriptyline HCl 50 MG TAKE 1 TABLET DAILY Active PROCEDURES No Information RESULTS Component Value Reference Range CBC with Differential Reviewed date:09/15/2020 17:09:37 Interpretation: Performing Lab:[facility] [address] [facility] [address] [facility] [address] , ,[place] [address] WHITE BLOOD COUNT 5.8 4.0-10.0 RED BLOOD COUNT 4.64 4.00-5.40 HEMOGLOBIN 12.4 12.0-15.5 HEMATOCRIT 39.7 36.0-47.0 MEAN CORPUSCULAR VOLUME 85.6 80.0-96.0 MEAN CORPUSCULAR HEMOGLOBIN 26.7 27.0-33.0 MEAN CORPUSCULAR HGB CONC 31.2 32.0-36.5 RED CELL DISTRIBUTION WIDTH 15.2 11.5-14.5 PLATELET COUNT, AUTOMATED 235 150-450 NEUTROPHILS % 57.9 36.0-66.0 LYMPH % 28.3 24.0-44.0 MONO % 8.2 0.0-5.0 EOS % 4.0 0.0-3.0 BASO % 1.4 0.0-1.0 NEUTROPHILS # 3.3 1.5-8.5 LYMPH # 1.6 1.5-5.0 MONO # 0.5 0.0-0.8 EOS # 0.2 0.0-0.5 BASO # 0.1 0.0-0.2 Comprehensive Metabolic Profile (CMP) Reviewed date:09/15/2020 17:09:31 Interpretation: Performing Lab:[facility] [address] [facility] [address] , ,[place] [address] GLUCOSE, FASTING 92 70-100 BLOOD UREA NITROGEN 21 7-18 CREATININE FOR GFR 0.79 0.55-1.30 GLOMERULAR FILTRATION RATE > 60.0 >51 SODIUM LEVEL 142 136-145 POTASSIUM SERUM 4.7 3.5-5.1 CHLORIDE LEVEL 106 98-107 CARBON DIOXIDE LEVEL 31 21-32 CALCIUM LEVEL 9.1 8.5-10.1 AST/SGOT 8 7-37 ALT/SGPT 18 12-78 ALKALINE PHOSPHATASE 81 45-117 BILIRUBIN,TOTAL 0.2 0.2-1.0 TOTAL PROTEIN 6.7 6.4-8.2 ALBUMIN 3.5 3.2-5.2 ALBUMIN/GLOBULIN RATIO 1.1 1.2-2.2 HEMOGLOBIN A1c Reviewed date:09/15/2020 17:09:26 Interpretation: Performing Lab:[facility] [address] [facility] [address] , ,[place] [address] HEMOGLOBIN A1c 5.8 ESTIMATED AVERAGE GLUCOSE 120 60-110 TSH Reviewed date:09/15/2020 17:09:42 Interpretation: Performing Lab:[facility] [address] [facility] [address] , ,[place] [address] THYROID STIMULATING HORMONE 2.440 0.358-3.740 LIPID PANEL (CARDIAC RISK) Reviewed date:09/15/2020 17:09:50 Interpretation: Performing Lab:[facility] [address] [facility] [address] , ,[place] [address] TRIGLYCERIDES LEVEL 256 <150 CHOLESTEROL LEVEL 212 <200 HDL CHOLESTEROL 51 >40 LDL CHOLESTEROL 110 <100 NON-HDL-C 161 CHOLESTEROL RISK RATIO 4.156 <5 ERYTHROCYTE SEDIMENTATION RATE Reviewed date:09/16/2020 12:54:57 Interpretation: Performing Lab:[facility] [address] [facility] [address] , ,[place] [address] ERYTHROCYTE SEDIMENTATION RATE 26 0-30 C REACTIVE PROTEIN QUANTITATIV (At [facility] L [facility]) Reviewed date:09/19/2020 16:25:56 Interpretation:Normal Performing Lab:[facility] [address] [facility] [address] , ,[place] [address] C REACTIVE PROTEIN QUANTITATIV 0.40 0.00-0.30 VITAMIN D 1,25 DIHYDROXY Reviewed date:09/19/2020 16:25:56 Interpretation:Normal Performing Lab:[facility] [address] [facility] [address] , ,[place] [address] VITAMIN D 1,25 DIHYDROXY 28.7 19.9-79.3 REASON FOR VISIT 3 MONTH FOLLOW UP, Refill lyrica, patient needs pregablin as insurance will no l onger pay for [facility] MEDICAL (GENERAL) HISTORY Type Description Date Medical [...] L4+5- nerve decompression - Dr Bundy 09/08/2019 Surgical History L4-5 revision- Dr Bundy 05/2020 Surgical History Colonoscopy- Dr Quinonez- 10 yr f/u 08/26 021 Hospitalization History Pneumonia 2015 Hospitalization History see above surgeries Hospitalization History Htjtu-VQ-davos,near fainting spell Hospitalization History [facility]- Palpitations,shaky 04/11/19 Goals Section No Information Health Concerns No Information MEDICAL EQUIPMENT No Information MENTAL STATUS No Information FUNCTIONAL STATUS No Information ASSESSMENTS Encounter Date Diagnosis Assessment Notes Treatment Notes Treatm ent Clinical Notes Aug, Hypertension (ICD-10 - I10) Currently okay and well controlled. Pt is agreeable. Aug, Stage 3a chronic kidney disease (ICD-10 - N18.31 ) Cont with Dr Muller. Aug, Impaired fasting glucose (ICD-10 - R73.01) Will update labs today. Aug, Temporal headache (ICD-10 - R51.9) Will check ESR and CRP. May need to consider return to neurology. Pt agreeable. Aug, Obstructive sleep apnea syndrome (ICD-10 - G47.3 3) Cont with pulmonary. She is using CPAP regularly per pt. Aug, Chronic obstructive pulmonar y disease, unspecified COPD type (ICD- 10 - J44.9) Cont with pulmonary. Aug, Asthma (ICD-10 - J45.909) Stable, cont with pulmonary. Aug, Low back pain (ICD-10 - M54.5) Cont with Dr Bundy. Aug, Fibromyalgia (ICD-10 - M79.7) Will tritrate. Aug, Irritable bowel syndrome wit h both constipation and diarrhea (ICD- 10 - K58.2) Cont meds prn, no changes. Pt agreeable. Aug, GERD (gastroesophageal reflux disease) (ICD-10 - K21.9) Cont current dose. Aug, Cervicalgia (ICD-10 - M54.2) Stable. Aug, Encounter for vitamin deficiency screening (ICD- 10 - Z13.21) Will update level due to fatigue. PLAN OF TREATMENT Medication Medication Name Sig Start Date Stop Date Pantoprazole Sodium 40MG 1 tablet orally twice daily for 90 days Baclofen 10MG 1 tablet with food or milk Orally Three times a day for 90 days Pregabalin 75 MG 1 capsule Orally three times daily MDD#3 Code D for 90 day(s) Aug, Treatment Notes Assessment Notes Clinical Notes Hypertension Currently okay and w ell controlled. Pt is agreeable. Encounter for vitamin deficiency screening Will update level due to fatigue. Stage 3a chronic kidney disease Cont wit h Dr Muller. Impaired fasting glucose Will update lab s today. Temporal headache Will check ESR and C RP. May need to consider return to neurology. Pt agreeable. Obstructive sleep apnea syndrome Cont pulmonary. She is using CPAP regularly per pt. Chronic obstructive pulmonary disease, unspecified COPD type Cont with pulmonary. Asthma Stable, cont with pu lmonary. Cervicalgia Stable. GERD (gastroesophageal reflux disease) C ont current dose. Low back pain Cont with Dr Bundy. Fibromyalgia Will tritrate. Irritable bowel syndrome with both constipation and diarrhea Cont meds prn, no changes. Pt agreeable. Next Appt Details 3 Months Reason:30 minutes Provider Name:Jaisonakhil Santos, 02:00:00 PM, [address] [place] [address], [id number], Follow Up:3 [id number] minutes Insurance Providers Payer Name Payer Address Payer Phone Insured Name Patient Relati onship to Insured Coverage Start Date Coverage End Date [employer] WATTS PPO [phone] [facility] [employer] JAYSHREE TORRES [facility] [id number] TONE RAMIREZ self
--- OUTSIDE RECORDS SUMMARY | 2020-10-11 11:47 | CCD ---
Author Author [facility] Organization [facility] Address Unknown Phone Unavailable Care Team Providers Care Voice Systems Engineer Name Role Phone Jaison Santos Unavailable PROBLEMS Type Condition ICD9-CM Code DDS16-RD Code Onset Dates Condition S tatus W/U Status Risk SNOMED Code Notes Problem Hyperlipidemia E78.5 Active confirmed 04658 004 Problem Asthma J45.909 Active confirmed 930157944 Problem Hypertension I10 Active confirmed 2370878 3 Problem CKD (chronic kidney disease) stage 3, GFR 30-59 ml/min N18.3 Active confirmed 256556797 Problem GERD (gastroesophageal reflux disease) K21.9 A ctive confirmed 217347907 Problem Neuropathy G62.9 Active confirmed 582332625 Problem Lumbar facet arthropathy M12.88 Active confirmed 813228885 Problem Essential hypertension I10 Active confirmed 88801609 Problem Chronic fatigue R53.82 Active confirmed 8422 9001 Problem Stage 3 chronic kidney disease N18.3 Active confir med 296280710 Problem Constipation, unspecified constipation type K59.00 Active confirmed 11293069 Problem Altered taste R43.2 Active confirmed 527659 002 Problem Irritable bowel syndrome with both constipation and diarrh ea K58.2 Active confirmed 30014517 Problem Fibromyalgia M79.7 Active confirmed 5341298 05 Problem COPD with acute exacerbation J44.1 Active confirme d 127594121 Problem Chronic serous otitis media of both ears H65.23 Active confirmed 594096934 Problem Obstructive sleep apnea syndrome G47.33 Active conf irmed 57201143 Problem Chronic obstructive pulmonary disease, unspecified COPD ty pe J44.9 Active confirmed 12646997 ALLERGIES Allergen (clinical drug ingredient) Drug/Non Drug Allergy do cumented on EMR Reaction Allergy Type Onset Date Status gabapentin Gabapentin([facility] Code:[address]-52) shaking Drug Allergy Active Sulfa (for allergy use only) Hives Drug Allergy Active topiramate Topiramate([facility] Code:[address]-95) shaking Drug Allergy Active ENCOUNTERS from 1963 to 2020-09-29 Encounter Location Date Provider Diagnosis [facility] [address] [place] [address] Apr Jaison Reddyngmonae Neuropathy G62.9 ; Frequent headaches R5 1 ; Altered taste R43.2 ; Essential hypertension I10 ; Recurrent acute serous otitis media of both ears H65.06 ; Asthma J45.909 ; Left elbow pain M25.522 and Tobacco abuse Z72.0 IMMUNIZATIONS No Information SOCIAL HISTORY Tobacco Use: Social History Observation Description Date Details (start date - stop date) Former Smoker Sex Assigned At : Social History Observation Description Sex Assigned At Unknown Audit Question Answer Notes Total Score: 2 Interpretation: Alcohol Education Language: Question Answer Notes Languages spoken: Amharic Anglican: Question Answer Notes Anglican 21 Taoism Domestic Violence: Question Answer Notes Status: Sexual [...] FOR REFERRAL No Information VITAL SIGNS Weight 171.12 lbs Apr, Height 63 in Apr, BMI 30.31 kg/m2 Apr, Heart Rate 86 /min Apr, Respiratory Rate 18 /min Apr, Temperature 98.6 degrees Fahrenheit Apr, Oximetry 97ra Apr, Blood pressure systolic 105 mm Hg Apr, Blood pressure diastolic 68 mm Hg Apr, MEDICATIONS Medication SIG (Take, Route, Frequency, Duration) [...] Value Reference Range CBC with Differential Reviewed date:05/11/2018 14:17:46 Interpretation: Performing Lab:[facility],[address] [place] [address], ,[place] [address] CBC WITH DIFFERENTIAL WBC CORRECTED WBC RBC HEMOGLOBIN & HEMATOCRIT HEMOGLOBIN HEMATOCRIT MCV MCH MCHC RDW PLATELET COUNT LYMPH % MONO % NEUT % EOS % BASO % NEUT # LYMPH # MONO # EOS # BASO # TSH Reviewed date:05/12/2018 13:32:10 Interpretation: Performing Lab:[facility],[address] [place] [address], ,[place] [address] TSH ULTRASENSITIVE FOLATE Reviewed date:05/13/2018 08:31:46 Interpretation: Performing Lab:[facility],[address] [place] [address], ,[place] [address] FOLATE THYROXINE (T4) Reviewed date:05/13/2018 08:31:59 Interpretation: Performing Lab:[facility],[address] [place] [address], ,[place] [address] THYROXINE (T4) VITAMIN B12 LEVEL Reviewed date:05/13/2018 08:31:53 Interpretation: Performing Lab:[facility],[address] [place] [address], ,[place] [address] VITAMIN B12 COPPER SERUM Reviewed date:05/14/2018 11:04:33 Interpretation:paper Performing Lab:[facility],[address] [place] [address], ,[place] [address] COPPER, SERUM REASON FOR VISIT check up it's been a while MEDICAL (GENERAL) HISTORY Type Description Date Medical [...] Dr Bundy 05/2020 Surgical History Colonoscopy- Dr uQinonez- 10 yr f/u 08/26 021 Hospitalization History Pneumonia 2016 Hospitalization History see above surgeries Hospitalization History Dlsbf-TE-oaxct,near fainting spell Hospitalization History [facility]- Palpitations,shaky 04/11/19 Goals Section No Information Health Concerns No Information MEDICAL EQUIPMENT No Information MENTAL STATUS No Information FUNCTIONAL STATUS No Information ASSESSMENTS Encounter Date Diagnosis Assessment Notes Treatment Notes Treatm ent Clinical Notes Apr, Neuropathy (ICD-10 - G62.9) Etiology is not clear, will get labs and likely refer to neurology for change in WILEY and other symptoms. Pt is agreeable. Apr, Frequent headaches (ICD-10 - R51) Apr, Altered taste (ICD-10 - R43.2) Unclear if may be related to other neurological phenomena. Apr, Essential hypertension (ICD-10 - I10) Currently controlled. Apr, Recurrent acute serous otitis media of b oth ears (ICD-10 - H65.06) Will treat only symptomatically. Apr, Asthma (ICD-10 - J45.909) Has pulmonary f/u scheduled and likely has some COPD. Apr, Left elbow pain (ICD-10 - M25.522) Rest encouraged but she needs to keep working so she may f/u with [facility]. Apr, Tobacco abuse (ICD-10 - Z72.0) She is down to half pack a day. Discussed quitting, declines patches at this time. PLAN OF TREATMENT Medication Medication Name Sig Start Date Stop Date Pantoprazole Sodium 40MG 1 tablet orally twice daily for 90 days Baclofen 10MG 1 tablet with food or milk Orally Three times a day for 90 days Pregabalin 75 MG 1 capsule Orally three times daily MDD#3 Code D for 90 day(s) Aug, Treatment Notes Assessment Notes Clinical Notes Neuropathy Etiology is not pedro r, will get labs and likely refer to neurology for change in WILEY and other symptoms. Pt is agreeable. Altered taste Unclear if may be re lated to other neurological phenomena. Essential hypertension Currently control led. Recurrent acute serous otitis media of both ears Will treat only symptomatically. Asthma Has pulmonary f/u sc heduled and likely has some COPD. Left elbow pain Rest encouraged but she needs to keep working so she may f/u with [facility]. Tobacco abuse She is down to half pack a day. Discussed quitting, declines patches at this time. Next Appt Details 4 Months Reason: Provider Name:Jaison Santos, 02:00:00 PM, [address] [place], [address], Insurance Providers Payer Name Payer Address Payer Phone Insured Name Patient Relati onship to Insured Coverage Start Date Coverage End Date BCBS [employer] WATTS [facility] [id number] [facility] [place] [address] TONE RAMIREZ self
--- OUTSIDE RECORDS SUMMARY | 2020-10-11 11:49 | CCD ---
Author Author [facility] Address Unknown Phone Unavailable Care Team Providers Care Design Project Manager Name Role Phone Gela Mora Unavailable Unavailable [...] Unavailable Symenow, Gela Yulia PA Unavailable Unavailable Yanez, A Glenroy Unavailable Unavailable Yanez, A Glenroy Unavailable Unavailable Yanez, A Glenroy Unavailable Unavailable Yanez, A Glenroy Unavailable Unavailable Yanez, A Glenroy Unavailable Unavailable Yanez, A Glenroy Unavailable Unavailable Yanez, A Glenroy Unavailable Unavailable Yanez, A Glenroy Unavailable Unavailable Yanez, A Glenroy Unavailable Unavailable Yanez, A Glenroy Unavailable Unavailable Yanez, A Glenroy Unavailable Unavailable Yanez, A Glenroy Unavailable Unavailable Yanez, A Glenroy Unavailable Unavailable Yanez, A Glenroy Unavailable Unavailable Yanez, A Glenroy Unavailable Unavailable Yanez, A Glenroy Unavailable Unavailable Yanez, A Glenroy MD Unavailable [...] A Glenroy MD Unavailable Unavailable Yanez, A Glernoy MD Unavailable Unavailable Yanez, A Glenroy MD [...] Unavailable Yanez, A Glenroy MD Unavailable Unavailable Tristen Yanez MD Unavailable Unavailable Tristen Yanez MD Unavailable Unavailable Marya, Poonam Alexa PA [...] Unavailable Marya, Poonam Alexa PA Unavailable Unavailable Faltyn, R Misha R-PA Unavailable [...] Unavailable Faltyn, R Misha R-PA Unavailable Unavailable Dheeraj Jr, Edward Verdugo PA [...] Dheeraj Jr, Edward Verdugo PA Unavailable Unavailable Hdeeraj Jr, Edward Verdugo PA Unavailable Unavailable Dheeraj Jr, Edward Verdugo PA Unavailable Unavailable Dheeraj Jr, Edward Verdugo PA Unavailable Unavailable Dheeraj Jr, Edward Vedrugo PA Unavailable Unavailable Dheeraj Jr, Edward Verdugo PA Unavailable Unavailable Dheeraj Jr, Edward Verdugo PA Unavailable Unavailable Dheeraj Jr, Edward Verdugo PA Unavailable Unavailable Dheeraj Jr, Edward Verdugo PA Unavailable Unavailable Dheeraj Jr, Edward Verdugo PA Unavailable Unavailable CANAL, DONNA PA Unavailable [...] CANAL, DONNA PA Unavailable Unavailable CANAL, DONNA Unavailable Unavailable RyfuFlorence austinfer CLINICAL INFORMATICS MANAGER-C Unavailable Unavaila ble Ryfun, Florence Davisfer CLINICAL INFORMATICS MANAGER-C Unavailable Unavaila ble RyfunFlorencefer CLINICAL INFORMATICS MANAGER-C Unavailable Unavaila ble RyfunFlorencefer CLINICAL INFORMATICS MANAGER-C Unavailable Unavaila ble RyfunFlorencenifer CLINICAL INFORMATICS MANAGER-C Unavailable Unavaila ble Ryfun, Florence Severinonifer CLINICAL INFORMATICS MANAGER-C Unavailable Unavaila ble Ryfun, Florence Severinonifer CLINICAL INFORMATICS MANAGER-C Unavailable Unavaila ble Ryfun, Florence Severinonifer CLINICAL INFORMATICS MANAGER-C Unavailable Unavaila ble Ryfun, Florence Severinonifer CLINICAL INFORMATICS MANAGER-C Unavailable Unavaila ble Ryfun, Florence Severinonifer CLINICAL INFORMATICS MANAGER-C Unavailable Unavaila ble Ryfun, Florence Severinonifer CLINICAL INFORMATICS MANAGER-C Unavailable Unavaila ble Ryfun, Florence Severinonifer CLINICAL INFORMATICS MANAGER-C Unavailable Unavaila ble Ryfun, Florence Severinonifer CLINICAL INFORMATICS MANAGER-C Unavailable Unavaila ble Ryfun, Florence Severinonifer CLINICAL INFORMATICS MANAGER-C Unavailable Unavaila ble Ryfun, Florence Severinonifer CLINICAL INFORMATICS MANAGER-C Unavailable Unavaila ble Ryfun, Florence Severinonifer CLINICAL INFORMATICS MANAGER-C Unavailable Unavaila ble Ryfun, Florence Severinonifer CLINICAL INFORMATICS MANAGER-C Unavailable Unavaila ble Ryfun, Florence Severinonifer CLINICAL INFORMATICS MANAGER-C Unavailable Unavaila ble Ryfun, Florence Severinonifer CLINICAL INFORMATICS MANAGER-C Unavailable Unavaila ble Ryfun, Florence Severinonifer CLINICAL INFORMATICS MANAGER-C Unavailable Unavaila ble Ryfun, Florence Severinonifer CLINICAL INFORMATICS MANAGER-C Unavailable Unavaila ble Ryfun, Florence Severinonifer CLINICAL INFORMATICS MANAGER-C Unavailable Unavaila ble Ryfun, Florence Severinonifer CLINICAL INFORMATICS MANAGER-C Unavailable Unavaila ble Ryfun, Florence Severinonifer CLINICAL INFORMATICS MANAGER-C Unavailable Unavaila ble Ryfun, Florence Severinonifer CLINICAL INFORMATICS MANAGER-C Unavailable Unavaila ble Ryfun, Florence Severinonifer CLINICAL INFORMATICS MANAGER-C Unavailable Unavaila ble Ryfun, Florence Severinonifer CLINICAL INFORMATICS MANAGER-C Unavailable Unavaila ble Ryfun, Florence Severinonifer CLINICAL INFORMATICS MANAGER-C Unavailable Unavaila ble Ryfun, Florence Martina CLINICAL INFORMATICS MANAGER-C Unavailable Unavaila ble Ryfun, Florence Severinonifer CLINICAL INFORMATICS MANAGER-C Unavailable Unavaila ble Ryfun, Florence Severinonifer CLINICAL INFORMATICS MANAGER-C Unavailable Unavaila ble PHYSICIAN, OTHER Unavailable Unavailable Ryfun, Florence Severinonifer CLINICAL INFORMATICS MANAGER-C Unavailable Unavaila ble Ryfun, Florence Severinonifer CLINICAL INFORMATICS MANAGER-C Unavailable Unavaila ble Ryfun, Florence Severinonifer CLINICAL INFORMATICS MANAGER-C Unavailable Unavaila ble Ryfun, Florence Severinonifer CLINICAL INFORMATICS MANAGER-C Unavailable Unavaila ble Ryfun, Florence Martina CLINICAL INFORMATICS MANAGER-C Unavailable Unavaila ble Ryfun, Florence Martina CLINICAL INFORMATICS MANAGER-C Unavailable Unavaila ble Ryfun, Florence Martina CLINICAL INFORMATICS MANAGER-C Unavailable Unavaila ble Ryfun, Florence Martina CLINICAL INFORMATICS MANAGER-C Unavailable Unavaila ble Ryfun, Florence Martina CLINICAL INFORMATICS MANAGER-C Unavailable Unavaila ble Ryfun, Florence Martina CLINICAL INFORMATICS MANAGER-C Unavailable Unavaila ble Ryfun, Florence Martina CLINICAL INFORMATICS MANAGER-C Unavailable Unavaila ble Ryfun, Florence Martina CLINICAL INFORMATICS MANAGER-C Unavailable Unavaila ble Ryfun, Florence Martina CLINICAL INFORMATICS MANAGER-C Unavailable Unavaila ble Ryfun, Florence Martina CLINICAL INFORMATICS MANAGER-C Unavailable Unavaila ble Ryfun, Florence Martina CLINICAL INFORMATICS MANAGER-C Unavailable Unavaila ble Ryfun, Florence Martina CLINICAL INFORMATICS MANAGER-C Unavailable Unavaila ble Ryfun, Florence Martina CLINICAL INFORMATICS MANAGER-C Unavailable Unavaila ble Ryfun, Florence Martina CLINICAL INFORMATICS MANAGER-C Unavailable Unavaila ble Ryfun, Florence Martina CLINICAL INFORMATICS MANAGER-C Unavailable Unavaila ble Ryfun, Florence Martina CLINICAL INFORMATICS MANAGER-C Unavailable Unavaila ble Ryfun, Florence Martina CLINICAL INFORMATICS MANAGER-C Unavailable Unavaila ble Ryfun, Florence Martina CLINICAL INFORMATICS MANAGER-C Unavailable Unavaila ble Ryfun, Florence Martina CLINICAL INFORMATICS MANAGER-C Unavailable Unavaila ble Ryfun, Florence Martina CLINICAL INFORMATICS MANAGER-C Unavailable Unavaila ble Ryfun, Florence Severinonifer CLINICAL INFORMATICS MANAGER-C Unavailable Unavaila ble Ryfun, Florence Martina CLINICAL INFORMATICS MANAGER-C Unavailable Unavaila ble Ryfun, Florence Martina CLINICAL INFORMATICS MANAGER-C Unavailable Unavaila ble Ryfun, Florence Martina CLINICAL INFORMATICS MANAGER-C Unavailable Unavaila ble Ryfun, Florence Martina CLINICAL INFORMATICS MANAGER-C Unavailable Unavaila ble Ryfun, Florence Martina CLINICAL INFORMATICS MANAGER-C Unavailable Unavaila ble Ryfun, Florence Martina CLINICAL INFORMATICS MANAGER-C Unavailable Unavaila ble ALIZELibertad FINNEY DO Unavailable Unavailable HUIZENGALibertad DO Unavailable Unavailable HUIZENGA, D OSKAR DO [...] HUIZENGA, Libertad SCHMITT DO Unavailable Unavailable HUIZENGA, Lbiertad SCHMITT DO Unavailable Unavailable HUIZENGA, Libertad SCHMITT [...] D OSKAR DO Unavailable Unavailable HUIZENGA, Libertad CRUZON DO Unavailable Unavailable HUIZENGA, Libertad CRUZON DO Unavailable Unavailable HUIZENGA, Libertad CRUZON DO Unavailable Unavailable HUIZENGA, Libertad CRUZON DO Unavailable Unavailable HUIZENGA, Libertad CRUZON DO Unavailable Unavailable HUIZENGA, Libertad CRUZON DO Unavailable Unavailable HUIZENGA, Libertad CRUZON DO Unavailable Unavailable HUIZENGA, Libertad CRUZON DO Unavailable Unavailable HUIZENGA, Libertad CRUZON DO Unavailable Unavailable HUIZENGA, Libertad CRUZON DO Unavailable Unavailable SEARS, A MARIELY DO [...] Unavailable SEARS, A MARIELY DO Unavailable Unavailable POOL GUTIERREZ MD Unavailable Unavailable KHAIRALLPOOL LYON MD Unavailable Unavailable KHAIRPOOL CHOI MD Unavailable Unavailable POOL GUTIERREZ MD Unavailable Unavailable POOL GUTIERREZ MD Unavailable Unavailable KAMRYNAIRPOOL CHOI MD Unavailable Unavailable POOL GUTIERREZ MD Unavailable Unavailable POOL GUTIERREZ MD Unavailable Unavailable POOL GUTIERREZ MD Unavailable Unavailable POOL GUTIERREZ MD Unavailable Unavailable POOL GUTIERREZ MD Unavailable Unavailable POOL GUTIERREZ MD Unavailable Unavailable KHPOOL CURTIS MD Unavailable Unavailable POOL GUTIERREZ MD Unavailable Unavailable POOL GUTIERREZ MD Unavailable Unavailable KAMRYNAIRALLPOOL LYON MD Unavailable Unavailable KHAIRALLPOOL LYON MD Unavailable Unavailable KHAIRALLPOOL LYON MD Unavailable Unavailable KHAIRALLPOOL LYON MD Unavailable Unavailable KHAIRALLPOOL LYON MD Unavailable Unavailable KHAIRALLAHPOOL MD Unavailable Unavailable MARINAALLAHPOOL MD Unavailable Unavailable MARINAALLAHPOOL MD Unavailable Unavailable KHAIRALLAHPOOL MD Unavailable Unavailable KHAIRALLAHPOOL MD Unavailable Unavailable KHAIRALLAHPOOL MD Unavailable Unavailable KHAIRALLAHPOOL MD Unavailable Unavailable KHAIRALLPOOL LYON MD Unavailable Unavailable KHAIRALLPOOL LYON MD Unavailable Unavailable KHAIRALLPOOL LYON MD Unavailable Unavailable KHAIRALLAH, RAMZI MD Unavailable Unavailable KHAIRALLAH, RAMZI MD Unavailable Unavailable KHAIRALLAH, RAMZI MD Unavailable Unavailable KHAIRALLAH, RAMZI MD Unavailable Unavailable KHAIRALLAH, RAMZI MD Unavailable Unavailable KHAIRALLAH, RAMZI MD Unavailable Unavailable KHAIRALLAH, RAMZI MD Unavailable Unavailable KHAIRALLAH, RAMZI MD Unavailable Unavailable KHAIRALLAH, RAMZI MD Unavailable Unavailable KHAIRALLAH, RAMZI MD Unavailable Unavailable KHAIRALLAH, RAMZI MD Unavailable Unavailable KHAIRALLAH, RAMZI MD Unavailable Unavailable KHAIRALLAH, RAMZI MD Unavailable Unavailable KHAIRALLAH, RAMZI MD Unavailable Unavailable KHAIRALLAH, RAMZI MD Unavailable Unavailable KHAIRALLAH, RAMZI MD Unavailable Unavailable KHAIRALLAH, RAMZI MD Unavailable Unavailable KHAIRALLAH, RAMZI MD Unavailable Unavailable KHAIRALLAH, RAMZI MD Unavailable Unavailable KHAIRALLAH, RAMZI MD Unavailable Unavailable KHAIRALLAH, RAMZI MD Unavailable Unavailable KHAIRALLAH, RAMZI MD Unavailable Unavailable KHAIRALLAH, RAMZI MD Unavailable Unavailable KHAIRALLAH, RAMZI MD Unavailable Unavailable KHAIRALLAH, RAMZI MD Unavailable Unavailable KHAIRALLAH, RAMZI MD Unavailable Unavailable KHAIRALLAH, RAMZI MD Unavailable Unavailable KHAIRALLAH, RAMZI MD Unavailable Unavailable KHAIRALLAH, RAMZI MD Unavailable Unavailable KHAIRALLAH, RAMZI MD Unavailable Unavailable KHAIRALLAH, RAMZI MD Unavailable Unavailable KHAIRALLAH, RAMZI MD Unavailable Unavailable KHAIRALLAH, RAMZI MD Unavailable Unavailable KHAIRALLAH, RAMZI MD Unavailable Unavailable KHAIRALLAH, RAMZI MD Unavailable Unavailable KHAIRALLAH, RAMZI MD Unavailable Unavailable KHAIRALLAH, RAMZI MD Unavailable Unavailable KHAIRALLAH, RAMZI MD Unavailable Unavailable KHAIRALLAH, RAMZI MD Unavailable Unavailable KHAIRALLAH, RAMZI MD Unavailable Unavailable KHAIRALLAH, RAMZI MD Unavailable Unavailable KHAIRALLAH, RAMZI MD Unavailable Unavailable KHAIRALLAH, RAMZI MD Unavailable Unavailable KHAIRALLAH, RAMZI MD Unavailable Unavailable KHAIRALLAH, RAMZI MD Unavailable Unavailable KHAIRALLAH, RAMZI MD Unavailable Unavailable KHAIRALLAH, RAMZI MD Unavailable Unavailable KHAIRALLAH, RAMZI MD Unavailable Unavailable KHAIRALLAH, RAMZI MD Unavailable Unavailable KHAIRALLAH, RAMZI MD Unavailable Unavailable KHAIRALLAH, RAMZI MD Unavailable Unavailable KHAIRALLAH, RAMZI MD Unavailable Unavailable POOL GUTIERREZ MD Unavailable Unavailable POOL GUTIERREZ MD Unavailable Unavailable POOL GUTIERREZ MD Unavailable Unavailable POOL GUTIERREZ MD Unavailable Unavailable Margi EATON Unavailable Unavailable Lesley Pacheco MD Unavailable Unavailable [...] Unavailable Unavailable Lesley Pacheco MD Unavailable Unavailable eLsley Pacheco MD Unavailable Unavailable Lesley Pacheco MD [...] Unavailable Unavailable Lesley Pacheco MD Unavailable Unavailable Eng, Lesley Aguilar MD Unavailable Unavailable Eng, Lesley Aguilar MD Unavailable Unavailable Eng, Lesley Aguilar MD Unavailable Unavailable Eng, Lesley Aguilar MD Unavailable Unavailable Eng, Lesley Aguilar MD Unavailable Unavailable Eng, Lesley Aguilar MD Unavailable Unavailable Eng, Lesley Aguilar MD Unavailable Unavailable Eng, Lesley Aguilar MD Unavailable Unavailable Eng, Lesley Aguilar MD Unavailable Unavailable Eng, Lesley Aguilar MD Unavailable Unavailable Eng, Lesley Aguilar MD Unavailable Unavailable Eng, Lesley Aguilar MD Unavailable Unavailable Eng, Lesley Aguilar MD Unavailable Unavailable Eng, Lesley Aguilar MD Unavailable Unavailable Eng, Lesley Aguilar MD Unavailable Unavailable Eng, Lesley Aguilar MD Unavailable Unavailable Eng, Lesley Aguilar MD Unavailable Unavailable Eng, Lesley Aguilar MD Unavailable Unavailable Eng, Lesley Aguilar MD Unavailable Unavailable Eng, Lesley Aguilar MD Unavailable Unavailable Eng, Lesley Aguilar MD Unavailable Unavailable Eng, Lesley Aguilar MD Unavailable Unavailable Eng, Lesley Aguilar MD Unavailable Unavailable Eng, Lesley Aguilar MD Unavailable Unavailable Eng, eLsley Aguilar MD Unavailable Unavailable Eng, Lesley Aguilar MD Unavailable Unavailable Eng, Lesley Aguilar MD Unavailable Unavailable Eng, Lesley Aguilar MD Unavailable Unavailable Gregor, Lesley Aguilar MD Unavailable Unavailable Gregor, Lesley Aguilar MD Unavailable Unavailable Gregor, Lesley Aguilar MD Unavailable Unavailable Gregor, Lesley Aguilar MD Unavailable Unavailable Gregor, Lesley Aguilar MD Unavailable Unavailable Gregor, Lesley Aguilar MD Unavailable Unavailable Gregor, Lesley Aguilar MD Unavailable Unavailable MollisonDesiree MD Unavailable Unavailable MollisonDesiree MD Unavailable Unavailable MollisonDesiree MD Unavailable Unavailable MollisonDesiree MD Unavailable Unavailable Mollison, Desiree Luna MD Unavailable Unavailable MollisonDesiree MD Unavailable Unavailable MollisonDesiree MD Unavailable Unavailable MollisonDesiree MD Unavailable Unavailable MollisonDesiree MD Unavailable Unavailable MalenaisonDesiree MD Unavailable Unavailable MollisonDesiree MD Unavailable Unavailable MollisonDesiree MD Unavailable Unavailable MollisonDesiree MD Unavailable Unavailable MollisonDesiree MD Unavailable Unavailable MollisonDesiree MD Unavailable Unavailable MollisonDesiree MD Unavailable Unavailable MollisonDesiree MD Unavailable Unavailable MollisonDesiree MD Unavailable Unavailable MollisonDesiree MD Unavailable Unavailable MollisonDesiree MD Unavailable Unavailable MollisonDesiree MD Unavailable Unavailable MollisonDesiree MD Unavailable Unavailable MollisonDesiree MD Unavailable Unavailable MollisonDesiree MD Unavailable Unavailable MollDesiree morley MD Unavailable Unavailable Charlebois, A Nadia RPA [...] C [facility] Unavailable Unavailable HUIZENGA, D OSKAR DO Unavailable Unavailable HUIZENGA, Libertad SCHMITT DO Unavailable Unavailable HUIZENGA, Libertad SCHMITT DO Unavailable Unavailable HUIZENGA, Libertad SCHMITT DO Unavailable Unavailable HUIZENGA, Libertad SCHMITT DO Unavailable Unavailable HUIZENGA, Libertad SCHMITT DO Unavailable Unavailable HUIZENGA, Libertad SCHMITT DO Unavailable Unavailable HUIZENGA, D OSKAR DO Unavailable Unavailable HUIZENGA, D OSKAR DO Unavailable Unavailable HUIZENGA, D OSKAR DO Unavailable Unavailable HUIZENGA, Lbiertad SCHMITT DO Unavailable Unavailable HUIZENGA, Libertad SCHMITT [...] HUIZENGA, Libertad SCHMITT DO Unavailable Unavailable HUIZENGA, Libretad SCHMITT DO Unavailable Unavailable HUIZENGA, Libertad SCHMITT [...] Unavailable HUIZENGA, D OSKAR DO Unavailable Unavailable ALLEN, M SANJAY PA Unavailable [...] Unavailable ALLEN, M SANJAY PA Unavailable Unavailable Re-disclosure Warning The records [...] is protected by Article 27-F of the [facility] Public Health law. If you continue you may have access to information: Regarding HIV / AIDS; Provided by facilities licensed or operated by the [facility] Office of Mental Health; or Provided by the [facility] Office for People With Developmental Disabilities. If such information is present, then the following [facility] mandated warning applies: This information has [...] law may result in a fine or shelter sentence or both. A general authorization for the release of medical or other information is NOT sufficient authorization for further disc losure. Allergies and Adverse Reactions Type Description Substance Reaction Status Data Source(s ) Drug allergy Gabapentin gabapentin shaking Active eCW1 ([facility]) Drug allergy Topiramate topiramate shaking Active W1 ([facility]) Sulfa (for allergy use only) Sulfa (for allergy use only) Saucedo lfa (for allergy use only) Hives Active eCW1 ([facility]) Sulfa (for allergy use only) Sulfa (for allergy use only) Saucedo lfa (for allergy use only) Hives Active W1 ([facility]) Propensity to adverse reactions SULFACETAMIDE SODIUM-SULFUR Sulfacetamide Sodium-Sulfur Active [facility] Family History Family Member Name Family Member Gender Family Member Status Date o f Status Description Data Source(s) Unknown Female Problem (finding) 01/29/2018 12:00:00 AM EDT [facility] ([facility]) Unknown Female Problem (finding) 01/29/2018 12:00:00 AM EDT [facility] ([facility]) Unknown Female Problem (finding) 01/29/2018 12:00:00 AM EDT [facility] ([facility]) Unknown Female Problem (finding) 06/02/2015 12:00:00 AM EDT [facility] ([facility]) Unknown Female Problem (finding) 06/02/2015 12:00:00 AM EDT [facility] ([facility]) Unknown Male Problem [facility] ([facility] Encounters Encounter Providers Location Date Indications Data Source(s ) [place] [address] [facility] [address] 09/15/2020 12:00:00 AM EST eCW1 ([facility]) Outpatient Attender: Kevin Pacheco MD [id number] 09/11/2020 12:00:00 A M [facility] Attender: POOL GUTIERREZ MD [facility] 09/05/2020 07:05:00 PM EST - 09/05/2020 07:05:00 PM EST [facility] ( [facility]) Outpatient Attender: Misha CINTRON [id number] 12:00:00 AM [facility] Outpatient Attender: Jeremy Schmidt/Bernardino/Aldair/Annalise alvarez 07/17/2020 10:00:00 AM EST [facility] ([facility] Outpatient Attender: Misha CINTRON [id number] 12:00:00 AM EST - 07/12/2020 10:26:08 AM [facility] Outpatient Attender: Kevin Vitaleerrer: Kevin Pacheco MD ES1 -SJ.[id number] 06/15/2020 08:10:00 AM EDT - 06/15/2020 11:59:00 PM EDT [facility] Patient discharged. Outpatient Attender: Kevin Gastelum: Kevin Pacheco MD ES1 -SJ.MRI 06/15/2020 08:09:00 AM EDT - 06/15/2020 08:09:00 AM EDT [facility] Patient discharged. Outpatient MOB-MOB.PAT 06/15/2020 07:44 :49 AM EDT - 06/15/2020 07:44:53 AM EDT [facility] Unknown [address] [facility] [facility] [address] 06/15/2020 12:00:00 AM EDT eCW1 ([facility]) [place] [address] [facility] [facility] [address] 06/13/2020 12:00:00 AM EDT eCW1 ([facility]) Unknown [address] [facility] [facility] [address] 06/12/2020 12:00:00 AM EDT eCW1 ([facility]) Outpatient Attender: SANJAY Schmidt/Bernardino/Aldair/Rein dl 06/07/2020 02:00:00 PM EDT [facility] ([facility]) Outpatient Attender: Kevin Pacheco MDReferrer: Kevin Pacheco MD MOB -MOB.PAT 05/30/2020 12:00:00 AM EDT - 05/30/2020 09:39:15 AM EDT [facility] [place] [address] [facility] [facility] [address] 05/26/2020 12:00:00 AM EDT eCW1 ([facility]) Outpatient Attender: Yulia MARTELL Main Office 05/23/2020 02:00:00 PM EDT [facility] ([facility]) Outpatient Attender: Kevin Pacheco MD [id number] 0 01:22:52 PM EDT - 05/15/2020 02:00:03 PM EDT [facility] Inpatient Attender: Kevin Pacheco MDAdmitter: Kevin childress MDReferrer: Kevin Pacheco MD [id number] 05/12/2020 03:37:19 PM EDT - 06/21/2020 11:40:00 AM EDT [facility] Patient discharged. Outpatient Attender: Nadia Schmidt/Bernardino/Tristen casper/Reindl 04/27/2020 03:00:00 PM EDT [facility] ([facility] [address] [facility] [address] 04/24/2020 12:00:00 AM EDT eCW1 ([facility]) Outpatient Attender: LYDIA EATON 04/20/2020 12:00:00 AM EDT [facility] Outpatient Attender: Kevin Pacheco MD [id number] 04/03/2020 12:00:00 A M EDT [facility] Outpatient Attender: LYDIA EATON 03/29/2020 12:00:00 AM EDT [facility] Outpatient Attender: Alexa Gongoraerrer: OSKAR HUA 03/28/2020 09:08:53 AM EDT [facility] Outpatient Attender: LYDIA EATONReferrer: OSKAR SHRESTHA DO [id number] 03/16/2020 12:00:00 AM EDT [facility] Outpatient Attender: Martina CARTAGENA [id number] 03/14/2020 03:54:46 PM EDT - 03/14/2020 04:16:51 PM EDT [facility] Outpatient Attender: Martina FRANKCReferrer: Martina CARTAGENA ES1-SJ.MRI 03/08/2020 01:06:00 PM EDT - 03/08/2020 11:59:00 PM EDT [facility] Patient discharged. Outpatient Attender: MARIELY Vazquez/Bernardino/Aldair/Aneta 03/06/2020 08:30:00 AM EDT [facility] ([facility]) Outpatient Attender: Alexa Auer: OSKAR FINNEY DO 02/17/2020 09:34:46 AM EDT [facility] Unknown [address] [facility] [address] 01/31/2020 12:00:00 AM EDT eCW1 ([facility]) Outpatient Referrer: Martina CARTAGENA 01/14/2020 01:24 :24 PM EDT [facility] Outpatient Attender: Martina Smith CLINICAL INFORMATICS MANAGER-C [id number] 01/13/2020 12:00:00 AM EDT [address] [address] 01/05/2020 12:00:00 AM EDT eCW1 ([facility]) [address] [place] [address] 12/30/2019 12:00:00 AM EDT eCW1 ([facility]) Outpatient Attender: LYDIA EATON 11/26/2019 12:00:[address] [address] 11/25/2019 12:00:00 AM EDT eCW1 ([facility]) Outpatient Attender: MARIELY MARX DO 11/15/2019 11:49:00 AM [facility] Outpatient Attender: OTHER PHYSICIANConsultant: [facility] [id number] 11/15/2019 09:30:00 AM T [facility] Outpatient Attender: MARIELY Vazquez/Bernardino/Aldair/Reindl 11/12/2019 09:30:00 AM EDT MEDENT ([facility] ) Outpatient Attender: DONNA Villaltaender: DONNA MARTINS [id number] 11/05/2019 12:00:00 AM EDT [facility] 11/01/2019 12:40:00 PM EDT - 020 12:40:00 PM EDT [facility] ([facility]) [address] [address] 10/25/2019 12:00:00 AM EST eCW1 ([facility]) [address] [address] 10/25/2019 12:00:00 AM EST eCW1 ([facility]) Outpatient Referrer: Glenroy Yanez MD 10/19/2019 04:05:00 PM EST [facility] [address] [address] 10/14/2019 12:00:00 AM EST eCW1 ([facility]) Outpatient Attender: OSKAR Soteloerrer: OSKAR FINNEY DO 10/13/2019 04:00:00 PM EST - 10/13/2019 04:00:00 PM EST [facility] [address] [address] 10/12/2019 12:00:00 AM EST eCW1 ([facility]) [address] [address] 10/04/2019 12:00:00 AM EST eCW1 ([facility]) [address] [address] 10/01/2019 12:00:00 AM EST eCW1 ([facility]) Outpatient Attender: LYDIA EATON 10/01/2019 12:00:00 AM [facility] Outpatient Attender: Martina Smith CLINICAL INFORMATICS MANAGER-C [id number].SN 0 09/24/2019 08:33:47 AM EST [address], [address] [address] 2019 12:00:00 AM EST eCW1 ([facility]) [address], [address] [address] 09/02/2019 12:00:00 AM EST eCW1 ([facility]) Outpatient Attender: Kartik Esqueda JrReferrer: OSKAR SHRESTHA DO 08/09/2019 02:36:00 PM EST - 08/09/2019 02:36:00 PM EST [facility] Inpatient Attender: Kevin Pacheco MDAdmitter: Kevin childress MDReferrer: Kevin Pacheco MD [id number] 06/16/2019 11:29:55 AM EDT - 09/09/2019 10:16:00 AM EST [facility] Patient discharged. Immunizations Vaccine Date Status Description Data Source(s) VARICELLA-ZOSTER VIRUS GLYCOPROTEIN E,REC/AS01B ADJUVA NT/PF 07/31/2020 12:00:00 AM EST completed [facility] INFLUENZA VIRUS VACCINE QUADRIVAL [id number](6 MOS AND UP)/PF 07/31/2020 12:00:00 AM EST completed [facility] Medications Medication Brand Name Start Date Product Form Dose Route Admi nistrative Instructions Pharmacy Instructions Status Indications Reaction Description Data Source(s) pregabalin 75 MG Oral Capsule Pregabalin 75 MG Pregabalin 75 MG 09/15/2020 12:00:00 AM EST 1.0 {capsule} active P regabalin 75 MG eCW1 ([facility]) pregabalin 75 MG Oral Capsule Pregabalin 75 MG Pregabalin 75 MG 09/15/2020 12:00:00 AM EST 1.0 {capsule} active P regabalin 75 MG eCW1 ([facility]) pantoprazole 40 MG Delayed Release Oral Tablet PANTOPRAZOLE SODIUM 09/13/2020 12:00:00 AM EST tablet,delayed release (DR/EC) 60 T SIMONE 1 TABLET BY MOUTH ONCE IN THE MORNING 30 MINUTES PRIOR TO BREAKFAST AND TAKE 1 TABLET BEFORE BEDTIME TAKE 1 TABLET BY MOUTH ONCE IN THE MORNING 30 MINUTES PRIOR TO BREAKFAST AND TAKE 1 TABLET BEFORE BEDTIME SOLD: 10/09/2020 [facility] pantoprazole 40 MG Delayed Release Oral Tablet PANTOPRAZOLE SODIUM 09/13/2020 12:00:00 AM EST tablet,delayed release (DR/EC) 60 T SIMONE 1 TABLET BY MOUTH ONCE IN THE MORNING 30 MINUTES PRIOR TO BREAKFAST AND TAKE 1 TABLET BEFORE BEDTIME TAKE 1 TABLET BY MOUTH ONCE IN THE MORNING 30 MINUTES PRIOR TO BREAKFAST AND TAKE 1 TABLET BEFORE BEDTIME SOLD: 09/14/2020 [facility] 17 gram/dose 08/03/2020 12:00:00 AM EST powder 510 USE INSTRUCTED FOR BOWEL PREP USE INSTRUCTED FOR BOWEL PREP SOLD: 08/04/2020 [facility] POLYETHYLENE GLYCOL 3350 142 MG/ML Oral Solution polyethylene glycol (GLYCOLAX) packet 17 g polyethylene glycol (GLYCOLAX) packet 17 g 06/21/2020 09:00:00 AM EDT 17 g Oral active 17 g, Or al, Daily, First dose on 10/28/20 at 0900, Post-op
Start POD #1
[facility] Medication administered onsite potassium chloride SA (K-DUR,KLOR-CON) CR tablet 10 mEq [id number] 06/21/2020 09:00:00 AM EDT 10 meq Oral active 10 mEq, Oral, Daily, First dose on Fri06/21/20 at 0900 [facility] Medication administered onsite pantoprazole 40 MG Delayed Release Oral Tablet pantoprazole (PROTONIX) EC tablet 40 mg pantoprazole (PROTONIX) EC tablet 40 mg 06/21/2020 02:00:00 AM E DT 40 mg Oral active Gastroesophageal Reflux Diseas e 40 mg, Oral, Daily, Indications: Gastroesophageal Reflux Disease, First dose on Fri06/21/20 at 0200 [facility] Gastroesophageal Reflux Disease Medication administered onsite Bisacodyl 10 MG Rectal Suppository bisacodyl (DULCOLAX ) suppository 10 mg bisacodyl (DULCOLAX) suppository 10 mg 06/21/2020 12:00:00 AM EDT 10 mg Rectal active 10 mg, Rectal, Daily PRN, constipation, for constipation unrelieved by miralax/MOM, Starting Fri06/21/20 at 0000, For 4 days, Post- op
For post-op day #1, #3, and #4Hold for BM
[facility] Medication administered onsite 5 mg 06/21/2020 12:00:00 AM EDT tablet 30 TAKE 1 TABLET BY MOUTH EVERY 4 HOURS NEEDED FOR PAIN MAXIMUM DAILY DOSE = 6 TABLETS TAKE 1 TABLET BY MOUTH EVERY 4 HOURS NEEDED FOR PAIN MAXIMUM DAILY DOSE = 6 TABLETS SOLD: 06/21/2020 [facility] Oxycodone Hydrochloride 5 MG Oral Tablet oxyCODONE (ROXICODONE) 5 MG immediate release tablet oxyCODONE (ROXICODONE) 5 MG immediate release tablet 1 12:00:00 AM EDT 5 mg Oral active Take 1 tablet (5 mg total) by mouth every 4 (four) hours as needed for pain Max Daily Amount: 30 mg [facility] Docusate Sodium 50 MG / sennosides, SNF 8.6 MG Oral Tablet senna-docusate (PERICOLACE) 8.6-50 MG 2 tablet senna-docusate (PERICOLACE) 8.6-50 MG 2 tablet 06/20/2020 09:00:00 PM EDT 2 {tbl} Oral active 2 tablet, Oral, Nightly, First dose on Fri06/20/20 at 2100, Post-op
hold for loose stools
[facility] Medication administered onsite Docusate Sodium 100 MG Oral Capsule docusate sodium (C OLACE) capsule 200 mg docusate sodium (COLACE) capsule 200 mg 06/20/2020 09:00:00 PM EDT 200 mg Oral active 200 mg, Oral, Nightly, First dose on Fri06/20/20 at 2099
hold for loose stools
[facility] Medication administered onsite Amitriptyline Hydrochloride 50 MG Oral T ablet amitriptyline (ELAVIL) tablet 50 mg amitriptyline (ELAVIL) tablet 50 mg 06/20/2020 09:00:00 PM EDT 50 mg Oral active 50 mg, Oral, Nightly, Fir st dose on Fri06/20/20 at 2100 [facility] Medication administered onsite irbesartan 150 MG Oral Tablet irbesartan (AVAPRO) tabl et 37.5 mg irbesartan (AVAPRO) tablet 37.5 mg 06/20/2020 09:00:00 PM EDT 37.5 mg Oral active 37.5 mg, Oral, Nightly, First dose on Fri06/20/20 at 2100 [facility] Medication administered onsite Magnesium Hydroxide 80 MG/ML Oral Suspen james magnesium hydroxide (MILK OF MAGNESIA) 400 MG/5ML suspension 30 mL magnesium hydroxide (MILK OF MAGNESIA) 4 00 MG/5ML suspension 30 mL 06/20/2020 02:00:00 PM EDT 30 mL Oral active 30 mL, Oral, Daily, First dose on Fri06/20/20 at 1400, Post-op
Start Post-op day #1. Hold for BM
[facility] Medication administered onsite 60 ACTUAT formoterol fumarate 0.005 MG/A CTUAT / mometasone furoate 0.2 MG/ACTUAT Metered Dose Inhaler mometasone-formoterol (DULERA) 200-5 MCG/ACT inhaler 2 puff mometasone-formoterol (DULERA) 200-5 MCG/ACT inhaler 2 puff 06/20/2020 02:00:00 PM EDT 2 {puff} Inhalation active 2 pu ff, Inhalation, 2 times daily, First dose on Fri06/20/20 at 1400 [facility] Medication administered onsite Ipratropium Brent 0.2 MG/ML Inhalant S olution ipratropium (ATROVENT) 0.02 % nebulizer solution 0.5 mg ipratropium (ATROVENT) 0.02 % nebulizer solution 0.5 mg 06/20/2020 02:00:00 PM EDT 0.5 mg active 0.5 mg, Nebulization, 4 times daily, First dose on Fri06/20/20 at 1400 [facility] Medication administered onsite pregabalin 75 MG Oral Capsule pregabalin (LYRICA) caps ule 75 mg pregabalin (LYRICA) capsule 75 mg 06/20/2020 02:00:00 PM EDT 75 mg Oral active 75 mg, Oral, 3 times daily, First dose on Fri06/20/20 at 1400, For 7 days [facility] Medication administered onsite Baclofen 10 MG Oral Tablet baclofen (LIORESAL) tablet 10 mg baclofen (LIORESAL) tablet 10 mg 06/20/2020 02:00:00 PM EDT 10 mg Oral activ e 10 mg, Oral, 3 times daily, First dose on Fri06/20/20 at 1400 [facility] Medication administered onsite Amiloride Hydrochloride 5 MG Oral Tablet AMILoride (OH DAMOR) tablet 5 mg AMILoride (MIDAMOR) tablet 5 mg 06/20/2020 02:00:00 PM EDT 5 mg O ral active 5 mg, Oral, 2 times daily, First dose on Fri06/20/20 at 1400 [facility] Medication administered onsite Cefazolin 1000 MG Injection [...] minutes. Use within 1 hour of reconstitution
[facility] Perioperative Pharmacoprophylaxis Medication administered onsite fluticasone (FLONASE) 50 MCG/ACT nasal spray 2 spray [id number] 06/20/2020 12:18:26 PM EDT 2 {spray} Nasal active 2 spray, Nasal, Daily PRN, allergies, Starting Fri06/20/20 at 1218 [facility] Medication administered onsite Calcium Chloride 0.0014 MEQ/ML / Potassi um Chloride 0.004 MEQ/ML / Sodium Chloride 0.103 MEQ/ML / Sodium Lactate 0.028 MEQ/ML Injectable Solution lactated ringers infusion lactated ringers infusion 06/20/2020 12:00:00 PM EDT Intravenous active at 75 mL/hr, Intravenous, Continuous, Starting Fri06/20/20 at 1200, Post-op [facility] Medication administered onsite Acetaminophen 500 MG Oral Tablet acetaminophen (TYLENO L) tablet 1,000 mg acetaminophen (TYLENOL) tablet 1,000 mg 06/20/2020 12:00:00 PM EDT 1000 mg Oral active 1,000 mg, Oral , Every 6 hours (scheduled), First dose on Fri06/20/20 at 1200, Post-op [facility] Medication administered onsite ondansetron (ZOFRAN) injection 4 mg [id number] 06/20/2020 11:43:2 6 AM EDT 4 mg Intravenous active 4 mg, In travenous, Every 4 hours PRN, nausea, vomiting, Starting Fri06/20/20 at 1143, Post-op
If unable to take PO
[facility] Medication administered onsite Oxycodone Hydrochloride 5 MG Oral Tablet oxyCODONE (ROXICODONE) immediate release tablet 5 mg oxyCODONE (ROXICODONE) immediate release tablet 5 mg 06/20/2020 11:43:26 AM EDT 5 mg Oral active 5 mg, Oral, Every 4 hours PRN, moderate pain (4-6), Starting Fri06/20/20 at 1143, For 7 days, Post-op [facility] Medication administered onsite Oxycodone Hydrochloride 10 MG Oral Tablet Oxycodone HC l TABS 10 mg Oxycodone HCl TABS 10 mg 06/20/2020 11:43:26 AM EDT 10 mg Oral active 10 mg, Oral, Every 4 hours PRN, severe pain (7-10), Starting Fri06/20/20 at 1143, For 7 days, Post-op [facility] Medication administered onsite Sumatriptan 50 MG Oral Tablet SUMAtriptan (IMITREX) ta blet 100 mg SUMAtriptan (IMITREX) tablet 100 mg 06/20/2020 11:43:26 AM EDT 100 mg Oral active 100 mg, Oral, Daily PRN, migraine, Starting Fri06/20/20 at 1143
May repeat dose in 2 hours if no relief.Do not exceed 2 doses in 24 hours.
[facility] Medication administered onsite Mineral Oil 1000 MG/ML Enema mineral oil enema 1 enema mineral oil enema 1 enema 06/20/2020 11:43:25 AM EDT 1 {enema} Rectal active 1 enema, Rectal, Daily PRN, constipation, if unrelieved by dulcolax, Starting Fri06/20/20 at 1143, Post-op
hold for loose stools
[facility] Medication administered onsite 2 ML Metoclopramide 5 MG/ML Prefilled Sy ringe metoclopramide (REGLAN) injection 10 mg metoclopramide (REGLAN) injection 10 mg 06/20/2020 11:43:25 AM E DT 10 mg Intravenous active 10 mg, I ntravenous, Every 6 hours PRN, nausea not relieved by Zofran, Starting Fri06/20/20 at 1143, For 24 hours, Post-op
If nausea not relieved by Zofran; Renal dosing per pharmacy
[facility] Medication administered onsite fentaNYL Citrate (PF) (SUBLIMAZE) injection 50 mcg [id number] 06/20/2020 11:43:25 AM EDT 50 ug Intravenous active 50 mcg, Intravenous, Every 3 hours PRN, for severe breakthrough pain (7-10) if oral opioid ineffective, Starting Fri06/20/20 at 1143, For 7 days, Post-op [facility] Medication administered onsite Nitroglycerin 0.4 MG Sublingual Tablet n itroglycerin (NITROSTAT) SL tablet 0.4 mg nitroglycerin (NITROSTAT) SL tablet 0.4 mg 06/20/2020 11:43:25 A M EDT 0.4 mg Sublingual active 0.4 mg, S ublingual, Every 5 min PRN, chest pain, Starting Fri06/20/20 at 1143
May administer up to 3 doses per episode.
[facility] Medication administered onsite 12 HR Guaifenesin 600 MG Extended Releas e Oral Tablet guaiFENesin (MUCINEX) 12 hr tablet 600 mg guaiFENesin (MUCINEX) 12 hr tablet 600 mg 06/20/2020 1 1:43:25 AM EDT 600 mg Oral active 600 mg, Oral, 2 times daily PRN, other, congestion, Starting Fri06/20/20 at 1143 [facility] Medication administered onsite Albuterol 0.83 MG/ML Inhalant Solution a lbuterol (PROVENTIL) nebulizer solution 2.5 mg albuterol (PROVENTIL) nebulizer solution 2.5 mg 2019 11:43:24 AM EDT 2.5 mg active 2.5 mg, Nebulization, RT every 4 hours as needed, wheezing, shortness of breath, Starting Fri06/20/20 at 1143 [facility] Medication administered onsite Albuterol 0.83 MG/ML Inhalant Solution a lbuterol (PROVENTIL) nebulizer solution 2.5 mg albuterol (PROVENTIL) nebulizer solution 2.5 mg 2019 11:43:24 AM EDT 2.5 mg active 2.5 mg, Nebulization, 4 times daily PRN, shortness of breath, Starting Fri06/20/20 at 1143 [facility] Medication administered onsite 72 HR Scopolamine 0.0139 MG/HR Transderm al Patch scopolamine (TRANSDERM-SCOP) 1.5 MG 1 patch scopolamine (TRANSDERM-SCOP) 1.5 MG 1 patch 06/20/2020 08:00:00 AM EDT 1 {patch} Transdermal aborted 1 patch, Transdermal, Administer over 72 Hours, Once, Fri06/20/20 at 0800, For 1 dose, Pre-op [facility] Medication administered onsite Magnesium Chloride 0.29088 MEQ/ML / Pota ssium Chloride 0.0497 MEQ/ML / Sodium Acetate 0.0163 MEQ/ML / Sodium Chloride 0.0899 MEQ/ML / Sodium gluconate 5.02 MG/ML Injectable Solution [Normosol-R] electrolyte-R (NORMOSOL-R/PLASMALYTE-R) solution electrolyte-R (NORMOSOL-R/PLASMALYTE-R) solution 06/20 08:00:00 AM EDT Intravenous active at 1 00 mL/hr, Intravenous, Continuous, Starting Fri06/20/20 at 0800, Pre-op [facility] Medication administered onsite chlorhexidine gluconate 1.2 MG/ML Mouthw iain chlorhexidine (PERIDEX) 0.12 % oral solution 15 mL chlorhexidine (PERIDEX) 0.12 % oral solution 15 mL 07:00:00 AM EDT 15 mL Mouth/Throat completed 15 mL, Mouth/Throat, call out clerk, Fri06/20/20 at 0700, For 1 dose, Pre-op
Swish for 30 seconds and spit in pre-induction unit
[facility] Medication administered onsite Acetaminophen 500 MG Oral Tablet acetaminophen (TYLENO L) tablet 1,000 mg acetaminophen (TYLENOL) tablet 1,000 mg 06/20/2020 07:00:00 AM EDT 1000 mg Oral completed 1,000 mg, Oral , call out clerk, Fri06/20/20 at 0700, For 1 dose, Pre-op
To be administered just prior to to transport to operating room
[facility] Medication administered onsite 2 ML Metoclopramide 5 MG/ML Prefilled Sy ringe metoclopramide (REGLAN) injection 10 mg metoclopramide (REGLAN) injection 10 mg 06/20/2020 07:00:00 AM E DT 10 mg Intravenous completed 10 mg, I ntravenous, call out clerk, Fri06/20/20 at 0700, For 1 dose, Pre-op
To be administered just prior to to transport to operating room
[facility] Medication administered onsite ondansetron (ZOFRAN) injection 4 mg [id number] 06/20/2020 07:00:0 0 AM EDT 4 mg Intravenous completed 4 mg, In travenous, call out clerk, Fri06/20/20 at 0700, For 1 dose, Pre-op
To be administered just prior to to transport to operating room
[facility] Medication administered onsite dexamethasone (DECADRON) injection 4 mg [id number] 06/20/20 20 07:00:00 AM EDT 4 mg Intravenous completed 4 mg, Intr avenous, call out clerk, Fri06/20/20 at 0700, For 1 dose, Pre-op
To be administered just prior to to transport to operating room.Hold if patient is diabetic or if stress dose steroids are ordered
[facility] Medication administered onsite 600 mg 06/12/2020 12:00:00 AM EDT tablet extended release 12hr 60 TAKE 1 TABLET BY MOUTH EVERY 12 HOURS NEEDED TAKE 1 TABLET BY MOUTH EVERY 12 HOURS NEEDED SOLD: 06/13/2020 [facility] irbesartan 75 MG Oral Tablet Irbesartan 05/22/2020 12:00:00 AM EDT active [facility] ([facility]) Polyethylene Glycol 3350 05/22/2020 12:00:00 AM EDT active [facility] ([facility]) Lactulose 667 MG/ML Oral Solution Lactulose 05/22/2020 12:00:00 AM EDT ORAL active [facility] ([facility]) pregabalin 75 MG Oral Capsule [Lyrica] Lyrica 05/22/2020 12:00:00 AM EDT ORAL active [facility] ([facility]) Albuterol 0.83 MG/ML Inhalant Solution Albuterol Sulfate 0 05/22/2020 12:00:00 AM EDT active [facility] Sumatriptan 100 MG Oral Tablet Sumatriptan Succinate 05/22/2020 12:00:00 AM EDT ORAL active MEDENT ( [facility]) Potassium Chloride 10 MEQ Extended Release Oral Tablet Potas sium Chloride ER 05/22/2020 12:00:00 AM EDT ORAL active [facility] ([facility]) 12 HR Guaifenesin 600 MG Extended Release Oral Tablet [Mucin ex] Mucinex 05/22/2020 12:00:00 AM EDT ORAL active [facility] ([facility]) 75 mg 05/21/2020 12:00:00 AM EDT capsule [...] 12:00:00 AM EDT ORAL active M EDENT ([facility], ) 300 mg 05/04/2020 12:00:00 AM EDT capsule 20 TAKE ONE CAPSULE BY MOUTH TWICE A DAY TAKE ONE CAPSULE BY MOUTH TWICE A DAY SOLD: 05/04/2020 [facility] methylPREDNISolone (MEDROL, URIEL,) 4 MG tablet [id number] 04/03/2020 12:00:00 AM EDT aborted follow package d irections [facility] 4 mg 04/03/2020 12:00:00 AM EDT tablets,dose pack 21 USE DIRECTED PER PACKAGE USE DIRECTED PER PACKAGE SOLD: 04/03/2020 [facility] Acetaminophen 325 MG / Hydrocodone Clara trate 5 MG Oral Tablet HYDROcodone- Acetaminophen 5-325 MG Oral Tablet (LORTAB) HYDROcodone-Acetaminophen 5-325 MG Oral Tablet (LORTAB) 03/16/2020 12:00:00 AM EDT active Take 1 one hour before surgery and every 8 hours after for pain [facility] Diazepam 5 MG Oral Tablet diazePAM 5 MG Oral Tablet (V alium) diazePAM 5 MG Oral Tablet (Valium) 03/16/2020 12:00:00 AM EDT ac tive Take 1 2 hours before surgery and may repeat once [facility] Levofloxacin 500 MG Oral Tablet levoFLOXacin 500 MG Or al Tablet (LEVAQUIN) levoFLOXacin 500 MG Oral Tablet (LEVAQUIN) 03/16/2020 12:00:00 AM EDT 500 mg Oral active Take 1 tablet by billie th daily [facility] 500 mg 03/16/2020 12:00:00 AM EDT tablet 14 TAKE ONE TABLET BY MOUTH EVERY DAY TAKE ONE TABLET BY MOUTH EVERY DAY SOLD: 03/18/2020 [facility] 5-325 mg 03/16/2020 12:00:00 AM EDT [...] MAXIMUM DAILY DOSE = 2 SOLD: 03/18/2020 [facility] Albuterol 0.83 MG/ML Inhalant Solution A lbuterol Sulfate (2.5 MG/3ML) 0.083% Inhalation Nebulization Solution (PROVENTIL) Albuterol Sulfate (2.5 MG/3ML) 0.083% Inhalation Nebulization Solution (PROVENTIL) 03/09/2020 12:00:00 AM EDT [facility] 2.5 mg /3 mL (0.083 %) 03/09/2020 [...] 0 03/08/2020 12:00:00 AM EDT active MEDENT ([facility]) Albuterol 0.83 MG/ML Inhalant Solution Albuterol Sulfate 0 03/06/2020 12:00:00 AM EDT completed MEDENT ([facility] ) Dicyclomine Hydrochloride 20 MG Oral Tab let Dicyclomine HCl 20 MG Oral Tablet (BENTYL) Dicyclomine HCl 20 MG Oral Tablet (BENTYL) 02/28/2020 12:00: 00 AM EDT [facility] Spiriva Respimat 2.5 MCG/ACT Inhalation Aerosol Solution [id number] 02/28/2020 12:00:00 AM EDT [facility] Atropine Sulfate 0.025 MG / Diphenoxylat e Hydrochloride 2.5 MG Oral Tablet Diphenoxylate-Atropine 2.5-0.025 MG Oral Tablet (LOMOTIL) Diphenoxylate-Atropine 2.5-0.025 MG Oral Tablet (LOMOTIL) 02/28/2020 12:00:00 AM EDT [facility] Atropine Sulfate 0.025 MG / Diphenoxylat e Hydrochloride 2.5 MG Oral Tablet [Lomotil] Lomotil 2.5-0.025 MG Lomotil 2.5-0.025 MG 01/06/2020 12:00:00 AM EDT active 1 tablet as need ed eCW1 ([facility]) Atropine Sulfate 0.025 MG / Diphenoxylat e Hydrochloride 2.5 MG Oral Tablet [Lomotil] Lomotil 2.5-0.025 MG Lomotil 2.5-0.025 MG 01/06/2020 12:00:00 AM EDT 1.0 {tablet_as_needed} active L omotil 2.5-0.025 MG eCW1 ([facility]) Atropine Sulfate 0.025 MG / Diphenoxylat e Hydrochloride 2.5 MG Oral Tablet [Lomotil] Lomotil 2.5-0.025 MG Lomotil 2.5-0.025 MG 01/06/2020 12:00:00 AM EDT 1.0 {tablet_as_needed} active L omotil 2.5-0.025 MG eCW1 ([facility]) Atropine Sulfate 0.025 MG / Diphenoxylat e Hydrochloride 2.5 MG Oral Tablet [Lomotil] Lomotil 2.5-0.025 MG Lomotil 2.5-0.025 MG 01/06/2020 12:00:00 AM EDT 1.0 {tablet_as_needed} active L omotil 2.5-0.025 MG eCW1 ([facility]) Atropine Sulfate 0.025 MG / Diphenoxylat e Hydrochloride 2.5 MG Oral Tablet [Lomotil] Lomotil 2.5-0.025 MG Lomotil 2.5-0.025 MG 01/06/2020 12:00:00 AM EDT 1.0 {tablet_as_needed} active L omotil 2.5-0.025 MG eCW1 ([facility]) Atropine Sulfate 0.025 MG / Diphenoxylat e Hydrochloride 2.5 MG Oral Tablet [Lomotil] Lomotil 2.5-0.025 MG Lomotil 2.5-0.025 MG 01/06/2020 12:00:00 AM EDT 1.0 {tablet_as_needed} active L omotil 2.5-0.025 MG eCW1 ([facility]) 100 mg 12/30/2019 12:00:00 AM EDT tablet 28 TAKE ONE TABLET BY MOUTH TWICE A DAY TAKE ONE TABLET BY MOUTH TWICE A DAY SOLD: 12/30/2019 [facility] Prednisone 20 MG Oral Tablet PredniSONE 20 MG PredniSONE 20 MG 12/30/2019 12:00:00 AM EDT 1.0 {tablet} active Pr edniSONE 20 MG eCW1 ([facility]) doxycycline hyclate 100 MG Oral Tablet Doxycycline Hyc late 100 MG Doxycycline Hyclate 100 MG 12/30/2019 12:00:00 AM EDT 1.0 {tablet} active Doxycycline Hyclate 100 MG eCW1 ([facility]) Dicyclomine Hydrochloride 20 MG Oral Tablet Dicyclomin e HCl 20 MG Dicyclomine HCl 20 MG 12/30/2019 12:00:00 AM EDT 1.0 {tablet} ac tive Dicyclomine HCl 20 MG eCW1 ([facility]) Dicyclomine Hydrochloride 20 MG Oral Tablet Dicyclomin e HCl 20 MG Dicyclomine HCl 20 MG 12/30/2019 12:00:00 AM EDT 1.0 {tablet} ac tive Dicyclomine HCl 20 MG eCW1 ([facility]) doxycycline hyclate 100 MG Oral Tablet Doxycycline Hyc late 100 MG Doxycycline Hyclate 100 MG 12/30/2019 12:00:00 AM EDT 1.0 {tablet} active Doxycycline Hyclate 100 MG eCW1 ([facility]) Prednisone 20 MG Oral Tablet PredniSONE 20 MG PredniSONE 20 MG 12/30/2019 12:00:00 AM EDT 1.0 {tablet} active Pr edniSONE 20 MG eCW1 ([facility]) doxycycline hyclate 100 MG Oral Tablet Doxycycline Hyc late 100 MG Doxycycline Hyclate 100 MG 12/30/2019 12:00:00 AM EDT 1.0 {tablet} active Doxycycline Hyclate 100 MG eCW1 ([facility]) Loperamide Hydrochloride 2 MG Oral Capsule Loperamide HCl 2 MG Loperamide HCl 2 MG 12/30/2019 12:00:00 AM EDT 1.0 {capsule_as_needed} active Loperamide HCl 2 MG eCW1 ([facility]) Loperamide Hydrochloride 2 MG Oral Capsule Loperamide HCl 2 MG Loperamide HCl 2 MG 12/30/2019 12:00:00 AM EDT 1.0 {capsule_as_needed} active Loperamide HCl 2 MG eCW1 ([facility]) doxycycline hyclate 100 MG Oral Tablet Doxycycline Hyc late 100 MG Doxycycline Hyclate 100 MG 12/30/2019 12:00:00 AM EDT active 1 tablet eCW1 ([facility]) 20 mg 12/30/2019 12:00:00 AM EDT tablet 7 TAKE ONE TABLET BY MOUTH EVERY DAY TAKE ONE TABLET BY MOUTH EVERY DAY SOLD: 01/12/2020 [facility] Dicyclomine Hydrochloride 20 MG Oral Tablet Dicyclomin e HCl 20 MG Dicyclomine HCl 20 MG 12/30/2019 12:00:00 AM EDT active 1 tablet eCW1 ([facility]) 20 mg 12/30/2019 12:00:00 AM EDT tablet 7 TAKE ONE TABLET BY MOUTH EVERY DAY TAKE ONE TABLET BY MOUTH EVERY DAY SOLD: 12/30/2019 [facility] Prednisone 20 MG Oral Tablet PredniSONE 20 MG PredniSONE 20 MG 12/30/2019 12:00:00 AM EDT 1.0 {tablet} active Pr edniSONE 20 MG eCW1 ([facility]) doxycycline hyclate 100 MG Oral Tablet Doxycycline Hyc late 100 MG Doxycycline Hyclate 100 MG 12/30/2019 12:00:00 AM EDT 1.0 {tablet} active Doxycycline Hyclate 100 MG eCW1 ([facility]) Loperamide Hydrochloride 2 MG Oral Capsule Loperamide HCl 2 MG Loperamide HCl 2 MG 12/30/2019 12:00:00 AM EDT 1.0 {capsule_as_needed} active Loperamide HCl 2 MG eCW1 ([facility]) Prednisone 20 MG Oral Tablet PredniSONE 20 MG PredniSONE 20 MG 12/30/2019 12:00:00 AM EDT 1.0 {tablet} active Pr edniSONE 20 MG eCW1 ([facility]) Dicyclomine Hydrochloride 20 MG Oral Tablet Dicyclomin e HCl 20 MG Dicyclomine HCl 20 MG 12/30/2019 12:00:00 AM EDT 1.0 {tablet} ac tive Dicyclomine HCl 20 MG eCW1 ([facility]) Dicyclomine Hydrochloride 20 MG Oral Tablet Dicyclomin e HCl 20 MG Dicyclomine HCl 20 MG 12/30/2019 12:00:00 AM EDT 1.0 {tablet} ac tive Dicyclomine HCl 20 MG eCW1 ([facility]) Loperamide Hydrochloride 2 MG Oral Capsule Loperamide HCl 2 MG Loperamide HCl 2 MG 12/30/2019 12:00:00 AM EDT 1.0 {capsule_as_needed} active Loperamide HCl 2 MG eCW1 ([facility]) Loperamide Hydrochloride 2 MG Oral Capsule Loperamide HCl 2 MG Loperamide HCl 2 MG 12/30/2019 12:00:00 AM EDT 1.0 {capsule_as_needed} active Loperamide HCl 2 MG eCW1 ([facility]) Prednisone 20 MG Oral Tablet PredniSONE 20 MG PredniSONE 20 MG 12/30/2019 12:00:00 AM EDT 1.0 {tablet} active Pr edniSONE 20 MG eCW1 ([facility]) Loperamide Hydrochloride 2 MG Oral Capsule Loperamide HCl 2 MG Loperamide HCl 2 MG 12/30/2019 12:00:00 AM EDT active 1 capsule as needed eCW1 ([facility]) Dicyclomine Hydrochloride 20 MG Oral Tablet Dicyclomin e HCl 20 MG Dicyclomine HCl 20 MG 12/30/2019 12:00:00 AM EDT 1.0 {tablet} ac tive Dicyclomine HCl 20 MG eCW1 ([facility]) Prednisone 20 MG Oral Tablet PredniSONE 20 MG PredniSONE 20 MG 12/30/2019 12:00:00 AM EDT active 1 tablet eCW1 ([facility]) doxycycline hyclate 100 MG Oral Tablet Doxycycline Hyc late 100 MG Doxycycline Hyclate 100 MG 12/30/2019 12:00:00 AM EDT 1.0 {tablet} active Doxycycline Hyclate 100 MG eCW1 ([facility]) Azithromycin 500 MG Oral Tablet Azithromycin 11/12/2019 12:00:00 AM E DT ORAL completed MEDENT ([facility], ) Prednisone 10 MG Oral Tablet Prednisone 11/12/2019 12:00:00 AM EDT ORAL completed MEDENT ([facility], ) 500 mg 11/12/2019 12:00:00 AM EDT [...] ONCE DAILY FOR 5 DAYS SOLD: 11/14/2019 [facility] 10 mg 10/03/2019 12:00:00 AM EST tablet 60 TAKE ONE TABLET BY MOUTH TWICE A DAY BEFORE MEALS TAKE ONE TABLET BY MOUTH TWICE A DAY BEFORE MEALS SOLD : 10/03/2019 [facility] Lactulose 667 MG/ML Oral Solution Lactulose 20 GM/30ML Lactu lose 20 GM/30ML 10/01/2019 12:00:00 AM EST active 15 ml eCW1 ([facility]) Metoclopramide 10 MG Oral Tablet metoclopramide (CHRISTINA N) 10 MG tablet metoclopramide (REGLAN) 10 MG tablet 10/01/2019 12:00:00 AM EST aborted [facility] Metoclopramide 10 MG Oral Tablet [Reglan] Reglan 10 MG Christina n 10 MG 10/01/2019 12:00:00 AM EST active 1 tablet before meals eCW1 ([facility]) 10 gram/15 mL 10/01/2019 12:00:00 AM EST solution 473 TAKE 15 ML BY MOUTH ONCE DAILY TAKE 15 ML BY MOUTH ONCE DAILY SOLD: 10/03/2019 [facility] potassium chloride SA (K-DUR,KLOR-CON) CR tablet 10 mEq [id number] 09/09/2019 09:00:00 AM EST 10 meq Oral active 10 mEq, Oral, Daily, First dose on Layne 09/09/19 at 0900 [facility] Medication administered onsite Amiloride Hydrochloride 5 MG Oral Tablet AMILoride (OH DAMOR) tablet 10 mg AMILoride (MIDAMOR) tablet 10 mg 09/09/2019 09:00:00 AM EST 10 mg Oral active 10 mg, Oral, Daily, First dose o n Layne 09/09/19 at 0900 [facility] Medication administered onsite POLYETHYLENE GLYCOL 3350 142 MG/ML Oral Solution polyethylene glycol (GLYCOLAX) packet 17 g polyethylene glycol (GLYCOLAX) packet 17 g 09/09/2019 09:00:00 AM EST 17 g Oral active 17 g, Or al, Daily, First dose on Layne 09/09/19 at 0900, Post-op
Start POD #1
[facility] Medication administered onsite Bisacodyl 10 MG Rectal Suppository bisacodyl (DULCOLAX ) suppository 10 mg bisacodyl (DULCOLAX) suppository 10 mg 09/09/2019 12:00:00 AM EST 10 mg Rectal active 10 mg, Rectal, Daily PRN, constipation, for constipation unrelieved by miralax/MOM, Starting Layne 09/09/19 at 0000, For 4 days, Post- op
For post-op day #1, #3, and #4Hold for BM
[facility] Medication administered onsite Magnesium Hydroxide 80 MG/ML Oral Suspen james magnesium hydroxide (MILK OF MAGNESIA) 400 MG/5ML suspension 30 mL magnesium hydroxide (MILK OF MAGNESIA) 4 00 MG/5ML suspension 30 mL 09/09/2019 12:00:00 AM EST 30 mL Oral active 30 mL, Oral, Daily PRN, constipation, Starting Layne 09/09/19 at 0000, Post- op
Start Post-op day #1. Hold for BM
[facility] Medication administered onsite 7.5-325 mg 09/09/2019 12:00:00 [...] 3 (three) times a day as needed [facility] pregabalin 50 MG Oral Capsule pregabalin (LYRICA) 50 M G capsule pregabalin (LYRICA) 50 MG capsule 09/09/2019 12:00:00 AM EST aborted Take 3 times per day. MDD: 3 tablets [facility] Acetaminophen 325 MG / Hydrocodone Clara trate 7.5 MG Oral Tablet HYDROcodone- acetaminophen (NORCO) 7.5-325 MG per tablet HYDROcodone-acetaminophen (NORCO) 7.5-325 MG per tablet 09/09/2019 12:00:00 AM EST 1 {tbl} Oral active Take 1 tablet by mouth every 4 (four) hours as needed for pain Max Daily Amount: 6 tablets [facility] pantoprazole 40 MG Delayed Release Oral Tablet pantoprazole (PROTONIX) EC tablet 40 mg pantoprazole (PROTONIX) EC tablet 40 mg 09/08/2019 09:00:[address] 40 mg Oral active Gastroesophageal Reflux Diseas e 40 mg, Oral, 2 times daily, Indications: Gastroesophageal Reflux Disease, First dose on Fri09/08/19 at 2100 [facility] Gastroesophageal Reflux Disease Medication administered onsite Amitriptyline Hydrochloride 50 MG Oral T ablet amitriptyline (ELAVIL) tablet 50 mg amitriptyline (ELAVIL) tablet 50 mg 09/08/2019 09:00:00 PM EST 50 mg Oral active 50 mg, Oral, Nightly, Fir st dose on Fri09/08/19 at 2100 [facility] Medication administered onsite Docusate Sodium 50 MG / sennosides, SNF 8.6 MG Oral Tablet senna-docusate (PERICOLACE) 8.6-50 MG 2 tablet senna-docusate (PERICOLACE) 8.6-50 MG 2 tablet 09/08/2019 09:00:00 PM EST 2 {tbl} Oral active 2 tablet, Oral, Nightly, First dose on Fri09/08/19 at 2100, Post-op
hold for loose stools
[facility] Medication administered onsite 60 ACTUAT formoterol fumarate 0.005 MG/A CTUAT / mometasone furoate 0.2 MG/ACTUAT Metered Dose Inhaler mometasone-formoterol (DULERA) 200-5 MCG/ACT inhaler 2 puff mometasone-formoterol (DULERA) 200-5 MCG/ACT inhaler 2 puff 09/08/2019 08:00:00 PM EST 2 {puff} Inhalation active 2 puff, Inhalation, 2 times daily, First dose on Fri09/08/19 at 2000 [facility] Medication administered onsite pregabalin 50 MG Oral Capsule pregabalin (LYRICA) caps ule 50 mg pregabalin (LYRICA) capsule 50 mg 09/08/2019 02:00:00 PM EST 50 mg Oral active 50 mg, Oral, 3 times daily, First dose on Fri09/08/19 at 1400, For 7 days [facility] Medication administered onsite Baclofen 10 MG Oral Tablet baclofen (LIORESAL) tablet 10 mg baclofen (LIORESAL) tablet 10 mg 09/08/2019 02:00:00 PM EST 10 mg Oral activ e 10 mg, Oral, 3 times daily, First dose on Fri09/08/19 at 1400 [facility] Medication administered onsite Acetaminophen 500 MG Oral Tablet acetaminophen (TYLENO L) tablet 500 mg acetaminophen (TYLENOL) tablet 500 mg 09/08/2019 02:00:00 PM EST 50 0 mg Oral active 500 mg, Oral, E very 6 hours (relative), First dose on Fri09/08/19 at 1400, Post-op [facility] Medication administered onsite fluticasone (FLONASE) 50 MCG/ACT nasal spray 2 spray [id number] 09/08/2019 01:00:00 PM EST 2 {spray} Nasal active 2 spray, Nasal, Daily, First dose on Fri09/08/19 at 1300 [facility] Medication administered onsite irbesartan 150 MG Oral Tablet irbesartan (AVAPRO) tabl et 75 mg irbesartan (AVAPRO) tablet 75 mg 09/08/2019 01:00:00 PM EST 75 mg Oral active 75 mg, Oral, Daily, First dose on Fri09/08/19 at 1300 [facility] Medication administered onsite cefazolin (ANCEF) injection 2 [...] this medication through syringe adapter set ref [phone]. Flush line after use
[facility] Perioperative Pharmacoprophylaxis Medication administered onsite Calcium Chloride 0.0014 MEQ/ML / Potassi um Chloride 0.004 MEQ/ML / Sodium Chloride 0.103 MEQ/ML / Sodium Lactate 0.028 MEQ/ML Injectable Solution lactated ringers infusion lactated ringers infusion 09/08/2019 12:00:00 PM EST Intravenous active at 75 mL/hr, Intravenous, Continuous, Starting Fri09/08/19 at 1200, Post-op [facility] Medication administered onsite Ipratropium Brent 0.2 MG/ML Inhalant S olution ipratropium (ATROVENT) 0.02 % nebulizer solution 0.5 mg ipratropium (ATROVENT) 0.02 % nebulizer solution 0.5 mg 09/08/2019 12:00:00 PM EST 0.5 mg active 0.5 mg, Nebulization, 4 times daily, First dose on Fri09/08/19 at 1200 [facility] Medication administered onsite Acetaminophen 325 MG / Hydrocodone Clara trate 5 MG Oral Tablet HYDROcodone- acetaminophen (NORCO) 5-325 MG per tablet 1 tablet HYDROcodone-acetaminophen (NORCO) 5-325 MG per tablet 1 tablet 09/08/2019 11:05:22 AM EST 1 { tbl} Oral active 1 tablet, Oral, Every 4 hours PRN, moderate pain (4-6), Starting Fri09/08/19 at 1105, For 7 days, Post-op [facility] Medication administered onsite Acetaminophen 325 MG / Hydrocodone Clara trate 10 MG Oral Tablet HYDROcodone- acetaminophen (NORCO 10-325) 10-325 MG per tablet 1 tablet HYDROcodone- acetaminophen (NORCO 10-325) 10-325 MG per tablet 1 tablet 09/08/2019 11:05:22 AM EST 1 {tbl} Oral active 1 tablet , Oral, Every 4 hours PRN, severe pain (7-10), Starting Fri09/08/19 at 1105, For 7 days, Post-op [facility] Medication administered onsite fentaNYL Citrate (PF) (SUBLIMAZE) injection 50 mcg [id number] 09/08/2019 11:05:22 AM EST 50 ug Intravenous active 50 mcg, Intravenous, Every 3 hours PRN, for severe breakthrough pain (7-10) if oral opioid ineffective, Starting Fri09/08/19 at 1105, For 7 days, Post-op [facility] Medication administered onsite Mineral Oil 1000 MG/ML Enema mineral oil enema 1 enema mineral oil enema 1 enema 09/08/2019 11:05:22 AM EST 1 {enema} Rectal active 1 enema, Rectal, Daily PRN, constipation, if unrelieved by dulcolax, Starting Fri09/08/19 at 1105, Post-op
hold for loose stools
[facility] Medication administered onsite ondansetron (ZOFRAN) injection 4 mg [id number] 09/08/2019 11:05:2 2 AM EST 4 mg Intravenous active 4 mg, In travenous, Every 4 hours PRN, nausea, vomiting, Starting Fri09/08/19 at 1105, Post-op
If unable to take PO
[facility] Medication administered onsite 2 ML Metoclopramide 5 MG/ML Prefilled Sy ringe metoclopramide (REGLAN) injection 10 mg metoclopramide (REGLAN) injection 10 mg 09/08/2019 11:05:[address] 10 mg Intravenous active 10 mg, I ntravenous, Every 6 hours PRN, nausea, vomiting, Starting Fri09/08/19 at 1105, For 24 hours, Post-op
Renal dosing per pharmacy
[facility] Medication administered onsite Albuterol 0.83 MG/ML Inhalant Solution a lbuterol (PROVENTIL) nebulizer solution 2.5 mg albuterol (PROVENTIL) nebulizer solution 2.5 mg 2019 11:05:21 AM EST 2.5 mg active 2.5 mg, Nebulization, RT every 4 hours as needed, wheezing, shortness of breath, Starting Fri09/08/19 at 1105 [facility] Medication administered onsite Magnesium Chloride 0.88789 MEQ/ML / Pota ssium Chloride 0.0497 MEQ/ML / Sodium Acetate 0.0163 MEQ/ML / Sodium Chloride 0.0899 MEQ/ML / Sodium gluconate 5.02 MG/ML Injectable Solution [Normosol-R] electrolyte-R (NORMOSOL-R/PLASMALYTE-R) solution electrolyte-R (NORMOSOL-R/PLASMALYTE-R) solution 09/08 11:00:00 AM EST Intravenous active at 1 50 mL/hr, Intravenous, Continuous, Starting Fri09/08/19 at 1100, For 1 day, PACU (only) [facility] Medication administered onsite HYDROmorphone (DILAUDID) injection 0.5 mg [id number] 09/08/2019 10:16:01 AM EST 0.5 mg Intravenous aborted 0.5 mg, Intravenous, Every 5 min PRN, severe pain (7-10), Starting Fri09/08/19 at 1016, For 5 doses, PACU (only) [facility] Medication administered onsite Magnesium Chloride 0.83897 MEQ/ML / Pota ssium Chloride 0.0497 MEQ/ML / Sodium Acetate 0.0163 MEQ/ML / Sodium Chloride 0.0899 MEQ/ML / Sodium gluconate 5.02 MG/ML Injectable Solution [Normosol-R] electrolyte-R (NORMOSOL-R/PLASMALYTE-R) solution electrolyte-R (NORMOSOL-R/PLASMALYTE-R) solution 09/08 09:00:00 AM EST Intravenous active at 1 00 mL/hr, Intravenous, Continuous, Starting Fri09/08/19 at 0900 [facility] Medication administered onsite 2 ML Metoclopramide 5 MG/ML Prefilled Sy ringe metoclopramide (REGLAN) injection 10 mg metoclopramide (REGLAN) injection 10 mg 09/08/2019 07:00:[address] 10 mg Intravenous completed 10 mg, I ntravenous, call out clerk, Fri09/08/19 at 0700, For 1 dose, Pre-op
To be administered just prior to to transport to operating room
[facility] Medication administered onsite ondansetron (ZOFRAN) injection 4 mg [id number] 09/08/2019 07:00:0 0 AM EST 4 mg Intravenous completed 4 mg, In travenous, call out clerk, Fri09/08/19 at 0700, For 1 dose, Pre-op
To be administered just prior to to transport to operating room
[facility] Medication administered onsite dexamethasone (DECADRON) injection 4 mg [id number] 09/08/19 20 07:00:00 AM EST 4 mg Intravenous completed 4 mg, Intr avenous, call out clerk, Fri09/08/19 at 0700, For 1 dose, Pre-op
To be administered just prior to to transport to operating room.Hold if patient is diabetic or if stress dose steroids are o rdered
[facility] Medication administered onsite Acetaminophen 500 MG Oral Tablet acetaminophen (TYLENO L) tablet 1,000 mg acetaminophen (TYLENOL) tablet 1,000 mg 09/08/2019 07:00:00 AM EST 1000 mg Oral completed 1,000 mg, Oral , call out clerk, Fri09/08/19 at 0700, For 1 dose, Pre-op
To be administered just prior to to transport to operating room
[facility] Medication administered onsite Mometasone Furoate 50 MCG/ACT Nasal Suspension (NASONEX) 605 05-0830-1 07/01/2019 12:00:00 AM EST 2 {spray} Nasal active 2 spr ays by Nasal route daily [facility] Ranitidine 300 MG Oral Tablet ranitidine (ZANTAC) 300 MG tablet ranitidine (ZANTAC) 300 MG tablet 05/20/2019 12:00:00 AM EDT 300 mg Oral aborted Take 300 mg by mouth nightly [facility] Ranitidine 300 MG Oral Tablet ranitidine (ZANTAC) 300 MG tablet ranitidine (ZANTAC) 300 MG tablet 05/20/2019 12:00:00 AM EDT 300 mg Oral active Take 1 tablet by mouth nightly [facility] Omeprazole 40 MG Delayed Release Oral Ca psule omeprazole (PRILOSEC) 40 MG capsule omeprazole (PRILOSEC) 40 MG capsule 04/12/2019 12:00:00 AM EDT 40 mg Oral aborted Take 40 mg by mouth 2 (two) times a day [facility] Baclofen 10 MG Oral Tablet baclofen (LIORESAL) 10 MG t ablet baclofen (LIORESAL) 10 MG tablet 11/27/2018 12:00:00 AM EDT 10 mg Oral abort ed Take 10 mg by mouth 3 (three) times a day [facility] Aspirin 81 MG Delayed Release Oral Table t aspirin (ASPIRIN ADULT LOW DOSE) 81 MG EC tablet aspirin (ASPIRIN ADULT LOW DOSE) 81 MG EC tablet 81 mg Oral aborted Take 81 mg by mouth daily [facility] Acetaminophen 325 MG / Hydrocodone Clara trate 7.5 MG Oral Tablet HYDROcodone- acetaminophen (NORCO) 7.5-325 MG per tablet HYDROcodone-acetaminophen (NORCO) 7.5-325 MG per tablet 1 {tbl} Oral aborted Take 1 tablet by mouth every 6 (six) hours as needed for pain [facility] Aspirin 81 MG Oral Tablet aspirin 81 MG tablet aspirin 81 MG tablet 81 mg Oral aborted Take 81 mg by mouth daily [facility] pregabalin 50 MG Oral Capsule pregabalin (LYRICA) 50 M G capsule pregabalin (LYRICA) 50 MG capsule 50 mg Oral aborted Take 50 mg by mouth 3 (three) times a day [facility] Multiple Minerals-Vitamins (ZRH-SVE-PNZY-D PO) 1 {tbl} O ral aborted Take 1 tablet by mouth daily [facility] Acetaminophen 325 MG Oral Tablet acetaminophen (TYLENO L) 325 MG tablet acetaminophen (TYLENOL) 325 MG tablet 650 mg Oral aborted Take 650 mg by mouth every 6 (six) hours as needed for pain [facility] Insurance Providers Payer name Policy type / Coverage type Policy ID Covered alliance party ID Covered alliance party's relationship to cruz Policy [place] Plan Information [employer] [place]307 [id number] SP [id number] [place] [place]/307 [id number] SP [id number] INSURANCE COVID-19 [id number] EXCELLUS [employer]BS INSURANCE COVID-19 COVID Scarlet C OVID [employer]US [employer]BS [id number] Scarlet UGD [id number] [employer] B [id number] S [id number] 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 [id number] SP [id number] BLUE CARD C [id number] Self [id number] BCBS EXCELLUS [id number] S UGD [id number] EXCELLUS BCBS [id number] Scarlet UGD [id number] BCBS EXCELLUS [id number] S UGD [id number] BCBS EXCELLUS [id number] SPO UGD [id number] BCBS EXCELLUS [id number] S UGD [id number] BCBS EXCELLUS [id number] SPO UGD [id number] [place] [id number] S [id number] Blue Cross Blue Shield P [id number] SELF [id number] EXCELLUS BCBS [id number] Scarlet UGD [id number] EXCELLUS BCBS [id number] Scarlet UGD [id number] BLUE CARD C [id number] Self [id number] EXCELLUS BCBS [id number] Scarlet UGD [id number] [employer] [place] P[place] 302/307 [id number] SP [id number] [employer] [id number] [employer] [id number] [employer] [id number] [employer] [id number] [employer] [id number] [employer] [id number] [employer]BS [employer] Commercial [id number] Self [id number] [employer] Commercial [id number] [facility] [id number] ANSI-Commercial [id number] ANSI-Commercial [id number]-[id number] ANSI-Commercial [id number]-[id number]-[id number] vzg7yqcu-9pef-556z-6rqs-734v3xifu577 ANSI-Commercial [id number] ANSI-Commercial [id number]-gb28-35i4-ydmi-[id number] sj4p5gjo-dy00-65t9-xwcg-z76o725d2l70 ANSI-Commercial [id number]-[id number]-85pi-yfr5-[id number] ANSI-Commercial [id number]-opu6-6792-[id number] i1h8aou0-rhi6-2239-xc16-93h415u2u8jx ANSI-Commercial [id number]-3f9h-438o-20sa-50t42u1q076k s1r2h26i-1c7v-506o-82vm-82n27p5k371v ANSI-Commercial [id number]-[id number] 0e050sv6-z545-090m-pzo6-8wvxp692bci6 ANSI-Commercial [id number]-[id number]-690o-lvsp-[id number] ANSI-Commercial 9tal04cd-m1o3-7u5g-[id number] 6kkh47fz-c2l9-2x0o-9q51-2x75jj084i04 ANSI-Commercial [id number] 17j951r6-8e84-6z7c-[id number] ANSI-Commercial 8x4j65ga-uc0i-7z20-kc43-04121v5i9jep 6t0w47jr-af2f-6b96-dm39-41388a1x7mcw ANSI-Commercial f2301boq-6585-56h5-aop3-8td7m2a01t16 q3723cgd-8770-21g3-xvu1-0re8b5e58k03 ANSI-Commercial 8981t0e3-ei12-2963-sz10-5i9o2xo7qcgp 5689t7z3-et18-4895-st53-3y5u5fy2swwa ANSI-Commercial 32xy611h-rg2u-2pl0-g0x4-3uzd8646u141 90vd658l-mx9o-6qo4-g8z1-0mcd5954c192 ANSI-Commercial u04ql561-6h81-665u-y0w3-408f2v1hrx8d o63ld051-5j62-043s-m8r1-112z3t7tqu0u ANSI-Commercial l80rh48l-tzm2-84hz-294k-j137462t8d48 e42xo27j-stg5-50xy-895o-e055125n9a31 ANSI-Commercial 97fkov65-ar2q-9cdf-4c0p-l1950aoqu451 18uvsp95-nr3r-9wwt-9t8p-w2091xhrh592 ANSI-Commercial [id number]-2j68-1767-e458-lx4712hd1p29 k17087uq-8t83-6128-v942-ug1604px2u05 ANSI-Commercial 25bp799h-h992-221w-u003-z620h0o892pg 05xe433x-y725-315j-a664-o857p5p810kb ANSI-Commercial 146f6478-2n2x-45g2-t5d3-zou8x6066x5f 754s3218-3h9b-26z4-d2i1-xig5s9081l1f ANSI-Commercial 56m19nrx-7b62-7m01-5k5m-w9c34031j91q 61f37fej-7r56-1j66-5w1i-w7s08538y51s ANSI-Commercial 53278ulw-[id number] 88607awc-6v15-6668-6f96-573006f6gu42 ANSI-Commercial k0slsdkt-h021-84sr-hx57-oy1ad94v42u1 n3amyuef-w259-58wn-ho05-mr1cd77v10d3 ANSI-Commercial 75964f21-0357-8m5t-3m9r-wdm274m49w01 43071u00-7371-7i8m-7p0f-omw996z78m12 ANSI-Commercial m08n5594-25yw-1dyg-4544-gli3z497j3zx s45t8179-19mh-8ptd-8698-fqz4t608y5dy ANSI-Commercial 89k1u06x-5350-9822-00d9-98496e33rxpx 91k4f79v-4254-5276-55k5-69977a69zfjh ANSI-Commercial 47q5z02i-d454-7n66-4j94-v09r99328m11 94g3r31g-o654-5u35-5i13-o62f02814w93 ANSI-Commercial [id number]-jyz56m2234xt 57054048-1970-82a7-554p-oyt81i4662av ANSI-Commercial [id number]-5u98-8432-87363989a2b1 12q27738-14vl-2m12-1290-44568956d2z1 ANSI-Commercial 730f19d9-q5b9-869o-y191-228674616g30 475e20h9-w5g4-421q-z276-803568750s14 ANSI-Commercial 1nh27382-1a5c-8171-8w5a-88hw98boqozw 4pp52421-8e5a-7657-2n7c-79jz03nphvpe ANSI-Commercial 76z5y34j-268q-4982-3832-4o75mo3332md 41r7i74z-934v-0322-9896-5i85bu5455bl ANSI-Commercial h349541d-8m3j-43i1-c198-ye314bis9995 y138288b-1z7d-99u5-j741-oe417dfc3747 ANSI-Commercial kxi49ls0-9640-738p-75t0-z9qa2e804o5r gia26nh7-5352-095z-46x2-f2im6i302h8o ANSI-Commercial v5vuavrs-1907-1114-g85l-6jv9050z526u s8owwtgw-6644-0205-i68z-6ft5878x902m ANSI-Commercial 411e591n-6aj3-5977-qa9p-u73ni026n5up 238w537n-3sd2-2861-te6x-k12ax044d4me ANSI-Commercial 09wz869q-a668-9s18-ro47-3r6q1o25f5yu 25io071q-j311-0t20-wg63-5h4a2l39x9bs ANSI-Commercial 064951te-615v-5724-p2d8-8z545r2q8n14 859413bi-779d-3717-z3b5-0l420m0m3t93 ANSI-Commercial 1admf716-n309-39ao-kbg4-7y079722799u 9iiow346-c327-63bi-rgs3-5g489571569b ANSI-Commercial 25o149t6-ek45-7774-h7p5-3sluoh224tjk 54f088h7-wy78-6777-i8h1-2igans104ino ANSI-Commercial hf2n8n5v-n004-513d-jkx1-l5zhuvi4104b yo0o5n1n-u400-680c-wyp6-m3evlqq5194e ANSI-Commercial vzz9c218-txh2-0719-80bl-du0ivwfp70x8 hbf0p558-qng9-9552-73hc-xt8yhkql33z2 ANSI-Commercial 515x155u-279f-88ho-6290-2113j0h3x1u3 229y886w-427s-96ge-8208-3041u4x5t3h7 ANSI-Commercial m44390k1-gnl5-512n-nwr6-2176649sghi3 p84658m7-yko4-315o-tpz6-0953799jlmx1 ANSI-Commercial 8917v866-31bc-4176-0464-dp1z98b93413 8464v629-30of-8304-3244-hx3w51e01863 ANSI-Commercial x239mz1a-w0g2-2b88-s43m-o0332wtn5162 o393mi4v-v0w2-3e92-r09q-f3924zct9880 ANSI-Commercial 52a7y576-t5om-3315-l693-sea587qppn02 13u2w333-c2nj-8170-d867-ybl368ncck71 ANSI-Commercial 51u159y8-s37c-73o2-s5b6-432w55u86l27 54b646k1-b50p-85a9-c8x7-336j20d23n69 ANSI-Commercial x10463sv-zw9j-84i6-91e0-h2322zk6949q w43735dm-lu8j-45w7-40y6-c6909je4741k ANSI-Commercial l1dd5l7s-2u9q-4g75-s97r-p5644vckn343 t5ea7f8y-2v4h-3l17-l52l-f8583gtvr656 ANSI-Commercial t43k3sm5-0684-6iw2-a256-7c11et36dhe9 l00q7od3-9065-8wx1-g734-5s74cf28aan8 ANSI-Commercial 2my1hh18-31tt-8627-294z-217hv0511003 9ex4mk28-13xx-8895-899f-122ot0617391 ANSI-Commercial 2t1cz153-2g44-9066-n8n7-s5302h22xrcr 3c9fz626-8o18-1183-l8w1-p4136p53gbsw ANSI-Commercial 8c5253b3-365w-4z72-120y-wh72w534cu65 7f1953d4-641a-2a27-082v-uu58o035ko32 ANSI-Commercial h08v51wa-271a-71i1-or3o-29jyrz6l4266 j05j71lp-583f-35j4-au6g-47vwds3k1814 ANSI-Commercial 27555002-t80r-29g6-6101-72968846u0m9 99507405-z09u-81x9-5992-52237174c0c1 ANSI-Commercial 05910x97-4785-00dc-4z25-9b74i1y9991d 58306a07-1548-14co-5y11-6t76l2q7443e ANSI-Commercial 005y852v-d889-6312-6rht-634ch72kf94i 795t445a-x008-2568-2ukt-050fp04vy82e ANSI-Commercial no7n16e1-57se-4xz2-x725-30r4731a4o0c gu3t16e2-49cw-9zm8-w496-54s3985y1d0j ANSI-Commercial 0908470t-d623-40jz-04k5-8w95382b77wf 7230039u-a446-35ab-92p0-6p98182u47fv ANSI-Commercial 2uz2942b-401e-4174-c384-7l5k93oqu603 1gm3227v-823v-8970-x835-4y9u92csw481 ANSI-Commercial b1f27123-369o-2881-ep91-ch591y39fhrb c7x37922-247w-4773-bw43-ll998d72uruj ANSI-Commercial 83bf72k8-5215-32c4-gq70-6oq25z9bl874 75ps38t8-7383-78n9-kw12-8ns09f2mc279 ANSI-Commercial lx6t4hz7-4815-4913-r846-5451et710i59 gh4m1xa3-4383-2023-y687-5224kg313p96 ANSI-Commercial c614v7u9-wkv6-2wuj-08g6-61558f792334 b855w2l8-nmp8-6mdr-96c3-16368a950028 ANSI-Commercial oy731933-sv4i-7f93-32nt-509812shl747 gx041649-gi9m-2e83-13pt-537335veh745 ANSI-Commercial 0332j3s6-73y6-38n5-whj3-e2m31653wj26 8806r9l4-02c8-12j9-ead7-x4q90176kb53 ANSI-Commercial 1q760m09-o355-8n8c-vzj6-32184v993jaa 3a054j13-o464-5d6e-aru3-40936i724koc ANSI-Commercial 82x9ni90-6l2s-2ooi-7yl4-b247223cwxk7 66t7nf59-2l5c-1abl-8yu3-c651181bzdr3 ANSI-Commercial 752l744a-8344-2k13-2g9b-5113328480e8 537x189m-7894-2g88-8v6d-6738470921j1 ANSI-Commercial 110r9386-5644-66j7-930s-jp73u3fgjii4 592e5952-1286-72d7-165y-ru88g6delej7 ANSI-Commercial 65252z2o-e25d-029f-h702-y0w0630r6763 16410r6i-l82k-426m-e117-g7k0444i3998 ANSI-Commercial ne044547-n2v8-5938-78c5-5970dng5190b xo528562-l0s6-2163-12d1-8136pfr8614g ANSI-Commercial q6r7k1t8-5r45-3800-3382-v2ts098144c3 s0y2b2p9-0d31-8756-0571-h2fh544814j3 ANSI-Commercial i999x80z-07ge-3173-7w54-j8309k1d2y1s p930s01a-70gp-6275-3u03-d5151g6b5s1j ANSI-Commercial 2pb5974m-74w3-2649-1360-07k18rej60i5 5ar2299y-91h3-8918-0787-36l40itx72x8 ANSI-Commercial wz7t44i7-000j-0274-2ch1-v3935300ai6o eh1e01n2-736g-6186-1ge3-k2190135pc0y ANSI-Commercial x3rw1414-859c-213f-4ket-pg9lgpp10822 v6jp4094-121j-879e-5taw-lu9uhhx19332 ANSI-Commercial p6966487-10q1-1m7d-51b8-1040r2r256v6 t2855372-18h4-0d1h-28t0-3626n0k047z6 ANSI-Commercial 78i82z9n-36lu-00uj-42gj-4p8896tetngq 11b00e6c-43rs-00jy-58ua-1f1679jythkm ANSI-Commercial 451i7r55-basg-79k3-d8sm-997f08725m94 492i7b37-ussm-56m4-d5en-921d90150l25 ANSI-Commercial t159q707-7278-725n-bg39-5173o04642x6 r884z728-9502-229p-cn06-6713d10593p0 ANSI-Commercial 15te170x-j386-6194-9153-9800d1o65261 38hn217e-l935-3005-9004-6496j5o50653 ANSI-Commercial 99kkbpxi-1150-7543-88h6-3ao1ke09zwf8 20edsjct-5092-4363-67c2-8za2px07ipe8 ANSI-Commercial 59v36c38-x263-2509-454j-923oy49m640l 81m92f68-u072-7354-200t-890yj07m428h ANSI-Commercial rs65erqh-913p-9967-692j-n864j5t13cmd cg79atod-806b-7936-871i-h997a2h15pht ANSI-Commercial 0m425586-16m7-29o7-0c04-0051765s36d9 8o628744-88o2-45k9-0h86-6716544m88z7 ANSI-Commercial 7u153h77-46i5-1a36-329g-82vc19u42074 6e919z55-33w9-0l95-488i-28eg22h91868 [place]/307 [id number] SP [id number] [place] [place] P[place] 302/307 [id number] SP [id number] ANSI-Commercial 68i4m9n6-7y21-2b2e-8z09-f8649a619424 85e6f7c1-3r60-4c4t-1e82-j3619p193072 ANSI-Commercial 48723987-sf07-0o07-6178-4xym04x96j6h 84827955-fh03-4z87-7386-7hbj36j19d7m ANSI-Commercial f283kdnc-97fd-0lb9-0d4f-2w2t180j6po7 c906nhjv-06lp-2az3-2w5k-3y7l417q6yt4 ANSI-Commercial 2281ls6h-18gv-656s-qh68-355185y53qu3 6660zw4v-81vb-769c-fu56-946255c18fz6 [facility] () Workers Compensation [id number] Self [id number] [place] [id number] Self [id number] [place] [employer] [id number] Family Dependent [id number] ANSI-Commercial 332870e9-nobt-131f-8x64-f8h3h72khyxr 614351u2-nxpi-319w-0n92-i5i1s22aorhq ANSI-Commercial 53904wy7-c2o6-3x02-3n3z-6d62b72hcpme 18007ho2-b3y0-7t13-3f3q-8l53m57ondyn ANSI-Commercial 1365xyp4-7fmo-793s-9047-7249dz1vud42 2022hzb3-7ejz-627z-6595-8208lp3wnq58 ANSI-Commercial e543li6z-d4r1-444y-46j8-c4687vy06z3n l444th6g-s8j6-985t-59o9-t2881wi79u3v [facility] () Workers Compensation [id number] Self [id number] [place] [id number] Self [id number] ANSI-Commercial 516gc414-8nk4-9502-6260-24t8i384o537 323sr643-6yw9-5353-5648-11f0l479a626 ANSI-Commercial rcb12eu4-6o93-120v-v6f1-t1r3192y0a62 kfj97gn3-9b14-827p-b6n6-v2f6414e3x33 [facility] (HMO) [id number] Self [id number] ANSI-Commercial a6l29m43-11p1-4h5v-1y9w-54129396ce1c d7w00w18-77e6-7s7e-6i7f-39566500bo7n ANSI-Commercial w8hxarg0-1h5j-6k44-ga07-j8tgg2tep676 k1umaod1-7e6t-3v03-ka48-g2axf2boi634 ANSI-Commercial ok0bp8fk-865o-3zf5-147u-3tr31uhlop6b tq9ja7jy-310m-5iu9-086x-2tp60qcxhw0x ANSI-Commercial 0c99a5a2-g94f-239x-kk77-711454i4379y 1e01q9h7-e46a-953k-uy23-043227h8458n ANSI-Commercial 1i7w04o6-gp5r-3893-n20a-sq6t41674396 8s8t74x6-zq3a-0814-m49h-dq9j39169305 ANSI-Commercial 46527837-er0j-6g68-b5zq-31428j92p95r 02658831-wz7i-5s66-z6gi-09813x54m75j ANSI-Commercial 51c78u57-k43b-403q-x599-b72q3o39743k 61k55j58-q81y-937m-k757-n01p0w39205o ANSI-Commercial 2968r583-v6n4-4r5m-w043-4776c7053dc6 4296m249-m9q1-6x7t-s951-3011w9411fn6 ANSI-Commercial 4x8r108o-3611-4lhr-19t4-2713upcj1j3j 7g7g685g-1441-0ydv-99y8-5566seew9u5v ANSI-Commercial 0034u591-910q-3171-jx67-3i8j75h87894 7687w870-532s-4406-cj14-2g3m49w19171 ANSI-Commercial 8343q83u-tv50-1l95-22aj-55c085d24u89 4146z88u-at95-4k28-42ci-26z775z75o76 ANSI-Commercial 109769c2-v167-7od1-7483-6300m53p2329 433119i7-b666-7ir5-3762-9890p92j3362 ANSI-Commercial 112xr671-w6n4-0y42-mg66-jwj490078y37 199xn762-c1u5-1m76-te62-aqb227534c57 ANSI-Commercial 942981u8-9211-0517-fv4d-95y4jo615a82 138502g3-2018-4658-lg9k-32y1ha290w95 ANSI-Commercial 5c198566-bb12-65i4-5356-282f1un8b9x1 4i345983-rw27-48o9-6663-558b3je6n1l2 ANSI-Commercial 639za264-3o39-5951-6o4u-f78um020w544 055la828-6z39-9516-8d8w-b81le578v168 [employer] -O/P [id number] 18 [id number] [employer] B [id number] S UGD [id number] [employer] (OUT OF STATE - ALL) [id number] 1 [id number] [employer] (OUT OF STATE - ALL) [id number] 1 [id number] [facility] Qwiki [facility] () Workers Compensation [id number] Self [id number] BS [place] [employer] [id number] Self [id number] BS [place] [employer] Part B [id number] Family Depend ent [id number] [facility] Qwiki [facility] () Workers Compensation [id number] Self [id number] BS [place] [employer] [id number] Self [id number] BLUE CARD C [id number] Spouse [id number] BCBS [employer] Ppo U/W Commercial Self [id number] [facility] () Workers Compensation [id number] Self [id number] BS [place] [employer] [id number] Self [id number] [facility] () Workers Compensation [id number] Self [id number] BS [place] [employer] [id number] Self [id number] [facility] (OUT OF STATE - ALL) [id number] BCBS [employer] BC [id number] SPO UGD [id number] [employer] [place] PPO 302/307 [id number] [facility] () Workers Compensation [id number] Self [id number] BS [place] [employer] [id number] Self [id number] [facility] () Workers Compensation [id number] Self [id number] BS [place] [employer] [id number] Family Dependent [id number] [facility] () Workers Compensation [id number] [facility] () Workers Compensation [id number] Self [id number] [employer] BCBS B [id number] P UGD [id number] [place] [place] PPO 302/307 [id number] [place] [place] PPO 302/307 [id number] HU2 [id number] [place] [place] PPO 302/307 [id number] HU2 [id number] [employer] BCBS B [id number] P UGD [id number] [employer] [place] PPO 302/307 [id number] [id number] [employer] C [id number] Spouse [id number] [facility] W [id number] Empl [id number] [place] 210/710 [id number] SP [id number] [facility]URANCE [facility] O [id number] S [id number] STATE INSURANCE FUND [id number] SP [id number] STATE INSURANCE FUND [id number] SP [id number] [place] 210/710 [id number] HU2 [id number] STATE INSURANCE FUND [id number] SP [id number] STATE INSURANCE FUND [id number] S [id number] STATE INSURANCE FUND [id number] S [id number] [employer]. WC [id number] S [id number] Problems, Conditions, and Diagnoses Code Display Name Description Problem Type Effective Dates Data Source(s) Z98.890 History of lumbar surgery History of lumbar surgery 64 976486 07/12/2020 12:00:00 AM EST [facility] 51964284 Cigarette smoker Cigarette smoker Problem 05/23/2020 12 :00:00 AM EDT MEDENT ([facility]) M48.062 Spinal stenosis of lumbar region with ne urogenic claudication Spinal stenosis of lumbar region with neurogenic claudication 22159707 04/04/2020 12:00:00 AM EDT [facility] K58.2 14027627 Irritable bowel syndrome with hailey th constipation and diarrhea Problem 12/30/2019 12:00:00 AM EDT eCW1 ([facility]) K58.2 28438042 Irritable bowel syndrome with hailey th constipation and diarrhea Problem 12/30/2019 12:00:00 AM EDT eCW1 ([facility]) 54922786 Disorder of tongue Disorder of tongue Problem 12:00:00 AM EDT MEDENT ([facility], ) K59.00 81320251 Constipation, unspecified constipation ty pe Problem 10/01/2019 12:00:00 AM EST eCW1 ([facility]) K59.00 34988502 Constipation, unspecified constipation ty pe Problem 10/01/2019 12:00:00 AM EST eCW1 ([facility]) M48.061 Spinal stenosis, lumbar region without n eurogenic claudication Spinal stenosis, lumbar region without n Diagnosis 09/11/2020 12:40:22 PM EST [facility] M99.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 M51.36 Other intervertebral disc degeneration, lumbar region Other intervertebral disc degeneration, Diagnosis 08/02/2020 08:15:08 AM [facility] Z98.890 Other specified postprocedural states Ot her specified postprocedural states Diagnosis 08/02/2020 08:15:08 AM [facility] U07.1 COVID-19 COVID-19 Diagnosis 06/15/2020 07:44:49 AM ED [facility] G95.9 Disease of spinal cord, unspecified Disease of s kade cord, unspecified Diagnosis 05/15/2020 01:22:52 PM EDT [facility] M99.83 Other biomechanical lesions of lumbar re gion Other biomechanical lesions of lumbar re Diagnosis 03/14/2020 03:54:46 PM EDT [facility] M54.5 Low back pain Low back pain Diagnosis 03/08/2020 01:06:00 PM EDT [facility] M54.2 Cervicalgia Cervicalgia Diagnosis 01/13/2020 09:15:34 AM EDT [facility] R05 Cough COUGH Diagnosis 11/15/2019 11:49:00 AM [facility] K21.9 Gastro-esophageal reflux disease without esophagitis GASTRO-ESOPHAGEAL REFLUX DISEASE WITHOUT Diagnosis 10/13/2019 04:00:00 PM [facility] R11.0 Nausea NAUSEA Diagnosis 10/13/2019 04:00:00 PM [facility] M54.5 Low back pain Low back pain Diagnosis 09/24/2019 08:33:47 AM EST [facility] M51.36 Other intervertebral disc degeneration, lumbar region Other intervertebral disc degeneration, Diagnosis 09/24/2019 08:33:47 AM [facility] Surgeries/Procedures Procedure Description Date Indications Data Source(s) INJECTION 1 TENDON SHEATH/LIGAMENT APONEUROSIS 020 12:00:00 AM MARITA WATSON ([facility], ) XR OR SPINE LUMBAR XR OR SPINE LUMBAR Routine 06/20/2020 9:06 AM E DT 06/20/2020 01:06:38 PM EDT [facility] RADEX SPINE 1 VIEW SPECIFY LEVEL XR OR SPINE LUMBAR CONTINUATIO N STAT 06/20/2020 8:27 AM EDT 06/20/2020 12:27:27 PM EDT [facility] LAMOT PRTL FFD EXC DISC REEXPL 1 NTRSPC LUMBAR TANIA CTOMY, SPINE, THORACOLUMBAR, 2 LEVELS, WITH DECOMPRESSION 06/20/2020 7:41 AM EDT Spinal stenosis of lumbar region with neurogenic claudication 06/20/2020 11:41:00 AM EDT - 06/20/2020 03:01:00 PM EDT Spinal stenosis of lumbar region with neurogenic claudication [facility] Spinal stenosis of lumbar region with ne urogenic claudication POC GLUCOSE POC GLUCOSE Routine 06/20/2020 7:17 AM EDT 06/20/2020 11:17:00 AM EDT [facility] POCT POTASSIUM POCT POTASSIUM Routine 06/20/2020 7:17 AM EDT 06/20/2020 11:17:00 AM EDT [facility] BLOOD COUNT HEMATOCRIT POCT HEMATOCRIT Routine 06/20/2020 7:17 AM EDT 06/20/2020 11:17:00 AM EDT [facility] MRI SPINAL CANAL CERVICAL W/O CONTRAST MATRL MRI CERVICAL S PINE WO CONTRAST Routine 06/15/2020 9:16 AM EDT Cervical myelopathy 06/15/2020 01:16:13 PM EDT Cervical myelopat hy [facility] Cervical myelopathy CT LUMBAR SPINE W/O CONTRAST MATERIAL CT LUMBAR SPINE WO CONTRA ST Routine 06/15/2020 8:27 AM EDT Spinal stenosis of lumbar region with neurogenic claudication 06/15/2020 12:27:55 PM EDT Spinal stenosis of lumbar region with neurogenic juan manuel ication [facility] Spinal stenosis of lumbar region with ne urogenic claudication Spirometry 06/07/2020 12:00:00 AM EDT M EDENT ([facility], ) MYOCARDIAL SPECT MULTIPLE STUDIES 06/06/2020 12:00:00 AM EDT [facility] ([facility]) CV STRS TST XERS&/OR RX CONT ECG PHYS SI&R 06/06/2020 12:00:00 AM EDT [facility] ([facility]) ECG ROUTINE ECG W/LEAST 12 LDS W/I&R 05/23/2020 12:00: 00 AM EDT [facility] ([facility]) MRI SPINAL CANAL LUMBAR W/O CONTRAST MATERIAL MRI LUMBAR SP INE WO CONTRAST Routine 03/08/2020 2:01 PM EDT Low back pain, unspecified back pain laterality, unspecified chronicity, unspecified whether sciatica present 03/08/2020 06:01:08 PM EDT Low back pain, unspecified back pain laterality, unspecified chronicity, unspecified whether sciatica present [facility] Low back pain, unspecified back pain lat erality, unspecified chronicity, unspecified whether sciatica present Spirometry 03/06/2020 12:00:00 AM EDT M EDMAMIE ([facility], ) Spirometry 11/12/2019 12:00:00 AM EDT M EDENT ([facility], ) XR OR SPINE LUMBAR XR OR SPINE LUMBAR STAT 09/08/2019 11:[address] 09/08/2019 04:19:25 PM EST [facility] RADEX SPINE 1 VIEW SPECIFY LEVEL XR OR SPINE LUMBAR CONTINUATIO N STAT 09/08/2019 9:20 AM EST 09/08/2019 02:20:04 PM EST [facility] TEJEDA FACETEC&FORAMOT 1 SEGMENT LUMBAR LAMINECTOMY, SPI [...] laterality, unspecified chronicity, unspecified whether sciatica present [facility] Neural foraminal stenosis of lumbar spin e DDD (degenerative disc disease), lumbar Low back pain, unspecified back pain lat erality, unspecified chronicity, unspecified whether sciatica present POCT VENOUS BLOOD GAS W ROHITH POCT VENOUS BLOOD GAS W ROHITH alvarado 09/08/2019 7:23 AM EST 09/08/2019 12:23:00 PM EST [facility] BLOOD TYPING ABO TYPE AND SCREEN Routine 09/08/2019 7:14 AM EST 09/08/2019 12:14:00 PM EST [facility] GLUC BLD GLUC MNTR DEV CLEARED FDA SPEC HOME USE POCT GLUCOSE Routine 09/08/2019 7:01 AM EST 09/08/2019 12:01:00 PM EST [facility] Results ID Date Data Source [id number] 10/06/2020 10:45:00 AM EST [facility] Name Value Range Interpretation Code Description Data Irena rce(s) Supporting Document(s) SARS coronavirus 2 RNA Not Detected [facility] [place] This lab was ordered by [facility] and reported by [facility]. ID Date Data Source LIPID PANEL (CARDIAC RISK) 09/15/2020 12:00:00 AM EST eCW1 ( [facility]) Name Value Range Interpretation Code Description Data Irena rce(s) Supporting Document(s) Triglyceride [Mass/volume] in Serum or Plasma by calculation 256 <150 TRIGLYCERIDES LEVEL eCW1 ([facility]) Cholesterol in LDL [Mass/volume] in Serum or Plasma by calculation 110 <100 LDL CHOLESTEROL eCW1 ([facility]) Cholesterol [Moles/volume] in Serum or Plasma 212 <200 CHOLESTEROL LEVEL eCW1 ([facility]) 161 NON-HDL-C eCW1 ([facility]) Cholesterol in HDL [Moles/volume] in Serum or Plasma 51 >40 HDL CHOLESTEROL eCW1 ([facility]) 4.156 <5 CHOLESTEROL RISK RATIO eCW1 ([facility]) ID Date Data Source TSH 09/15/2020 12:00:00 AM EST eCW1 ([facility]) Name Value Range Interpretation Code Description Data Irena rce(s) Supporting Document(s) TSH ULTRASENSITIVE eCW1 ([facility]) 2.440 0.358-3.740 THYROID STIMULATING HORM ONE eCW1 ([facility]) THYROID STIMULATING HORMONE ID Date Data Source [id number] 09/15/2020 12:00:00 AM EST eCW1 ([facility]) Name Value Range Interpretation Code Description Data Irena rce(s) Supporting Document(s) Hemoglobin A1c/Hemoglobin.total in Blood 5.8 HEMOGLOBIN A1c eCW1 ([facility]) ID Date Data Source Comprehensive Metabolic Profile (CMP) 09/15/2020 12:00:00 AM EST eCW1 ([facility]) Name Value Range Interpretation Code Description Data Irena rce(s) Supporting Document(s) 21 7-18 BLOOD UREA NITROGEN eCW1 ([facility]) 0.79 0.55-1.30 CREATININE FOR GFR eCW1 ([facility]) 92 70-100 GLUCOSE, FASTING eCW1 ([facility]) > 60.0 >51 GLOMERULAR FILTRATION RATE eCW 1 ([facility]) 142 136-145 SODIUM LEVEL eCW1 ([facility]) 106 98-107 CHLORIDE LEVEL eCW1 ([facility]) 31 21-32 CARBON DIOXIDE LEVEL eCW1 ([facility]) 4.7 3.5-5.1 POTASSIUM SERUM eCW1 ([facility]) 9.1 8.5-10.1 CALCIUM LEVEL eCW1 ([facility]) 8 7-37 AST/SGOT eCW1 ([facility]) 81 45-117 ALKALINE PHOSPHATASE eCW1 ([facility]) 18 12-78 ALT/SGPT eCW1 ([facility]) 0.2 0.2-1.0 BILIRUBIN,TOTAL eCW1 ([facility]) 3.5 3.2-5.2 ALBUMIN eCW1 ([facility]) 1.1 1.2-2.2 ALBUMIN/GLOBULIN RATIO eCW1 ([facility]) 6.7 6.4-8.2 TOTAL PROTEIN eCW1 ([facility]) ID Date Data Source CBC with Differential 09/15/2020 12:00:00 AM EST eCW1 ([facility]) Name Value Range Interpretation Code Description Data Irena rce(s) Supporting Document(s) CBC WITH DIFFERENTIAL eCW1 ([facility]) HEMOGLOBIN & HEMATOCRIT eCW1 ( [facility]) WBC eCW1 ([facility]) RBC eCW1 ([facility]) CORRECTED WBC eCW1 ([facility]) MCH eCW1 ([facility]) MCV eCW1 ([facility]) PLATELET COUNT eCW1 ([facility]) MCHC eCW1 ([facility]) RDW eCW1 ([facility]) NEUT % eCW1 ([facility]) NEUT # eCW1 ([facility]) 5.8 4.0-10.0 WHITE BLOOD COUNT eCW1 ([facility]) 85.6 80.0-96.0 MEAN CORPUSCULAR VOLUME e CW1 ([facility]) 4.64 4.00-5.40 RED BLOOD COUNT eCW1 ([facility]) 12.4 12.0-15.5 HEMOGLOBIN eCW1 ([facility]) 39.7 36.0-47.0 HEMATOCRIT eCW1 ([facility]) 15.2 11.5-14.5 RED CELL DISTRIBUTION WID TH eCW1 ([facility]) 31.2 32.0-36.5 MEAN CORPUSCULAR HGB CONC eCW1 ([facility]) 26.7 27.0-33.0 MEAN CORPUSCULAR HEMOGLOB IN eCW1 ([facility]) 57.9 36.0-66.0 NEUTROPHILS % eCW1 ([facility]) 235 150-450 PLATELET COUNT, AUTOMATED eCW1 ([facility]) 8.2 0.0-5.0 MONO % eCW1 ([facility]) 28.3 24.0-44.0 LYMPH % eCW1 ([facility]) 3.3 1.5-8.5 NEUTROPHILS # eCW1 ([facility]) 1.4 0.0-1.0 BASO % eCW1 ([facility]) 4.0 0.0-3.0 EOS % eCW1 ([facility]) 1.6 1.5-5.0 LYMPH # eCW1 ([facility]) 0.2 0.0-0.5 EOS # eCW1 ([facility]) 0.5 0.0-0.8 MONO # eCW1 ([facility]) 0.1 0.0-0.2 BASO # eCW1 ([facility]) ID Date Data Source VITAMIN D 1,25 DIHYDROXY 09/15/2020 12:00:00 AM EST eCW1 ([facility]) Name Value Range Interpretation Code Description Data Irena rce(s) Supporting Document(s) 28.7 19.9-79.3 VITAMIN D 1,25 DIHYDROXY eCW1 ([facility]) ID Date Data Source C REACTIVE PROTEIN QUANTITATIV (At [facility]) 09/15/2020 12:00 :00 AM EST eCW1 ([facility]) Name Value Range Interpretation Code Description Data Irena rce(s) Supporting Document(s) 0.40 0.00-0.30 C REACTIVE PROTEIN QUANTI TATIV eCW1 ([facility]) ID Date Data Source ERYTHROCYTE SEDIMENTATION RATE 09/15/2020 12:00:00 AM EST eC W1 ([facility]) Name Value Range Interpretation Code Description Data Irena rce(s) Supporting Document(s) 26 0-30 ERYTHROCYTE SEDIMENTATION RATE eCW1 ([facility]) ID Date Data Source [id number] 08/31/2020 12:00:00 PM EST [facility] Name Value Range Interpretation Code Description Data Irena rce(s) Supporting Document(s) SARS coronavirus [address] [facility] This lab was ordered by [facility] and reported by [facility]. ID Date Data Source [id number] 06/27/2020 09:55:12 AM EST [facility]FORMATION[facility] Name Date of Age Gend*PT [id number] Debbi Nelson 1965 54 years F SDCXPT Location Admission Date/Time Visit ID Attending [id number] 06/20/20 0541 --- --- EPI ID CSN Admitting Provider [id number] Kevin Pacheco MD([id number]) [place] [address] OPERATIVE REPORT OPNAME: DEBBI NELSON#: [id number] #: [id number] ADMISSION DATE: 06/20/2020DOB: 1965 SEX: F PT TYPE: S SURACCT #: [id number] CARE PHYSICIAN: OSKAR POWERSADATE OF OPERATION: 05/26PREOPERATIVE [...] instability needing fusion,need to do other levels, [place], DVT, blindness. Patient understands and desires toproceed.OPERATIVE [...] I saw the scar tissue at the L4-P9wnegbjsd from the prior foraminotomy, itwas quite scarred in. We moved the microscope into position using roughdiamond ras. We took out the lamina of L5 first by using a ras to drillout the gutters on both sides and up prison of L4 past the stenosis. Wewere cognizant [...] condition. Sponge, instrument andneedle counts correct.Kevin Pacheco, MDDYE/NIMO Job #: [id number] DOC #: [id number] Name Value Range Interpretation Code Description Data Irena rce(s) Supporting Document(s) ID Date Data Source [id number] 06/22/2020 11:23:41 AM EDT [facility]FORMATION[facility] MRN Name Date of Age Gend*PT [id number] Debbi Nelson 1965 54 years F SDCXPT Location Admission Date/Time Visit ID Attending [id number] 06/20/20 0541 --- --- EPI ID CSN Admitting Provider [id number] Kevin Pacheco MD([id number])Surgical Discharge SummaryDebbi NelsonMRN: [id number] date: 06/20/2020Admitting Physician: SAWYER Quinonesischarge date and time:Discharge Orders Placed(From admission, onward) NoneDischarge Physician: Martina Smith NPPrincipal Diagnosis: Spinal stenosis of lumbar region with neurogenicclaudicationSecondary Diagnoses:Active Hospital Problems Diagnosis Date Noted Spinal stenosis of lumbar region with neurogenic claudication 04/04/2020 Added automatically from request for surgery [id number] Hospital ProblemsNo resolved problems to display.Discharge Medications:Your [...] mg by mouth 3 (three) times a lejQQR-HXL-VSIH PO Take 1 tablet by mouth dailyCholecalciferol [...] daySPIRIVA RESPIMAT 2.5 MCG/ACT AersGeneric drug: Tiotropium Brent Monohydrate Inhale 2 puffs dailySYMBICORT 160-4.5 MCG/ACT inhalerGeneric drug: budesonide-formoterol Inhale 2 puffs 2 (two) times a dayvitamin B-12 500 MCG tabletCommonly known as: CYANOCOBALAMIN Take 500 mcg by mouth dailyIndication for Admission: Lumbar stenosisHospital Course & Complications: Patient was admitted 06/19/2020 for a L4-I3ckxtkmapxow, re-do at L4-5. Her pain was controlled, [...] NoneDischarged Condition:goodDisposition: Home or Self CareSignature: Martina Smith NPDate: June 20, 2020Time: 10:43 AM Name Value Range Interpretation Code Description Data Irena rce(s) Supporting Document(s) ID Date Data Source [id number] 06/20/2020 09:12:[address] [id number] Name: DEBBI DREW: 1965Sex: FOrdering Provider: KEVIN Reed Prov: KEVIN Godoy Provider: Procedure Performed: XR OR SPINE LUMBARExam Date: 06/20/2020 09:06MRN: [id number] Number: [id number] Class: InpatientAccount #: [id number] for Exam: painTechnique: Lateral view obtained.Comparison: January 14, 2020Findings: There are needles marking the spinous process of the L3 and L5 vertebra posteriorly.The alignment is intact. Minimal L4-5 disc space narrowing is noted.IMPRESSION: Operative localization image as above.Report electronically signed by: SHER DURAN On 06/20/2020 9:12 AMWorkstation ID: [id number] - [id number] Name Value Range Interpretation Code Description Data Irena rce(s) Supporting Document(s) ID Date Data Source [id number] 06/20/2020 08:35:30 AM EDT [address] [id number] Name: DEBBI NELSONDOB: 1965Sex: FOrdering Provider: KEVIN Reed Prov: KEVIN Godoy Provider: Procedure Performed: XR OR SPINE LUMBAR CONTINUATIONExam Date: 06/20/2020 08:27MRN: [id number] Number: [id number] Class: InpatientAccount #: [id number] for Exam: spondylosisTechnique: Lateral view obtained.Comparison: Prior study performed earlier in the day.Findings: There is a surgical instrument posteriorly at the L5-S1 level. A retractor is positioned just above this at the L4-5 interspinous space.IMPRESSION: L5-S1 localization.Report electronically signed by: SHER DURAN On 06/20/2020 8:35 AMWorkstation ID: [id number] - [id number] Name Value Range Interpretation Code Description Data Irena rce(s) Supporting Document(s) ID Date Data Source [id number] 06/20/2020 08:15:48 AM EDT [facility] INFORMATIONPatient MRN Name Date of Age Gend*PT [id number] Debbi Nelson 1965 54 years F SDCXPT Location Admission Date/Time Visit ID Attending Provider --- --- --- --- EPI ID CSN Admitting Provider [id number] ---AirwayPatient location during procedure: ORUrgency: electiveDifficult airway: [...] to lips: 21 cmPlacement verified by: + [id number] view: grade IIb - view of arytenoids [...] rce(s) Supporting Document(s) ID Date Data Source [id number] 06/20/2020 07:39:05 AM EDT [facility] NT INFORMATIONPatient MRN Name Date of Age Gend*PT [id number] Debbi Nelson 1965 54 years F SDCXPT Location Admission Date/Time Visit ID [facility] --- Kevin Pacheco MD([id number]) EPI ID CSN Admitting Provider [id number] Kevin Pacheco MD([id number])See dictated note. H and P updated.Pt s/p formaintomy lumbar now with neurogenic claudicationPt stable for surgery.Plan L5, L4 laminectomyOutcomes discussed, outcomes not guaranteed. Risks, benefits, alternatives,indications for OR discussed. Risk include but not limited to infection, csfleak, N/T/P, risk of suni C-19 during perioperative period, B/B/S dysfn, hematoma, difficulty with instability needing fusion, need to doother levels, OH, DVT, blindness. Patient understands and desires to proceed. Name Value Range Interpretation Code Description Data Irena rce(s) Supporting Document(s) ID Date Data Source [id number] 06/20/2020 07:36:33 AM EDT [facility] Name Value Range Interpretation Code Description Data Irena rce(s) Supporting Document(s) POC POTASSIUM 4.1 MMOL/L (3.6-5.2) [facility] PERFORMED BY [facility] ID Date Data Source [id number] 06/20/2020 07:36:33 AM EDT [facility] Name Value Range Interpretation Code Description Data Irena rce(s) Supporting Document(s) POC GLU 103 MG/DL (70-99) H [facility] PERFORMED BY [facility] ID Date Data Source [id number] 06/20/2020 07:36:33 AM EDT [facility] Name Value Range Interpretation Code Description Data Irena rce(s) Supporting Document(s) POC HCT 39 % (36.0-47.0) [facility] PERFOR[facility] ID Date Data Source [id number] 06/15/2020 09:49:19 AM EDT [address] [address]Tvifhlj Name: DEBBI NELSONDOB: 1965Sex: FOrdering Provider: KEVIN PACHECOAuthorinii Prov: KEVIN ENGReferrroldan Provider: KEVIN PACHECOProdigna Performed: MRI CERVICAL SPINE WO CONTRASTExam Date: 06/15/2020 09:16MRN: [id number] Number: [id number] Class: OutpatientAccount #: [id number] for Exam: C- spine fusion, follow upTechnique: [...] MEERA SALDAÑA On 06/15/2020 9:49 AMWorkstation ID: [id number] - [id number] Name Value Range Interpretation Code Description Data Irena rce(s) Supporting Document(s) ID Date Data Source [id number] 06/15/2020 08:51:19 AM EDT [address] [id number] Name: DEBBI NELSONDOB: 1965Sex: FOrdering Provider: KEVIN Reed Prov: KEVIN Godoy Provider: KEVIN Bruno Performed: CT LUMBAR SPINE WO CONTRASTExam Date: 06/15/2020 08:27MRN: [id number] Number: [id number] Class: OutpatientAccount #: [id number] for Exam: L/S- spine stenosisTechnique: Helically acquired [...] MEERA SALDAÑA On 06/15/2020 8:51 AMWorkstation ID: [id number] - [id number] Name Value Range Interpretation Code Description Data Irena rce(s) Supporting Document(s) ID Date Data Source [id number] 06/15/2020 07:46:00 AM EDT [facility] Name Value Range Interpretation Code Description Data Irena rce(s) Supporting Document(s) SARS coronavirus 2 RNA [facility] This lab was ordered by [facility] and reported by [facility]. ID Date Data Source [id number] 06/16/2020 12:11:20 PM EDT [facility] Name Value Range Interpretation Code Description Data Irena rce(s) Supporting Document(s) SARS-COV-2 JENNIFER [facility] Not DetectedReference range: Not Detecte d This nucleic acid amplification test was developed and its performance characteristics determined by [employer]. Nucleic acid amplification tests include PCR and [...] detected) result in this assay. Performed At: [facility] [address] [id number] John Jarquin MD Ph:[phone] ID Date Data Source [id number] 05/30/2020 09:44:27 AM EDT [facility] NT INFORMATIONPatient MRN Name Date of Age Gend*PT [id number] Debbi Nelson 1965 54 years F OPPT Location Admission Date/Time Visit ID Attending Provider --- --- --- Kevin Pacheco MD([id number]) EPI ID CSN Admitting Provider [id number] ---OUTPATIENT / OBSERVATIONAL SURGICAL OR INVASIVE PROCEDUREName: Debbi Nelson : 1965 Sex: female Care Provider: Nigel RUSSELL Physician: Dr. Pacheco.HISTORY OF PRESENT ILLNESS:This is [...] 50 mg by mouth nightly 10/05/18Historical Provider, MDaspirin (ASPIRIN ADULT LOW DOSE) 81 MG EC tablet Take 81 mg by mouth dailyHistorical Provider, baclofen (LIORESAL) 10 MG tablet Take 10 mg by mouth 3 (three) times a dayHistorical Provider, DUTndgowl-Vgkzmwxei-Ueto (FBE-YPE-ZRBX PO) Take 1 tablet by mouth dailyHistorical [...] mouth daily as needed(for constipation) Historical Provider, MDmometasone (NASONEX) 50 MCG/ACT nasal spray 1 spray into each nostril daily asneeded (for allergies) Historical Provider, nitroglycerin (NITROSTAT) 0.[address] 0.4 mg under the tongue every 5(five) minutes as needed for chest pain Historical Provider, ondansetron (ZOFRAN-ODT) 8 MG disintegrating tablet Take 8 mg by mouth every 8(eight) hours as needed for nausea Historical Provider, MDpantoprazole (PROTONIX) 40 MG tablet Take 40 mg by mouth daily HistoricalProvider, MDpolyethylene glycol (GLYCOLAX) 17 g packet Take 17 g by mouth dailyHistorical Provider, MDpotassium chloride SA (K-DUR,KLOR-CON) 10 MEQ tablet Take 10 mEq by mouth dailyHistorical Provider, MDpregabalin (LYRICA) 75 MG capsule Take 75 mg by mouth 3 (three) times a dayHistorical Provider, MDSPIRIVA RESPIMAT 2.5 MCG/ACT AERS Inhale 2 puffs daily 12/04/18 HistoricalProvider, MDSUMAtriptan (IMITREX) 100 MG tablet Take 100 mg by mouth daily as needed formigraine Take one by mouth at onset of headache. May repeat once after 2 hoursif needed. Historical Provider, DARIUSYMBICORT 160- 4.5 MCG/ACT inhaler Inhale 2 puffs 2 (two) times a dayHistorical Provider, vitamin B-12 (CYANOCOBALAMIN) 500 MCG tablet Take 500 mcg by mouth dailyHistorical Provider, baclofen (LIORESAL) 10 MG tablet Take 1 tablet [...] tablet 10/01/19 05/30/20 Historical Provider, OLGAultiple Minerals-Vitamins (EEL-NLR-SLSN-D PO) Take 1 tablet by mouth daily05/30/20 [...] thyromegaly. No carotid bruits.MENTAL / NEUROLOGICAL STATUS: [id number]: Clear to auscultation. No wheezes, rhonchi or crackles.HEART: Rate rhythm regular. S1, S2. No murmur, rub or gallop.ABDOMEN: Bowel sounds positive times four. Soft, non tender. No reboundtenderness. No hepatosplenomegaly. Negative CVAT.EXTREMITIES: Pulses are symmetrical. No edema.OPERATIVE SITE: Back without rashes or lesions.Anesthesia complications: [facility] Frailty Scale :: 3/10 Managing Well (medical problems are well controlled,but are not regularly active beyond routine walking).ASSESSMENT: Primary Diagnosis/Indication: Stenosis of lumbar region withneurogenic claudication.PLAN: Procedure: LAMINECTOMY, SPINE, THORACOLUMBAR, 2 LEVELS, WITH DECOMPRESSIONredo L4,5 laminectomy.05/30/2020 9:43 Venkatesh Ortega NPThicompa document or parts of this document, were dictated using [employer] software. A reasonable attempt at proofreading has beenmade to minimize errors. Please call with any questions or corrections. Name Value Range Interpretation Code Description Data Irena rce(s) Supporting Document(s) ID Date Data Source [id number] 05/30/2020 06:34:07 PM EDT [facility] Name Value Range Interpretation Code Description Data Irena rce(s) Supporting Document(s) HEMOGLOBIN A1C @ 5.9 % (4.0-6.0) [facility] Performed using Siemens Marion immunoassa y.Care must be taken when interpreting VdY0cqefgaiy in patients with a hemoglobin variantor decreased erythrocyte lifespan. Values 5.7 - 6.4% suggest prediabetes.Values >=6.5% are diagnostic for diabetes.REFERENCE: DIABETES CARE 2018: 41(S13-S27). EST AVERAGE GLUCOSE 123 mg/dL [facility] ID Date Data Source [id number] 05/30/2020 05:55:22 PM EDT [facility] Name Value Range Interpretation Code Description Data Irena rce(s) Supporting Document(s) SODIUM 141 mmol/L (136-145) [facility] POTASSIUM 4.3 mmol/L (3.6-5.2) [facility] CHLORIDE 107 mmol/L (100-108) [facility] CO2 28 mmol/L (22-31) [facility] ANION GAP 6 mmol/L (7-16) L [facility] UREA NITROGEN 9 mg/dL (7-24) [facility] CREATININE 0.87 mg/dL (0.60-1.00) [facility] BUN/CREAT RATIO 10.3 RATIO (10.0-20.0) [facility] GLUCOSE 100 mg/dL (70-99) H [facility] CALCIUM 9.1 mg/dL (8.4-10.2) [facility] TOTAL PROTEIN 6.3 g/dL (6.4-8.2) L [facility] ALBUMIN 3.3 g/dL (3.5-4.6) L [facility] GLOBULIN 3.0 g/dL (2.7-4.3) [facility] ALB/GLOB RATIO 1.1 RATIO [facility] ALKALINE PHOSPHATASE 71 U/L (45-117) [facility] BILIRUBIN,TOTAL 0.2 mg/dL (0.0-1.0) [facility] PLEASE NOTE:Total bilirubin results may be falselyelevated in patients taking Eltrombopag. AST (SGOT) 15 U/L (11-39) [facility] ALT (SGPT) 21 U/L (12-78) [facility] GFR >60 ml/min/1.73m2 (>59) [facility] GFR ( AMER) >60 ml/min/1.73m2 (>59) [facility] GFR INTERPRETATION [facility] --NORMAL KIDNEY FUNCTION OR MILD DISEASE - GFR >OR= 60CHRONIC KIDNEY DISEASE - GFR 15 - 59RENAL FAILURE - GFR <15 Est. GFR calculation based on the MDRDstudy equation, which assumes a steadystate for creatinine. Est. GFR should notbe used for medication dosing. ID Date Data Source [id number] 05/30/2020 05:20:18 PM EDT [facility] Name Value Range Interpretation Code Description Data Irena rce(s) Supporting Document(s) PT 10.6 s (9.2-11.9) [facility] INR 1.02 [facility] is[facility] LARSEN SUGGESTED THERAPEUTIC RANGES USING INR F ORSTABILIZED ANTICOAGULATED PATIENTS:STANDARD DOSE THERAPY INR 2.0-3.0 DVT, PE, PREVENT DVT OR EMBOLISMHIGH DOSE THERAPY INR 2.5-3.5 PREVENT EMBOLISM FROM MECHANICAL HEART VALVE ID Date Data Source [id number] 05/30/2020 05:20:18 PM EDT [facility] Name Value Range Interpretation Code Description Data Irena rce(s) Supporting Document(s) APTT 27.6 s (22.0-34.3) [facility] ID Date Data Source [id number] 05/30/2020 05:01:26 PM EDT [facility] Name Value Range Interpretation Code Description Data Irena rce(s) Supporting Document(s) WBC 4.8 10*3/uL (4.1-11.0) [facility] RBC 4.59 10*6/uL (4.00-5.40) [facility] HGB 12.2 g/dL (12.0-16.0) [facility] HCT 38.1 % (36.0-47.0) [facility] MCV 83.0 fL (80.0-95.0) [facility] MCH 26.6 pg (27.0-32.0) L [facility] MCHC 32.1 g/dL (32.0-36.0) [facility] RDW 14.8 % (10.5-14.5) H [facility] PLT 223 10*3/uL (150-450) [facility] MPV 9.2 fL (7.1-10.7) [facility] ID Date Data Source [id number] 05/30/2020 02:11:46 PM EDT [facility] SPEC EXP DATE 06/21/2020PATI ENT ABO/Rh O POSITIVEANTIBODY SCREEN NEGATIVETESTING SITE PERFORMED AT [address] [place], [place] [address]BLOOD BANK COMMENT BLOOD TYPE CONFIRMED. Name Value Range Interpretation Code Description Data Irena rce(s) Supporting Document(s) TYPE AND SCREEN [facility] ID Date Data Source [id number] 05/31/2020 10:41:00 AM EDT [facility] Name Value Range Interpretation Code Description Data Irena rce(s) Supporting Document(s) SPECIMEN DESCRIPTION [facility] STAPH SCREEN RESULTS (ONEGSA) [facility] COMMENT [facility] GENE TO DETECT STAPH AUREUS. (2) RT-P CR WAS PERFORMED FOR THE mecA AND [employer] GENES TO DETECT METHICILLIN RESISTANCE IN STAPH AUREUS. ID Date Data Source [id number] 04/17/2020 01:01:00 AM EDT [facility] Name Value Range Interpretation Code Description Data Irena rce(s) Supporting Document(s) SARS coronavirus 2 PCR [facility] This lab was ordered by [facility] and reported by [facility] Labs rd project manager [employer]. ID Date Data Source [id number] 03/28/2020 09:08:53 AM EDT [facility], PCName: Estefany NelsonDOB: 1965Provider: Milena Malhotra: 03/27/2020 Chief ComplaintChronic low back pain. Chief Complaint 2NYSW VAS PAIN Established: MARIPOSA completing section: Aurelia Florence LPN History of [...] (degenerative disc disease), cervical (722.4) (M50.30) 7. nursing home (current) use of opiate analgesic (V58.69) (Z79.891) [...] No illicit drug use VitalsVital Signs Recorded: [id number] 09:20AM Height: 5 ft 3 inWeight: 178 [...] Status: Hold For - Scheduling Requested for: [id number] 2. Block (Transforaminal) ([facility]) Referral Procedure Procedure Status: Hold For - Scheduling Requested for: [id number] Type : Private (No Auth needed)Is patient [...] BLANCHE (...NO CERVICAL...)Area : LumbarBlock : TransforaminalProfessional Frame Operator needed for block? : NoFront Desk Reminder: [...] activity including ergonomics and aerobic activity. - SHIP BOSS: The patient was counseled on the following: [...] rce(s) Supporting Document(s) ID Date Data Source [id number] 03/16/2020 04:21:06 PM [facility] Name Value Range Interpretation Code Description Data [facility] rce(s) Supporting Document(s) Progress Note [facility] JMIDZs5sSpMUKrWl08/WSIjgQEDyb8ZqLUhcXUk1EQbeUQOnJ4TlSRW3vF3pZCT3WPoXXdHhXzOcQiLh [facility] [file] r5GCCuPDM+GE3jVWj+Wg2Hp4ClgnX7geAdROnnHtp3LS8RNWDNH7GTRz== ID Date Data Source [id number] 03/08/2020 02:29:03 PM EDT [address] [address]Nplbkln Name: DEBBI ESTRADAZARAB: 1965Sex: FOrdering Provider: MARTINA Ceballos Prov: MARTINA NAIRNReferring Provider: MARTINA RYFUNProcedure Performed: MRI LUMBAR SPINE WO CONTRASTExam Date: 03/08/2020 14:01MRN: [id number] Number: [id number] Class: OutpatientAccount #: [id number] for Exam: Back pain, prior surgery, new [...] KEVIN TALLEY On 03/08/2020 2:29 PMWorkstation ID: [id number] - [id number] Name Value Range Interpretation Code Description Data Irena rce(s) Supporting Document(s) ID Date Data Source [id number] 03/06/2020 08:18:00 AM EDT [facility] ([facility], ) Name Value Range Interpretation Code Description Data Irena rce(s) Supporting Document(s) PDFReport Laboratory test result [facility] ([facility], ) FVC-Pred 3.23 L [facility] ([facility], ) FVC-Pre 2.38 L [facility] ([facility]) FVC-%Pred-Pre 73 L [facility] ([facility]) Fev1-Pred 2.52 L [facility] ([facility], ) FVC-LLN 2.57 L [facility] ([facility]) Fev1-Pre 1.82 L [facility] ([facility]) Fev1-LLN 1.96 L [facility] ([facility]) Fev1-%Pred-Pre 72 L [facility] ([facility]) Fev6-Pre 2.38 L [facility] ([facility]) Fev6-Pred 3.12 L [facility] ([facility]) Fev6-%Pred-Pre 76 L [facility] ([facility]) Qhz6vdw-Nyf 76 % [facility] ([facility]) Fev6-LLN 2.47 L [facility] ([facility]) Smx4aku-Mcii 79 % [facility] ([facility]) Kpd0rak-%Pred-Pre 96 % [facility] ([facility]) Xsh5iyy-Utgj 97 % [facility] ([facility]) Efu8xvw-SYL 69 % [facility] ([facility]) Yrw9rcw-%Pred-Pre 103 % [facility] ([facility]) FEFMax-Pred 6.27 L/E/sec [facility] ([facility]) Yel9jyr-Rll 100 % [facility] ([facility]) FEFMax-Pre 4.95 L/E/sec [facility] ([facility]) FEFMax-%Pred-Pre 78 L/E/sec [facility] ([facility]) FEFMax-LLN 4.63 L/E/sec [facility] ([facility]) Ogv2590-Kzbd 2.43 L/E/sec [facility] ([facility], ) Htr1257-%Pred-Pre 62 L/E/sec [facility] ([facility]) Ncc4655-Ein 1.52 L/E/sec [facility] ([facility]) Nog7ybv7-Isgj 81 % [facility] ([facility]) ExpTime-Pre 5.84 sec [facility] ([facility]) Zfa4326-TTU 1.25 L/E/sec [facility] ([facility], ) Vua7wgu0-Zck 76 % [facility] ([facility]) Uqm5vuf1-%Pred-Pre 93 % [facility] ([facility]) Tjy2vya8-KMW 73 % [facility] ([facility]) ID Date Data Source [id number] 02/21/2020 10:22:00 AM EDT [facility] Name Value Range Interpretation Code Description Data Irena rce(s) Supporting Document(s) SARS-COV-2 RNA RESP QL JENNIFRE+PROBE [facility] This lab was ordered by MAINE JENNY Ramon ND and reported by [employer]. ID Date Data Source [id number] 02/17/2020 09:34:46 AM EDT [facility] PCName: Estefany HarrellB: 1965Provider: Milena Malhotra: 02/17/2020 Chief ComplaintChronic low back pain. Chief Complaint 2NYSW VAS PAIN Established: MA completing section: TODUME History of Present IllnessRecent test/procedures: Patient was asked and denies having any tests since their last visit. Patient was asked and denies being seen by any Physicians since their last visit. The patient was last seen by a [facility] provider on 05/13/2019. 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 Block (Thoracic/Lumbar Interlaminar) ([facility]) Referral Procedure Procedure Status: Hold For - Scheduling Requested for: [id number] Type : Private (No Auth needed)Is patient currently on a biologic? : NoReminder: : Place order for Anticoag: Aspirin Products Transforam-InterlamIs your patient taking aspirin for cardiac or stroke prevention...? : YesIs patient taking Aspirin > 81 mg...? : NoIs your patient on an Anticoagulant -OR- have Coagulopathy...? : NoSedation : NoArea: : LumbarBlock : Interlaminar (Epidural)Professional Frame Operator needed for block? : NoFront Desk Reminder: [...] activity including ergonomics and aerobic activity. - SHIP BOSS: The patient was counseled on the following: [...] rce(s) Supporting Document(s) ID Date Data Source [id number] 01/14/2020 01:36:00 PM EDT [employer] [facility] [employer] [facility]: XRAY SPINE LS COMPLETE W BENDING [...] rce(s) Supporting Document(s) ID Date Data Source [id number] 01/14/2020 01:36:00 PM EDT [employer] [facility] PELVIS AP 1V OR 2VCLINICAL HISTORY: [...] rce(s) Supporting Document(s) ID Date Data Source [id number] 11/17/2019 01:15:00 PM EDT [facility] SECS IN MODERATE NUMBERSRARE WBCSSMALL N UMBERS GRAM-POSITIVE COCCI IN CHAINSRARE GRAM NEG COCCIRARE YEAST LIKENORMAL OROPHARYNGEAL MANDI ISOLATEDNO PATHOGENS ISOLATED-48 HOURS Name Value Range Interpretation Code Description Data Irean rce(s) Supporting Document(s) ID Date Data Source [id number] 10/14/2019 09:43:00 AM EST [facility] DATE OF EXAMINATION: 10/13/2019 15:18 EST UPPER G.I. W/SMALL BOWEL HISTORY: Gastroesophageal reflux disease FLUOROSCOPY TIME: 1 minute 18 seconds NUMBER OF IMAGES: 4 UGI EXAM: Preliminary prospect manager view of the abdomen appears unremarkable. Distal [...] rce(s) Supporting Document(s) ID Date Data Source [id number] 09/22/2019 03:44:51 PM EST [facility] NT INFORMATIONPatient MRN Name Date of Age Gend*PT [id number] Debbi Nelson 1965 54 years F SDCXPT Location Admission Date/Time Visit ID Attending [id number] 09/08/19 0614 --- --- EPI ID CSN Admitting Provider [id number] Kevin Pacheco MD([id number]) [place] [address] OPERATIVE REPORT OPNAME: DEBBI NELSON Bryanna#: [id number] #: [id number] ADMISSION DATE: 09/08/2019DOB: 1965 SEX: F PT TYPE: S SURACCT #: [id number] CARE PHYSICIAN: OSKAR POWERSADATE OF OPERATION: 08/25PREOPERATIVE DIAGNOSIS:Lumbar foraminal stenosis.POSTOPERATIVE DIAGNOSIS:Lumbar foraminal stenosis.SURGERY:Bilateral lumbar L4-5 foraminotomy, placement of Depo-Medrol, use ofMarcaine.SURGEON:Dr. Pacheco.FOOD COUNTER WORKER:Martina Smith.ANESTHESIA:General.ESTIMATED BLOOD LOSS:Minimal.DISPOSITION:The patient is a 53-year-old female with discomfort down the legs, leftgreater than right, worse with walking. The patient understood risks,benefits, alternatives and indications for surgery.Outcomes discussed, outcomes not guaranteed. Risks, benefits, alternatives,indications for OR discussed. Risk include but not limited to infection, csfleak, N/T/P, B/B/S dysfn, hematoma, difficulty with instability needing fusion,need to do other levels, OH, DVT, blindness. Patient understands and desires toproceed.OPERATIVE [...] in stablecondition. Sponge, instrument and needle counts correct.Kevin Pacheco MDDYE/NTS Job #: [id number] DOC #: [id number] Name Value Range Interpretation Code Description Data Irena rce(s) Supporting Document(s) ID Date Data Source [id number] 09/09/2019 08:48:07 AM EST [facility]PAT[facility] NT INFORMATIONPatient MRN Name Date of Age Gend*PT [id number] Debbi Nelson 1965 53 years F SDCXPT Location Admission Date/Time Visit ID Attending [id number] 09/08/19 0614 --- Kevin Pacheco MD([id number]) EPI ID CSN Admitting Provider [id number] Kevin Pacheco MD([id number])Surgical Discharge SummaryDebbi NelsonMRN: [id number] date: 09/08/2019Admitting Physician: SAWYER Quinonesischarge date and [...] mg by mouth 3 (three) times a csoLQW-IVE-YROA-D PO Take 1 tablet by mouth dailyCholecalciferol [...] dailySPIRIVA RESPIMAT 2.5 MCG/ACT AersGeneric drug: Tiotropium Brent Monohydrate Inhale 2 puffs dailySYMBICORT 160-4.5 MCG/ACT [...] rce(s) Supporting Document(s) ID Date Data Source [id number] 09/09/2019 08:46:56 AM EST [facility]PAT[facility] NT INFORMATIONPatient MRN Name Date of Age Gend*PT [id number] Debbi Nelson 1965 53 years F SDCXPT Location Admission Date/Time Visit ID Attending [id number] 09/08/19 0614 --- Kevin Pacheco MD([id number]) EPI ID CSN Admitting Provider [id number] Kevin Pacheco MD([id number])See dictated note. H and P updated.Pt with lumbar foraminal stenosis at L45Pt stable for surgery.Plan L45 blanche foramintomyOutcomes discussed, outcomes not guaranteed. Risks, benefits, alternatives,indications for OR discussed. Risk include but not limited to infection, csfleak, N/T/P, B/B/S dysfn, hematoma, difficulty with instability needing fusion,need to do other levels, OH, DVT, blindness. Patient understands and desires toproceed. Name Value Range Interpretation Code Description Data Irena rce(s) Supporting Document(s) ID Date Data Source [id number] 09/08/2019 11:47:59 AM EST [address] [address]Vlixfbv Name: DEBBI NELSONDOB: 1965Sex: FOrdering Provider: KEVIN Reed Prov: KEVIN Godoy Provider: Procedure Performed: XR OR SPINE LUMBARExam Date: 09/08/2019 11:19MRN: [id number] Number: [id number] Class: InpatientAccount #: [id number] for Exam: Low back pain, unspecified back pain laterality, unspecified chronicity, unspecified whether sciatica present [M54.5]DDD (degenerative disc disease), lumbar [M51.36]Neural foraminal stenosis of lumbar spine [M99.83]Technique: Lateral view obtained.Comparison: Preoperative lumbar spine x-rays August 09, 2019.FINDINGS: Vertebral bodies are labeled L1-S1. [place] indicate the L3-L4 and L4-5 disc spaces.IMPRESSION: Vertebral bodies labeled L1-S1. [place] indicates the L3-L4 and L4-5 disc spaces.Report electronically signed by: ROB LAI On 09/08/2019 11:47 AMWorkstation ID: [id number] Name Value Range Interpretation Code Description Data Irena rce(s) Supporting Document(s) ID Date Data Source [id number] 09/08/2019 11:16:21 AM EST [facility] INFORMATIONPatient MRN Name Date of Age Gend*PT [id number] Debbi Nelson 1965 53 years F SDCXPT Location Admission Date/Time Visit ID Attending Provider --- --- --- --- EPI ID CSN Admitting Provider [id number] ---AirwayPatient location during procedure: ORUrgency: electiveDifficult airway: [...] cmPlacement verified by: chest auscultation and + [id number]: CTA and equal breath sounds bilateralGrade view: grade I - full view of glottisAdditional NotesSmall mouth opening with hx of cervical fusions. Neck neutral and notmanipulated during intubation. Name Value Range Interpretation Code Description Data [facility] Document(s) ID Date Data Source [id number] 09/08/2019 09:35:19 AM EST [address] [address]Kphtqof Name: DEBBI NELSONDOB: 1965Sex: FOrdering Provider: KEVIN Reed Prov: KEVIN Godoy Provider: Procedure Performed: XR OR SPINE LUMBAR CONTINUATIONExam Date: 09/08/2019 09:20MRN: [id number] Number: [id number] Class: InpatientAccount #: [id number] [id number] Exam: Low back pain, unspecified back pain laterality, unspecified chronicity, unspecified whether sciatica present [M54.5]DDD (degenerative disc disease), lumbar [M51.36]Neural foraminal stenosis of lumbar spine [M99.83]Technique: Lateral vi ew obtained.Comparison: Prior study performed earlier in the day.Findings: Surgical instruments are noted posteriorly at the L4-5 level.The alignment is intact.IMPRESSION: L4-5 localization.Report electronically signed by: SHER DURAN On 09/08/2019 9:35 AMWorkstation ID: [id number] Name Value Range Interpretation Code Description Data Irena rce(s) Supporting Document(s) ID Date Data Source [id number] 09/08/2019 07:30:09 AM EST [facility] Name Value Range Interpretation Code Description Data Irena rce(s) Supporting Document(s) POC SOURCE [facility] POC TEMPERATURE [facility] POC FIO2 [facility] POC VENOUS PH (7.33-7.43) [facility] POC VENOUS PCO2 (38.0-50.0) [facility] POC VENOUS PO2 (30-50) [facility] POC VENOUS SO2 (60-85) [facility] POC VENOUS BASE EXCESS [facility] P[facility] VENOUS HCO3 (23.0-27.0) [facility] POC VENOUS TOTAL CO2 (24-28) [facility] BY [facility] POC HCT 37 % (36.0-47.0) [facility] POC SODIUM (136-145) [facility] POC POTASSIUM 3.8 MMOL/L (3.6-5.2) [facility] POC IONIZED CALCIUM (4.6-5.3) [facility] POC GLU 102 MG/DL (70-99) H [facility] PERFORM LAB [facility] ID Date Data Source [id number] 09/08/2019 08:39:57 AM EST [facility] SPEC EXP DATE 09/11/2019PATI ENT ABO/Rh O POSITIVEANTIBODY SCREEN NEGATIVETESTING SITE PERFORMED AT [address] [place] [id number] BANK COMMENT BLOOD TYPE CONFIRMED. Name Value Range Interpretation Code Description Data Irena rce(s) Supporting Document(s) TYPE AND SCREEN [facility] ID Date Data Source [id number] 09/08/2019 07:02:23 AM EST [facility] Name Value Range Interpretation Code Description Data Irena rce(s) Supporting Document(s) POC NOVA GLU 98 mg/dL (70-99) [facility] PERFORMED BY [facility] Procedure Social History Code Duration Value Status Description Data Source(s ) Smoking 09/15/2020 12:00:00 AM EST Former Smoker completed Former Smoker eCW1 ([facility]) Smoking 09/15/2020 12:00:00 AM EST Former Smoker completed Former Smoker [facility] ([facility]) Alcohol intake 09/11/2020 12:00:00 AM EST Yes completed [facility] Cigarette pack-years 09/11/2020 12:00:00 AM EST UNK completed [facility] Cigarettes smoked current (pack per day) - Reported 09/11/19 12:00:00 AM EST UNK completed [facility] Smoking 09/11/2020 12:00:00 AM EST Former smoker completed Former smoker [facility] Alcohol intake 07/12/2020 12:00:00 AM EST Yes completed [facility] Cigarette pack-years 07/12/2020 12:00:00 AM EST UNK completed [facility] Cigarettes smoked current (pack per day) - Reported 07/12/20 12:00:00 AM EST UNK completed [facility] Smoking 07/12/2020 12:00:00 AM EST Former smoker completed Former smoker [facility] Alcohol intake 06/21/2020 12:00:00 AM EDT Yes completed [facility] Cigarette pack-years 06/21/2020 12:00:00 AM EDT UNK completed [facility] Cigarettes smoked current (pack per day) - Reported 06/21/20 12:00:00 AM EDT UNK completed [facility] Smoking 06/21/2020 12:00:00 AM EDT Former smoker completed Former smoker [facility] Smoking 06/13/2020 12:00:00 AM EDT Former Smoker completed Former Smoker eCW1 ([facility]) Smoking 06/13/2020 12:00:00 AM EDT Former Smoker completed Former Smoker eCW1 ([facility]) Smoking 06/07/2020 12:00:00 AM EDT Patient is a former smoker completed Patient is a former smoker [facility] ([facility], ) Alcohol intake 05/30/2020 12:00:00 AM EDT Yes completed [facility] Cigarette pack-years 05/30/2020 12:00:00 AM EDT UNK completed [facility] Cigarettes smoked current (pack per day) - Reported 05/30/20 12:00:00 AM EDT UNK completed [facility] Smoking 05/30/2020 12:00:00 AM EDT Former smoker completed Former smoker [facility] Smoking 05/23/2020 12:00:00 AM EDT Patient is a former smoker completed Patient is a former smoker [facility] ([facility]) Alcohol intake 03/16/2020 12:00:00 AM EDT Current drinker of al cohol (finding) completed Current drinker of alcohol (finding) [facility] Cigarette pack-years 03/16/2020 12:00:00 AM EDT UNK completed [facility] Cigarettes smoked current (pack per day) - Reported 03/16/20 12:00:00 AM EDT UNK completed [facility] Smoking 03/16/2020 12:00:00 AM EDT Current every day smoker co mpleted Current every day smoker [facility] Smoking 12/30/2019 12:00:00 AM EDT Current Smoker completed Curre nt Smoker eCW1 ([facility]) Smoking 12/30/2019 12:00:00 AM EDT Current Smoker completed Curre nt Smoker eCW1 ([facility]) Smoking 12/30/2019 12:00:00 AM EDT Current Smoker completed Curre nt Smoker eCW1 ([facility]) Smoking 12/30/2019 12:00:00 AM EDT Current Smoker completed Curre nt Smoker eCW1 ([facility]) Smoking 12/30/2019 12:00:00 AM EDT Current Smoker completed Curre nt Smoker eCW1 ([facility]) Alcohol intake 11/08/2019 12:00:00 AM EDT Yes completed [facility] Cigarette pack-years 11/08/2019 12:00:00 AM EDT UNK completed [facility] Cigarettes smoked current (pack per day) - Reported 11/08/19 12:00:00 AM EDT UNK completed [facility] Smoking 11/08/2019 12:00:00 AM EDT Former smoker completed Former smoker [facility] Alcohol intake 09/09/2019 12:00:00 AM EST Yes completed [facility] Cigarette pack-years 09/09/2019 12:00:00 AM EST UNK completed [facility] Cigarettes smoked current (pack per day) - Reported 09/09/19 12:00:00 AM EST UNK completed [facility] Smoking 09/09/2019 12:00:00 AM EST Former smoker completed Former smoker [facility] Vital Signs ID Date Data Source UNK Name Value Range Interpretation Code Description Data Source(s) Diastolic blood pressure 76 mm[Hg] 76 mm[Hg] eCW1 ([facility]) Systolic blood pressure 114 mm[Hg] 114 mm[Hg] e CW1 ([facility]) Body temperature 98.7 [degF] 98.7 [degF] eCW1 ( [facility]) Respiratory rate 16 /min 16 /min eCW1 ([facility]) Heart rate 88 /min 88 /min W1 ([facility]) Body mass index (BMI) [Ratio] 30.11 kg/m2 30.11 kg/m2 W1 ([facility]) Body height 63 [in_i] 63 [in_i] W1 ([facility]) Body weight 170 [lb_av] 170 [lb_av] eCW1 ([facility]) Oxygen saturation in Arterial blood by Pulse oximetry 97 % 97 % [facility] Body mass index (BMI) [Ratio] 30.36 kg/m2 30.36 kg/m2 [facility] Body weight 75.297 kg 75.297 kg [facility] Body height 157.5 cm 157.5 cm [facility] Heart rate 79 /min 79 /min [facility] Diastolic blood pressure 77 mm[Hg] 77 mm[Hg] [facility] Systolic blood pressure 116 mm[Hg] 116 mm[Hg] [facility] Body surface area Derived from formula 1.74 m2 1.74 m2 [facility] ([facility], ) Body weight 72.576 kg 72.576 kg [facility] ([facility], ) [place] body weight 110 [lb_av] 110 [lb_av] MED[facility] T ([facility], ) Body mass index (BMI) [Ratio] 29.3 kg/m2 29.3 k g/m2 [facility] ([facility], ) Body weight 160.00 [lb_av] 160.00 [lb_av] [facility] T ([facility], ) Body height 62 [in_i] 62 [in_i] [facility] ([facility], ) 5'2" Body temperature 96.8 [degF] 96.8 [degF] [facility] ([facility], ) Oxygen saturation in Arterial blood by Pulse oximetry 98 % 98 % [facility] Body mass index (BMI) [Ratio] 30.00 kg/m2 30.00 kg/m2 [facility] Body weight 74.39 kg 74.39 kg [facility] Body height 157.5 cm 157.5 cm [facility] Body temperature 36.11 Jennie 36.11 Jennie [facility] Heart rate 86 /min 86 /min [facility] Diastolic blood pressure 76 mm[Hg] 76 mm[Hg] [facility] Systolic blood pressure 111 mm[Hg] 111 mm[Hg] [facility] Oxygen saturation in Arterial blood by Pulse oximetry 96 % 96 % [facility] Respiratory rate 16 /min 16 /min [facility] Body temperature 36.28 Jennie 36.28 Jennie [facility] Heart rate 86 /min 86 /min [facility] Diastolic blood pressure 60 mm[Hg] 60 mm[Hg] [facility] Systolic blood pressure 114 mm[Hg] 114 mm[Hg] [facility] Body mass index (BMI) [Ratio] 29.81 kg/m2 29.81 kg/m2 [facility] Body weight 73.936 kg 73.936 kg [facility] Body height 157.5 cm 157.5 cm [facility] Diastolic blood pressure 83 mm[Hg] 83 mm[Hg] eCW1 ([facility]) Systolic blood pressure 114 mm[Hg] 114 mm[Hg] e CW1 ([facility]) Body temperature 98.1 [degF] 98.1 [degF] eCW1 ( [facility]) Respiratory rate 16 /min 16 /min eCW1 ([facility]) Heart rate 91 /min 91 /min eCW1 ([facility]) Body mass index (BMI) [Ratio] 28.34 kg/m2 28.34 kg/m2 eCW1 ([facility]) Body height 63 [in_i] 63 [in_i] eCW1 ([facility]) Body weight 160 [lb_av] 160 [lb_av] eCW1 ([facility]) Body mass index (BMI) [Ratio] 30.1 kg/m2 30.1 k g/m2 [facility] ([facility], ) Body weight 166.00 [lb_av] 166.00 [lb_av] MED[facility] T ([facility], ) Body height 62.25 [in_i] 62.25 [in_i] [facility] ([facility]) 5'2.25" Body temperature 97.4 [degF] 97.4 [degF] [facility] ([facility]) Oxygen saturation in Arterial blood by Pulse oximetry 95 % 95 % [facility] ([facility]) Heart rate 89 /min 89 /min [facility] ([facility]) Diastolic blood pressure 72 mm[Hg] 72 mm[Hg] [facility] Systolic blood pressure 126 mm[Hg] 126 mm[Hg] [facility] Body surface area Derived from formula 1.77 m2 1.77 m2 [facility] ([facility]) Body weight 75.298 kg 75.298 kg [facility] ([facility]) [place] body weight 110 [lb_av] 110 [lb_av] [facility] T ([facility]) Diastolic blood pressure 64 mm[Hg] 64 mm[Hg] [facility] ([facility]) sitting Systolic blood pressure 124 mm[Hg] 124 mm[Hg] M EDENT ([facility]) sitting Diastolic blood pressure 64 mm[Hg] 64 mm[Hg] [facility] ([facility]) sitting, large cuff Systolic blood pressure 128 mm[Hg] 128 mm[Hg] [facility] sitting, large cuff Respiratory rate 16 /min 16 /min [facility] ( [facility]) Heart rate 76 /min 76 /min [facility] ([facility] Regular Body mass index (BMI) [Ratio] 29.6 kg/m2 29.6 k g/m2 [facility] Body height 63 [in_i] 63 [in_i] [facility] ([facility]) 5'3" Body weight 167.00 [lb_av] 167.00 [lb_av] [facility] T ([facility]) Body weight 78.473 kg 78.473 kg [facility] ([facility]) [place] body weight 110 [lb_av] 110 [lb_av] [facility] ([facility]) Body mass index (BMI) [Ratio] 31.4 kg/m2 31.4 k g/m2 [facility] ([facility]) Body weight 173.00 [lb_av] 173.00 [lb_av] [facility] ([facility]) Body height 62.25 [in_i] 62.25 [in_i] [facility] 5'2.25" Diastolic blood pressure 78 mm[Hg] 78 mm[Hg] [facility] ([facility]) Systolic blood pressure 112 mm[Hg] 112 mm[Hg] M EDENT ([facility]) Body weight 81.648 kg 81.648 kg [facility] ([facility]) Body mass index (BMI) [Ratio] 32.4 kg/m2 32.4 k g/m2 [facility] ([facility]) Body weight 180.00 [lb_av] 180.00 [lb_av] [facility] ([facility]) Body height 62.5 [in_i] 62.5 [in_i] [facility] ([facility]) 5'2.50" Body temperature 97.4 [degF] 97.4 [degF] [facility] ([facility]) Oxygen saturation in Arterial blood by Pulse oximetry 96 % 96 % [facility] ([facility]) Heart rate 78 /min 78 /min [facility] ([facility]) Diastolic blood pressure 70 mm[Hg] 70 mm[Hg] [facility] ([facility]) Systolic blood pressure 110 mm[Hg] 110 mm[Hg] M EDENT ([facility]) Diastolic blood pressure 67 mm[Hg] 67 mm[Hg] eCW1 ([facility]) Systolic blood pressure 110 mm[Hg] 110 mm[Hg] e CW1 ([facility]) Body temperature 98.3 [degF] 98.3 [degF] eCW1 ( [facility]) Respiratory rate 18 /min 18 /min eCW1 ([facility]) Heart rate 87 /min 87 /min eCW1 ([facility]) Body mass index (BMI) [Ratio] 32.77 kg/m2 32.77 kg/m2 eC1 ([facility]) Body height 63 [in_us] 63 [in_us] eCW1 ([facility]) Body weight Measured 185 [lb_av] 185 [lb_av] eC W1 ([facility]) Diastolic blood pressure 76 mm[Hg] 76 mm[Hg] eCW1 ([facility]) Systolic blood pressure 112 mm[Hg] 112 mm[Hg] e CW1 ([facility]) Body temperature 98.7 [degF] 98.7 [degF] eCW1 ( [facility]) Respiratory rate 18 /min 18 /min eCW1 ([facility]) Heart rate 91 /min 91 /min eCW1 ([facility]) Body mass index (BMI) [Ratio] 32.41 kg/m2 32.41 kg/m2 eCW1 ([facility]) Body height 63 [in_us] 63 [in_us] eCW1 ([facility]) Body weight Measured 183 [lb_av] 183 [lb_av] eC W1 ([facility]) Oxygen saturation in Arterial blood by Pulse oximetry 92 % 92 % [facility] Respiratory rate 16 /min 16 /min [facility] Body temperature 37.11 Jennie 37.11 Jennie [facility] Heart rate 88 /min 88 /min [facility] Diastolic blood pressure 83 mm[Hg] 83 mm[Hg] [facility] Systolic blood pressure 135 mm[Hg] 135 mm[Hg] [facility] Body mass index (BMI) [Ratio] 31.71 kg/m2 31.71 kg/m2 [facility] Body weight 81.194 kg 81.194 kg [facility] Body height 160 cm 160 cm [facility] Patient Treatment Plan of Care Planned Activity Planned Date Details Description Data Source (s) pregabalin 75 MG Oral Capsule 09/15/2020 12:00:00 AM EST eCW1 ([facility]) pregabalin 75 MG Oral Capsule 09/15/2020 12:00:00 AM EST eCW1 ([facility]) Oxycodone Hydrochloride 5 MG Oral Tablet 06/21/2020 12:00:00 AM EDT [facility] methylPREDNISolone (MEDROL, URIEL,) 4 MG tablet 04/03/2020 12:00:00 A M EDT [facility] Diazepam 5 MG Oral Tablet 03/16/2020 12:00:00 AM [facility] Acetaminophen 325 MG / Hydrocodone Bitartrate 5 MG Ora l Tablet 03/16/2020 12:00:00 AM [facility] Levofloxacin 500 MG Oral Tablet 03/16/2020 12:00:00 AM [facility] Albuterol 0.83 MG/ML Inhalant Solution 03/09/2020 12:00:00 AM [facility] Spiriva Respimat 2.5 MCG/ACT Inhalation Aerosol Soluti on 02/28/2020 12:00:00 AM [facility] Atropine Sulfate 0.025 MG / Diphenoxylate Hydrochlorid e 2.5 MG Oral Tablet 02/28/2020 12:00:00 AM EDT [facility] Dicyclomine Hydrochloride 20 MG Oral Tablet 02/28/2020 12:00:00 AM [facility] Atropine Sulfate 0.025 MG / Diphenoxylat e Hydrochloride 2.5 MG Oral Tablet [Lomotil] 01/06/2020 12:00:00 AM EDT [facility] ([facility]) Atropine Sulfate 0.025 MG / Diphenoxylat e Hydrochloride 2.5 MG Oral Tablet [Lomotil] 01/06/2020 12:00:00 AM EDT eC ([facility]) Atropine Sulfate 0.025 MG / Diphenoxylat e Hydrochloride 2.5 MG Oral Tablet [Lomotil] 01/06/2020 12:00:00 AM EDT eC ([facility]) Atropine Sulfate 0.025 MG / Diphenoxylat e Hydrochloride 2.5 MG Oral Tablet [Lomotil] 01/06/2020 12:00:00 AM EDT eC ([facility]) Atropine Sulfate 0.025 MG / Diphenoxylat e Hydrochloride 2.5 MG Oral Tablet [Lomotil] 01/06/2020 12:00:00 AM EDT eCW1 ([facility]) Atropine Sulfate 0.025 MG / Diphenoxylat e Hydrochloride 2.5 MG Oral Tablet [Lomotil] 01/06/2020 12:00:00 AM EDT eCW1 ([facility]) Prednisone 20 MG Oral Tablet 12/30/2019 12:00:00 AM EDT eCW1 ([facility]) Dicyclomine Hydrochloride 20 MG Oral Tablet 12/30/2019 12:00:00 AM EDT eCW1 ([facility]) doxycycline hyclate 100 MG Oral Tablet 12/30/2019 12:00:00 AM EDT eCW1 ([facility]) Loperamide Hydrochloride 2 MG Oral Capsule 12/30/2019 12:00:00 AM E DT eCW1 ([facility]) Prednisone 20 MG Oral Tablet 12/30/2019 12:00:00 AM EDT eCW1 ([facility]) Dicyclomine Hydrochloride 20 MG Oral Tablet 12/30/2019 12:00:00 AM EDT eCW1 ([facility]) doxycycline hyclate 100 MG Oral Tablet 12/30/2019 12:00:00 AM EDT eCW1 ([facility]) Loperamide Hydrochloride 2 MG Oral Capsule 12/30/2019 12:00:00 AM E DT eCW1 ([facility]) Prednisone 20 MG Oral Tablet 12/30/2019 12:00:00 AM EDT eCW1 ([facility]) Dicyclomine Hydrochloride 20 MG Oral Tablet 12/30/2019 12:00:00 AM EDT eCW1 ([facility]) doxycycline hyclate 100 MG Oral Tablet 12/30/2019 12:00:00 AM EDT eCW1 ([facility]) Loperamide Hydrochloride 2 MG Oral Capsule 12/30/2019 12:00:00 AM E DT eCW1 ([facility]) Prednisone 20 MG Oral Tablet 12/30/2019 12:00:00 AM EDT eCW1 ([facility]) Dicyclomine Hydrochloride 20 MG Oral Tablet 12/30/2019 12:00:00 AM EDT eCW1 ([facility]) doxycycline hyclate 100 MG Oral Tablet 12/30/2019 12:00:00 AM EDT eCW1 ([facility]) Loperamide Hydrochloride 2 MG Oral Capsule 12/30/2019 12:00:00 AM E DT eCW1 ([facility]) Prednisone 20 MG Oral Tablet 12/30/2019 12:00:00 AM EDT eCW1 ([facility]) Loperamide Hydrochloride 2 MG Oral Capsule 12/30/2019 12:00:00 AM E DT eCW1 ([facility]) doxycycline hyclate 100 MG Oral Tablet 12/30/2019 12:00:00 AM EDT eCW1 ([facility]) Dicyclomine Hydrochloride 20 MG Oral Tablet 12/30/2019 12:00:00 AM EDT eCW1 ([facility]) Prednisone 20 MG Oral Tablet 12/30/2019 12:00:00 AM EDT eCW1 ([facility]) Dicyclomine Hydrochloride 20 MG Oral Tablet 12/30/2019 12:00:00 AM EDT eCW1 ([facility]) doxycycline hyclate 100 MG Oral Tablet 12/30/2019 12:00:00 AM EDT eCW1 ([facility]) Loperamide Hydrochloride 2 MG Oral Capsule 12/30/2019 12:00:00 AM E DT eCW1 ([facility]) Metoclopramide 10 MG Oral Tablet 10/01/2019 12:00:00 AM EST [facility] Metoclopramide 10 MG Oral Tablet [Reglan] 10/01/2019 12:00:00 AM ES T eCW1 ([facility]) Lactulose 667 MG/ML Oral Solution 10/01/2019 12:00:00 AM EST eCW1 ([facility]) pregabalin 50 MG Oral Capsule 09/09/2019 12:00:00 AM EST [facility] Baclofen 10 MG Oral Tablet 09/09/2019 12:00:00 AM EST [facility] Acetaminophen 325 MG / Hydrocodone Bitartrate 7.5 MG O ral Tablet 09/09/2019 12:00:00 AM EST [facility] Mometasone Furoate 50 MCG/ACT Nasal Suspension (NASONE X) 07/01/2019 12:00:00 AM [facility] Ranitidine 300 MG Oral Tablet 05/20/2019 12:00:00 AM EDT [facility] Ranitidine 300 MG Oral Tablet 05/20/2019 12:00:00 AM EDT [facility] Omeprazole 40 MG Delayed Release Oral Capsule 04/12/2019 12:00:00 A M EDT [facility] Baclofen 10 MG Oral Tablet 11/27/2018 12:00:00 AM EDT [facility] Aspirin 81 MG Delayed Release Oral Tablet 10/23/2017 12:00:00 AM ES T [facility] Multiple Minerals-Vitamins (NQV-UGT-ESDV-D PO) [facility] Acetaminophen 325 MG / Hydrocodone Bitartrate 7.5 MG Oral Tablet [facility] Acetaminophen 325 MG Oral Tablet [facility] pregabalin 50 MG Oral Capsule [facility] Aspirin 81 MG Oral Tablet [facility]
[2020-10-11] MEDS ORDERED: VASOPRESSIN INJ 20 UNITS/ML VIAL As Ordered ONE (11:55)
[2020-10-11] MEDS ORDERED: BUPIVACAINE/EPIN 0.5% 30 ML VIAL As Ordered ONE (11:55)
[2020-10-11] MEDS ORDERED: VITA80003 PO (12:07)
[2020-10-11] MEDS ORDERED: VENTAER INH (12:07)
[2020-10-11] MEDS ORDERED: LEVALBUTEROL 1.25 MG/0.5 ML CONCENTRATE NEB As Ordered ONE (12:21)
[2020-10-11 12:27] LABS: HEMATOCRIT 43.6 % (36.0-47.0); HEMOGLOBIN 13.2 g/dl (12.0-15.5); MEAN CORPUSCULAR HEMOGLOBIN 26.4 pg (27.0-33.0); MEAN CORPUSCULAR HGB CONC 30.3 g/dl (32.0-36.5); MEAN CORPUSCULAR VOLUME 87.2 fl (80.0-96.0); PLATELET COUNT, AUTOMATED 257 10^3/uL (150-450); WHITE BLOOD COUNT 8.5 10^3/uL (4.0-10.0)
[2020-10-11] MEDS ORDERED: LEVALBUTEROL 1.25 MG/0.5 ML CONCENTRATE NEB NEB ONE (12:30)
[2020-10-11 12:55] LABS: CALCIUM LEVEL 9.5 MG/DL (8.5-10.1); CREATININE FOR GFR 1.08 MG/DL (0.55-1.30); GLOMERULAR FILTRATION RATE 55.7 (>51); POTASSIUM SERUM 5.1 MEQ/L (3.5-5.1)
[2020-10-11] MEDS ORDERED: dexameTHASONE 4 MG/ML 1ML VIAL (J1100 PER 1MG) As Ordered ONE (12:55)
[2020-10-11] MEDS ORDERED: PHENYLephrine 500MCG 5ML (100MCG/ML) SYRINGE As Ordered ONE (12:58)
[2020-10-11] MEDS ORDERED: ACETAMINOPHEN 1000MG 100ML IV BTL (OFIRMEV) (J0131 PER 10MG) As Ordered ONE (13:06)
[2020-10-11] MEDS ORDERED: METOCLOPRAMIDE INJ 10MG/2ML VIAL (J2765 PER 1) As Ordered ONE (13:10)
[2020-10-11] MEDS ORDERED: fentaNYL 100 MCG/2 ML INJECTION (J3010) As Ordered ONE (13:10)
[2020-10-11] MEDS ORDERED: ONDANSETRON 4MG/2ML VIAL As Ordered ONE ×2 (13:10→14:25)
[2020-10-11] MEDS ORDERED: ESTROGENS VAGINAL CREAM 30GM As Ordered ONE (13:47)
[2020-10-11] MEDS ORDERED: oxyCODONE 5MG TAB PO PRN (14:30)
[2020-10-11] MEDS ORDERED: LR 1,000 ML IV SCH (14:30)
[2020-10-11] MEDS ORDERED: ONDANSETRON 4MG/2ML VIAL IV PRN (14:30)
[2020-10-11] MEDS ORDERED: HYDROMORPHONE HCL 0.5 MG/ 0.5 ML SYRINGE (J1170 PER 1) IV PRN (14:30)
[2020-10-11] MEDS ORDERED: fentaNYL 100 MCG/2 ML INJECTION (J3010) IV PRN (14:30)
--- NOTE | 2020-10-11 14:43 | RO ---
OPERATIVE NOTE DATE OF OPERATION: 10/11/2020 This is a 55-year-old female who is post-hysterectomy many years ago, found to have symptomatic complete vaginal vault prolapse and urinary incontinence. After counseling the decision was made to proceed with sacrospinous vaginal vault suspension, possible use of mesh, posterior and anterior repair and perineorrhaphy. PREOPERATIVE DIAGNOSES: 1. Symptomatic complete vaginal vault prolapse. 2. Urinary incontinence. POSTOPERATIVE DIAGNOSES: 1. Symptomatic complete vaginal vault prolapse. 2. Urinary incontinence. 3. Large rectocele. PROCEDURES: 1. Sacrospinous vaginal vault suspension using Anchorsure device. 2. Posterior repair. SURGEON: Glenroy Zuniga DO FOOD MIXER ASSEMBLER: ANESTHESIA: General. COMPLICATIONS: None. ESTIMATED BLOOD LOSS: Less than 50 mL. SPECIMEN SENT TO LAB: Vaginal mucosa. DESCRIPTION OF PROCEDURE: After obtaining informed consent the patient was taken to the operating room where general anesthetic was found to be adequate. She was prepped and draped in usual sterile fashion in the dorsal lithotomy position. At this point a Diggs catheter was placed in the bladder for drainage. We then examined the patient under general anesthesia. There was no significant cystocele noted. However, a large rectocele was noted with the vaginal vault prolapsing. Given the significant large rectocele and minimal cystocele I then did a posterior approach, infiltrated the posterior vaginal mucosa with Pitressin solution. A midline incision was then made. The vaginal mucosa was then peeled off the rectal mucosa. I was then able to palpate sacrospinous ligament. At this point using an Anchorsure the Anchorsure device was anchored to the sacrospinous ligament in midline fashion. Both sides were done in similar fashion. At this point the rectocele was then imbricated using 2-0 Vicryl suture in [id number] interrupted. After reducing the rectocele I then trimmed the vaginal mucosa and the vaginal mucosa was then repaired using 2-0 Vicryl in [id number] fashion. The suture placed at the level of the sacrospinous ligament with the Anchorsure was then anchored to the apex of the vagina. At this point a luis system was accomplished and the apex of the vagina was then brought loosely to the sacrospinous ligaments on both sides. The vaginal mucosa was then covered over that suture as this is a permanent suture. It was closed using 2-0 Vicryl suture. The vagina inspected, no bleeding noted. A 1 inch packing soaked in Premarin Cream was then placed in the vagina. Good hemostasis was noted. The patient tolerated the procedure well. She was transferred to the recovery room in stable condition. cc: [facility]
[2020-10-11] MEDS ORDERED: PERCOCET 5MG/325MG TAB PO PRN (14:45)
[2020-10-11 16:35] VITALS: BP 130/62
[2020-10-11] MEDS ORDERED: SIMETHICONE 80MG CHEW TAB PO SCH (18:00)
[2020-10-11] MEDS ORDERED: IBUPROFEN 800 MG TAB PO SCH (18:00)
== END 2020-10-11 16:35 | disposition home or self-care (01) ==
LOC: M SDC 11:41
PROVIDERS: ATTEND Obstetrics & Gynecology
DX: N99.3 Prolapse of vaginal vault after hysterectomy (principal); N81.6 Rectocele; R32 Unspecified urinary incontinence; G43.909 Migraine, unspecified, not intractable, without status migrainosus; I10 Essential (primary) hypertension; I25.2 Old myocardial infarction; J44.9 Chronic obstructive pulmonary disease, unspecified; J45.909 Unspecified asthma, uncomplicated; K58.9 Irritable bowel syndrome, unspecified; M12.9 Arthropathy, unspecified; M54.9 Dorsalgia, unspecified; M79.7 Fibromyalgia; R94.31 Abnormal electrocardiogram [ECG] [EKG]; Z79.82 Long term (current) use of aspirin; Z79.899 Other long term (current) drug therapy; Z86.2 Personal history of diseases of the blood and blood-forming organs and certain disorders involving the immune mechanism; Z88.2 Allergy status to sulfonamides; Z88.5 Allergy status to narcotic agent; Z88.8 Allergy status to other drugs, medicaments and biological substances; Z90.710 Acquired absence of both cervix and uterus; Z98.51 Tubal ligation status
CPT/HCPCS: 36415; 57250; 57282; 80048; 85027; 86850; 86900; 86901; 88302; C1713; J0131; J0690; J1100; J2250; J2370; J2405; J2765; J3010

== ENCOUNTER → 2020-10-20 | Outpatient (CLI) | payer BC ==
[~2020-10-20] MED LIST changes: -LIDOCAINE 2% 100MG/5ML SDV (FOR ANES.) As Ordered ONE; -LR 1,000 ML IV ONE; -MIDAZOLAM INJ 2MG/2ML VIAL (J2250 PER 1MG) As Ordered ONE; -ROCURONIUM BROMIDE 50 MG/5 ML VIAL As Ordered ONE; +VENTAER INH; +VITA80003 PO; -ceFAZolin SOD 2 GM in IV 1 EA IV ONE; -fentaNYL 100 MCG/2 ML INJECTION (J3010) As Ordered ONE; -propofoL 200 MG/20 ML VIAL As Ordered ONE
--- NOTE | 2020-10-20 12:29 | REP ---
INDICATION: PERSONAL HX NICOTINE DEPENDENCE, LUNG CA SCREENING. COMPARISON: 10/12/2019 TECHNIQUE: Low-dose lung CT screening protocol with axial 3 mm lung windows provided. FINDINGS: Lung corona are well inflated. There is no pleural effusion, pleural thickening, calcified pleural plaque apical scarring or pneumothorax. No dense consolidation. No parenchymal mass. There is no visible pulmonary nodule. Cardiac silhouette not enlarged. Tracheal airway unremarkable. IMPRESSION: 1. Lung rads category 1. Negative examination. No evidence of malignancy, stable examination. Patients with this category of examination have less than 1% chance of malignancy at the time of the examination. For patients at high risk of lung malignancy, an annual low-dose CT lung screening would be recommended. <Electronically signed by Martinez Garcia > 10/20/20 [id number]
== END ==
LOC: M RAD 09:40
PROVIDERS: ATTEND Physician Assistant
DX: Z87.891 Personal history of nicotine dependence (principal)

== ENCOUNTER → 2020-12-07 | Outpatient (CLI) | payer BC ==
[2020-12-07 13:21] LABS: HEMATOCRIT 42.9 % (36.0-47.0); HEMOGLOBIN 13.4 g/dl (12.0-15.5); MEAN CORPUSCULAR HEMOGLOBIN 27.8 pg (27.0-33.0); MEAN CORPUSCULAR HGB CONC 31.2 g/dl (32.0-36.5); PLATELET COUNT, AUTOMATED 243 10^3/uL (150-450); RED BLOOD COUNT 4.82 10^6/uL (4.00-5.40); WHITE BLOOD COUNT 7.6 10^3/uL (4.0-10.0)
--- NOTE | 2020-12-12 12:41 | REP ---
INDICATION: MELENA *LABS 1ST, XRY 2ND*. COMPARISON: None. TECHNIQUE: Single supine view of the abdomen and pelvis. FINDINGS: The bowel gas pattern is nonspecific. Two small linear radiodense foreign bodies are identified 1 in the right upper quadrant and 1 within the pelvis which may be surgical clips related to prior cholecystectomy. No definite Sitz markers are identified. The bowel gas pattern is nonspecific although mild fecal stasis and possible constipation cannot be excluded. Skeletal structures are intact. IMPRESSION: Presumed prior cholecystectomy. No definite Sitz markers. Mild fecal stasis and possible constipation cannot be excluded. <Electronically signed by Jona Johnson > 12/12/20 [id number]
== END ==
LOC: M LAB 12:17
PROVIDERS: ATTEND Physician Assistant Medical
DX: K92.1 Melena (principal); R19.8 Other specified symptoms and signs involving the digestive system and abdomen; R14.0 Abdominal distension (gaseous)

== ENCOUNTER → 2020-12-14 | Outpatient (CLI) | payer BC ==
--- NOTE | 2020-12-14 15:58 | REP ---
INDICATION: M79.671 PAIN IN RIGHT FOOT, M79.672 PAIN IN LEFT COMPARISON: None. TECHNIQUE: AP, lateral, bilateral oblique views right and left foot. FINDINGS: The osseous structures and joint spaces are intact, symmetric and normal for age. Lateral view demonstrates small right calcaneal heel spur. There is no evidence for acute fracture or dislocation. Surrounding soft tissues are unremarkable. No subcutaneous emphysema or radiodense foreign body. IMPRESSION: Essentially age-related changes. Small right calcaneal heel spur. <Electronically signed by Jona Johnson > 12/14/20 [id number]
== END ==
LOC: M CLY 14:40
PROVIDERS: ATTEND Family Medicine
DX: M79.671 Pain in right foot (principal)

== ENCOUNTER → 2020-12-18 | Outpatient (REF) | payer BC | LOC: M LAB REF 13:23 | PROVIDERS: ATTEND Physician Assistant | DX: J44.1 Chronic obstructive pulmonary disease with (acute) exacerbation (principal) ==

== ENCOUNTER → 2021-04-02 | Outpatient (REF) | payer BC | LOC: M LAB REF 16:52 | PROVIDERS: ATTEND Internal Medicine Nephrology | DX: E83.42 Hypomagnesemia (principal) ==

== ENCOUNTER → 2021-04-12 | Outpatient (CLI) | payer BC | LOC: M LABSMTC 10:35 | PROVIDERS: ATTEND Anesthesiology | DX: Z20.828 Contact with and (suspected) exposure to other viral communicable diseases (principal); Z11.59 Encounter for screening for other viral diseases ==

== ENCOUNTER 2021-04-17 11:57 | Day surgery (SDC) | payer BC ==
[~2021-04-17] VITALS: Ht 157.5 cm; Wt 85.7 kg
[~2021-04-17 11:57] MED LIST changes: +NS 1,000 ML IV ONE
[2021-04-17] MEDS ORDERED: LIDOCAINE 2% 100MG/5ML SDV (FOR ANES.) As Ordered ONE (13:43)
[2021-04-17] MEDS ORDERED: propofoL 200 MG/20 ML VIAL As Ordered ONE ×2 (13:43→14:00)
[2021-04-17] MEDS ORDERED: fentaNYL 100 MCG/2 ML INJECTION (J3010) As Ordered ONE (13:44)
--- NOTE | 2021-04-17 14:39 | ROOR ---
Patient Name: Debbi Ramirez Procedure Date: 04/17/2021 2:09 PM Date of : 1965 Age: 55 Room: [facility] Gender: Female Note Status: Finalized Procedure: Upper GI endoscopy Indications: Epigastric abdominal pain, Heartburn Providers: Slade Quinonez MD Referring MD: OSKAR SHRESTHA DO Requesting Provider: Medicines: Monitored Anesthesia Care Complications: No immediate complications. Procedure: Pre-Anesthesia Assessment: - Prior to the procedure, a History and Physical was performed, and patient medications and allergies were reviewed. The patient is competent. The risks and benefits of the procedure and the sedation options and risks were discussed with the patient. All questions were answered and informed consent was obtained. Patient identification and proposed procedure were verified by the physician, the nurse and the anesthesiologist in the procedure room. Mental Status Examination: alert and oriented. Airway Examination: normal oropharyngeal airway and neck mobility. Respiratory Examination: clear to auscultation. CV Examination: normal. Prophylactic Antibiotics: The patient does not require prophylactic antibiotics. Prior Anticoagulants: The patient has taken no previous anticoagulant or antiplatelet agents. ASA Grade Assessment: II - A patient with mild systemic disease. After reviewing the risks and benefits, the patient was deemed in satisfactory condition to undergo the procedure. The anesthesia plan was to use monitored anesthesia care (MAC). Immediately prior to administration of medications, the patient was re-assessed for adequacy to receive sedatives. The heart rate, respiratory rate, oxygen saturations, blood pressure, adequacy of pulmonary ventilation, and response to care were monitored throughout the procedure. The physical status of the patient was re-assessed after the procedure. The Endoscope was introduced through the mouth, and advanced to the second part of duodenum. The upper GI endoscopy was accomplished without difficulty. The patient tolerated the procedure well. Findings: The examined esophagus was normal. The Z-line was regular and was found 41 cm from the incisors. The VILLARREAL capsule with delivery system was introduced through the mouth and advanced into the esophagus, such that the VILLARREAL pH capsule was positioned 35 cm from the incisors, which was 6 cm proximal to the GE junction. Suction was applied to the well of the VILLARREAL pH capsule to suck in the adjacent mucosa of the esophagus using the external vacuum pump set at a minimum vacuum pressure of 550 mmHg for 30 seconds. The VILLARREAL pH capsule was then deployed by depressing the plunger on top of the handle to advance the locking pin into the mucosa, thereby attaching the capsule to the esophagus. The plunger was then rotated a quarter turn clockwise to release the capsule from the delivery system. The delivery system was then withdrawn. Endoscopy was utilized for probe placement and diagnostic evaluation. The scope was reinserted to evaluate placement of the VILLARREAL capsule. Visualization showed the VILLARREAL capsule to be in an appropriate position. Scattered mild inflammation characterized by erythema and granularity was found in the gastric antrum. Biopsies were taken with a cold forceps for Helicobacter pylori testing. The duodenal bulb and second portion of the duodenum were normal. Impression: - Normal esophagus. - Z-line regular, 41 cm from the incisors. - Gastritis. Biopsied. - Normal duodenal bulb and second portion of the duodenum. - The VILLARREAL pH capsule was positioned 35 cm from the incisors, which was 6 cm proximal to the GE junction. Recommendation: - Patient has a contact number available for emergencies. The signs and symptoms of potential delayed complications were discussed with the patient. Return to normal activities tomorrow. Written discharge instructions were provided to the patient. - High fiber diet. - Continue present medications. - Follow an antireflux regimen. - Telephone GI clinic for study results in 2 weeks. - Return to GI clinic if persistent symptoms or new symptoms. - Return to primary care physician. Procedure Code(s): --- Professional --- 70013, Esophagogastroduodenoscopy, flexible, transoral; with biopsy, single or multiple Diagnosis Code(s): --- Professional --- K29.70, Gastritis, unspecified, without bleeding R10.13, Epigastric pain R12, Heartburn CPT copyright 2019 [employer]. All rights reserved. The codes documented in this report are preliminary and upon mechanical engineering specialist review may be revised to meet current compliance requirements. Slade Quinonez MD Slade Quinonez MD 04/17/2021 2:38:39 PM Electronically signed by Slade Quinonez MD Number of Addenda: 0 Note Initiated On: 04/17/2021 2:09 PM Estimated Blood Loss: Estimated blood loss was minimal.
[2021-04-17 14:56] VITALS: BP 132/72
== END 2021-04-17 14:54 | disposition home or self-care (01) ==
LOC: M OPP 11:57
PROVIDERS: ATTEND Internal Medicine Gastroenterology
DX: K29.70 Gastritis, unspecified, without bleeding (principal); R10.13 Epigastric pain; Z79.82 Long term (current) use of aspirin; Z79.899 Other long term (current) drug therapy; Z88.1 Allergy status to other antibiotic agents; Z88.2 Allergy status to sulfonamides; Z88.5 Allergy status to narcotic agent; Z88.8 Allergy status to other drugs, medicaments and biological substances; F17.210 Nicotine dependence, cigarettes, uncomplicated
CPT/HCPCS: 43239; J3010

== ENCOUNTER → 2021-05-21 | Outpatient (REF) | payer BC ==
[~2021-05-21] MED LIST changes: -NS 1,000 ML IV ONE
[2021-05-21 18:37] LABS: BASO # 0.1 10^3/uL (0.0-0.2); BASO % 0.7 % (0.0-1.0); EOS # 0.1 10^3/uL (0.0-0.5); EOS % 0.7 % (0.0-3.0); HEMATOCRIT 43.9 % (36.0-47.0); HEMOGLOBIN 13.1 g/dl (12.0-15.5); LYMPH # 1.3 10^3/uL (1.5-5.0); LYMPH % 8.8 % (24.0-44.0); MEAN CORPUSCULAR HEMOGLOBIN 27.3 pg (27.0-33.0); MEAN CORPUSCULAR HGB CONC 29.8 g/dl (32.0-36.5); MEAN CORPUSCULAR VOLUME 91.5 fl (80.0-96.0); MONO # 0.6 10^3/uL (0.0-0.8); MONO % 4.1 % (2.0-8.0); NEUTROPHILS # 12.8 10^3/uL (1.5-8.5); NEUTROPHILS % 83.7 % (36.0-66.0); PLATELET COUNT, AUTOMATED 239 10^3/uL (150-450); WHITE BLOOD COUNT 15.3 10^3/uL (4.0-10.0)
[2021-05-21 19:10] LABS: ALBUMIN 3.3 GM/DL (3.2-5.2); ALT/SGPT 21 U/L (12-78); BILIRUBIN,TOTAL 0.3 MG/DL (0.2-1.0); BLOOD UREA NITROGEN 19 MG/DL (7-18); CALCIUM LEVEL 9.1 MG/DL (8.5-10.1); CARBON DIOXIDE LEVEL 30 MEQ/L (21-32); CHLORIDE LEVEL 109 MEQ/L (98-107); GLOMERULAR FILTRATION RATE > 60.0 (>51); GLUCOSE, FASTING 107 MG/DL (70-100); POTASSIUM SERUM 4.1 MEQ/L (3.5-5.1); SODIUM LEVEL 142 MEQ/L (136-145); TOTAL PROTEIN 6.5 GM/DL (6.4-8.2)
== END ==
LOC: M SFHCCLAY 09:56
PROVIDERS: ATTEND Physician Assistant
DX: R19.7 Diarrhea, unspecified (principal)

== ENCOUNTER → 2021-06-04 | Outpatient (CLI) | payer BC ==
[~2021-06-04] MED LIST changes: +ISOVUE-370 76% 100ML VIAL ONE
--- NOTE | 2021-06-06 02:04 | REPVR ---
PROCEDURE INFORMATION: Exam: CT Angiography Neck With Contrast Exam date and time: 06/04/2021 2:07 PM Age: 55 years old Clinical indication: Other: Differing blood pressures; Prior surgery; Surgery date: 6+ months; Surgery type: Cervical; Additional info: Stricture of artery TECHNIQUE: Imaging protocol: Computed tomography angiography of the neck with contrast. 3D rendering (Not supervised by radiologist): MIP and/or 3D reconstructed images were created by the technologist. Radiation optimization: All CT scans at this facility use at least one of these dose optimization techniques: automated exposure control; mA and/or kV adjustment per patient size (includes targeted exams where dose is matched to clinical indication); or iterative reconstruction. Contrast material: ISOVUE 370; Contrast volume: 100 ml; Contrast route: INTRAVENOUS (IV); COMPARISON: MRI-Spine,Cervical without con 02/09/2016 4:18 PM FINDINGS: Right common carotid artery: No significant stenosis. No dissection or occlusion. Right internal carotid artery: Atherosclerotic plaques within the proximal extracranial right internal carotid artery cause approximately 50 % stenosis by NASCET criteria. Remaining portions of the extracranial right ICA are patent. Right external carotid artery: No occlusion or significant stenosis. Left common carotid artery: No significant stenosis. No dissection or occlusion. Left internal carotid artery: Atherosclerotic plaques involving the proximal extracranial left internal carotid artery without evidence of hemodynamically significant stenosis (0% stenosis by NASCET criteria). Left external carotid artery: No occlusion or significant stenosis. Right vertebral artery: No significant stenosis. No dissection or occlusion. Left vertebral artery: No significant stenosis. No dissection or occlusion. Soft tissues: Unremarkable. Bones/joints: No acute fracture. IMPRESSION: Approximately 50% stenosis of the proximal right ICA. REFERENCES: NASCET CRITERIA. The degree of internal carotid artery stenosis is based on NASCET criteria. Normal is no stenosis. Mild is less than 50% stenosis. Moderate is 50-69% stenosis. Severe is 70% to 99% stenosis. Total occlusion is no detectable patent lumen. Electronically signed by: Tony Cardozo On 06/06/2021 02:04:31 AM
== END ==
LOC: M PLAIMG 12:24
PROVIDERS: ATTEND Physician Assistant
DX: I77.1 Stricture of artery (principal)
CPT/HCPCS: 70498; Q9967

== ENCOUNTER → 2021-06-09 | Outpatient (CLI) | payer BC ==
[~2021-06-09] MED LIST changes: -ISOVUE-370 76% 100ML VIAL ONE
--- NOTE | 2021-06-09 09:49 | REP ---
INDICATION: DIARRHEA UNSPECIFIED COMPARISON: None. TECHNIQUE: Upright view of the chest with supine and upright views of the abdomen and pelvis. FINDINGS: Frontal upright view of the chest demonstrates no acute cardiopulmonary process or free air below the diaphragm to suspect pneumoperitoneum. Supine and upright views of the abdomen and pelvis demonstrate nonspecific bowel gas pattern without obstruction or perforation. Moderate fecal stasis is suggested. No organomegaly. No abnormal calcifications. Skeletal structures normal for age. IMPRESSION: Moderate fecal stasis. No evidence for bowel obstruction or perforation. <Electronically signed by Jona Johnson > 06/09/21 [id number]
== END ==
LOC: M RAD 09:22
PROVIDERS: ATTEND Physician Assistant Medical
DX: R19.7 Diarrhea, unspecified (principal)

== ENCOUNTER → 2021-07-10 | Outpatient (CLI) | payer BC ==
[~2021-07-10] MED LIST changes: +ISOVUE-370 76% 100ML VIAL As Ordered ONE
== END ==
LOC: M RAD 07:36
PROVIDERS: ATTEND Physician Assistant
DX: I77.1 Stricture of artery (principal)
CPT/HCPCS: 73206; Q9967

== ENCOUNTER → 2021-09-06 | Outpatient (REF) | payer BC ==
[~2021-09-06] MED LIST changes: -DICY20TA11 PO; +DICY20TA20 PO; -ISOVUE-370 76% 100ML VIAL As Ordered ONE
== END ==
LOC: M LAB REF 12:53
PROVIDERS: ATTEND Internal Medicine Pulmonary Disease
DX: J44.1 Chronic obstructive pulmonary disease with (acute) exacerbation (principal)

== ENCOUNTER → 2021-10-11 | Outpatient (REF) | payer BC | LOC: M LAB REF 12:47 | PROVIDERS: ATTEND Nurse Practitioner Family | DX: E83.42 Hypomagnesemia (principal) ==

== ENCOUNTER → 2021-11-02 | Outpatient (CLI) | payer BC ==
[2021-11-02 16:27] LABS: FREE T4 0.88 NG/DL (0.76-1.46); RHEUMATOID FACTOR QUANT < 10.0 IU/ML (<15.0)
[2021-11-02 16:28] LABS: VITAMIN B12 LEVEL 869 PG/ML
[2021-11-02 16:38] LABS: FOLATE 9.1 NG/ML
== END ==
LOC: M LAB 14:38
PROVIDERS: ATTEND Psychiatry & Neurology Neurology
DX: R25.1 Tremor, unspecified (principal)

== ENCOUNTER → 2021-11-08 | Outpatient (CLI) | payer BC | LOC: M RAD 13:27 | PROVIDERS: ATTEND Internal Medicine Pulmonary Disease | DX: Z12.2 Encounter for screening for malignant neoplasm of respiratory organs (principal); F17.210 Nicotine dependence, cigarettes, uncomplicated ==

== ENCOUNTER → 2021-12-19 | Outpatient (CLI) | payer BC | LOC: M PLAIMG 08:47 | PROVIDERS: ATTEND Otolaryngology | DX: J32.9 Chronic sinusitis, unspecified (principal) ==

== ENCOUNTER → 2021-12-27 | Outpatient (CLI) | payer BC | LOC: M PLAIMG 06:49 | PROVIDERS: ATTEND Nurse Practitioner Family | DX: M54.16 Radiculopathy, lumbar region (principal); M43.16 Spondylolisthesis, lumbar region ==

== ENCOUNTER → 2021-12-31 | Outpatient (CLI) | payer BC | LOC: M LABSMTC 09:58 | PROVIDERS: ATTEND Neurological Surgery | DX: Z01.818 Encounter for other preprocedural examination (principal); Z11.52 Encounter for screening for COVID-19; G95.9 Disease of spinal cord, unspecified ==

== ENCOUNTER → 2022-01-18 | Outpatient (CLI) | payer BC ==
[2022-01-18 13:37] LABS: ALBUMIN 3.5 GM/DL (3.2-5.2); ALT/SGPT 25 U/L (12-78); BILIRUBIN,TOTAL 0.2 MG/DL (0.2-1.0); BLOOD UREA NITROGEN 9 MG/DL (7-18); CALCIUM LEVEL 9.2 MG/DL (8.5-10.1); CARBON DIOXIDE LEVEL 32 MEQ/L (21-32); CHLORIDE LEVEL 107 MEQ/L (98-107); CHOLESTEROL LEVEL 147 MG/DL (<200); CHOLESTEROL RISK RATIO 2.534 (<5); CREATININE FOR GFR 0.86 MG/DL (0.55-1.30); GLOMERULAR FILTRATION RATE > 60.0 (>51); GLUCOSE, FASTING 98 MG/DL (70-100); HDL CHOLESTEROL 58 MG/DL (>40); LDL CHOLESTEROL 26 MG/DL (<100); NON-HDL-C 89 MG/DL; POTASSIUM SERUM 4.3 MEQ/L (3.5-5.1); SODIUM LEVEL 142 MEQ/L (136-145); TRIGLYCERIDES LEVEL 317 MG/DL (<150)
== END ==
LOC: M LAB 12:05
PROVIDERS: ATTEND Physician Assistant
DX: E78.00 Pure hypercholesterolemia, unspecified (principal)

== ENCOUNTER → 2022-02-20 | Outpatient (CLI) | payer BC ==
[~2022-02-20] MED LIST changes: +ALBU2.5V10 NEB; -ALBU83IN NEB
== END ==
LOC: M RAD 13:27
PROVIDERS: ATTEND Internal Medicine Nephrology
DX: R60.0 Localized edema (principal)

== ENCOUNTER → 2022-02-27 | Outpatient (CLI) | payer BC | LOC: M CLY 14:48 | PROVIDERS: ATTEND Nurse Practitioner Family | DX: R60.9 Edema, unspecified (principal) ==

== ENCOUNTER → 2022-03-12 | Outpatient (CLI) | payer BC | LOC: M CARPUL 12:20 | PROVIDERS: ATTEND Nurse Practitioner Family | DX: R06.09 Other forms of dyspnea (principal) ==

== ENCOUNTER → 2022-04-08 | Outpatient (CLI) | payer BC ==
[~2022-04-08] MED LIST changes: +POTA-150 PO; -POTA10TA17 PO
== END ==
LOC: M SOG 08:58
PROVIDERS: ATTEND Physician Assistant
DX: M65.311 Trigger thumb, right thumb (principal)

== ENCOUNTER → 2022-04-11 | Outpatient (CLI) | payer BC | LOC: M RAD 07:53 | PROVIDERS: ATTEND Neurological Surgery | DX: G95.9 Disease of spinal cord, unspecified (principal); M25.78 Osteophyte, vertebrae; M48.02 Spinal stenosis, cervical region ==

== ENCOUNTER → 2022-05-03 | Outpatient (REF) | payer BC | LOC: M SFHCRHEU 09:48 | PROVIDERS: ATTEND Internal Medicine Rheumatology | DX: R76.8 Other specified abnormal immunological findings in serum (principal); I73.00 Raynaud's syndrome without gangrene; M35.00 Sjogren syndrome, unspecified; R60.1 Generalized edema; R11.0 Nausea; R79.82 Elevated C-reactive protein (CRP) ==

== ENCOUNTER → 2022-05-14 | Outpatient (CLI) | payer BC | LOC: M CARPUL 09:57 | PROVIDERS: ATTEND Internal Medicine Pulmonary Disease | DX: R06.00 Dyspnea, unspecified (principal) ==

== ENCOUNTER → 2022-05-14 | Outpatient (CLI) | payer BC | LOC: M RAD 10:09 | PROVIDERS: ATTEND Internal Medicine Pulmonary Disease | DX: R06.00 Dyspnea, unspecified (principal) ==

== ENCOUNTER → 2022-07-04 | Outpatient (CLI) | payer BC | LOC: M CLY 10:14 | PROVIDERS: ATTEND Physician Assistant | DX: S49.91XA Unspecified injury of right shoulder and upper arm, initial encounter (principal) ==

== ENCOUNTER → 2022-07-11 | Outpatient (CLI) | payer BC | LOC: M PLAIMG 11:36 | PROVIDERS: ATTEND Internal Medicine Pulmonary Disease | DX: J44.9 Chronic obstructive pulmonary disease, unspecified (principal) ==

== ENCOUNTER → 2022-10-14 | Outpatient (REF) | payer BC, MEDICARE ==
[~2022-10-14] MED LIST changes: +BOTO200I; +BUSP5TA; +CLON0.5T2 PO; +FIBE625T PO; +HYDR-3363 PO; +MOME50SP2 NARES; +MONT10TA97 PO; +NITR0.4S14 SL; +ONDA-84 PO; +PLEC3TAB PO; +POLY510P14 PO; +POTA-141 PO; +PREG200C PO; +PRIM50TA6 PO; +ROSU10TA6; +SUCR1ORA; +TIZA10TA PO; +TORS20TA2 PO; +VITA100093 PO
[2022-10-14 17:23] LABS: BASO # 0.1 10^3/uL (0.0-0.2); BASO % 1.2 % (0.0-1.0); EOS # 0.2 10^3/uL (0.0-0.5); EOS % 2.4 % (0.0-3.0); HEMATOCRIT 42.9 % (36.0-47.0); HEMOGLOBIN 12.9 g/dl (12.0-15.5); LYMPH # 2.2 10^3/uL (1.5-5.0); LYMPH % 25.5 % (24.0-44.0); MEAN CORPUSCULAR HEMOGLOBIN 27.2 pg (27.0-33.0); MEAN CORPUSCULAR HGB CONC 30.1 g/dl (32.0-36.5); MEAN CORPUSCULAR VOLUME 90.3 fl (80.0-96.0); MONO # 0.5 10^3/uL (0.0-0.8); MONO % 6.1 % (2.0-8.0); NEUTROPHILS # 5.4 10^3/uL (1.5-8.5); NEUTROPHILS % 64.3 % (36.0-66.0); PLATELET COUNT, AUTOMATED 241 10^3/uL (150-450); RED BLOOD COUNT 4.75 10^6/uL (4.00-5.40); WHITE BLOOD COUNT 8.4 10^3/uL (4.0-10.0)
[2022-10-14 17:26] LABS: APPEARANCE, URINE CLEAR (CLEAR); BACTERIA, URINE AUTO NEGATIVE (NEGATIVE); BILIRUBIN, URINE AUTO NEGATIVE (NEGATIVE); BLOOD, URINE BLOOD NEGATIVE (NEGATIVE); COLOR, URINE YELLOW (YELLOW); GLUCOSE, URINE (UA) AUTO NEGATIVE (NEGATIVE); KETONE, URINE AUTO NEGATIVE (NEGATIVE); LEUKOCYTE ESTERASE, URINE AUTO NEGATIVE (NEGATIVE); MUCUS, URINE SMALL (NEGATIVE); NITRITE, URINE AUTO NEGATIVE (NEGATIVE); PROTEIN, URINE AUTO 1+ mg/dL (NEGATIVE); RBC, URINE AUTO 0 /HPF (0-3); SQUAMOUS EPITHELIAL CELL UR AU 0 /HPF (0-6); UROBILINOGEN, URINE AUTO 0.2 mg/dL (0.0-2.0); WBC, URINE AUTO 0 /HPF (0-3)
[2022-10-14 17:28] LABS: ERYTHROCYTE SEDIMENTATION RATE 43 mm/hr (0-30)
[2022-10-14 17:57] LABS: ALBUMIN 3.6 G/DL (3.2-5.2); ALKALINE PHOSPHATASE 72 U/L (46-116); ALT/SGPT 17 U/L (7.0-40); AST/SGOT 12 U/L (<34); BILIRUBIN,TOTAL 0.2 MG/DL (0.3-1.2); BLOOD UREA NITROGEN 13 MG/DL (9-23); CARBON DIOXIDE LEVEL 34 MMOL/L (20-31); CHLORIDE LEVEL 104 MMOL/L (98-107); COMPLEMENT C3 177.3 MG/DL (90.0-170.0); COMPLEMENT C4 40.6 MG/DL (12-36); CREATININE,RANDOM URINE 164.5 MG/DL; GLOMERULAR FILTRATION RATE > 60.0 (>51); GLUCOSE, FASTING 98 MG/DL (60-100); POTASSIUM SERUM 4.2 MMOL/L (3.5-5.1); SODIUM LEVEL 142 MMOL/L (136-145); TOTAL PROTEIN 6.6 G/DL (5.7-8.2)
== END ==
LOC: M SFHCRHEU 11:38
PROVIDERS: ATTEND Internal Medicine Rheumatology
DX: R76.8 Other specified abnormal immunological findings in serum (principal); I73.00 Raynaud's syndrome without gangrene; M35.00 Sjogren syndrome, unspecified; R60.1 Generalized edema; R11.0 Nausea; R79.82 Elevated C-reactive protein (CRP)

== ENCOUNTER → 2022-11-13 | Outpatient (CLI) | payer MEDICARE | LOC: M PLAIMG 09:51 | PROVIDERS: ATTEND Physician Assistant | DX: R91.8 Other nonspecific abnormal finding of lung field (principal) ==

== ENCOUNTER → 2022-11-19 | Outpatient (REF) | payer MEDICARE, BC | LOC: M LAB REF 17:11 | PROVIDERS: ATTEND Internal Medicine Pulmonary Disease | DX: J44.9 Chronic obstructive pulmonary disease, unspecified (principal) ==

== ENCOUNTER → 2022-11-27 | Outpatient (REF) | payer MEDICARE ==
[2022-11-27 19:28] LABS: BLOOD UREA NITROGEN 15 MG/DL (9-23); CALCIUM LEVEL 8.9 MG/DL (8.5-10.1); CARBON DIOXIDE LEVEL 30 MMOL/L (20-31); CHLORIDE LEVEL 104 MMOL/L (98-107); CREATININE FOR GFR 0.87 MG/DL (0.55-1.30); GLOMERULAR FILTRATION RATE > 60.0 (>51); GLUCOSE, FASTING 90 MG/DL (60-100); MAGNESIUM LEVEL 1.9 MG/DL (1.8-2.4); POTASSIUM SERUM 5.2 MMOL/L (3.5-5.1); SODIUM LEVEL 141 MMOL/L (136-145)
== END ==
LOC: M SFHCCLAY 14:34
PROVIDERS: ATTEND Family Medicine
DX: E83.42 Hypomagnesemia (principal)

== ENCOUNTER → 2022-11-28 | Outpatient (REF) | payer MEDICARE | LOC: M SFHCCLAY 17:26 | PROVIDERS: ATTEND Family Medicine | DX: Z53.9 Procedure and treatment not carried out, unspecified reason (principal) ==

== ENCOUNTER → 2022-11-29 | Outpatient (REF) | payer MEDICARE | LOC: M SFHCCLAY 08:47 | PROVIDERS: ATTEND Family Medicine | DX: E87.5 Hyperkalemia (principal) ==

== ENCOUNTER → 2022-12-13 | Outpatient (CLI) | payer MEDICARE ==
[~2022-12-13] MED LIST changes: +E-Z-GAS II EFFERVESCENT PACKET (SODIUM BICARB./CITRIC ACID/SIMETHICONE) As Ordered ONE; +E-Z-HD 98% w/w 340GM SUSP BTL As Ordered ONE; +E-Z-PAQUE 96% w/w SUSP 176GM BTL As Ordered ONE; -ROSU10TA6; +ROSU10TA6 PO
== END ==
LOC: M RAD 08:18
PROVIDERS: ATTEND Internal Medicine Gastroenterology
DX: R19.7 Diarrhea, unspecified (principal)

== ENCOUNTER → 2022-12-19 | Outpatient (CLI) | payer MEDICARE ==
[~2022-12-19] MED LIST changes: -E-Z-GAS II EFFERVESCENT PACKET (SODIUM BICARB./CITRIC ACID/SIMETHICONE) As Ordered ONE; -E-Z-HD 98% w/w 340GM SUSP BTL As Ordered ONE; -E-Z-PAQUE 96% w/w SUSP 176GM BTL As Ordered ONE
== END ==
LOC: M CARPUL 13:01
PROVIDERS: ATTEND Internal Medicine Pulmonary Disease
DX: J44.9 Chronic obstructive pulmonary disease, unspecified (principal)

== ENCOUNTER 2022-12-20 06:08 | Day surgery (SDC) | payer MEDICARE ==
[~2022-12-20] VITALS: Ht 160 cm; Wt 91.2 kg
[2022-12-20] MEDS ORDERED: ONDANSETRON 4MG 2ML VIAL As Ordered ONE (06:54)
[2022-12-20] MEDS ORDERED: propofoL 200 MG/20 ML VIAL As Ordered ONE (06:54)
[2022-12-20] MEDS ORDERED: LIDOCAINE 2% 100MG/5ML SDV (FOR ANES.) As Ordered ONE (06:54)
[2022-12-20] MEDS ORDERED: MIDAZOLAM INJ 2MG/2ML VIAL As Ordered ONE (06:57)
[2022-12-20] MEDS ORDERED: fentaNYL 100 MCG/2 ML INJECTION As Ordered ONE (06:57)
[2022-12-20] MEDS ORDERED: BUPIVACAINE HCL 0.25% 30ML VIAL As Ordered ONE (07:36)
[2022-12-20] MEDS ORDERED: ACETAMINOPHEN 1000MG 100ML IV BAG As Ordered ONE (07:49)
[2022-12-20] MEDS ORDERED: POLYSPORIN TOPICAL OINTMENT 15GM As Ordered ONE (08:20)
[2022-12-20] MEDS ORDERED: ONDANSETRON 4MG 2ML VIAL IV PRN (08:30)
[2022-12-20] MEDS ORDERED: HYDROMORPHONE HCL 0.5 MG/ 0.5 ML SYRINGE IV PRN (08:30)
[2022-12-20] MEDS ORDERED: oxyCODONE 5MG TAB PO PRN (08:30)
[2022-12-20] MEDS ORDERED: fentaNYL 100 MCG/2 ML INJECTION IV PRN (08:30)
[2022-12-20] MEDS ORDERED: MEPERIDINE 25 MG/ML 1ML VIAL IV PRN (08:30)
[2022-12-20 09:40] VITALS: BP 144/70
== END 2022-12-20 10:39 | disposition home or self-care (01) ==
LOC: M SDC 06:08
PROVIDERS: ATTEND Orthopaedic Surgery Hand Surgery
DX: G56.01 Carpal tunnel syndrome, right upper limb (principal); M65.311 Trigger thumb, right thumb; I10 Essential (primary) hypertension; E78.5 Hyperlipidemia, unspecified; K58.8 Other irritable bowel syndrome; G47.33 Obstructive sleep apnea (adult) (pediatric); M79.7 Fibromyalgia; G43.909 Migraine, unspecified, not intractable, without status migrainosus; F41.9 Anxiety disorder, unspecified; Z79.82 Long term (current) use of aspirin; R60.0 Localized edema; D64.9 Anemia, unspecified; Z79.51 Long term (current) use of inhaled steroids; Z79.899 Other long term (current) drug therapy; Z86.73 Personal history of transient ischemic attack (TIA), and cerebral infarction without residual deficits; J44.9 Chronic obstructive pulmonary disease, unspecified; Z88.2 Allergy status to sulfonamides; Z88.5 Allergy status to narcotic agent; Z88.8 Allergy status to other drugs, medicaments and biological substances
CPT/HCPCS: 26055; 29848; J0131; J1100; J2250; J2405; J3010

== ENCOUNTER 2023-03-04 11:24 | Day surgery (SDC) | payer MEDICARE ==
[~2023-03-04] VITALS: Ht 157.5 cm; Wt 87.4 kg
[~2023-03-04 11:24] MED LIST changes: +BUSP5TA PO; +CIPROFLOXACIN 0.3% OPHTH OINTMENT As Ordered ONE; +[UNRECOGNIZED DRUG - OTHER] PO
[2023-03-04] MEDS ORDERED: PROPARACAINE 0.5% OPHTH SOL 15ML OU ONE (12:15)
[2023-03-04] MEDS ORDERED: LR 1,000 ML IV SCH (12:40)
[2023-03-04] MEDS ORDERED: propofoL 200 MG/20 ML VIAL As Ordered ONE ×2 (13:46→14:52)
[2023-03-04] MEDS ORDERED: MIDAZOLAM INJ 2MG/2ML VIAL As Ordered ONE (13:46)
[2023-03-04] MEDS ORDERED: fentaNYL 100 MCG/2 ML INJECTION As Ordered ONE (13:47)
[2023-03-04] MEDS ORDERED: LIDOCAINE 2% W/EPINEPHRINE 20ML VIAL **PRES FREE As Ordered ONE (14:05)
[2023-03-04] MEDS ORDERED: TETRACAINE 0.5% OPHTH SOLN 4ML As Ordered ONE (14:08)
[2023-03-04] MEDS ORDERED: SODIUM BICARBONATE 4.2% INJ 10ML SYRINGE As Ordered ONE (14:08)
[2023-03-04] MEDS ORDERED: LIDOCAINE 4% TOPICAL SOLN 50 ML BTL As Ordered ONE (14:08)
[2023-03-04] MEDS ORDERED: POVIDONE-IODINE 5% OPHTH PREP SOL 30ML As Ordered ONE (14:30)
[2023-03-04 15:27] VITALS: BP 116/56; TEMP 97.1; O2SAT 94
== END 2023-03-04 16:11 | disposition home or self-care (01) ==
LOC: M SDC 11:24
PROVIDERS: ATTEND Ophthalmology
DX: H02.403 Unspecified ptosis of bilateral eyelids (principal); I10 Essential (primary) hypertension; G47.30 Sleep apnea, unspecified; Z88.5 Allergy status to narcotic agent; Z88.8 Allergy status to other drugs, medicaments and biological substances; Z88.2 Allergy status to sulfonamides; Z79.82 Long term (current) use of aspirin; Z79.899 Other long term (current) drug therapy
CPT/HCPCS: 15822; 88305; J2250; J3010

== ENCOUNTER → 2023-05-01 | Outpatient (CLI) | payer MEDICARE ==
[~2023-05-01] MED LIST changes: -CIPROFLOXACIN 0.3% OPHTH OINTMENT As Ordered ONE; -PREG200C PO; +PREG200C2 PO
[2023-05-01 14:09] LABS: BASO # 0.1 10^3/uL (0.0-0.2); EOS # 0.2 10^3/uL (0.0-0.5); EOS % 2.2 % (0.0-3.0); HEMATOCRIT 41.7 % (36.0-47.0); LYMPH # 1.9 10^3/uL (1.5-5.0); LYMPH % 20.8 % (24.0-44.0); MEAN CORPUSCULAR HEMOGLOBIN 26.5 pg (27.0-33.0); MEAN CORPUSCULAR HGB CONC 31.2 g/dl (32.0-36.5); MEAN CORPUSCULAR VOLUME 85.1 fl (80.0-96.0); MONO # 0.6 10^3/uL (0.0-0.8); MONO % 6.5 % (2.0-8.0); NEUTROPHILS # 6.3 10^3/uL (1.5-8.5); NEUTROPHILS % 69.2 % (36.0-66.0); PLATELET COUNT, AUTOMATED 253 10^3/uL (150-450); WHITE BLOOD COUNT 9.1 10^3/uL (4.0-10.0)
== END ==
LOC: M RAD 13:21
PROVIDERS: ATTEND Internal Medicine Pulmonary Disease
DX: R05.9 Cough, unspecified (principal); J44.9 Chronic obstructive pulmonary disease, unspecified

== ENCOUNTER → 2023-05-02 | Outpatient (REF) | payer MEDICARE ==
[2023-05-02 14:42] LABS: BLOOD UREA NITROGEN 16 MG/DL (9-23); CREATININE FOR GFR 0.88 MG/DL (0.55-1.30); GLOMERULAR FILTRATION RATE > 60.0 (>51)
== END ==
LOC: M LAB REF 12:39
PROVIDERS: ATTEND Internal Medicine Pulmonary Disease
DX: R06.00 Dyspnea, unspecified (principal); R05.9 Cough, unspecified; J44.9 Chronic obstructive pulmonary disease, unspecified

== ENCOUNTER → 2023-05-05 | Outpatient (CLI) | payer MEDICARE ==
[2023-05-10 23:10] LABS: ACETYLCHOLINE RCPTOR BINDING A < 0.03 nmol/L (0.00-0.24); STRIATIONAL ANTIBODIES Negative (Neg:<1:100)
== END ==
LOC: M LAB 11:54
PROVIDERS: ATTEND Psychiatry & Neurology Neurology
DX: H02.409 Unspecified ptosis of unspecified eyelid (principal)

== ENCOUNTER → 2023-05-07 | Outpatient (CLI) | payer MEDICARE ==
[~2023-05-07] MED LIST changes: +ISOVUE-370 76% 100ML VIAL As Ordered ONE
== END ==
LOC: M RAD 16:23
PROVIDERS: ATTEND Internal Medicine Pulmonary Disease
DX: R09.02 Hypoxemia (principal); R06.00 Dyspnea, unspecified
CPT/HCPCS: 71275; Q9967

== ENCOUNTER 2023-06-02 08:39 | Day surgery (SDC) | payer MEDICARE ==
[~2023-06-02] VITALS: Ht 159.4 cm; Wt 88.0 kg
[~2023-06-02 08:39] MED LIST changes: +CALCCAP4 PO; +CALTTAB6 PO; +CARA1TAB6 PO; -ISOVUE-370 76% 100ML VIAL As Ordered ONE; +LUBI24CA PO
[2023-06-02] MEDS ORDERED: BACITRACIN OINTMENT 30GM TUBE As Ordered ONE (10:07)
[2023-06-02] MEDS ORDERED: SODIUM BICARBONATE 8.4% INJ 50MEQ 50ML VIAL As Ordered ONE (10:17)
[2023-06-02] MEDS ORDERED: LIDOCAINE W/EPINEPHRINE 1% 20ML VIAL As Ordered ONE (10:17)
[2023-06-02] MEDS ORDERED: SODIUM BICARBONATE 8.4% INJ 50MEQ 50ML VIAL XX ONE (10:30)
[2023-06-02] MEDS ORDERED: LIDOCAINE W/EPINEPHRINE 1% 20ML VIAL XX ONE (10:30)
[2023-06-02 11:37] VITALS: BP 100/54; TEMP 97.9; O2SAT 96
== END 2023-06-02 12:05 | disposition home or self-care (01) ==
LOC: M SDC 08:39
PROVIDERS: ATTEND Orthopaedic Surgery Hand Surgery
DX: M67.441 Ganglion, right hand (principal); I10 Essential (primary) hypertension; E78.00 Pure hypercholesterolemia, unspecified; G47.30 Sleep apnea, unspecified; Z79.899 Other long term (current) drug therapy; Z88.8 Allergy status to other drugs, medicaments and biological substances; Z88.2 Allergy status to sulfonamides; Z88.5 Allergy status to narcotic agent
CPT/HCPCS: 26160; 88305; J0665

== ENCOUNTER → 2023-11-11 | Outpatient (CLI) | payer MEDICARE ==
[~2023-11-11] MED LIST changes: +BARIUM SULFATE 700 MG TABLET (E-Z-DISK) As Ordered ONE; +E-Z-PAQUE 96% w/w SUSP 176GM BTL As Ordered ONE; +IRBE75TA11 PO; -IRBE75TA4 PO; +VARIBAR NECTAR 40% w/v 240ML SUSP BTL As Ordered ONE; +VARIBAR PUDDING 40% w/v 230ML TUBE As Ordered ONE
== END ==
LOC: M RAD 10:50
PROVIDERS: ATTEND Internal Medicine Gastroenterology
DX: R13.10 Dysphagia, unspecified (principal)

== ENCOUNTER → 2023-11-25 | Outpatient (REF) | payer MEDICARE ==
[~2023-11-25] MED LIST changes: -BARIUM SULFATE 700 MG TABLET (E-Z-DISK) As Ordered ONE; +DIPH1TAB81 PO; -DIPH2.5T15 PO; -E-Z-PAQUE 96% w/w SUSP 176GM BTL As Ordered ONE; -VARIBAR NECTAR 40% w/v 240ML SUSP BTL As Ordered ONE; -VARIBAR PUDDING 40% w/v 230ML TUBE As Ordered ONE
[2023-11-25 16:53] LABS: APPEARANCE, URINE CLOUDY (CLEAR); BACTERIA, URINE AUTO NEGATIVE (NEGATIVE); BILIRUBIN, URINE AUTO NEGATIVE (NEGATIVE); BLOOD, URINE BLOOD NEGATIVE (NEGATIVE); COLOR, URINE AMBER (YELLOW); GLUCOSE, URINE (UA) AUTO NEGATIVE (NEGATIVE); KETONE, URINE AUTO NEGATIVE (NEGATIVE); LEUKOCYTE ESTERASE, URINE AUTO NEGATIVE (NEGATIVE); MUCUS, URINE SMALL (NEGATIVE); NITRITE, URINE AUTO NEGATIVE (NEGATIVE); PROTEIN, URINE AUTO 1+ mg/dL (NEGATIVE); RBC, URINE AUTO 0 /HPF (0-3); SPECIFIC GRAVITY URINE AUTO 1.021 (1.002-1.035); SQUAMOUS EPITHELIAL CELL UR AU 4 /HPF (0-6); UROBILINOGEN, URINE AUTO 0.2 mg/dL (0.0-2.0); WBC, URINE AUTO 0 /HPF (0-3)
[2023-11-25 17:08] LABS: TOTAL PROTEIN,RANDOM URINE 27.3 MG/DL (0.0-14.0)
[2023-11-25 17:11] LABS: BASO # 0.1 10^3/uL (0.0-0.2); BASO % 0.9 % (0.0-1.0); EOS # 0.3 10^3/uL (0.0-0.5); EOS % 3.4 % (0.0-3.0); HEMATOCRIT 40.9 % (36.0-47.0); HEMOGLOBIN 12.5 g/dl (12.0-15.5); LYMPH # 1.7 10^3/uL (1.5-5.0); LYMPH % 21.7 % (24.0-44.0); MEAN CORPUSCULAR HEMOGLOBIN 26.6 pg (27.0-33.0); MEAN CORPUSCULAR HGB CONC 30.6 g/dl (32.0-36.5); MONO # 0.6 10^3/uL (0.0-0.8); MONO % 7.1 % (2.0-8.0); NEUTROPHILS # 5.3 10^3/uL (1.5-8.5); NEUTROPHILS % 66.5 % (36.0-66.0); PLATELET COUNT, AUTOMATED 212 10^3/uL (150-450)
[2023-11-25 17:13] LABS: CREATININE,RANDOM URINE 183.4 MG/DL
[2023-11-25 17:15] LABS: ALBUMIN 3.5 G/DL (3.2-5.2); ALKALINE PHOSPHATASE 75 U/L (46-116); ALT/SGPT 19 U/L (7.0-40); AST/SGOT 12 U/L (<34); BILIRUBIN,TOTAL 0.2 MG/DL (0.3-1.2); BLOOD UREA NITROGEN 16 MG/DL (9-23); CALCIUM LEVEL 9.5 MG/DL (8.3-10.6); CARBON DIOXIDE LEVEL 37 MMOL/L (20-31); CHLORIDE LEVEL 101 MMOL/L (98-107); COMPLEMENT C3 186.7 MG/DL (90.0-170.0); CREATININE FOR GFR 0.94 MG/DL (0.55-1.30); GLOMERULAR FILTRATION RATE > 60.0 (>45); GLUCOSE, FASTING 116 MG/DL (74-106); POTASSIUM SERUM 3.9 MMOL/L (3.5-5.1); SODIUM LEVEL 143 MMOL/L (136-145); TOTAL PROTEIN 6.7 G/DL (5.7-8.2)
[2023-11-25 17:16] LABS: COMPLEMENT C4 36.8 MG/DL (12-36)
[2023-11-25 17:26] LABS: ERYTHROCYTE SEDIMENTATION RATE 54 mm/hr (0-30)
[2023-11-28 07:08] LABS: ANTI DS-DNA AB Negative (Negative); COMPLEMENT TOTAL (CH50) > 60 U/mL (>41)
== END ==
LOC: M SFHCRHEU 11:03
PROVIDERS: ATTEND Internal Medicine Rheumatology
DX: R76.8 Other specified abnormal immunological findings in serum (principal); I73.00 Raynaud's syndrome without gangrene; M35.00 Sjogren syndrome, unspecified; R60.1 Generalized edema; R11.0 Nausea; R79.82 Elevated C-reactive protein (CRP)

== ENCOUNTER → 2024-02-06 | Outpatient (CLI) | payer MEDICARE ==
[~2024-02-06] MED LIST changes: -ROSU10TA6 PO; +ROSU10TA61 PO
== END ==
LOC: M SLEEP 20:00
PROVIDERS: ATTEND Internal Medicine Pulmonary Disease
DX: G47.33 Obstructive sleep apnea (adult) (pediatric) (principal)

== ENCOUNTER → 2024-03-17 | Outpatient (REF) | payer MEDICARE ==
[2024-03-17 16:54] LABS: BASO # 0.1 10^3/uL (0.0-0.2); BASO % 0.9 % (0.0-1.0); EOS # 0.1 10^3/uL (0.0-0.5); EOS % 1.4 % (0.0-3.0); HEMATOCRIT 38.6 % (36.0-47.0); HEMOGLOBIN 11.6 g/dl (12.0-15.5); LYMPH # 1.6 10^3/uL (1.5-5.0); LYMPH % 18.1 % (24.0-44.0); MEAN CORPUSCULAR HEMOGLOBIN 24.5 pg (27.0-33.0); MEAN CORPUSCULAR HGB CONC 30.1 g/dl (32.0-36.5); MEAN CORPUSCULAR VOLUME 81.6 fl (80.0-96.0); MONO # 0.7 10^3/uL (0.0-0.8); MONO % 8.2 % (2.0-8.0); NEUTROPHILS # 6.1 10^3/uL (1.5-8.5); PLATELET COUNT, AUTOMATED 212 10^3/uL (150-450); RED BLOOD COUNT 4.73 10^6/uL (4.00-5.40); WHITE BLOOD COUNT 8.6 10^3/uL (4.0-10.0)
[2024-03-17 17:10] LABS: ERYTHROCYTE SEDIMENTATION RATE 63 mm/hr (0-30)
[2024-03-17 17:17] LABS: C REACTIVE PROTEIN QUANTITATIV 1.8 MG/DL (<1.0)
[2024-03-17 17:19] LABS: ALBUMIN 3.6 G/DL (3.2-5.2); BILIRUBIN,TOTAL 0.2 MG/DL (0.3-1.2); CALCIUM LEVEL 9.5 MG/DL (8.3-10.6); CREATININE FOR GFR 1.03 MG/DL (0.55-1.30); GLOMERULAR FILTRATION RATE 58.2 (>45); POTASSIUM SERUM 4.5 MMOL/L (3.5-5.1); TOTAL PROTEIN 6.7 G/DL (5.7-8.2)
== END ==
LOC: M SFHCRHEU 12:54
PROVIDERS: ATTEND Internal Medicine Rheumatology
DX: R76.8 Other specified abnormal immunological findings in serum (principal); I73.00 Raynaud's syndrome without gangrene; M35.00 Sjogren syndrome, unspecified; R60.1 Generalized edema; R11.0 Nausea; R79.82 Elevated C-reactive protein (CRP)

== ENCOUNTER → 2024-04-02 | Outpatient (REF) | payer MEDICARE | LOC: M LAB REF 12:52 | PROVIDERS: ATTEND Internal Medicine Pulmonary Disease | DX: G47.33 Obstructive sleep apnea (adult) (pediatric) (principal) ==

== ENCOUNTER → 2024-04-08 | Outpatient (CLI) | payer MEDICARE | LOC: M PLAIMG 12:34 | PROVIDERS: ATTEND Internal Medicine Pulmonary Disease | DX: R04.2 Hemoptysis (principal) ==

== ENCOUNTER → 2024-04-12 | Outpatient (CLI) | payer MEDICARE | LOC: M PLAIMG 11:46 | PROVIDERS: ATTEND Neurological Surgery | DX: M54.16 Radiculopathy, lumbar region (principal); M47.816 Spondylosis without myelopathy or radiculopathy, lumbar region; M47.817 Spondylosis without myelopathy or radiculopathy, lumbosacral region ==

== ENCOUNTER → 2024-04-22 | Outpatient (REF) | payer MEDICARE ==
[2024-04-22 13:17] LABS: BASO # 0.1 10^3/uL (0.0-0.2); BASO % 0.6 % (0.0-1.0); EOS # 0.1 10^3/uL (0.0-0.5); EOS % 0.6 % (0.0-3.0); HEMATOCRIT 41.5 % (36.0-47.0); HEMOGLOBIN 12.9 g/dl (12.0-15.5); LYMPH # 1.1 10^3/uL (1.5-5.0); LYMPH % 8.5 % (24.0-44.0); MEAN CORPUSCULAR HEMOGLOBIN 25.5 pg (27.0-33.0); MEAN CORPUSCULAR HGB CONC 31.1 g/dl (32.0-36.5); MEAN CORPUSCULAR VOLUME 82.2 fl (80.0-96.0); MONO # 0.6 10^3/uL (0.0-0.8); MONO % 4.6 % (2.0-8.0); NEUTROPHILS # 10.5 10^3/uL (1.5-8.5); PLATELET COUNT, AUTOMATED 186 10^3/uL (150-450); RED BLOOD COUNT 5.05 10^6/uL (4.00-5.40); WHITE BLOOD COUNT 12.4 10^3/uL (4.0-10.0)
[2024-04-22 13:33] LABS: ERYTHROCYTE SEDIMENTATION RATE 27 mm/hr (0-30)
[2024-04-22 13:51] LABS: C REACTIVE PROTEIN QUANTITATIV 1.1 MG/DL (<1.0)
[2024-04-22 13:52] LABS: ALBUMIN 3.9 G/DL (3.2-5.2); BILIRUBIN,TOTAL 0.3 MG/DL (0.3-1.2); CALCIUM LEVEL 9.4 MG/DL (8.3-10.6); CREATININE FOR GFR 1.18 MG/DL (0.55-1.30); GLOMERULAR FILTRATION RATE 49.7 (>45); POTASSIUM SERUM 4.5 MMOL/L (3.5-5.1); TOTAL PROTEIN 7.1 G/DL (5.7-8.2)
== END ==
LOC: M SFHCRHEU 09:39
PROVIDERS: ATTEND Internal Medicine Rheumatology
DX: R76.8 Other specified abnormal immunological findings in serum (principal); E61.1 Iron deficiency

== ENCOUNTER → 2024-04-22 | Outpatient (CLI) | payer MEDICARE | LOC: M RAD 08:34 | PROVIDERS: ATTEND Family Medicine | DX: R53.1 Weakness (principal); N20.0 Calculus of kidney ==

== ENCOUNTER → 2024-06-29 | Outpatient (REF) | payer MEDICARE ==
[2024-06-29 12:48] LABS: HEMATOCRIT 42.1 % (36.0-47.0); HEMOGLOBIN 13.4 g/dl (12.0-15.5); MEAN CORPUSCULAR HEMOGLOBIN 27.3 pg (27.0-33.0); MEAN CORPUSCULAR HGB CONC 31.8 g/dl (32.0-36.5); MEAN CORPUSCULAR VOLUME 85.9 fl (80.0-96.0); PLATELET COUNT, AUTOMATED 190 10^3/uL (150-450); WHITE BLOOD COUNT 6.3 10^3/uL (4.0-10.0)
[2024-06-29 12:53] LABS: ERYTHROCYTE SEDIMENTATION RATE 39 mm/hr (0-30)
[2024-06-29 13:20] LABS: C REACTIVE PROTEIN QUANTITATIV 1.7 MG/DL (<1.0)
[2024-06-29 13:22] LABS: ALBUMIN 3.6 G/DL (3.2-5.2); BILIRUBIN,TOTAL 0.3 MG/DL (0.3-1.2); CALCIUM LEVEL 9.5 MG/DL (8.3-10.6); CREATININE FOR GFR 1.22 MG/DL (0.55-1.30); GLOMERULAR FILTRATION RATE 47.9 (>45); POTASSIUM SERUM 4.1 MMOL/L (3.5-5.1); TOTAL PROTEIN 7.1 G/DL (5.7-8.2)
== END ==
LOC: M SFHCRHEU 10:30
PROVIDERS: ATTEND Internal Medicine Rheumatology
DX: M19.90 Unspecified osteoarthritis, unspecified site (principal); Z79.899 Other long term (current) drug therapy

== ENCOUNTER → 2024-09-30 | Outpatient (CLI) | payer MEDICARE | LOC: M CARPUL 15:24 | PROVIDERS: ATTEND Physician Assistant | DX: I35.8 Other nonrheumatic aortic valve disorders (principal); R06.02 Shortness of breath ==

== ENCOUNTER → 2024-11-29 | Outpatient (CLI) | payer MEDICARE | LOC: M RAD 09:27 | PROVIDERS: ATTEND Physician Assistant | DX: I65.23 Occlusion and stenosis of bilateral carotid arteries (principal) ==

== ENCOUNTER → 2024-12-15 | Outpatient (CLI) | payer MEDICARE ==
[2024-12-15 10:38] LABS: BASO # 0.1 10^3/uL (0.0-0.2); BASO % 1.1 % (0.0-1.0); EOS # 0.2 10^3/uL (0.0-0.5); EOS % 3.1 % (0.0-3.0); HEMATOCRIT 40.3 % (36.0-47.0); HEMOGLOBIN 12.5 g/dl (12.0-15.5); LYMPH # 1.3 10^3/uL (1.5-5.0); LYMPH % 17.2 % (24.0-44.0); MEAN CORPUSCULAR HEMOGLOBIN 27.4 pg (27.0-33.0); MEAN CORPUSCULAR VOLUME 88.4 fl (80.0-96.0); MONO # 0.5 10^3/uL (0.0-0.8); MONO % 7.4 % (2.0-8.0); NEUTROPHILS # 5.2 10^3/uL (1.5-8.5); NEUTROPHILS % 70.7 % (36.0-66.0); PLATELET COUNT, AUTOMATED 191 10^3/uL (150-450); RED BLOOD COUNT 4.56 10^6/uL (4.00-5.40); WHITE BLOOD COUNT 7.3 10^3/uL (4.0-10.0)
[2024-12-15 11:02] LABS: ALBUMIN 3.4 G/DL (3.2-5.2); ALKALINE PHOSPHATASE 72 U/L (35-104); ALT/SGPT 12 U/L (7.0-40); AST/SGOT 11 U/L (<34); BILIRUBIN,TOTAL < 0.2 MG/DL (0.3-1.2); BLOOD UREA NITROGEN 16 MG/DL (9-23); CALCIUM LEVEL 8.6 MG/DL (8.3-10.6); CARBON DIOXIDE LEVEL 37 MMOL/L (20-31); CHLORIDE LEVEL 102 MMOL/L (98-107); CREATININE FOR GFR 0.97 MG/DL (0.55-1.30); GLOMERULAR FILTRATION RATE 66.5 (>45); GLUCOSE, FASTING 101 MG/DL (74-106); POTASSIUM SERUM 4.6 MMOL/L (3.5-5.1); SODIUM LEVEL 143 MMOL/L (136-145); TOTAL PROTEIN 6.5 G/DL (5.7-8.2)
== END ==
LOC: M LAB 10:00
PROVIDERS: ATTEND Psychiatry & Neurology Neurology
DX: G40.89 Other seizures (principal)

== ENCOUNTER → 2025-03-21 | Outpatient (CLI) | payer MEDICARE ==
[~2025-03-21] MED LIST changes: -PREG50CA PO; +PREG50CA87 PO
== END ==
LOC: M SOG 07:55
PROVIDERS: ATTEND Physician Assistant
DX: M20.62 Acquired deformities of toe(s), unspecified, left foot (principal)

== ENCOUNTER → 2025-04-01 | Outpatient (CLI) | payer MEDICARE | LOC: M SOG 06:52 | PROVIDERS: ATTEND Orthopaedic Surgery | DX: M77.31 Calcaneal spur, right foot (principal) ==

== ENCOUNTER → 2025-05-02 | Outpatient (CLI) | payer MEDICARE | LOC: M SOG 08:10 | PROVIDERS: ATTEND Orthopaedic Surgery | DX: S92.412D Displaced fracture of proximal phalanx of left great toe, subsequent encounter for fracture with routine healing (principal) ==

== ENCOUNTER → 2025-05-25 | Outpatient (CLI) | payer MEDICARE ==
[2025-05-25 12:14] LABS: ALT/SGPT 203.0 U/L (7.0-40); AST/SGOT 205.0 U/L (<34); CHOLESTEROL LEVEL 129.0 MG/DL (<200); CHOLESTEROL RISK RATIO 2.27 (<5); LDL CHOLESTEROL 41.9 MG/DL (<100); NON-HDL-C 72.3 MG/DL; TRIGLYCERIDES LEVEL 152.0 MG/DL (<150)
== END ==
LOC: M LAB 09:51
PROVIDERS: ATTEND Physician Assistant
DX: E78.00 Pure hypercholesterolemia, unspecified (principal); M85.89 Other specified disorders of bone density and structure, multiple sites

== ENCOUNTER → 2025-05-25 | Outpatient (CLI) | payer MEDICARE ==
[2025-05-25 12:15] LABS: CALCIUM LEVEL 8.4 MG/DL (8.3-10.6); CARBON DIOXIDE LEVEL 34.0 MMOL/L (20-31); CHLORIDE LEVEL 101.0 MMOL/L (98-107); CREATININE FOR GFR 1.13 MG/DL (0.55-1.30); GLOMERULAR FILTRATION RATE 55.4 (>45); POTASSIUM SERUM 4.2 MMOL/L (3.5-5.1); SODIUM LEVEL 138.0 MMOL/L (136-145)
[2025-05-25 12:16] LABS: TOTAL 25(OH) VITAMIN D 49.9 NG/ML (20.0-100.0)
== END ==
LOC: M LAB 09:49
PROVIDERS: ATTEND Nurse Practitioner Family
DX: M85.89 Other specified disorders of bone density and structure, multiple sites (principal)

== ENCOUNTER → 2025-06-02 | Outpatient (CLI) | payer MEDICARE | LOC: M CLY 14:04 | PROVIDERS: ATTEND Family Medicine | DX: R07.9 Chest pain, unspecified (principal); Z53.9 Procedure and treatment not carried out, unspecified reason ==

== ENCOUNTER → 2025-06-02 | Outpatient (CLI) | payer MEDICARE | LOC: M CLY 14:12 | PROVIDERS: ATTEND Family Medicine | DX: R07.9 Chest pain, unspecified (principal) ==

== ENCOUNTER → 2025-06-06 | Outpatient (CLI) | payer MEDICARE ==
[~2025-06-06] MED LIST changes: +PROHANCE 279.3MG/ML 15ML VIAL ONE; +PROHANCE 279.3MG/ML 5ML VIAL ONE
== END ==
LOC: M PLAIMG 10:10
PROVIDERS: ATTEND Pain Medicine Interventional Pain Medicine
DX: M96.1 Postlaminectomy syndrome, not elsewhere classified (principal)
CPT/HCPCS: 72156; 72158; A9576